=== PATIENT | female | born 1985 | race Caucasian/White ===

== ENCOUNTER → 2017-03-04 | Outpatient (CLI) | payer BC ==
--- NOTE | 2017-03-04 15:08 | MR ---
EXAMINATION TYPE: MR Cspine/Tspine wo con DATE OF EXAM: 03/04/2017 11:29 AM COMPARISON: 02/06/2016 HISTORY: 31 year-old female with thoracic spine pain, cervical spine disc disorder, tingling and numb ness for 2 months. TECHNIQUE: Multiplanar, multisequence images of the cervical followed by the thoracic spine were obta ined without IV contrast. FINDINGS: CERVICAL SPINE: No craniocervical junction abnormality, predental space widening, or prevertebral soft tissue swellin g. There is reversal of the normal cervical lordosis but with preserved alignment. There is interval mild desiccation of intervertebral discs, mild to moderate at C5-C6. Posterior disc bulges at C4-C5 and C5-C6 are redemonstrated narrowing the spinal canal. Scattered facet and uncovertebral joint degenerative change. No suspicious bone marrow placement. At C2-C3, no spinal canal or neural foraminal stenosis. At C3-C4, there is right-sided uncovertebral joint arthropathy with mild right neuroforaminal stenosi s without spinal canal stenosis. At C4-C5, there is broad-based posterior disc bulge slightly eccentric towards the right with uncover tebral joint and facet degenerative change. This causes mild to moderate spinal canal stenosis, sligh tly improved from prior exam but with persistent mass effect and flattening of the ventral cord. No s ignificant neuroforaminal stenosis. At C5-C6, broad-based disc osteophyte complex with persistent moderate spinal canal stenosis though s lightly improved from prior exam. There is persistent slight flattening of the ventral cord. Uncovert ebral joint and facet degenerative change without significant neural foraminal stenosis. At C6-C7, no significant spinal canal or neural foraminal stenosis. At C7-T1, no spinal canal or neuroforaminal stenosis. No prevertebral or paravertebral soft tissue abnormality. No T2 cord signal abnormality. THORACIC SPINE: Vertebral body heights are preserved and alignment is maintained. Mild degenerative disc disease characterized by variable mild disc desiccation in the mid to lower th oracic spine. More moderate disc desiccation at T6-C7 with minimal disc height loss. Scattered endplate Schmorl's nodes in the lower thoracic spine. At T3-T4, tiny right paracentral protrusion without spinal canal stenosis. At T6-C7, tiny right paracentral protrusion without significant spinal canal stenosis. At T8-T9, there is a prominent right paracentral disc protrusion which abuts and minimally indents th e ventral cord but does not cause significant spinal canal stenosis. At T11-T12, mild diffuse disc bulge minimally narrowing the spinal canal. No significant spinal canal cirrhosis. No significant neuroforaminal narrowing seen at any level. Normal course, caliber, and signal intensity of the thoracic spinal cord. No prevertebral or paravertebral soft tissue abnormality. No suspicious bone marrow replacement. COMBINED IMPRESSION: CERVICAL SPINE: 1. Degenerative disc disease particularly at C4-C5 and C5-C6. Additional scattered mild facet and unc overtebral joint arthropathy. 2. Persistent but slightly improved moderate spinal canal stenosis at C5-C6. Disc material continues to abut and flatten the ventral cord. 3. Improved now residual mild to moderate spinal canal stenosis at C4-C5. Disc material continues to abut and flatten the ventral cord at this level. 4. No myelopathic cord signal abnormality. 5. Changes result in mild right-sided neuroforaminal stenosis at C3-C4. THORACIC SPINE: 1. Mild multilevel degenerative disc disease involving the lower thoracic spine. 2. Small disc protrusions are present. The largest at T8-T9 is in a right paracentral position and mi nimally indents the ventral cord but does not cause any significant spinal canal stenosis. 3. Disc bulge at T11-T12 impresses onto the thecal sac, but again, without significant spinal canal stenosis. 4. No foraminal compromise.
== END | disposition home or self-care (01) ==
LOC: RADMRIMAIN 10:37
PROVIDERS: ATTEND Psychiatry & Neurology Neurology
DX: M48.02 Spinal stenosis, cervical region (principal); M99.71 Connective tissue and disc stenosis of intervertebral foramina of cervical region; M50.321 Other cervical disc degeneration at C4-C5 level; M46.92 Unspecified inflammatory spondylopathy, cervical region; M51.24 Other intervertebral disc displacement, thoracic region; M51.34 Other intervertebral disc degeneration, thoracic region
CPT/HCPCS: 72141; 72146

== ENCOUNTER → 2017-03-17 | Outpatient (CLI) | payer BC ==
[2017-03-17 14:45] LABS: CH 26.1; HCT 39.4 % (34.0-46.0); HDW 2.87; HGB 12.9 gm/dL (11.4-16.0); Hypochromasia Slight; MCH 26.8 pg (25.0-35.0); MCHC 32.8 g/dL (31.0-37.0); MCV 81.8 fL (80.0-100.0); Mean Platelet Volume 7.9; RBC 4.82 m/uL (3.80-5.40); RDW 13.9 % (11.5-15.5); WBC 5.4 k/uL (3.8-10.6)
[2017-03-17 14:54] LABS: Anion Gap 9 mmol/L; Blood Urea Nitrogen 10 mg/dL (7-17); Carbon Dioxide 29 mmol/L (22-30); Chloride 103 mmol/L (98-107); Non-African American GFR(MDRD) >60 (>60 ml/min/1.73 sqM); Potassium 4.4 mmol/L (3.5-5.1); Sodium 141 mmol/L (137-145)
== END | disposition home or self-care (01) ==
LOC: LABWHC1 14:13
PROVIDERS: ATTEND Internal Medicine Interventional Cardiology
DX: R07.9 Chest pain, unspecified (principal)
CPT/HCPCS: 36415; 80051; 82565; 84520; 85027

== ENCOUNTER 2017-03-20 23:16 | Emergency (ER) | payer BC ==
[2017-03-20 23:28] VITALS: RESP 18
[2017-03-21] MEDS ORDERED: ACETAMINOPHEN TAB 500 MG TAB PO STA (00:29)
--- NOTE | 2017-03-21 01:17 | XR ---
EXAM: XR Chest, 2 Views CLINICAL HISTORY: Reason: cough TECHNIQUE: Frontal and lateral views of the chest. COMPARISON: FINDINGS: Lungs: Unremarkable. No consolidation. Pleural space: Unremarkable. No pneumothorax. Heart: Unremarkable. No cardiomegaly. Mediastinum: Unremarkable. Bones/joints: Unremarkable. IMPRESSION: No acute findings or substantial change
[2017-03-21 02:23] LABS: Appearance,Urine Clear (Clear); Bilirubin,Urine Negative (Negative); Glucose,Urine (UA) Negative (Negative); Ketones,Urine Negative (Negative); Leukocyte Esterase,Urine Negative (Negative); Nitrite,Urine Negative (Negative); PH, Urine 6.5 (5.0-8.0); Protein,Urine Trace (Negative); Specific Gravity,Urine 1.019 (1.001-1.035); UA Billing (MACRO vs. MICRO) CHEM; Urobilinogen,Urine <2.0 mg/dL (<2.0)
--- NOTE | 2017-03-21 02:23 | ED ---
General Adult HPI - General Chief complaint: Headache Stated complaint: Headache/Stiff neck Time Seen by Provider: 03/21/17 00:26 Source: patient, RN notes reviewed Mode of arrival: ambulatory Limitations: no limitations - History of Present Illness Initial comments: 31-year-old female presents to the emergency department with a chief complaint of muscle soreness feeling of weakness with fevers. Patient states she's been feeling this way for the past few days. Patient states she became very stiff tonight she developed a mild headache with this so she was concerned. Patient states that she has been taking Motrin and naproxen at home which has given her some improvement to the fever but she still has a muscle soreness. Patient states that she was concerned due to continuing to feel like this so she thought that she should be evaluated. Patient states she is not currently having any other symptoms at this time.Patient denies any recentshortness of breath, chest pain, back pain, abdominal pain, nausea vomiting, numbness or tingling, dysuria or hematuria, constipation or diarrhea, headaches or visual changes, or any other current symptoms. - Related Data Home Medications Medication Instructions Recorded Confirmed ALPRAZolam [Xanax] 0.5 mg PO DAILY 03/17/17 03/17/17 Biotin 5 mg PO DAILY 03/17/17 03/17/17 FLUoxetine HCL [PROzac] 40 mg PO DAILY 03/17/17 03/17/17 Ferrous Sulfate [Iron (65 MG 325 mg PO DAILY 03/17/17 03/17/17 Elemental)] Naproxen Sodium [Aleve] 220 mg PO DAILY PRN 03/17/17 03/17/17 Pnv with Ca,No.72/Iron/FA 1 each PO DAILY 03/17/17 03/17/17 [ Plus Tablet] Allergies Allergy/AdvReac Type Severity Reaction Status Date / Time Penicillins Allergy Rash/Hives Verified 03/20/17 23:28 epinephrine AdvReac Rapid Verified 03/20/17 23:28 Heart Rate Review of Systems ROS Statement: Those systems with pertinent positive or pertinent negative responses have been documented in the HPI. ROS Other: All systems not noted in ROS Statement are negative. 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 History of Any Multi-Drug Resistant Organisms: None Reported Past Surgical History: Section, Tubal Ligation Additional Past Surgical History / Comment(s): liver bx Past Anesthesia/Blood Transfusion Reactions: No Reported Reaction Past Psychological History: Anxiety Smoking Status: Former smoker Past Alcohol Use History: None Reported Additional Past Alcohol Use History / Comment(s): QUIT SMOKING 09/2013 Past Drug Use History: None Reported - Past Family History Father Family Medical History: Coronary Artery Disease (CAD), Diabetes Mellitus General Exam - General Exam Comments Initial Comments: General exam: Alert, active, comfortable in no apparent distress Head: Normocephalic Eyes: Normal reaction of pupils, equal size, normal range of extraocular motion Ears: normal external ear canals, pink tympanic membranes with normal cone of light Nose: clear with pink turbinates Throat: no erythema or exudates with normal sized tonsils Neck: no masses, no nuchal rigidity Chest: no chest wall deformity Lungs: equal air entry with no crackles or wheeze CVS: S1 and S2 normal with no audible mumurs, regular rhythm Abdomen: no hepatosplenomegaly, normal bowel sounds, no guarding or rigidity Spine: no scoliosis or deformity Skin: no rashes Neurological: No focal deficits, tone is normal in all 4 extremities Limitations: no limitations Course Vital Signs 03/20/17 23:25 Temperature 98.2 F Pulse Rate 80 Respiratory 18 Rate Blood Pressure 135/83 O2 Sat by Pulse 97 Oximetry - Reevaluation(s) Reevaluation #1: 03/21/17 03:06 Patient is sleeping in the room and states she is feeling much better. Medical Decision Making - Medical Decision Making 31-year-old female presents emergency Department chief complaint of body aches. At this time patient's workup does appear to be negative. Patient's vital signs have remained stable. Patient has diffuse body soreness including the head and neck shoulders and legs back. This time we discussed patient most likely having a viral like syndrome. We discussed to continue Motrin Tylenol. We did discuss return parameters and follow-up and all the patient's questions. She stated that she understood this plan. At this time she will be discharged home. - Lab Data Lab Results 03/21/17 03/21/17 03/21/17 Range/Units 00:40 00:40 00:40 Urine Color Yellow Urine Appearance Clear (Clear) Urine pH 6.5 (5.0-8.0) Ur Specific [place] 1.019 (1.001-1.035) Urine Protein Trace H (Negative) Urine Glucose (UA) Negative (Negative) Urine Ketones Negative (Negative) Urine Blood Negative (Negative) Urine Nitrite Negative (Negative) Urine Bilirubin Negative (Negative) Urine Urobilinogen <2.0 (<2.0) mg/dL Ur Leukocyte Esterase Negative (Negative) Influenza Type A RNA Not Detected (Not Detectd) Influenza Type B (PCR) Not Detected (Not Detectd) Group A Strep Rapid Negative (Negative) - Radiology Data Radiology results: report reviewed, image reviewed Disposition Clinical Impression: Viral syndrome Disposition: HOME SELF-CARE Condition: Stable Instructions: Viral Syndrome (ED) Additional Instructions: Please use medication as discussed. Please follow up with family doctor if symptoms have not improved over the next two days. Please return to the emergency room if your symptoms increase or worsen or for any other concerns. Referrals: Stephen Nieves III, MD [Primary Care Provider] - 1-2 days Time of Disposition: 03:06
[2017-03-21 03:16] VITALS: BP 118/53; PULSE 98; TEMP 97.7
== END 2017-03-21 03:14 | disposition home or self-care (01) ==
LOC: EC 23:16
DX: B34.9 Viral infection, unspecified (principal); F41.9 Anxiety disorder, unspecified; Z87.891 Personal history of nicotine dependence; Z79.899 Other long term (current) drug therapy; Z88.0 Allergy status to penicillin; Z88.8 Allergy status to other drugs, medicaments and biological substances; Z87.19 Personal history of other diseases of the digestive system
CPT/HCPCS: 71020; 81003; 87081; 87430; 87502; 99284

== ENCOUNTER 2017-03-30 10:40 | Day surgery (SDC) | payer BC ==
[2017-03-27 08:30] VITALS: BMI 42.0
[~2017-03-30 10:40] MED LIST: ALPRAZolam 0.25 MG TAB PO PRN; ALPRAZolam 0.5 MG TAB PO PRN; ASPIRIN 325 MG TAB PO STA; ATORVASTATIN 80 MG TAB PO STA; NITROGLYCERIN SL TABS 0.4 MG TAB SUBLINGUAL PRN; SODIUM CHLORIDE 0.9% 1,000 ML in EMPTY BAG 1 BAG IV ONE
[2017-03-30 11:17] VITALS: RESP 16
[2017-03-30 11:22] LABS: Appearance,Urine Cloudy (Clear); Bilirubin,Urine Negative (Negative); Glucose,Urine (UA) Negative (Negative); Ketones,Urine Negative (Negative); Leukocyte Esterase,Urine Moderate (Negative); Mucus,Urine Occasional /hpf; Nitrite,Urine Negative (Negative); PH, Urine 5.5 (5.0-8.0); Particle Count 11260; Protein,Urine Trace (Negative); RBC,Urine 1 /hpf (0-5); Specific Gravity,Urine 1.017 (1.001-1.035); Squamous Epithelial Cell,Urine 19 /hpf (0-4); UA Billing (MACRO vs. MICRO) MICRO; Urobilinogen,Urine <2.0 mg/dL (<2.0); WBC,Urine 16 /hpf (0-5)
[2017-03-30] MEDS ORDERED: LIDOCAINE 2% INJ 20 MG/ML (20 ML MDV) ONE ×2 (11:44→12:26)
[2017-03-30] MEDS ORDERED: HEPARIN SODIUM PORCINE ONE (11:44)
[2017-03-30] MEDS ORDERED: MIDAZOLAM 2 MG/2 ML VIAL ONE ×2 (11:45→12:25)
[2017-03-30] MEDS ORDERED: VERAPAMIL 2.5 MG/ML 2 ML AMP ONE ×2 (11:46→12:17)
[2017-03-30] MEDS ORDERED: HEPARIN SODIUM 1,000 UNIT/ML VIAL ONE (11:46)
[2017-03-30] MEDS ORDERED: MIDAZOLAM 2 MG/2 ML VIAL IV ONE ×2 (12:00→12:30)
[2017-03-30] MEDS ORDERED: LIDOCAINE 2% INJ 20 MG/ML SQ ONE ×2 (12:06→12:29)
[2017-03-30] MEDS ORDERED: VERAPAMIL SYRINGE (5 MG/10 ML) INTRAARTER ONE (12:08)
[2017-03-30] MEDS ORDERED: RX INFO: IV CONTRAST WAS GIVEN 1 EACH MISC MISCELLANE PRN (12:43)
[2017-03-30] MEDS ORDERED: SODIUM CHLORIDE 0.9% 1,000 ML IV SCH (12:45)
[2017-03-30] MEDS ORDERED: IOHEXOL 350 MG/ML 125ML BOTTLE INJ ONE (12:52)
[2017-03-30 19:48] VITALS: BP 113/57; PULSE 77; TEMP 98
--- NOTE | 2017-03-30 23:25 | CC ---
DATE OF SERVICE: March 30, 2017. Performing physician: Bryn Coates M.D. [employer]. PROCEDURE PERFORMED: Selective right and left coronary angiogram. INDICATION: This is a pleasant 31-year-old female patient who continues to have chest discomfort consistent with unstable angina in spite of maximized medical treatment. The heart catheterization is to rule out any severe underlying CAD. Approach: Right radial artery and right common femoral artery. COMPLICATIONS: None. Level of sedation: Moderate with a sedation length of 38 minutes. PROCEDURE DESCRIPTION: After obtaining informed consent, the patient was brought to the cardiac lab nurse. The right radial artery was cannulated using micropuncture technique. The micropuncture wire passed easily, then I placed 6 Uzbek sheath in the right radial artery. Subsequently, I did give the patient 2 mg of verapamil IA and 3000 units of heparin IV. I did selective right coronary angiogram using JR4 catheter. I tried to advance JL 3.5, and multipurpose through the right radial sheath, but the catheter was stuck by the left elbow. At that point, I decided to go abort the radial approach and go from a femoral approach. Right common femoral artery was cannulated using micropuncture technique. Micropuncture wire passed easily. Then I placed 6 Uzbek sheath in the right common femoral artery. Subsequently, I did selective left coronary angiogram using JL 3.5 catheters. The procedure was completed without any complication. SELECTIVE CORONARY ANGIOGRAM: 1. Right coronary artery is a large-caliber vessel and it is a dominant vessel and it is angiographically normal. It bifurcates distally into PDA and PLV branches; both are angiographically normal. In the midportion gives rise into acute marginal branch, which seems to be normal. 2. The left main is angiographically normal. It bifurcates into the left circumflex and left anterior descending artery. 3. The left circumflex is a large-caliber vessel and nondominant vessel. The left circumflex is angiographically normal. It gives rise into a large first OM branch, which seems to be normal and the second OM branch distally, seems to be normal as well. 4. The LAD is angiographically normal. In the proximal portion gives rise into 2 diagonal branches; to be angiographically normal. The mid and distal becomes tortuous but normal. CONCLUSION: Normal coronary angiogram. POSTPROCEDURE MANAGEMENT: 1. Maximize medical treatment. 2. Follow up with the patient.
== END 2017-03-30 20:20 | disposition home or self-care (01) ==
LOC: CATHCVL 10:40 → 3OBS 12:40 → CATHCVL 20:20
PROVIDERS: ATTEND Internal Medicine Interventional Cardiology
DX: I20.0 Unstable angina (principal); I77.1 Stricture of artery; Z87.891 Personal history of nicotine dependence; I47.1 Supraventricular tachycardia; Z82.49 Family history of ischemic heart disease and other diseases of the circulatory system; Z88.0 Allergy status to penicillin; Z88.8 Allergy status to other drugs, medicaments and biological substances
CPT/HCPCS: 93454; 81001; 81025; 99152; 99153 ×2; C1769 ×4; C1894 ×2; C1887; J2001; J2250; J1644; Q9967

== ENCOUNTER 2017-04-06 16:09 | Emergency (ER) | payer BC ==
[2017-04-06] MEDS ORDERED: SODIUM CHLORIDE 0.9% 1,000 ML IV ONE (17:02)
--- NOTE | 2017-04-06 17:10 | ED ---
General Adult HPI - General Chief complaint: Recheck/Abnormal Lab/Rx Stated complaint: Abnormal Labs Time Seen by Provider: 04/06/17 16:50 Source: patient, RN notes reviewed, old records reviewed Mode of arrival: ambulatory - History of Present Illness Initial comments: 31-year-old female presenting for not feeling well. Patient does have a history of previous liver failure several years ago with extensive workup at [facility]. She states they were never able to confirm a diagnosis for cause of this, but believe it may have been due to diet supplements. She states over the past week she's been feeling generally ill. She states occasional nausea but denies any vomiting. She denies any abdominal pain. She has been following with her primary doctors been following her LFTs which has been elevated. She states she is feeling worse and she came to the ER. She's had some pruritus. She denies any rash. She states she has had some jaundice as well although she states today it seems to be resolved. She also states she' s had ordered colored urine for the past week. Currently being treated for possible UTI with Bactrim. She denies any chest pain or shortness of breath. She denies any fevers or chills. She is not followed up with you have them many years as she has not had any return of symptoms. - Related Data Home Medications Medication Instructions Recorded Confirmed ALPRAZolam [Xanax] 0.5 mg PO DAILY PRN 03/17/17 04/06/17 Ferrous Sulfate [Iron (65 MG 325 mg PO DAILY PRN 03/17/17 04/06/17 Elemental)] FLUoxetine HCL [PROzac] 20 mg PO BID 04/06/17 04/06/17 Sulfamethox-Tmp 800-160Mg [Bactrim 1 tab PO Q12HR 04/06/17 04/06/17 DS 800-160 mg] Allergies Allergy/AdvReac Type Severity Reaction Status Date / Time Penicillins Allergy Rash/Hives Verified 04/06/17 17:44 epinephrine AdvReac Rapid Verified 04/06/17 17:44 Heart Rate Review of Systems ROS Statement: Those systems with pertinent positive or pertinent negative responses have been documented in the HPI. ROS Other: All systems not noted in ROS Statement are negative. Past Medical History Past Medical History: Chest Pain / Angina, Liver Disease Additional Past Medical History / Comment(s): tachycardia, HAD LIVER FAILURE History of Any Multi-Drug Resistant Organisms: None Reported Past Surgical History: Section, Tubal Ligation Additional Past Surgical History / Comment(s): liver bx Past Anesthesia/Blood Transfusion Reactions: No Reported Reaction Past Psychological History: Anxiety Additional Psychological History / Comment(s): very anxious about procedure she' s coming in for Smoking Status: Former smoker Past Alcohol Use History: None Reported Additional Past Alcohol Use History / Comment(s): QUIT SMOKING 09/2013 Past Drug Use History: None Reported - Past Family History Father Family Medical History: Coronary Artery Disease (CAD), Diabetes Mellitus General Exam - General Exam Comments Initial Comments: General: Awake and Alert. No acute distress. Does not appear acutely ill. Obese. Eyes: MAKENZIE, EOM intact. No nystagmus. No scleral icterus. HENT: Atraumatic, normocephalic. Mucous membranes moist. Trachea midline. Neck: The neck is supple, there is no tenderness or JVD. Cardiovascular: Regular rate and rhythm. No murmur, rub, or gallop is appreciated. Distal pulses intact. Respiratory: Lungs are clear to auscultation bilaterally. No wheezes, rales, rhonchi. No respiratory distress. Gastrointestinal: Soft, Nontender. No rebound or guarding. Non-distended. No masses or organomegaly noted. No CVA tenderness. Musculoskeletal: No tenderness. Normal ROM. No gross deformity. No strength deficits. Neurological: A&Ox3. CN II-XII grossly intact, There are no obvious motor or sensory deficits. Coordination appears grossly intact. Speech is normal. Skin: Skin is warm and dry and no rashes or lesions are noted. Psychiatric: Cooperative, appropriate mood & affect, normal judgment. Course Vital Signs 04/06/17 04/06/17 16:21 20:38 Temperature 98.9 F 98.3 F Pulse Rate 94 77 Respiratory 18 16 Rate Blood Pressure 160/72 107/55 O2 Sat by Pulse 97 98 Oximetry EKG Findings - EKG Comments: EKG Findings:: EKG 17:19. Normal sinus rhythm with sinus arrhythmia. Rate 78. UT 142. QRS 90. QT/QTC 402/446. Normal axis. No STEMI. Normal EKG. Medical Decision Making - Medical Decision Making 31-year-old female presenting for evaluation of liver injury. Patient appears stable on initial exam. No abdominal tenderness or evidence of peritonitis on exam. Started on IV fluids. Lab workup ordered. Lab work was stable CBC. LFTs are elevated though appears similar today and downtrending from several days ago. Bilirubin within normal limits, lipase negative. Viral hepatitis panel was negative from earlier today. Abdominal ultrasound with evidence of hepatic steatosis but no acute process. UA without evidence of infection. Patient reevaluated, remained stable. States she is feeling somewhat improved after IV fluids. Updated on results and imaging. Discussed stable findings in the ED at this time. She was offered transfer to [facility]. However had discussion about continued outpatient treatment given her apparent stability at this time. She states she would prefer to go home and follow-up with her PCP. Discussed follow-up in 2 days for repeat LFTs to continue to trend. Discussed stopping her Bactrim at this time given no evidence of UTI. Discussed avoiding new medications or supplements. Discussed concerning signs symptoms really return to the ED. Discussed recommendation to follow-up at [facility] hepatology. - Lab Data Result diagrams: 04/06/17 17:07 04/06/17 17:07 Lab Results 04/06/17 04/06/17 04/06/17 Range/Units 17:07 17:07 17:07 WBC 5.9 (3.8-10.6) k/uL RBC 4.89 (3.80-5.40) m/uL Hgb 13.1 (11.4-16.0) gm/dL Hct 41.4 (34.0-46.0) % MCV 84.6 (80.0-100.0) fL MCH 26.7 (25.0-35.0) pg MCHC 31.6 (31.0-37.0) g/dL RDW 16.2 H (11.5-15.5) % Plt Count 189 (150-450) k/uL Neutrophils % 57 % Lymphocytes % 31 % Monocytes % 6 % Eosinophils % 3 % Basophils % 1 % Neutrophils # 3.4 (1.3-7.7) k/uL Lymphocytes # 1.8 (1.0-4.8) k/uL Monocytes # 0.4 (0-1.0) k/uL Eosinophils # 0.2 (0-0.7) k/uL Basophils # 0.0 (0-0.2) k/uL Hypochromasia Slight Anisocytosis Slight Sodium 138 (137-145) mmol/L Potassium 4.2 (3.5-5.1) mmol/L Chloride 104 (98-107) mmol/L Carbon Dioxide 25 (22-30) mmol/L Anion Gap 9 mmol/L BUN 11 (7-17) mg/dL Creatinine 0.75 (0.52-1.04) mg/dL Est GFR (MDRD) Af Amer >60 (>60 ml/min/1.73 sqM) Est GFR (MDRD) Non-Af >60 (>60 ml/min/1.73 sqM) Glucose 152 H (74-99) mg/dL Plasma Lactic Acid Lance (0.7-2.0) mmol/L Calcium 9.3 (8.4-10.2) mg/dL Total Bilirubin 1.2 (0.2-1.3) mg/dL AST 733 H (14-36) U/L ALT 1179 H (9-52) U/L Alkaline Phosphatase 115 (38-126) U/L Total Protein 7.0 (6.3-8.2) g/dL Albumin 3.6 (3.5-5.0) g/dL Lipase 224 (23-300) U/L Urine Color Urine Appearance (Clear) Urine pH (5.0-8.0) Ur Specific [place] (1.001-1.035) Urine Protein (Negative) Urine Glucose (UA) (Negative) Urine Ketones (Negative) Urine Blood (Negative) Urine Nitrite (Negative) Urine Bilirubin (Negative) Urine Urobilinogen (<2.0) mg/dL Ur Leukocyte Esterase (Negative) Urine RBC (0-5) /hpf Urine WBC (0-5) /hpf Ur Squamous Epith Cells (0-4) /hpf Amorphous Sediment (None) /hpf Urine Mucus (None) /hpf Urine Opiates Screen Not Detected (NotDetected) Ur Oxycodone Screen Not Detected (NotDetected) Urine Methadone Screen Not Detected (NotDetected) Ur Propoxyphene Screen Not Detected (NotDetected) Ur Barbiturates Screen Not Detected (NotDetected) U Tricyclic Antidepress Not Detected (NotDetected) Ur Phencyclidine Scrn Not Detected (NotDetected) Ur Amphetamines Screen Not Detected (NotDetected) U Methamphetamines Scrn Not Detected (NotDetected) U Benzodiazepines Scrn Detected H (NotDetected) Urine Cocaine Screen Not Detected (NotDetected) U Marijuana (THC) Screen Not Detected (NotDetected) 04/06/17 04/06/17 Range/Units 17:07 17:07 WBC (3.8-10.6) k/uL RBC (3.80-5.40) m/uL Hgb (11.4-16.0) gm/dL Hct (34.0-46.0) % MCV (80.0-100.0) fL MCH (25.0-35.0) pg MCHC (31.0-37.0) g/dL RDW (11.5-15.5) % Plt Count (150-450) k/uL Neutrophils % % Lymphocytes % % Monocytes % % Eosinophils % % Basophils % % Neutrophils # (1.3-7.7) k/uL Lymphocytes # (1.0-4.8) k/uL Monocytes # (0-1.0) k/uL Eosinophils # (0-0.7) k/uL Basophils # (0-0.2) k/uL Hypochromasia Anisocytosis Sodium (137-145) mmol/L Potassium (3.5-5.1) mmol/L Chloride (98-107) mmol/L Carbon Dioxide (22-30) mmol/L Anion Gap mmol/L BUN (7-17) mg/dL Creatinine (0.52-1.04) mg/dL Est GFR (MDRD) Af Amer (>60 ml/min/1.73 sqM) Est GFR (MDRD) Non-Af (>60 ml/min/1.73 sqM) Glucose (74-99) mg/dL Plasma Lactic Acid Lance 1.2 (0.7-2.0) mmol/L Calcium (8.4-10.2) mg/dL Total Bilirubin (0.2-1.3) mg/dL AST (14-36) U/L ALT (9-52) U/L Alkaline Phosphatase (38-126) U/L Total Protein (6.3-8.2) g/dL Albumin (3.5-5.0) g/dL Lipase (23-300) U/L Urine Color Yellow Urine Appearance Cloudy H (Clear) Urine pH 6.5 (5.0-8.0) Ur Specific [place] 1.019 (1.001-1.035) Urine Protein Trace H (Negative) Urine Glucose (UA) Negative (Negative) Urine Ketones Negative (Negative) Urine Blood Large H (Negative) Urine Nitrite Negative (Negative) Urine Bilirubin Negative (Negative) Urine Urobilinogen 2.0 (<2.0) mg/dL Ur Leukocyte Esterase Negative (Negative) Urine RBC >182 H (0-5) /hpf Urine WBC 2 (0-5) /hpf Ur Squamous Epith Cells 1 (0-4) /hpf Amorphous Sediment Few H (None) /hpf Urine Mucus Rare H (None) /hpf Urine Opiates Screen (NotDetected) Ur Oxycodone Screen (NotDetected) Urine Methadone Screen (NotDetected) Ur Propoxyphene Screen (NotDetected) Ur Barbiturates Screen (NotDetected) U Tricyclic Antidepress (NotDetected) Ur Phencyclidine Scrn (NotDetected) Ur Amphetamines Screen (NotDetected) U Methamphetamines Scrn (NotDetected) U Benzodiazepines Scrn (NotDetected) Urine Cocaine Screen (NotDetected) U Marijuana (THC) Screen (NotDetected) - EKG Data -: EKG Interpreted by [place] EKG shows normal: sinus rhythm Rate: normal - Radiology Data Radiology results: report reviewed, image reviewed Disposition Clinical Impression: Abnormal LFTs, Hepatic steatosis Disposition: HOME SELF-CARE Condition: Stable Instructions: Non-Alcoholic Fatty Liver Disease (ED) Additional Instructions: Please follow up in 2 days for repeat lab work. Please discuss follow up referral to Hepatology at [facility] and the [facility] with your primary doctor. Referrals: Stephen Nieves III, MD [Primary Care Provider] - 1-2 days Time of Disposition: 20:40
[2017-04-06 17:32] LABS: Anisocytosis Slight; Basophils % (A) 1 %; CH 26.3; CHCM 31.2; Eosinophils # (A) 0.2 k/uL (0-0.7); Eosinophils % (A) 3 %; HCT 41.4 % (34.0-46.0); HGB 13.1 gm/dL (11.4-16.0); Hypochromasia Slight; Luc # (Auto) 0.16; Luc % (Auto) 3; Lymphocytes # (A) 1.8 k/uL (1.0-4.8); Lymphocytes % (A) 31 %; MCH 26.7 pg (25.0-35.0); MCHC 31.6 g/dL (31.0-37.0); MCV 84.6 fL (80.0-100.0); Mean Platelet Volume 8.7; Monocytes # (A) 0.4 k/uL (0-1.0); Monocytes % (A) 6 %; Neutrophils # (A) 3.4 k/uL (1.3-7.7); Neutrophils % (A) 57 %; RBC 4.89 m/uL (3.80-5.40); RDW 16.2 % (11.5-15.5); WBC 5.9 k/uL (3.8-10.6); WBC (Perox) 5.66
[2017-04-06 17:41] LABS: AST 733 U/L (14-36); Alkaline Phosphatase 115 U/L (38-126); Anion Gap 9 mmol/L; Blood Urea Nitrogen 11 mg/dL (7-17); Calcium 9.3 mg/dL (8.4-10.2); Carbon Dioxide 25 mmol/L (22-30); Chloride 104 mmol/L (98-107); Glucose 152 mg/dL (74-99); Non-African American GFR(MDRD) >60 (>60 ml/min/1.73 sqM); Potassium 4.2 mmol/L (3.5-5.1); Sodium 138 mmol/L (137-145); Total Bilirubin 1.2 mg/dL (0.2-1.3)
[2017-04-06 17:43] LABS: Amorphous Sediment,Urine Few /hpf; Appearance,Urine Cloudy (Clear); Bilirubin,Urine Negative (Negative); Glucose,Urine (UA) Negative (Negative); Ketones,Urine Negative (Negative); Leukocyte Esterase,Urine Negative (Negative); Mucus,Urine Rare /hpf; Nitrite,Urine Negative (Negative); PH, Urine 6.5 (5.0-8.0); Particle Count 4995; Protein,Urine Trace (Negative); RBC,Urine >182 /hpf (0-5); Specific Gravity,Urine 1.019 (1.001-1.035); Squamous Epithelial Cell,Urine 1 /hpf (0-4); UA Billing (MACRO vs. MICRO) MICRO; WBC,Urine 2 /hpf (0-5)
[2017-04-06 17:58] LABS: ALT 1179 U/L (9-52)
--- NOTE | 2017-04-06 19:50 | US ---
EXAMINATION TYPE: US abdomen complete DATE OF EXAM: 04/06/2017 7:37 PM COMPARISON: US in PACS CLINICAL HISTORY: Pain. Elevated liver enzymes, Nausea EXAM MEASUREMENTS: Liver Length: 13.7 cm Gallbladder Wall: 0.2 cm CBD: 0.3 cm Spleen: 11.4 cm Right Kidney: 10.6 x 4.5 x 5.7 cm Left Kidney: 11.8 x 6.0 x 5.4 cm Pancreas: Obscured by bowel gas, visualized portions show no mass Liver: Heterogeneous echotexture as the portal triads are ill-defined but the hemidiaphragm is well visualized. This limits evaluation for hepatic masses. Gallbladder: wnl Evidence for sonographic King's sign: No CBD: wnl measuring 3 mm as visualized, distal portion obscured by bowel gas Spleen: wnl Right Kidney: No hydronephrosis or masses seen Left Kidney: No hydronephrosis or masses seen Upper IVC: wnl Abd Aorta: wnl IMPRESSION: Mildly coarsened heterogenous hepatic echotexture which most commonly relates to hepatic steatosis although other hepatocellular diseases are possible.
[2017-04-06 20:39] VITALS: BP 107/55; PULSE 77; RESP 16; TEMP 98.3
== END 2017-04-06 20:57 | disposition home or self-care (01) ==
LOC: EC 16:09
DX: K76.0 Fatty (change of) liver, not elsewhere classified (principal); R79.89 Other specified abnormal findings of blood chemistry; R11.0 Nausea; F41.9 Anxiety disorder, unspecified; Z87.891 Personal history of nicotine dependence; Z79.899 Other long term (current) drug therapy; Z88.0 Allergy status to penicillin; Z88.8 Allergy status to other drugs, medicaments and biological substances
CPT/HCPCS: 36415; 76700; 80053; 80074; 80076; 80306; 81001; 82977; 83605; 83690; 85025; 93005; 96360; 99284

== ENCOUNTER → 2017-04-06 | Outpatient (CLI) | payer BC ==
[2017-04-06 13:25] LABS: Alkaline Phosphatase 114 U/L (38-126); Bilirubin, Delta 0.9 mg/dL (0.0-0.2); GGT 233 U/L (12-43); Total Bilirubin 1.4 mg/dL (0.2-1.3); Total Protein 7.1 g/dL (6.3-8.2)
[2017-04-06 13:32] LABS: ALT 1244 U/L (9-52); AST 779 U/L (14-36)
[2017-04-06 13:54] LABS: Hepatitis B Surface Ag Index 0.09
[2017-04-06 14:00] LABS: Hepatitis B Core IgM Index 0.03
[2017-04-06 14:12] LABS: Hepatitis C Virus IgG Index 0.02
[2017-04-06 14:16] LABS: Hepatitis C Virus IgG Ab Negative (Negative)
== END | disposition home or self-care (01) ==
LOC: LABWHC1 12:44
PROVIDERS: ATTEND Family Medicine
DX: R94.5 Abnormal results of liver function studies (principal); L29.9 Pruritus, unspecified
CPT/HCPCS: 36415; 80074; 80076; 82977

== ENCOUNTER → 2017-04-08 | Outpatient (CLI) | payer BC ==
[2017-04-08 12:56] LABS: Bilirubin, Delta 0.6 mg/dL (0.0-0.2); Total Bilirubin 0.9 mg/dL (0.2-1.3)
== END | disposition home or self-care (01) ==
LOC: LABWHC1 12:06
PROVIDERS: ATTEND Physician Assistant
DX: R94.5 Abnormal results of liver function studies (principal)
CPT/HCPCS: 36415; 80076

== ENCOUNTER → 2017-04-13 | Outpatient (CLI) | payer BC ==
[2017-04-13 11:15] LABS: Bilirubin, Delta 0.5 mg/dL (0.0-0.2); Total Bilirubin 0.8 mg/dL (0.2-1.3); Total Protein 7.1 g/dL (6.3-8.2)
== END | disposition home or self-care (01) ==
LOC: LABWHC1 10:34
PROVIDERS: ATTEND Family Medicine
DX: R94.5 Abnormal results of liver function studies (principal)
CPT/HCPCS: 36415; 80076

== ENCOUNTER 2017-05-24 02:09 | Emergency (ER) | payer BC ==
[2017-05-24] MEDS ORDERED: MORPHINE SULFATE 4 MG/ML SYRINGE IV STA (02:58)
[2017-05-24] MEDS ORDERED: RX INFO: IV CONTRAST WAS GIVEN 1 EACH MISC MISCELLANE PRN (02:58)
[2017-05-24] MEDS ORDERED: SODIUM CHLORIDE 0.9% 1,000 ML IV STA ×2 (02:58)
[2017-05-24] MEDS ORDERED: PANTOPRAZOLE 40 MG/10 ML VIAL IVP STA (02:58)
--- NOTE | 2017-05-24 02:59 | ED ---
General Adult HPI - General Chief complaint: Abdominal Pain Stated complaint: ABD PAIN Time Seen by Provider: 05/24/17 02:58 Source: patient, RN notes reviewed, old records reviewed Mode of arrival: ambulatory Limitations: no limitations - History of Present Illness Initial comments: This is a 31-year-old female here for evaluation of right lower quadrant abdominal pain. Patient coming in today for 1 hour sudden onset right lower quadrant bowel pain radiating to right subpubic area in the groin area. Mild nausea, patient did eat tonight without difficulty. Pain was sudden in onset, no fevers. No diarrhea. No sick contacts or travel history. Prior issues of similar pain. Patient does have history of kidney stones. - Related Data Home Medications Medication Instructions Recorded Confirmed ALPRAZolam [Xanax] 0.5 mg PO DAILY PRN 03/17/17 05/24/17 Allergies Allergy/AdvReac Type Severity Reaction Status Date / Time Penicillins Allergy Rash/Hives Verified 04/06/17 17:44 epinephrine AdvReac Rapid Verified 04/06/17 17:44 Heart Rate Review of Systems ROS Statement: Those systems with pertinent positive or pertinent negative responses have been documented in the HPI. ROS Other: All systems not noted in ROS Statement are negative. Past Medical History Past Medical History: Chest Pain / Angina, Liver Disease Additional Past Medical History / Comment(s): tachycardia, HAD LIVER FAILURE History of Any Multi-Drug Resistant Organisms: None Reported Past Surgical History: Section, Tubal Ligation Additional Past Surgical History / Comment(s): liver bx Past Anesthesia/Blood Transfusion Reactions: No Reported Reaction Past Psychological History: Anxiety, Depression Smoking Status: Former smoker Past Alcohol Use History: Rare Past Drug Use History: None Reported - Past Family History Father Family Medical History: Coronary Artery Disease (CAD), Diabetes Mellitus General Exam Limitations: no limitations General appearance: alert, in no apparent distress Head exam: Present: atraumatic, normocephalic, normal inspection Eye exam: Present: normal appearance, PERRL, EOMI. Absent: scleral icterus, conjunctival injection, periorbital swelling ENT exam: Present: normal exam, mucous membranes moist Neck exam: Present: normal inspection. Absent: tenderness, meningismus, lymphadenopathy Respiratory exam: Present: normal lung sounds bilaterally. Absent: respiratory distress, wheezes, rales, rhonchi, stridor Cardiovascular Exam: Present: regular rate, normal rhythm, normal heart sounds. Absent: systolic murmur, diastolic murmur, rubs, gallop, clicks GI/Abdominal exam: Present: soft, normal bowel sounds. Absent: distended, tenderness, guarding, rebound, rigid Extremities exam: Present: normal inspection, full ROM, normal capillary refill. Absent: tenderness, pedal edema, joint swelling, calf tenderness Back exam: Present: normal inspection Neurological exam: Present: alert, oriented X3, CN II-XII intact Psychiatric exam: Present: normal affect, normal mood Skin exam: Present: warm, dry, intact, normal color. Absent: rash Course Vital Signs 05/24/17 05/24/17 05/24/17 02:46 03:17 03:45 Temperature 98.6 F Pulse Rate 58 L 76 76 Respiratory 18 16 16 Rate Blood Pressure 125/58 114/56 125/65 O2 Sat by Pulse 97 98 98 Oximetry 05/24/17 05:07 Temperature 97.6 F Pulse Rate 69 Respiratory 16 Rate Blood Pressure 121/70 O2 Sat by Pulse 98 Oximetry Medical Decision Making - Medical Decision Making 2 to female here with abdominal pain and right groin, positive kidney stone right ureterolithiasis with mild [place], patient to be given pain control given discharge - Lab Data Result diagrams: 05/24/17 03:10 05/24/17 03:10 Lab Results 05/24/17 05/24/17 05/24/17 Range/Units 03:03 03:03 03:10 WBC (3.8-10.6) k/uL RBC (3.80-5.40) m/uL Hgb (11.4-16.0) gm/dL Hct (34.0-46.0) % MCV (80.0-100.0) fL MCH (25.0-35.0) pg MCHC (31.0-37.0) g/dL RDW (11.5-15.5) % Plt Count (150-450) k/uL Neutrophils % % Lymphocytes % % Monocytes % % Eosinophils % % Basophils % % Neutrophils # (1.3-7.7) k/uL Lymphocytes # (1.0-4.8) k/uL Monocytes # (0-1.0) k/uL Eosinophils # (0-0.7) k/uL Basophils # (0-0.2) k/uL Sodium 139 (137-145) mmol/L Potassium 3.9 (3.5-5.1) mmol/L Chloride 107 (98-107) mmol/L Carbon Dioxide 22 (22-30) mmol/L Anion Gap 10 mmol/L BUN 12 (7-17) mg/dL Creatinine 0.70 (0.52-1.04) mg/dL Est GFR (MDRD) Af Amer >60 (>60 ml/min/1.73 sqM) Est GFR (MDRD) Non-Af >60 (>60 ml/min/1.73 sqM) Glucose 119 H (74-99) mg/dL Plasma Lactic Acid Lance (0.7-2.0) mmol/L Calcium 9.4 (8.4-10.2) mg/dL Total Bilirubin 0.3 (0.2-1.3) mg/dL AST 28 (14-36) U/L ALT 41 (9-52) U/L Alkaline Phosphatase 64 (38-126) U/L Total Protein 6.6 (6.3-8.2) g/dL Albumin 3.7 (3.5-5.0) g/dL Amylase 43 (30-110) U/L Lipase 177 (23-300) U/L Urine Color Light Yellow Urine Appearance Cloudy H (Clear) Urine pH 7.0 (5.0-8.0) Ur Specific [place] 1.012 (1.001-1.035) Urine Protein Trace H (Negative) Urine Glucose (UA) Negative (Negative) Urine Ketones Negative (Negative) Urine Blood Large H (Negative) Urine Nitrite Negative (Negative) Urine Bilirubin Negative (Negative) Urine Urobilinogen <2.0 (<2.0) mg/dL Ur Leukocyte Esterase Negative (Negative) Urine RBC 7 H (0-5) /hpf Urine WBC 7 H (0-5) /hpf Ur Squamous Epith Cells 8 H (0-4) /hpf Amorphous Sediment Rare H (None) /hpf Urine Bacteria Rare H (None) /hpf Urine Mucus Rare H (None) /hpf Urine HCG, Qual Not Detected (Not Detectd) 05/24/17 05/24/17 Range/Units 03:10 03:10 WBC 7.5 (3.8-10.6) k/uL RBC 4.61 (3.80-5.40) m/uL Hgb 12.7 (11.4-16.0) gm/dL Hct 37.4 (34.0-46.0) % MCV 81.0 D (80.0-100.0) fL MCH 27.5 (25.0-35.0) pg MCHC 33.9 (31.0-37.0) g/dL RDW 14.9 (11.5-15.5) % Plt Count 179 (150-450) k/uL Neutrophils % 66 % Lymphocytes % 23 % Monocytes % 7 % Eosinophils % 2 % Basophils % 0 % Neutrophils # 4.9 (1.3-7.7) k/uL Lymphocytes # 1.7 (1.0-4.8) k/uL Monocytes # 0.5 (0-1.0) k/uL Eosinophils # 0.2 (0-0.7) k/uL Basophils # 0.0 (0-0.2) k/uL Sodium (137-145) mmol/L Potassium (3.5-5.1) mmol/L Chloride (98-107) mmol/L Carbon Dioxide (22-30) mmol/L Anion Gap mmol/L BUN (7-17) mg/dL Creatinine (0.52-1.04) mg/dL Est GFR (MDRD) Af Amer (>60 ml/min/1.73 sqM) Est GFR (MDRD) Non-Af (>60 ml/min/1.73 sqM) Glucose (74-99) mg/dL Plasma Lactic Acid Lance 0.9 (0.7-2.0) mmol/L Calcium (8.4-10.2) mg/dL Total Bilirubin (0.2-1.3) mg/dL AST (14-36) U/L ALT (9-52) U/L Alkaline Phosphatase (38-126) U/L Total Protein (6.3-8.2) g/dL Albumin (3.5-5.0) g/dL Amylase (30-110) U/L Lipase (23-300) U/L Urine Color Urine Appearance (Clear) Urine pH (5.0-8.0) Ur Specific [place] (1.001-1.035) Urine Protein (Negative) Urine Glucose (UA) (Negative) Urine Ketones (Negative) Urine Blood (Negative) Urine Nitrite (Negative) Urine Bilirubin (Negative) Urine Urobilinogen (<2.0) mg/dL Ur Leukocyte Esterase (Negative) Urine RBC (0-5) /hpf Urine WBC (0-5) /hpf Ur Squamous Epith Cells (0-4) /hpf Amorphous Sediment (None) /hpf Urine Bacteria (None) /hpf Urine Mucus (None) /hpf Urine HCG, Qual (Not Detectd) - Radiology Data Radiology results: report reviewed (CT abd pelvis negative for acute disease), image reviewed Disposition Clinical Impression: Right kidney stone Disposition: HOME SELF-CARE Condition: Good Instructions: Kidney Stones (ED) Referrals: Stephen Nieves III, MD [Primary Care Provider] - 1-2 days
[2017-05-24 03:18] VITALS: RESP 16
[2017-05-24 03:34] LABS: ALT 41 U/L (9-52); AST 28 U/L (14-36); Alkaline Phosphatase 64 U/L (38-126); Amylase 43 U/L (30-110); Anion Gap 10 mmol/L; Blood Urea Nitrogen 12 mg/dL (7-17); Calcium 9.4 mg/dL (8.4-10.2); Carbon Dioxide 22 mmol/L (22-30); Chloride 107 mmol/L (98-107); Glucose 119 mg/dL (74-99); Non-African American GFR(MDRD) >60 (>60 ml/min/1.73 sqM); Potassium 3.9 mmol/L (3.5-5.1); Sodium 139 mmol/L (137-145); Total Bilirubin 0.3 mg/dL (0.2-1.3); Total Protein 6.6 g/dL (6.3-8.2)
[2017-05-24 03:40] LABS: Amorphous Sediment,Urine Rare /hpf; Appearance,Urine Cloudy (Clear); Bacteria,Urine Rare /hpf; Bilirubin,Urine Negative (Negative); Glucose,Urine (UA) Negative (Negative); Ketones,Urine Negative (Negative); Leukocyte Esterase,Urine Negative (Negative); Mucus,Urine Rare /hpf; Nitrite,Urine Negative (Negative); Particle Count 4535; Protein,Urine Trace (Negative); RBC,Urine 7 /hpf (0-5); Specific Gravity,Urine 1.012 (1.001-1.035); Squamous Epithelial Cell,Urine 8 /hpf (0-4); UA Billing (MACRO vs. MICRO) MICRO; Urobilinogen,Urine <2.0 mg/dL (<2.0); WBC,Urine 7 /hpf (0-5)
[2017-05-24 04:08] LABS: Basophils % (A) 0 %; CH 27.2; CHCM 33.7; Eosinophils # (A) 0.2 k/uL (0-0.7); Eosinophils % (A) 2 %; HCT 37.4 % (34.0-46.0); HDW 2.86; HGB 12.7 gm/dL (11.4-16.0); Luc # (Auto) 0.15; Luc % (Auto) 2; Lymphocytes # (A) 1.7 k/uL (1.0-4.8); Lymphocytes % (A) 23 %; MCH 27.5 pg (25.0-35.0); MCHC 33.9 g/dL (31.0-37.0); Mean Platelet Volume 8.8; Monocytes # (A) 0.5 k/uL (0-1.0); Monocytes % (A) 7 %; Neutrophils # (A) 4.9 k/uL (1.3-7.7); Neutrophils % (A) 66 %; RBC 4.61 m/uL (3.80-5.40); RDW 14.9 % (11.5-15.5); WBC 7.5 k/uL (3.8-10.6); WBC (Perox) 7.48
[2017-05-24] MEDS ORDERED: KETOROLAC 30 MG/ML 1 ML VIAL IVP STA (05:01)
[2017-05-24] MEDS ORDERED: HYDROmorphone 1 MG/ML 1 ML SYRINGE IVP STA (05:01)
[2017-05-24 05:09] VITALS: BP 121/70; PULSE 69; TEMP 97.6
--- NOTE | 2017-05-24 05:23 | CT ---
EXAM: CT Abdomen and Pelvis Without Intravenous Contrast CLINICAL HISTORY: Reason: abdominal pain TECHNIQUE: Axial computed tomography images of the abdomen and pelvis without intravenous contrast. CTDI is 19.8 mGy and DLP is 1060.5 mGy-cm. This CT exam was performed using one or more of the following dose reduction techniques: automated exposure control, adjustment of the mA and/or kV according to patient size, and/or use of iterative reconstruction technique. COMPARISON: No relevant prior studies available. FINDINGS: Lower thorax: Imaged lung bases demonstrate 4 mm noncalcified subpleural nodule along the lateral aspect of right middle lobe and another approximately 4 mm subpleural pulmonary nodule along the lateral aspect of right lower lobe. There is 3 mm subpleural pulmonary nodule posterior-lateral aspect left lower lobe. Spleen is unremarkable. Probable small accessory splenic nodule along splenic hilum. ABDOMEN: Liver: Mild hepatic fatty infiltration. Gallbladder and bile ducts: No radiopaque gallstones or pericholecystic inflammatory changes. Pancreas: Pancreas is unremarkable. No ductal dilation. Spleen: Unremarkable. No splenomegaly. Adrenals: No adrenal masses Kidneys and ureters: Kidneys are normal size bilaterally. There are small approximately 2-3 mm nonobstructing calculi mid zone right kidney. Moderate right hydronephrosis with approximately 7 x 9 mm obstructing calculus at level of the right ureteropelvic junction. There is mild dilatation of the right ureter, but no other obstructing ureteral calculi identified. No evidence of bladder calculi. No evidence of left renal calculi or hydronephrosis. Stomach and bowel: No evidence of bowel obstruction. No evidence of appendicitis. Appendix: See above. PELVIS: Bladder: Unremarkable. No stones. Reproductive: Unremarkable as visualized. ABDOMEN and PELVIS: Intraperitoneal space: No free air. No significant fluid collection. Bones/joints: No acute bony abnormalities identified. Soft tissues: Unremarkable. Vasculature: Unremarkable. No abdominal aortic aneurysm. Lymph nodes: No abnormal masses or adenopathy identified. IMPRESSION: Mild hepatic fatty infiltration. Small nonobstructing right renal calculi. Moderate right hydronephrosis with obstructing approximately 7 x 9 mm calculus in region of the right ureteropelvic junction. Multiple small bilateral pulmonary nodules which are nonspecific. Short-term CT chest follow-up should be considered.
== END 2017-05-24 05:39 | disposition home or self-care (01) ==
LOC: EC 02:09
DX: N13.2 Hydronephrosis with renal and ureteral calculous obstruction (principal); Z88.0 Allergy status to penicillin; Z88.8 Allergy status to other drugs, medicaments and biological substances; Z87.891 Personal history of nicotine dependence
CPT/HCPCS: 99284; 96374; 96375 ×3; 96361 ×2; 36415; 80053; 82150; 83605; 83690; 85025; 81001; 81025; 87086; 74176; J2270; J1885; J1170; C9113

== ENCOUNTER 2017-06-17 11:45 | Emergency (ER) | payer BC ==
[2017-06-17 13:23] LABS: Appearance,Urine Cloudy (Clear); Bacteria,Urine Moderate /hpf; Bilirubin,Urine Negative (Negative); Glucose,Urine (UA) Negative (Negative); Ketones,Urine Negative (Negative); Leukocyte Esterase,Urine Large (Negative); Mucus,Urine Rare /hpf; Nitrite,Urine Negative (Negative); Particle Count 17055; Protein,Urine 1+ (Negative); RBC,Urine 14 /hpf (0-5); Specific Gravity,Urine 1.018 (1.001-1.035); Squamous Epithelial Cell,Urine 6 /hpf (0-4); UA Billing (MACRO vs. MICRO) MICRO; Urobilinogen,Urine <2.0 mg/dL (<2.0); WBC,Urine >182 /hpf (0-5)
[2017-06-17] MEDS ORDERED: SODIUM CHLORIDE 0.9% 500 ML IV STA (13:51)
[2017-06-17] MEDS ORDERED: ONDANSETRON 4 MG/2 ML VIAL IVP STA (13:51)
[2017-06-17] MEDS ORDERED: SODIUM CHLORIDE 0.9% 1,000 ML IV STA (13:51)
[2017-06-17] MEDS ORDERED: cefTRIAXone 2,000 MG in SODIUM CHLORIDE 0.9% 100 ML IVPB STA (13:53)
--- NOTE | 2017-06-17 13:57 | ED ---
General Adult HPI - General Chief complaint: Neck Pain/Injury Stated complaint: PAIN ALL OVER, VOMITING Time Seen by Provider: 06/17/17 13:46 Source: patient, RN notes reviewed Mode of arrival: ambulatory Limitations: no limitations - History of Present Illness Initial comments: 31-year-old female presented emergency Department chief complaint of dysuria, body aches fevers chills. Patient states started last few days states she had severe shaking and chills last night. Patient states that she has had some burning with urination last few days and also has had vomiting since last night. Patient states she hurts head to toe. Patient denies any chest pain or shortness breath at this time. She states that she has a history of tachycardia in which she is sick she feels that her heart races. Patient denies any shortness of breath, blurred vision, focal weakness, vaginal bleeding or vaginal discharge. - Related Data Home Medications Medication Instructions Recorded Confirmed ALPRAZolam [Xanax] 0.5 mg PO DAILY PRN 03/17/17 06/17/17 Albuterol Sulfate [Proair Hfa] 1 puff INHALATION RT-Q6H PRN 06/17/17 06/17/17 Ibuprofen [Motrin] 800 mg PO DAILY PRN 06/17/17 06/17/17 Previous Rx's Medication Instructions Recorded HYDROcodone/APAP 5-325MG [[place] 1 tab PO Q6HR PRN #30 tab 05/24/17 5-325] Naproxen [Naprosyn] 500 mg PO Q12HR #30 tab 05/24/17 Levofloxacin [Levaquin] 500 mg PO DAILY #10 tab 06/17/17 Ondansetron Odt [Zofran Odt] 4 mg PO Q8HR PRN #10 tab 06/17/17 Allergies Allergy/AdvReac Type Severity Reaction Status Date / Time morphine Allergy Unknown Verified 06/17/17 14:25 Penicillins Allergy Rash/Hives Verified 06/17/17 14:25 epinephrine AdvReac Rapid Verified 06/17/17 14:25 Heart Rate Review of Systems ROS Statement: Those systems with pertinent positive or pertinent negative responses have been documented in the HPI. ROS Other: All systems not noted in ROS Statement are negative. Past Medical History Past Medical History: Chest Pain / Angina, Liver Disease Additional Past Medical History / Comment(s): tachycardia, HAD LIVER FAILURE, kidney stones. History of Any Multi-Drug Resistant Organisms: None Reported Past Surgical History: Section, Tubal Ligation Additional Past Surgical History / Comment(s): liver bx Past Anesthesia/Blood Transfusion Reactions: No Reported Reaction Past Psychological History: Anxiety, Depression Smoking Status: Former smoker Past Alcohol Use History: Rare Past Drug Use History: None Reported - Past Family History Father Family Medical History: Coronary Artery Disease (CAD), Diabetes Mellitus General Exam Limitations: no limitations General appearance: alert, in no apparent distress Head exam: Present: atraumatic, normocephalic, normal inspection Eye exam: Present: normal appearance, PERRL, EOMI. Absent: scleral icterus, conjunctival injection, periorbital swelling ENT exam: Present: normal exam, mucous membranes moist Neck exam: Present: normal inspection, full ROM. Absent: tenderness, meningismus, lymphadenopathy Respiratory exam: Present: normal lung sounds bilaterally. Absent: respiratory distress, wheezes, rales, rhonchi, stridor Cardiovascular Exam: Present: regular rate, normal rhythm, normal heart sounds. Absent: systolic murmur, diastolic murmur, rubs, gallop, clicks GI/Abdominal exam: Present: soft, tenderness (Mild suprapubic tenderness), normal bowel sounds. Absent: distended, guarding, rebound, rigid Back exam: Present: CVA tenderness (R). Absent: CVA tenderness (L) Skin exam: Present: warm, dry, intact, normal color. Absent: rash Course Vital Signs 06/17/17 06/17/17 06/17/17 12:29 14:00 14:32 Temperature 99.2 F 100.0 F H Pulse Rate 91 70 Respiratory 18 16 Rate Blood Pressure 115/59 149/94 O2 Sat by Pulse 99 100 Oximetry 06/17/17 06/17/17 06/17/17 14:39 15:02 15:33 Temperature 100.0 F H 99.6 F Pulse Rate 99 99 97 Respiratory 20 16 16 Rate Blood Pressure 153/71 162/64 134/62 O2 Sat by Pulse 100 100 100 Oximetry Medical Decision Making - Medical Decision Making 31-year-old female presented for dysuria fever or chills. Patient states she does feel slightly improved at this time. Patient's white count is slightly elevated those as expected with a UTI pyelonephritis. Patient does not have any meningismus. Patient will be discharged on ciprofloxacin return parameters were discussed. - Lab Data Result diagrams: 06/17/17 13:31 06/17/17 13:31 Lab Results 06/17/17 06/17/17 06/17/17 Range/Units 12:52 13:31 13:31 WBC 16.5 H (3.8-10.6) k/uL RBC 4.72 (3.80-5.40) m/uL Hgb 12.9 (11.4-16.0) gm/dL Hct 39.0 (34.0-46.0) % MCV 82.6 (80.0-100.0) fL MCH 27.4 (25.0-35.0) pg MCHC 33.1 (31.0-37.0) g/dL RDW 15.3 (11.5-15.5) % Plt Count 180 (150-450) k/uL Neutrophils % 94 % Lymphocytes % 4 % Monocytes % 2 % Eosinophils % 0 % Basophils % 0 % Neutrophils # 15.5 H (1.3-7.7) k/uL Lymphocytes # 0.6 L (1.0-4.8) k/uL Monocytes # 0.3 (0-1.0) k/uL Eosinophils # 0.0 (0-0.7) k/uL Basophils # 0.0 (0-0.2) k/uL Sodium 139 (137-145) mmol/L Potassium 4.0 (3.5-5.1) mmol/L Chloride 106 (98-107) mmol/L Carbon Dioxide 24 (22-30) mmol/L Anion Gap 9 mmol/L BUN 14 (7-17) mg/dL Creatinine 0.78 (0.52-1.04) mg/dL Est GFR (MDRD) Af Amer >60 (>60 ml/min/1.73 sqM) Est GFR (MDRD) Non-Af >60 (>60 ml/min/1.73 sqM) Glucose 110 H (74-99) mg/dL Plasma Lactic Acid Lance (0.7-2.0) mmol/L Calcium 9.3 (8.4-10.2) mg/dL Total Bilirubin 0.5 (0.2-1.3) mg/dL AST 26 (14-36) U/L ALT 37 (9-52) U/L Alkaline Phosphatase 53 (38-126) U/L Total Protein 6.5 (6.3-8.2) g/dL Albumin 3.5 (3.5-5.0) g/dL Amylase <30 L (30-110) U/L Lipase 46 (23-300) U/L Urine Color Yellow Urine Appearance Cloudy H (Clear) Urine pH 6.0 (5.0-8.0) Ur Specific [place] 1.018 (1.001-1.035) Urine Protein 1+ H (Negative) Urine Glucose (UA) Negative (Negative) Urine Ketones Negative (Negative) Urine Blood Moderate H (Negative) Urine Nitrite Negative (Negative) Urine Bilirubin Negative (Negative) Urine Urobilinogen <2.0 (<2.0) mg/dL Ur Leukocyte Esterase Large H (Negative) Urine RBC 14 H (0-5) /hpf Urine WBC >182 H (0-5) /hpf Urine WBC Clumps Many H (None) /hpf Ur Squamous Epith Cells 6 H (0-4) /hpf Urine Bacteria Moderate H (None) /hpf Urine Mucus Rare H (None) /hpf 06/17/17 Range/Units 14:09 WBC (3.8-10.6) k/uL RBC (3.80-5.40) m/uL Hgb (11.4-16.0) gm/dL Hct (34.0-46.0) % MCV (80.0-100.0) fL MCH (25.0-35.0) pg MCHC (31.0-37.0) g/dL RDW (11.5-15.5) % Plt Count (150-450) k/uL Neutrophils % % Lymphocytes % % Monocytes % % Eosinophils % % Basophils % % Neutrophils # (1.3-7.7) k/uL Lymphocytes # (1.0-4.8) k/uL Monocytes # (0-1.0) k/uL Eosinophils # (0-0.7) k/uL Basophils # (0-0.2) k/uL Sodium (137-145) mmol/L Potassium (3.5-5.1) mmol/L Chloride (98-107) mmol/L Carbon Dioxide (22-30) mmol/L Anion Gap mmol/L BUN (7-17) mg/dL Creatinine (0.52-1.04) mg/dL Est GFR (MDRD) Af Amer (>60 ml/min/1.73 sqM) Est GFR (MDRD) Non-Af (>60 ml/min/1.73 sqM) Glucose (74-99) mg/dL Plasma Lactic Acid Lance 1.5 (0.7-2.0) mmol/L Calcium (8.4-10.2) mg/dL Total Bilirubin (0.2-1.3) mg/dL AST (14-36) U/L ALT (9-52) U/L Alkaline Phosphatase (38-126) U/L Total Protein (6.3-8.2) g/dL Albumin (3.5-5.0) g/dL Amylase (30-110) U/L Lipase (23-300) U/L Urine Color Urine Appearance (Clear) Urine pH (5.0-8.0) Ur Specific [place] (1.001-1.035) Urine Protein (Negative) Urine Glucose (UA) (Negative) Urine Ketones (Negative) Urine Blood (Negative) Urine Nitrite (Negative) Urine Bilirubin (Negative) Urine Urobilinogen (<2.0) mg/dL Ur Leukocyte Esterase (Negative) Urine RBC (0-5) /hpf Urine WBC (0-5) /hpf Urine WBC Clumps (None) /hpf Ur Squamous Epith Cells (0-4) /hpf Urine Bacteria (None) /hpf Urine Mucus (None) /hpf Disposition Clinical Impression: Pyelonephritis, Nausea & vomiting Disposition: HOME SELF-CARE Condition: Stable Instructions: Kidney Infection (ED) Additional Instructions: Please return to the Emergency Department if symptoms worsen or any other concerns. Prescriptions: Levofloxacin [Levaquin] 500 mg PO DAILY #10 tab Ondansetron Odt [Zofran Odt] 4 mg PO Q8HR PRN #10 tab PRN Reason: Nausea Referrals: Stephen Nieves III, MD [Primary Care Provider] - 1-2 days
[2017-06-17 14:02] LABS: Basophils % (A) 0 %; CH 27.5; CHCM 33.4; Eosinophils % (A) 0 %; HDW 2.82; HGB 12.9 gm/dL (11.4-16.0); Luc # (Auto) 0.06; Luc % (Auto) 0; Lymphocytes # (A) 0.6 k/uL (1.0-4.8); Lymphocytes % (A) 4 %; MCH 27.4 pg (25.0-35.0); MCHC 33.1 g/dL (31.0-37.0); MCV 82.6 fL (80.0-100.0); Mean Platelet Volume 8.8; Monocytes # (A) 0.3 k/uL (0-1.0); Monocytes % (A) 2 %; Neutrophils # (A) 15.5 k/uL (1.3-7.7); Neutrophils % (A) 94 %; RBC 4.72 m/uL (3.80-5.40); RDW 15.3 % (11.5-15.5); WBC 16.5 k/uL (3.8-10.6); WBC (Perox) 15.74
[2017-06-17 14:16] LABS: ALT 37 U/L (9-52); AST 26 U/L (14-36); Alkaline Phosphatase 53 U/L (38-126); Amylase <30 U/L (30-110); Anion Gap 9 mmol/L; Blood Urea Nitrogen 14 mg/dL (7-17); Calcium 9.3 mg/dL (8.4-10.2); Carbon Dioxide 24 mmol/L (22-30); Chloride 106 mmol/L (98-107); Glucose 110 mg/dL (74-99); Non-African American GFR(MDRD) >60 (>60 ml/min/1.73 sqM); Sodium 139 mmol/L (137-145); Total Bilirubin 0.5 mg/dL (0.2-1.3); Total Protein 6.5 g/dL (6.3-8.2)
[2017-06-17] MEDS ORDERED: ACETAMINOPHEN TAB 500 MG TAB PO STA (14:51)
[2017-06-17] MEDS ORDERED: KETOROLAC 30 MG/ML 1 ML VIAL IVP STA (14:51)
[2017-06-17 15:03] VITALS: RESP 16
[2017-06-17 15:36] VITALS: BP 134/62; PULSE 97; TEMP 99.6
== END 2017-06-17 15:55 | disposition home or self-care (01) ==
LOC: EC 11:45
DX: N12 Tubulo-interstitial nephritis, not specified as acute or chronic (principal); Z87.891 Personal history of nicotine dependence; Z88.5 Allergy status to narcotic agent; Z88.0 Allergy status to penicillin; Z88.8 Allergy status to other drugs, medicaments and biological substances
CPT/HCPCS: 96375 ×3; 96365 ×2; 99284 ×2; 36415; 93005; 80053; 82150; 83605; 83690; 85025; 81001; 87040; 87077; 87186; J2405; J0696; J1885

== ENCOUNTER 2017-06-19 13:24 | Inpatient (IN) | payer BC ==
[2017-06-19] MEDS ORDERED: KETOROLAC 30 MG/ML 1 ML VIAL IVP STA (14:18)
[2017-06-19] MEDS ORDERED: ACETAMINOPHEN TAB 325 MG TAB PO STA (14:18)
[2017-06-19] MEDS ORDERED: SODIUM CHLORIDE 0.9% 1,000 ML IV ONE (14:18)
[2017-06-19] MEDS: SODIUM CHLORIDE 0.9% 500 ML IV SCH (14:46)
[2017-06-19 14:47] LABS: Amorphous Sediment,Urine Rare /hpf; Appearance,Urine Cloudy (Clear); Bacteria,Urine Rare /hpf; Bilirubin,Urine Negative (Negative); Glucose,Urine (UA) Negative (Negative); Ketones,Urine Negative (Negative); Leukocyte Esterase,Urine Moderate (Negative); Mucus,Urine Rare /hpf; Nitrite,Urine Negative (Negative); PH, Urine 7.5 (5.0-8.0); Particle Count 2128; Protein,Urine Negative (Negative); Specific Gravity,Urine 1.005 (1.001-1.035); Squamous Epithelial Cell,Urine 5 /hpf (0-4); UA Billing (MACRO vs. MICRO) MICRO; Urobilinogen,Urine <2.0 mg/dL (<2.0); WBC,Urine 6 /hpf (0-5)
[2017-06-19 14:52] LABS: Basophils % (A) 0 %; CH 27.3; CHCM 33.2; Eosinophils # (A) 0.2 k/uL (0-0.7); Eosinophils % (A) 5 %; HCT 35.2 % (34.0-46.0); HDW 2.87; HGB 11.7 gm/dL (11.4-16.0); Luc # (Auto) 0.08; Luc % (Auto) 2; Lymphocytes # (A) 0.4 k/uL (1.0-4.8); Lymphocytes % (A) 10 %; MCH 27.6 pg (25.0-35.0); MCHC 33.3 g/dL (31.0-37.0); MCV 82.8 fL (80.0-100.0); Mean Platelet Volume 9.2; Monocytes # (A) 0.2 k/uL (0-1.0); Monocytes % (A) 5 %; Neutrophils % (A) 79 %; RBC 4.25 m/uL (3.80-5.40); RDW 15.5 % (11.5-15.5); WBC 3.8 k/uL (3.8-10.6); WBC (Perox) 3.49
[2017-06-19 14:55] LABS: ALT 32 U/L (9-52); AST 26 U/L (14-36); Alkaline Phosphatase 69 U/L (38-126); Anion Gap 7 mmol/L; Blood Urea Nitrogen 13 mg/dL (7-17); Calcium 8.7 mg/dL (8.4-10.2); Carbon Dioxide 24 mmol/L (22-30); Chloride 106 mmol/L (98-107); Glucose 89 mg/dL (74-99); Non-African American GFR(MDRD) >60 (>60 ml/min/1.73 sqM); Potassium 3.8 mmol/L (3.5-5.1); Sodium 137 mmol/L (137-145); Total Bilirubin 0.3 mg/dL (0.2-1.3); Total Protein 5.9 g/dL (6.3-8.2)
[2017-06-19 15:01] LABS: INR 1.2 (<1.2); Partial Thromboplastin Time 24.8 sec (22.0-30.0); Prothrombin Time 11.5 sec (9.0-12.0)
[2017-06-19] MEDS ORDERED: NALOXONE 0.4 MG/ML 1 ML VIAL IV PRN (15:25)
[2017-06-19] MEDS ORDERED: LEVOFLOXACIN 500MG-D5W PMX 500 MG in DEXTROSE/WATER 1 100ML.BAG IVPB SCH (15:30)
--- NOTE | 2017-06-19 15:35 | ED ---
General Adult HPI - General Chief complaint: Recheck/Abnormal Lab/Rx Stated complaint: Poss Sepsis Time Seen by Provider: 06/19/17 14:05 Source: patient, RN notes reviewed Mode of arrival: ambulatory Limitations: no limitations - History of Present Illness Initial comments: 31-year-old female presents with headache, nausea vomiting, fever chills and bodyaches. Patient was diagnosed with pyelonephritis 2 days ago in the emergency department. At that time blood cultures were obtained. Patient was called with the culture results today which were positive for E. coli. Patient has been taking her Levaquin for the past 48 hours. She still complains of generalized body ache, headache which is improved, and fever at home. She is having significant nausea. No vomiting over the last 24 hours. Still complaining of dysuria. Patient has past medical history of liver failure secondary to weight loss pills. She states she believes this has stabilized and she is not currently undergoing any treatment or evaluation of this. - Related Data Home Medications Medication Instructions Recorded Confirmed ALPRAZolam [Xanax] 0.5 mg PO DAILY PRN 03/17/17 06/19/17 Albuterol Sulfate [Proair Hfa] 1 puff INHALATION RT-Q6H PRN 06/17/17 06/19/17 Ibuprofen [Motrin] 800 mg PO DAILY PRN 06/17/17 06/19/17 Previous Rx's Medication Instructions Recorded HYDROcodone/APAP 5-325MG [[place] 1 tab PO Q6HR PRN #30 tab 05/24/17 5-325] Naproxen [Naprosyn] 500 mg PO Q12HR #30 tab 05/24/17 Levofloxacin [Levaquin] 500 mg PO DAILY #10 tab 06/17/17 Ondansetron Odt [Zofran Odt] 4 mg PO Q8HR PRN #10 tab 06/17/17 Allergies Allergy/AdvReac Type Severity Reaction Status Date / Time morphine Allergy Unknown Verified 06/19/17 14:12 Penicillins Allergy Rash/Hives Verified 06/19/17 14:12 epinephrine AdvReac Rapid Verified 06/19/17 14:12 Heart Rate Review of Systems ROS Statement: Those systems with pertinent positive or pertinent negative responses have been documented in the HPI. ROS Other: All systems not noted in ROS Statement are negative. Past Medical History Past Medical History: Chest Pain / Angina, Liver Disease Additional Past Medical History / Comment(s): tachycardia, HAD LIVER FAILURE, kidney stones. History of Any Multi-Drug Resistant Organisms: None Reported Past Surgical History: Section, Tubal Ligation Additional Past Surgical History / Comment(s): liver bx Past Anesthesia/Blood Transfusion Reactions: No Reported Reaction Past Psychological History: Anxiety, Depression Smoking Status: Former smoker Past Alcohol Use History: Rare Past Drug Use History: None Reported - Past Family History Father Family Medical History: Coronary Artery Disease (CAD), Diabetes Mellitus General Exam Limitations: no limitations General appearance: alert, in no apparent distress Head exam: Present: atraumatic, normocephalic Eye exam: Present: normal appearance, PERRL ENT exam: Present: normal exam, mucous membranes dry Neck exam: Present: normal inspection, full ROM. Absent: meningismus Respiratory exam: Present: normal lung sounds bilaterally. Absent: respiratory distress Cardiovascular Exam: Present: regular rate, normal rhythm GI/Abdominal exam: Present: soft. Absent: distended, tenderness Extremities exam: Present: normal inspection, normal capillary refill. Absent: pedal edema Neurological exam: Present: alert, oriented X3 Psychiatric exam: Present: normal affect, normal mood Skin exam: Present: warm, dry. Absent: rash, cyanosis, diaphoretic Course Vital Signs 06/19/17 13:31 Temperature 99 F Pulse Rate 93 Respiratory 20 Rate Blood Pressure 134/93 O2 Sat by Pulse 100 Oximetry EKG Findings - EKG Comments: EKG Findings:: EKG shows normal sinus rhythm, ventricular is 73, NM interval 142 , QRS duration 86, QTC 436, no ST segment elevation or depression, no T-wave abnormality Medical Decision Making - Medical Decision Making 31-year-old female with recent diagnosis of pyelonephritis, and positive blood culture showing E. coli presents for reevaluation. Patient has been on Levaquin for the past 48 hours. She states she still has fever chills, nausea, headache, blood cultures that were drawn 2 days ago are positive for E. coli which is susceptible to Levaquin. Patient will be admitted for IV antibiotics, fluid hydration, and symptomatic treatment. Laboratory studies from today show normal white blood cell count, urinalysis is negative for signs of infection. There is mild thrombocytopenia. Urinalysis from June 17 is reviewed and is significant for the UTI, and given the patient' s symptoms this is likely pyelonephritis. Diagnosis: Pyelonephritis, bacteremia - Lab Data Result diagrams: 06/19/17 14:13 06/19/17 14:13 Lab Results 06/19/17 06/19/17 06/19/17 Range/Units 14:13 14:13 14:13 WBC 3.8 (3.8-10.6) k/uL RBC 4.25 (3.80-5.40) m/uL Hgb 11.7 (11.4-16.0) gm/dL Hct 35.2 (34.0-46.0) % MCV 82.8 (80.0-100.0) fL MCH 27.6 (25.0-35.0) pg MCHC 33.3 (31.0-37.0) g/dL RDW 15.5 (11.5-15.5) % Plt Count 115 L (150-450) k/uL Neutrophils % 79 % Lymphocytes % 10 % Monocytes % 5 % Eosinophils % 5 % Basophils % 0 % Neutrophils # 3.0 (1.3-7.7) k/uL Lymphocytes # 0.4 L (1.0-4.8) k/uL Monocytes # 0.2 (0-1.0) k/uL Eosinophils # 0.2 (0-0.7) k/uL Basophils # 0.0 (0-0.2) k/uL PT (9.0-12.0) sec INR (<1.2) APTT (22.0-30.0) sec Sodium 137 (137-145) mmol/L Potassium 3.8 (3.5-5.1) mmol/L Chloride 106 (98-107) mmol/L Carbon Dioxide 24 (22-30) mmol/L Anion Gap 7 mmol/L BUN 13 (7-17) mg/dL Creatinine 0.70 (0.52-1.04) mg/dL Est GFR (MDRD) Af Amer >60 (>60 ml/min/1.73 sqM) Est GFR (MDRD) Non-Af >60 (>60 ml/min/1.73 sqM) Glucose 89 (74-99) mg/dL Plasma Lactic Acid Lance 0.8 (0.7-2.0) mmol/L Calcium 8.7 (8.4-10.2) mg/dL Total Bilirubin 0.3 (0.2-1.3) mg/dL AST 26 (14-36) U/L ALT 32 (9-52) U/L Alkaline Phosphatase 69 (38-126) U/L Total Protein 5.9 L (6.3-8.2) g/dL Albumin 3.0 L (3.5-5.0) g/dL Urine Color Urine Appearance (Clear) Urine pH (5.0-8.0) Ur Specific [place] (1.001-1.035) Urine Protein (Negative) Urine Glucose (UA) (Negative) Urine Ketones (Negative) Urine Blood (Negative) Urine Nitrite (Negative) Urine Bilirubin (Negative) Urine Urobilinogen (<2.0) mg/dL Ur Leukocyte Esterase (Negative) Urine WBC (0-5) /hpf Ur Squamous Epith Cells (0-4) /hpf Amorphous Sediment (None) /hpf Urine Bacteria (None) /hpf Urine Mucus (None) /hpf 06/19/17 06/19/17 Range/Units 14:13 14:13 WBC (3.8-10.6) k/uL RBC (3.80-5.40) m/uL Hgb (11.4-16.0) gm/dL Hct (34.0-46.0) % MCV (80.0-100.0) fL MCH (25.0-35.0) pg MCHC (31.0-37.0) g/dL RDW (11.5-15.5) % Plt Count (150-450) k/uL Neutrophils % % Lymphocytes % % Monocytes % % Eosinophils % % Basophils % % Neutrophils # (1.3-7.7) k/uL Lymphocytes # (1.0-4.8) k/uL Monocytes # (0-1.0) k/uL Eosinophils # (0-0.7) k/uL Basophils # (0-0.2) k/uL PT 11.5 (9.0-12.0) sec INR 1.2 H (<1.2) APTT 24.8 (22.0-30.0) sec Sodium (137-145) mmol/L Potassium (3.5-5.1) mmol/L Chloride (98-107) mmol/L Carbon Dioxide (22-30) mmol/L Anion Gap mmol/L BUN (7-17) mg/dL Creatinine (0.52-1.04) mg/dL Est GFR (MDRD) Af Amer (>60 ml/min/1.73 sqM) Est GFR (MDRD) Non-Af (>60 ml/min/1.73 sqM) Glucose (74-99) mg/dL Plasma Lactic Acid Lance (0.7-2.0) mmol/L Calcium (8.4-10.2) mg/dL Total Bilirubin (0.2-1.3) mg/dL AST (14-36) U/L ALT (9-52) U/L Alkaline Phosphatase (38-126) U/L Total Protein (6.3-8.2) g/dL Albumin (3.5-5.0) g/dL Urine Color Light Yellow Urine Appearance Cloudy H (Clear) Urine pH 7.5 (5.0-8.0) Ur Specific [place] 1.005 (1.001-1.035) Urine Protein Negative (Negative) Urine Glucose (UA) Negative (Negative) Urine Ketones Negative (Negative) Urine Blood Negative (Negative) Urine Nitrite Negative (Negative) Urine Bilirubin Negative (Negative) Urine Urobilinogen <2.0 (<2.0) mg/dL Ur Leukocyte Esterase Moderate H (Negative) Urine WBC 6 H (0-5) /hpf Ur Squamous Epith Cells 5 H (0-4) /hpf Amorphous Sediment Rare H (None) /hpf Urine Bacteria Rare H (None) /hpf Urine Mucus Rare H (None) /hpf Disposition Clinical Impression: Pyelonephritis, Bacteremia Disposition: ADMITTED IP TO THIS [facility] Condition: Stable Referrals: Stephen Nieves III, MD [Primary Care Provider] - 1-2 days Decision to Admit Reason: Admit from EC Decision Date: 06/19/17 Decision Time: 15:34
[2017-06-19] MEDS ORDERED: HYDROcodone/APAP 5-325MG 1 EACH TAB PO PRN (17:39)
[2017-06-19] MEDS ORDERED: TEMAZEPAM 15 MG CAP PO PRN ×2 (17:42→18:27)
[2017-06-19] MEDS: DEXTROSE 5%-0.45% NACL 1,000 ML IV SCH (17:50)
[2017-06-19] MEDS: ONDANSETRON 4 MG/2 ML VIAL IVP PRN (17:51)
--- NOTE | 2017-06-19 19:54 | XR ---
EXAMINATION TYPE: XR chest 2V DATE OF EXAM: 06/19/2017 COMPARISON: 03/21/2017 HISTORY: Sepsis. Cough. TECHNIQUE: Frontal and lateral views of the chest are obtained. FINDINGS: Heart and mediastinum are normal. Lungs are clear. Diaphragm is normal. There are chest le ads. Bony thorax appears intact. IMPRESSION: Normal chest. No change.
[2017-06-19] MEDS: HYDROmorphone 1 MG/ML 1 ML SYRINGE IVP PRN (20:12)
[2017-06-19] MEDS: HEPARIN SODIUM,PORCINE 5,000 UNIT/ML 1 ML VIAL SQ SCH (22:04)
[2017-06-20] MEDS: HYDROmorphone 1 MG/ML 1 ML SYRINGE IVP PRN ×3 (00:04→21:28)
[2017-06-20] MEDS: DEXTROSE 5%-0.45% NACL 1,000 ML IV SCH ×3 (02:51→23:00)
[2017-06-20] MEDS: KETOROLAC 30 MG/ML 1 ML VIAL IVP PRN ×2 (06:19→21:33)
[2017-06-20 07:21] LABS: Aty Lym Flag Slight; CH 26.6; CHCM 32.1; HCT 35.2 % (34.0-46.0); HDW 2.86; HGB 11.7 gm/dL (11.4-16.0); MCH 27.6 pg (25.0-35.0); MCHC 33.1 g/dL (31.0-37.0); MCV 83.3 fL (80.0-100.0); Mean Platelet Volume 8.4; RBC 4.23 m/uL (3.80-5.40); RDW 14.6 % (11.5-15.5); WBC 2.5 k/uL (3.8-10.6); WBC (Perox) 2.36
[2017-06-20 07:30] LABS: Add Differential Manual Differential; Anion Gap 9 mmol/L; Blood Urea Nitrogen 10 mg/dL (7-17); Calcium 8.1 mg/dL (8.4-10.2); Carbon Dioxide 21 mmol/L (22-30); Chloride 107 mmol/L (98-107); Glucose 83 mg/dL (74-99); Non-African American GFR(MDRD) >60 (>60 ml/min/1.73 sqM); Potassium 3.8 mmol/L (3.5-5.1); Sodium 137 mmol/L (137-145)
[2017-06-20 07:33] LABS: Nucleated Red Blood Cells 0 /100 WBC (0-0); Polychromasia Present; Total Cells Counted 100; Toxic Granulation Present
--- NOTE | 2017-06-20 07:45 | US ---
EXAMINATION TYPE: US kidneys/renal and bladder DATE OF EXAM: 06/19/2017 COMPARISON: CT dated 05/24/2017, ultrasound 04/06/2017 CLINICAL HISTORY: rt pyelonephritis. Kidney infection EXAM MEASUREMENTS: Right Kidney: 13.2 x 6.5 x 6.6 cm Left Kidney: 13.5 x 5.8 x 6.9 cm Right Kidney: mild hydro, no definite stones seen and there is somewhat heterogeneous echotexture of the renal cortex. Left Kidney: No hydronephrosis or masses seen and the cortical medullary differentiation is maintain ed Bladder: wnl Bilateral Jets seen: only left jet seen in 3 minutes of scan time IMPRESSION: Mild right-sided hydronephrosis, heterogeneous echotexture may be due to pyelonephritis within the ri ght kidney. The proximal right ureteral calculus seen on prior CT is not seen definitively on ultraso und
[2017-06-20] MEDS ORDERED: LEVOFLOXACIN 500MG-D5W PMX 500 MG in DEXTROSE/WATER 1 100ML.BAG IVPB SCH (09:00)
[2017-06-20] MEDS: ALPRAZolam 0.25 MG TAB PO PRN (09:03)
--- NOTE | 2017-06-20 09:30 | HP ---
CHIEF COMPLAINT: Urinary tract infection with possible sepsis. HISTORY OF PRESENT ILLNESS: This 31-year-old woman with a past medical history of multiple medical problems including chest pain, angina, liver disease, tachycardia, SVT, anxiety and depression being followed by Dr. Nieves in the outpatient setting has urinary symptoms, shaking chills and 2 days ago patient went to the ER, given antibiotics and patient went home. The blood culture came back positive for E. Coli and the patient was called back and patient came back to [facility] and admitted for further evaluation and treatment. The patient also complaining of some abdominal pain, otherwise, there is no history of any fever at this time, but however, the patient is feeling tired and sweating, nauseous and also migraine with high sensitivity to light also. PAST MEDICAL HISTORY: History of liver disease, history of tachycardia, supraventricular tachycardia, anxiety and depression. MEDICATIONS PRIOR TO ADMISSION: 1. Motrin 800 mg daily p.r.n. 2. Hydrocodone 5 mg q.6 p.r.n. 3. ProAir HFA 1 puff q.6. p.r.n. 4. Xanax 0.5 daily p.r.n. 5. Zofran 4 mg q.8. 6. Naprosyn 500 mg b.i.d. 7. Levaquin 500 mg daily. Allergies are MORPHINE, PENICILLIN and EPINEPHRINE. FAMILY HISTORY: History of coronary artery disease, diabetes mellitus in the family. SOCIAL HISTORY: Previous history of smoking. No history of current smoking or alcohol intake. REVIEW OF SYSTEMS: ENT: No diminished hearing or diminished vision. CARDIOVASCULAR SYSTEM: No angina. RESPIRATORY: As mentioned earlier. GI: Nausea. : As mentioned earlier. NERVOUS SYSTEM: No numbness or weakness. ALLERGIES/IMMUNOLOGY: No history of asthma. MUSCULOSKELETAL: As mentioned earlier. HEMATOLOGY/ONCOLOGY: No history of anemia. ENDOCRINE: No history of diabetes mellitus or hypothyroidism. CONSTITUTIONAL: As mentioned earlier. DERMATOLOGY: Negative. RHEUMATOLOGY: Negative. PSYCHIATRY: As mentioned earlier. PHYSICAL EXAMINATION: The patient is alert and oriented x3. Pulse is 93. Blood pressure is 123/96. Respirations are 20. Temperature is 99.3. Pulse ox 100% on room air. HEENT: Conjunctivae normal. NECK: No jugular venous distention. CARDIOVASCULAR: S1 and S2, muffled. RESPIRATORY: Breath sounds diminished at the bases. No rhonchi, no crackles. ABDOMEN: Soft. Mild diffuse discomfort on palpation. LEGS: No edema, no swelling. NERVOUS SYSTEM: Higher function as mentioned. Moves all 4 limbs. No focal deficits. LYMPHATICS: No lymphadenopathy of the neck, axillae or groin. SKIN: No ulcers, rashes, bleeding. LABS: CBC with platelets of 115. INR is 1.2. UA noted. ASSESSMENT: 1. Urinary tract infection, status post Escherichia coli present on admission. 2. Right renal angle pain, possibly pyelonephritis. 3. Thrombocytopenia. 4. Obesity with body mass index of 40.8. 5. History of chest pain. 6. History of liver disease. 7. History of nephrolithiasis. 8. History of anxiety and depression, not otherwise specified. 9. History of nicotine dependence. RECOMMENDATIONS AND DISCUSSION: In this 31-year-old woman who presented with multiple complex medical issues, will monitor the patient closely. Continue the current medications. Continue symptomatic treatment. I will initiate IV broad spectrum IV antibiotics. Cultures have been obtained. Otherwise, repeat labs. Xanax, pain medications. Also, recommend ultrasound of the abdomen, kidney, renal and bladder for pyelonephritis. DVT prophylaxis. Further recommendations to follow. See orders for further details. The E. coli is resistant to Bactrim, piperacillin ( ) gentamicin and ampicillin. MTDD
[2017-06-20] MEDS: HEPARIN SODIUM,PORCINE 5,000 UNIT/ML 1 ML VIAL SQ SCH ×3 (11:30→21:58)
[2017-06-20] MEDS: ONDANSETRON 4 MG/2 ML VIAL IVP PRN (18:34)
--- NOTE | 2017-06-20 19:09 | PN ---
DATE OF SERVICE: This 31-year-old woman was admitted with UTI, sepsis, also had leucopenia. No chest pain. No palpitations. No fever. Complaining of right sided abdominal pain. On exam, alert and oriented times three. Pulse 87. Blood pressure 146/90. Respiratory rate 19. Temperature 98.2. T-Max 100.2. Pulse ox 99% on room air. HEENT: Conjunctivae normal. NECK: No JVD. Cardiovascular: S1, S2 muffled. Respiratory: Breath sounds diminished at the bases. No rhonchi and no crackles. Abdomen soft. Mild diffuse tenderness right side of the abdomen. Legs, no edema. No swelling. Nervous system: No focal deficits. Labs: platelets 117. WBC 2.5. ASSESSMENT: 1. Acute urinary tract infection with E. coli possibly, with sepsis, present on admission. 2. Right renal angle pain, possible pyelonephritis. 3. Thrombocytopenia. 4. Leucopenia. 5. Obesity, body mass index 40.8. RECOMMENDATIONS AND DISCUSSION: Recommend to continue the current medications. Continue with symptomatic treatment. Continue antibiotics. Continue to monitor. Infectious disease evaluation. Guarded prognosis because of multiple complex medical issues. Further recommendations to follow. MTDD
[2017-06-21] MEDS: HYDROmorphone 1 MG/ML 1 ML SYRINGE IVP PRN ×2 (02:03→05:50)
[2017-06-21] MEDS: KETOROLAC 30 MG/ML 1 ML VIAL IVP PRN ×2 (05:06→18:41)
[2017-06-21 08:15] LABS: Basophils % (A) 1 %; CH 27.2; Eosinophils # (A) 0.1 k/uL (0-0.7); Eosinophils % (A) 2 %; HCT 37.3 % (34.0-46.0); HDW 2.87; Luc # (Auto) 0.23; Luc % (Auto) 4; Lymphocytes % (A) 18 %; MCH 26.7 pg (25.0-35.0); MCHC 32.1 g/dL (31.0-37.0); Mean Platelet Volume 9.4; Monocytes # (A) 0.4 k/uL (0-1.0); Monocytes % (A) 7 %; Neutrophils # (A) 3.7 k/uL (1.3-7.7); Neutrophils % (A) 68 %; RBC 4.49 m/uL (3.80-5.40); RDW 15.3 % (11.5-15.5); WBC 5.4 k/uL (3.8-10.6)
[2017-06-21 08:28] LABS: ALT 40 U/L (9-52); AST 43 U/L (14-36); Alkaline Phosphatase 84 U/L (38-126); Anion Gap 7 mmol/L; Blood Urea Nitrogen 8 mg/dL (7-17); Carbon Dioxide 24 mmol/L (22-30); Chloride 105 mmol/L (98-107); Glucose 102 mg/dL (74-99); Non-African American GFR(MDRD) >60 (>60 ml/min/1.73 sqM); Potassium 3.7 mmol/L (3.5-5.1); Sodium 136 mmol/L (137-145); Total Bilirubin 0.3 mg/dL (0.2-1.3); Total Protein 5.8 g/dL (6.3-8.2)
[2017-06-21] MEDS: HEPARIN SODIUM,PORCINE 5,000 UNIT/ML 1 ML VIAL SQ SCH ×2 (08:52→20:17)
[2017-06-21] MEDS: cefTRIAXone 2,000 MG in SODIUM CHLORIDE 0.9% 100 ML IVPB SCH (08:53)
--- NOTE | 2017-06-21 10:47 | P.CONS ---
History of Present Illness - Reason for Consult Consult date: 06/21/17 - Chief Complaint Fever - History of Present Illness 31-year-old female with history of obesity as well as multiple medical troubles that includes a history of hepatitis, superventricular tachycardias, anxiety and depression, a history of chest pain and angina. The patient relates that she was on some medications for weight control which resulted in a significant chemical-induced hepatitis. This fortunately has now resolved. She did earlier this summer have difficulty with ongoing chest pain. She was seen by cardiology because of her crushing chest pain and underwent cardiac catheterization which revealed evidence of normal vessels. His calcium been on medical therapy and doing somewhat better. However she developed abdominal pain and early part of this month. She underwent CT scanning showed evidence of the small nephrolithiasis. There was no significant hydronephrosis. At that time no evidence of any infection. Patient however now has the onset of fever chill rigor and increasing abdominal pain which is more to the right flank and right lower pelvis. Because of this she presented to the emergency center. There she was on a temperature greater than 101 she leukocytosis and evidence of the mild right-sided hydronephrosis. Urinalysis was markedly abnormal, urine culture however was not done. Blood cultures however have gram-negative bacilli in the infectious diseases consultation was requested. The patient is complaining of significant migraine headache at this time. These are not new but is more protracted it's been in the past. Review of Systems Pleasant 31-year-old female who is somewhat uncomfortable due to her snippy and headache. No active nausea or emesis this time HEENT: As per the HPI significant migraine but denies acute visual change. Denies sinus or mouth discomforts. Denies neck stiffness or pain. Denies significant oral cavity pain. Denies difficulty on swallowing. Lungs: Denies significant shortness of breath, cough, sputum production, or hemoptysis. Cardiovascular: Denies significant shortness of breath, chest pain, chest wall pain, orthopnea, dyspnea on exertion, syncope Gastrointestinal: Patient is having some ongoing right flank and right lower quadrant pain as per the HPI. But is not having nausea emesis constipation or baldomero diarrhea. Appetite somewhat poor Musculoskeletal: denies significant myalgias or arthralgias. No new joint swelling. Denies new back pain. Skin: Denies new rash or lesions. No new ulcers or wounds are related.. Neuro: Denies any new onset weakness or difficulty with ambulation. Denies falls or seizures. Psychiatric: Chronic anxiety and depression Endocrine: Denies significant new fatigue, denies significant weight loss or weight gain. Past Medical History Past Medical History: Chest Pain / Angina, Liver Disease Additional Past Medical History / Comment(s): tachycardia, HERNIATED LUMBAR DISCS, DEPRESSION, ANXIETY. 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 HAD IT AGAIN AT AGE 31-PT STATED SHE WAS TOLD SHE HAS A FATTY LIVER, kidney stones. History of Any Multi-Drug Resistant Organisms: None Reported Past Surgical History: Section, Heart Catheterization, Tubal Ligation Additional Past Surgical History / Comment(s): liver bx, 3 C-SECTIONS Past Anesthesia/Blood Transfusion Reactions: Motion Sickness Additional Psychological History / Comment(s): . Lives in the family home with her and 4 children ages 13-3. 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 Is not a tobacco smoker. Denies smoking alcohol or recreational drug use. History of injection drug use. No international travel. No experience. Does have exposure to many animals including dogs and cats as well as rambles and include chickens and ducks and sheep. Smoking Status: Former smoker - Past Family History Mother Family Medical History: Fibromyalgia Father Family Medical History: Coronary Artery Disease (CAD), Diabetes Mellitus, Myocardial Infarction ([place]) Medications and Allergies Home Medications and Allergies Comment(s): Current Medications Acetaminophen/Butalbital/Caffeine (Fioricet 50-325-40) 2 each PO Q4HR PRN PRN Reason: Headache Hydrocodone Bitart/Acetaminophen ([place] 5-325) 1 each PO Q6HR PRN PRN Reason: Pain Last Admin: 06/20/17 13:08 Dose: 1 each Alprazolam (Xanax) 0.25 mg PO TID PRN PRN Reason: Anxiety Last Admin: 06/20/17 09:03 Dose: 0.25 mg Heparin Sodium (Porcine) (Heparin) 5,000 unit SQ Q12HR KYRA Last Admin: 06/21/17 08:52 Dose: 5,000 unit Hydromorphone HCl (Dilaudid) 0.5 mg IVP Q4HR PRN PRN Reason: Pain Last Admin: 06/21/17 05:50 Dose: 0.5 mg Dextrose/Sodium Chloride (Dextrose 5%-1/2ns Iv Soln) 1,000 mls @ 100 mls/hr IV .Q10H [facility] Last Admin: 06/20/17 23:00 Dose: 100 mls/hr Ceftriaxone Sodium 2,000 mg/ (Sodium Chloride) 100 mls @ 100 mls/hr IVPB Q24HR [facility] Last Admin: 06/21/17 08:53 Dose: 100 mls/hr Ketorolac Tromethamine (Toradol) 30 mg IVP Q6HR PRN PRN Reason: Moderate Pain Stop: 06/24/17 15:26 Last Admin: 06/21/17 05:06 Dose: 30 mg Naloxone HCl (Narcan) 0.2 mg IV Q2M PRN PRN Reason: Opioid Reversal Ondansetron HCl (Zofran) 4 mg IVP Q8HR PRN PRN Reason: Nausea And Vomiting Last Admin: 06/20/17 18:34 Dose: 4 mg Tamsulosin HCl (Flomax) 0.4 mg PO PC-BRKFST [facility] Temazepam (Restoril) 15 mg PO HS PRN PRN Reason: Insomnia Home Medications Medication Instructions Recorded Confirmed Type ALPRAZolam [Xanax] 0.5 mg PO DAILY PRN 03/17/17 06/19/17 History Albuterol Sulfate [Proair Hfa] 1 puff INHALATION RT-Q6H PRN 06/17/17 06/19/17 History Ibuprofen [Motrin] 800 mg PO DAILY PRN 06/17/17 06/19/17 History Naproxen [Naprosyn] 500 mg PO Q12HR PRN 06/19/17 06/19/17 History Allergies Allergy/AdvReac Type Severity Reaction Status Date / Time morphine Allergy Dyspnea/Chest Verified 06/19/17 17:50 Pain Penicillins Allergy Rash/Hives Verified 06/19/17 14:12 epinephrine AdvReac Rapid Verified 06/19/17 14:12 Heart Rate Physical Exam Vitals: Vital Signs Temp Pulse Resp BP Pulse Ox 06/21/17 08:16 98.5 F 72 19 139/78 98 06/21/17 02:35 100.3 F H 06/21/17 02:00 101.9 F H 118 H 20 129/84 100 06/20/17 22:20 99.1 F 06/20/17 21:30 101.3 F H 06/20/17 20:00 99.6 F 62 18 133/84 100 06/20/17 15:55 97.9 F 71 16 152/95 98 Intake and Output 06/20/17 06/21/17 06/21/17 22:59 06:59 14:59 Intake Total 240 1800 Output Total 1280 2050 Balance -1040 -250 Intake: Oral 240 1800 Output: Urine 1280 0 Other: Voiding Method Toilet # Voids 2 31-year-old female who suffers from obesity and is uncomfortable at this time due to her significant migraine HEENT: Anicteric conjunctiva are pink and moist nasal mucosa grossly intact without significant lesions, there is no thrush. Has an upper plate relates that she had significantly carious teeth from her childhood Neck: The neck is supple without significant lymphadenopathy or thyromegaly. Lungs: Good bilateral air entry without significant crackles or wheezing. There is no significant bronchial sounds. There is no egophony or dullness. Heart: Regular rate and rhythm with an audible S1-S2, no S3 no S4. There is no significant murmur click or rub, PMI was nondisplaced. Abdomen: Positive bowel sounds soft without palpable masses or organomegaly. There is just minimal tenderness to the right flankskin tenderness to the right lower quadrant. There was no guarding or rebound. Extremities: The upper extremities have excellent pulses they are symmetric, no significant petechiae or telangiectasia. No splinter hemorrhages were noted. The lower extremities are free from significant edema. The peripheral pulses were 2+ and symmetric. Neuro: Awake alert oriented to person place and time. There are no acute new gross focal sensory motor deficits. Does complain a significant migraine headache. Prefers room to be dark and complains that when the lights are on it does make her migraine worse. It is noted she has completely clear mentation and has no neck stiffness. Results CBC & Chem 7: 06/21/17 08:05 06/21/17 08:05 Labs: Abnormal Lab Results - Last 24 Hours (Table) 06/21/17 06/21/17 Range/Units 08:05 08:05 Plt Count 107 L (150-450) k/uL Sodium 136 L (137-145) mmol/L Glucose 102 H (74-99) mg/dL Calcium 8.0 L (8.4-10.2) mg/dL AST 43 H (14-36) U/L Total Protein 5.8 L (6.3-8.2) g/dL Albumin 2.9 L (3.5-5.0) g/dL Microbiology - Last 24 Hours (Table) 06/19/17 14:13 Urine Culture - Final Urine,Voided 06/19/17 14:13 Blood Culture - Preliminary Blood No Growth after 24 hours Laboratory Results WBC 5.4 k/uL (3.8-10.6) 06/21/17 08:05 RBC 4.49 m/uL (3.80-5.40) 06/21/17 08:05 Hgb 12.0 gm/dL (11.4-16.0) 06/21/17 08:05 Hct 37.3 % (34.0-46.0) 06/21/17 08:05 MCV 83.0 fL (80.0-100.0) 06/21/17 08:05 MCH 26.7 pg (25.0-35.0) 06/21/17 08:05 MCHC 32.1 g/dL (31.0-37.0) 06/21/17 08:05 RDW 15.3 % (11.5-15.5) 06/21/17 08:05 Plt Count 107 k/uL (150-450) L 06/21/17 08:05 Neutrophils % 68 % 06/21/17 08:05 Neutrophils % (Manual) 56.0 % 06/20/17 06:30 Lymphocytes % 18 % 06/21/17 08:05 Lymphocytes % (Manual) 29.0 % 06/20/17 06:30 Monocytes % 7 % 06/21/17 08:05 Monocytes % (Manual) 10.0 % 06/20/17 06:30 Eosinophils % 2 % 06/21/17 08:05 Eosinophils % (Manual) 5.0 % 06/20/17 06:30 Basophils % 1 % 06/21/17 08:05 Neutrophils # 3.7 k/uL (1.3-7.7) 06/21/17 08:05 Neutrophils # (Manual) 1.4 k/uL (1.3-7.7) 06/20/17 06:30 Lymphocytes # 1.0 k/uL (1.0-4.8) 06/21/17 08:05 Lymphocytes # (Manual) 0.7 k/uL (1.0-4.8) L 06/20/17 06:30 Monocytes # 0.4 k/uL (0-1.0) 06/21/17 08:05 Monocytes # (Manual) 0.3 k/uL (0-1.0) 06/20/17 06:30 Eosinophils # 0.1 k/uL (0-0.7) 06/21/17 08:05 Eosinophils # (Manual) 0.1 k/uL (0-0.7) 06/20/17 06:30 Basophils # 0.0 k/uL (0-0.2) 06/21/17 08:05 Nucleated RBCs 0 /100 WBC (0-0) 06/20/17 06:30 Toxic Granulation Present 06/20/17 06:30 Polychromasia Present 06/20/17 06:30 PT 11.5 sec (9.0-12.0) 06/19/17 14:13 INR 1.2 (<1.2) H 06/19/17 14:13 APTT 24.8 sec (22.0-30.0) 06/19/17 14:13 Sodium 136 mmol/L (137-145) L 06/21/17 08:05 Potassium 3.7 mmol/L (3.5-5.1) 06/21/17 08:05 Chloride 105 mmol/L (98-107) 06/21/17 08:05 Carbon Dioxide 24 mmol/L (22-30) 06/21/17 08:05 Anion Gap 7 mmol/L 06/21/17 08:05 BUN 8 mg/dL (7-17) 06/21/17 08:05 Creatinine 0.78 mg/dL (0.52-1.04) 06/21/17 08:05 Est GFR (MDRD) Af Amer >60 (>60 ml/min/1.73 sqM) 06/21/17 08:05 Est GFR (MDRD) Non-Af >60 (>60 ml/min/1.73 sqM) 06/21/17 08:05 Glucose 102 mg/dL (74-99) H 06/21/17 08:05 Plasma Lactic Acid Lance 0.8 mmol/L (0.7-2.0) 06/21/17 08:05 Calcium 8.0 mg/dL (8.4-10.2) L 06/21/17 08:05 Total Bilirubin 0.3 mg/dL (0.2-1.3) 06/21/17 08:05 AST 43 U/L (14-36) H 06/21/17 08:05 ALT 40 U/L (9-52) 06/21/17 08:05 Alkaline Phosphatase 84 U/L (38-126) 06/21/17 08:05 Total Protein 5.8 g/dL (6.3-8.2) L 06/21/17 08:05 Albumin 2.9 g/dL (3.5-5.0) L 06/21/17 08:05 Urine Color Light Yellow 06/19/17 14:13 Urine Appearance Cloudy (Clear) H 06/19/17 14:13 Urine pH 7.5 (5.0-8.0) 06/19/17 14:13 Ur Specific [place] 1.005 (1.001-1.035) 06/19/17 14:13 Urine Protein Negative (Negative) 06/19/17 14:13 Urine Glucose (UA) Negative (Negative) 06/19/17 14:13 Urine Ketones Negative (Negative) 06/19/17 14:13 Urine Blood Negative (Negative) 06/19/17 14:13 Urine Nitrite Negative (Negative) 06/19/17 14:13 Urine Bilirubin Negative (Negative) 06/19/17 14:13 Urine Urobilinogen <2.0 mg/dL (<2.0) 06/19/17 14:13 Ur Leukocyte Esterase Moderate (Negative) H 06/19/17 14:13 Urine WBC 6 /hpf (0-5) H 06/19/17 14:13 Ur Squamous Epith Cells 5 /hpf (0-4) H 06/19/17 14:13 Amorphous Sediment Rare /hpf (None) H 06/19/17 14:13 Urine Bacteria Rare /hpf (None) H 06/19/17 14:13 Urine Mucus Rare /hpf (None) H 06/19/17 14:13 Microbiology 06/19/17 14:13 Urine,Voided Urine Culture - Final 06/19/17 14:13 Blood Blood Culture - Preliminary No Growth after 24 hours Assessment and Plan (1) Gram negative sepsis Narrative/Plan: 31-year-old female presents to Hospital with a couple day history of worsening fevers chills and malaise. She was having some minimal right flank and right lower quadrant tenderness. She overhead severe headache also with her migraine presented to the emergency center. There she was found evidence of a temperature greater than 101 as well as leukocytosis. Urinalysis was markedly abnormal with evidence of urinary infection. [facility] however urine culture was not obtained. Over the blood cultures that were obtained to show evidence of the gram-negative bacilli in her blood it has been identified as Escherichia coli. The CT scans of the been done show evidence of the mild right hydronephrosis in the right pyelonephritis. She fortunately seems to be responding to the antibiotic therapy that her temperature is improved this morning but did have 101.9 fever overnight. She's having significant migraine headache. Fioricet is added. The patient is concerned about medications because she did have an acute hepatitis from the diabetic medication she was taking. She will monitored throughout her stay. At the time of her chemical hepatitis there was no evidence of any viral hepatitis. Because of the stone at the ureteropelvic junction Flomax is added in attempts to assist if this can assist with passing the stone. Ultrasound failed to see the stone but it was noticed on the CAT scan. Antibiotic therapy was altered to ceftriaxone to maximize penetration into the kidney. However when she is improved over the option of oral ciprofloxacin 500 mg every 12 hours to complete her couple weeks of therapy. Status: Acute (2) E. coli pyelonephritis Status: Acute
[2017-06-21] MEDS: BUTALB/APAP/CAFF 50-325-40MG TAB PO PRN (11:45)
[2017-06-21] MEDS: TAMSULOSIN 0.4 MG CAP.ER.24H PO SCH (14:42)
[2017-06-21] MEDS ORDERED: CALCIUM CARBONATE 500 MG CHEWABLE PO PRN (14:56)
[2017-06-21] MEDS: DEXTROSE 5%-0.45% NACL 1,000 ML IV SCH ×2 (17:36→17:37)
[2017-06-21] MEDS: SODIUM CHLORIDE 0.9% 500 ML IV SCH (17:37)
[2017-06-21] MEDS: ALPRAZolam 0.25 MG TAB PO PRN (20:20)
[2017-06-22] MEDS: DEXTROSE 5%-0.45% NACL 1,000 ML IV SCH ×3 (03:02→20:13)
[2017-06-22 08:54] LABS: Anion Gap 8 mmol/L; Blood Urea Nitrogen 9 mg/dL (7-17); Calcium 8.5 mg/dL (8.4-10.2); Carbon Dioxide 26 mmol/L (22-30); Chloride 106 mmol/L (98-107); Glucose 93 mg/dL (74-99); Non-African American GFR(MDRD) >60 (>60 ml/min/1.73 sqM); Potassium 3.7 mmol/L (3.5-5.1); Sodium 140 mmol/L (137-145)
--- NOTE | 2017-06-22 08:55 | PN ---
DATE OF SERVICE: 06/21/17 This 31 -year-old woman was admitted with acute UTI with sepsis, is being closely monitored. The patient had right ( ) pain also. No chest pain. No palpitations. No fever. The patient on IV antibiotics. Cultures are pending at this time. Dr. Herrera is following the patient closely. On exam, alert and oriented times three. Pulse 83. Blood pressure ntd. Respiratory rate 20. Temperature 99.7. T-Max 101.3, Pulse ox 99% on room air. HEENT: Conjunctivae normal. NECK: No jugular venous distention. CARDIOVASCULAR: S1, S2. RESPIRATORY: Breath sounds diminished at the bases. No rhonchi and no crackles. Abdomen soft, obese. Mild diffuse tenderness right side of the abdomen, right renal angle also present. LEGS: No edema. No swelling. NERVOUS SYSTEM: No focal deficits. LABS: At this time, WBC 5.5, hemoglobin 12. Platelets 107. ASSESSMENT: 1. Acute urinary tract infection with E. coli possibly sepsis, present on admission. 2. Right renal angle pain, possible pyelonephritis. 3. Thrombocytopenia, stable. 4. Leucopenia. 5. Obesity, body mass index 40.8. RECOMMENDATIONS AND DISCUSSION: Recommend to continue current medications. Continue symptomatic treatment. Otherwise at this time, I recommend follow the cultures. Further recommendations to follow. MTDD
[2017-06-22] MEDS: ONDANSETRON 4 MG/2 ML VIAL IVP PRN ×2 (08:56→23:19)
[2017-06-22] MEDS: HEPARIN SODIUM,PORCINE 5,000 UNIT/ML 1 ML VIAL SQ SCH ×2 (08:56→20:07)
[2017-06-22] MEDS: BUTALB/APAP/CAFF 50-325-40MG TAB PO PRN (08:57)
[2017-06-22] MEDS ORDERED: ESOMEPRAZOLE 20 MG in SODIUM CHLORIDE 0.9% 50 ML IVPB SCH (09:00)
[2017-06-22 09:12] LABS: Basophils % (A) 1 %; CH 26.9; CHCM 32.9; Eosinophils # (A) 0.1 k/uL (0-0.7); Eosinophils % (A) 2 %; HCT 37.1 % (34.0-46.0); HDW 2.92; HGB 12.3 gm/dL (11.4-16.0); Luc # (Auto) 0.28; Luc % (Auto) 4; Lymphocytes # (A) 1.7 k/uL (1.0-4.8); Lymphocytes % (A) 27 %; MCH 27.4 pg (25.0-35.0); MCHC 33.3 g/dL (31.0-37.0); MCV 82.2 fL (80.0-100.0); Monocytes # (A) 0.4 k/uL (0-1.0); Monocytes % (A) 7 %; Neutrophils # (A) 3.9 k/uL (1.3-7.7); Neutrophils % (A) 60 %; RBC 4.51 m/uL (3.80-5.40); RDW 15.2 % (11.5-15.5); WBC 6.5 k/uL (3.8-10.6); WBC (Perox) 6.37
[2017-06-22 09:28] VITALS: BMI 40.8
[2017-06-22] MEDS: TAMSULOSIN 0.4 MG CAP.ER.24H PO SCH (10:17)
[2017-06-22] MEDS: cefTRIAXone 2,000 MG in SODIUM CHLORIDE 0.9% 100 ML IVPB SCH (10:17)
--- NOTE | 2017-06-22 13:28 | CT ---
EXAMINATION TYPE: CT abdomen pelvis wo con DATE OF EXAM: 06/22/2017 COMPARISON: Prior CT abdomen pelvis 05/24/2017, ultrasound kidneys 06/19/2017 HISTORY: Follow up to pyelonephritis CT DLP: 1174 mGycm Automated exposure control for dose reduction was used. TECHNIQUE: Helical acquisition of images from the lung bases through the pelvis. FINDINGS: The exam could be limited by lack of intravenous contrast. LUNG BASES: Stable, subcentimeter nodularity again noted. No pleural or pericardial effusion.. AORTA: No significant abnormality is appreciated. LIVER/GB: No significant abnormality is appreciated. PANCREAS: No significant abnormality is seen. SPLEEN: Enlarged and has increased in size in the interval measuring 14.3 cm span ADRENALS: No significant abnormality is seen. KIDNEYS: Right kidney shows hydronephrosis and the right ureteral calculus has advanced to the level of the midureter from the level of the proximal ureter on prior exam.. REPRODUCTIVE ORGANS: No significant abnormality is seen. URINARY BLADDER: No significant abnormality is seen. BOWEL: No significant abnormality is seen. FREE AIR: No Free Air is visible. ASCITES: None visible. PELVIC ADENOPATHY: None visualized. RETROPERITONEAL ADENOPATHY: No Retroperitoneal Adenopathy visible. OSSEOUS STRUCTURES: No significant abnormality is seen. IMPRESSION: INTERVAL MIGRATION OF THE PROXIMAL URETERAL CALCULUS TO THE LEVEL OF THE MID URETER ON THE RIGHT. SPL ENOMEGALY.
[2017-06-22 14:32] LABS: ALT 36 U/L (9-52); AST 30 U/L (14-36); Alkaline Phosphatase 83 U/L (38-126); Anion Gap 9 mmol/L; Blood Urea Nitrogen 9 mg/dL (7-17); Calcium 8.5 mg/dL (8.4-10.2); Carbon Dioxide 26 mmol/L (22-30); Chloride 106 mmol/L (98-107); Glucose 106 mg/dL (74-99); Non-African American GFR(MDRD) >60 (>60 ml/min/1.73 sqM); Potassium 3.7 mmol/L (3.5-5.1); Sodium 141 mmol/L (137-145); Total Bilirubin 0.2 mg/dL (0.2-1.3); Total Protein 6.5 g/dL (6.3-8.2)
[2017-06-22] MEDS ORDERED: FUROSEMIDE 10 MG/ML 2 ML VIAL IV ONE (17:52)
--- NOTE | 2017-06-22 19:55 | P.PN ---
Subjective Principal diagnosis: Fever 31-year-old female with history of obesity as well as multiple medical troubles that includes a history of hepatitis, superventricular tachycardias, anxiety and depression, a history of chest pain and angina. The patient relates that she was on some medications for weight control which resulted in a significant chemical-induced hepatitis. This fortunately has now resolved. She did earlier this summer have difficulty with ongoing chest pain. She was seen by cardiology because of her crushing chest pain and underwent cardiac catheterization which revealed evidence of normal vessels. His calcium been on medical therapy and doing somewhat better. However she developed abdominal pain and early part of this month. She underwent CT scanning showed evidence of the small nephrolithiasis. There was no significant hydronephrosis. At that time no evidence of any infection. Patient however now has the onset of fever chill rigor and increasing abdominal pain which is more to the right flank and right lower pelvis. Because of this she presented to the emergency center. There she was on a temperature greater than 101 she leukocytosis and evidence of the mild right-sided hydronephrosis. Urinalysis was markedly abnormal, urine culture however was not done. Blood cultures however have gram-negative bacilli in the infectious diseases consultation was requested. The patient is complaining of significant migraine headache at this time. These are not new but is more protracted it's been in the past. Patient is not feeling considerably better today. Fioricet allowed resolution of her severe headache. Her fevers have improved. No further chills or rigors. Appetite is improved. Nausea and emesis have resolved. She has no other new complaints today. Objective - Vital Signs Vital signs: Vital Signs Temp 97.9 F 06/22/17 14:47 Pulse 79 06/22/17 14:47 Resp 16 06/22/17 14:47 BP 116/71 06/22/17 14:47 Pulse Ox 97 06/22/17 14:47 Intake & Output 06/22/17 06/22/17 06/23/17 06:59 18:59 06:59 Intake Total 1150 1800 Output Total 800 Balance 350 1800 Weight 101.151 kg Intake: Intake, IV Titration 1150 Amount Dextrose 5%-0.45% NaCl 1, 1000 000 ml @ 100 mls/hr IV . Q[facility]H [facility] Rx#:[id number] Esomeprazole 20 mg In 50 Sodium Chloride 0.9% 50 ml @ 100 mls/hr IVPB DAILY [facility] Rx#:[id number] cefTRIAXone 2,000 mg In 100 Sodium Chloride 0.9% 100 ml @ 100 mls/hr IVPB Q24HR [facility] Rx#:[id number] Oral 1800 Output: Urine 800 Other: Voiding Method Toilet Toilet # Voids 2 2 - Exam 31-year-old female who suffers from obesity and is much more comfortable today. HEENT: Anicteric conjunctiva are pink and moist nasal mucosa grossly intact without significant lesions, there is no thrush. Has an upper plate relates that she had significantly carious teeth from her childhood Neck: The neck is supple without significant lymphadenopathy or thyromegaly. Lungs: Good bilateral air entry without significant crackles or wheezing. There is no significant bronchial sounds. There is no egophony or dullness. Heart: Regular rate and rhythm with an audible S1-S2, no S3 no S4. There is no significant murmur click or rub, PMI was nondisplaced. Abdomen: Positive bowel sounds soft without palpable masses or organomegaly. There is just minimal tenderness to the right flankskin tenderness to the right lower quadrant. There was no guarding or rebound. Extremities: The upper extremities have excellent pulses they are symmetric, no significant petechiae or telangiectasia. No splinter hemorrhages were noted. The lower extremities are free from significant edema. The peripheral pulses were 2+ and symmetric. Neuro: Awake alert oriented to person place and time. There are no acute new gross focal sensory motor deficits. Headache is completely resolved It is noted she has completely clear mentation and has no neck stiffness. - Labs CBC & Chem 7: 06/22/17 07:43 06/22/17 14:08 Labs: Abnormal Lab Results - Last 24 Hours (Table) 06/22/17 06/22/17 Range/Units 07:43 14:08 Plt Count 132 L (150-450) k/uL Glucose 106 H (74-99) mg/dL Albumin 3.2 L (3.5-5.0) g/dL Microbiology - Last 24 Hours (Table) 06/19/17 14:13 Blood Culture - Preliminary Blood No Growth after 72 hours Laboratory Results WBC 6.5 k/uL (3.8-10.6) 06/22/17 07:43 RBC 4.51 m/uL (3.80-5.40) 06/22/17 07:43 Hgb 12.3 gm/dL (11.4-16.0) 06/22/17 07:43 Hct 37.1 % (34.0-46.0) 06/22/17 07:43 MCV 82.2 fL (80.0-100.0) 06/22/17 07:43 MCH 27.4 pg (25.0-35.0) 06/22/17 07:43 MCHC 33.3 g/dL (31.0-37.0) 06/22/17 07:43 RDW 15.2 % (11.5-15.5) 06/22/17 07:43 Plt Count 132 k/uL (150-450) L 06/22/17 07:43 Neutrophils % 60 % 06/22/17 07:43 Neutrophils % (Manual) 56.0 % 06/20/17 06:30 Lymphocytes % 27 % 06/22/17 07:43 Lymphocytes % (Manual) 29.0 % 06/20/17 06:30 Monocytes % 7 % 06/22/17 07:43 Monocytes % (Manual) 10.0 % 06/20/17 06:30 Eosinophils % 2 % 06/22/17 07:43 Eosinophils % (Manual) 5.0 % 06/20/17 06:30 Basophils % 1 % 06/22/17 07:43 Neutrophils # 3.9 k/uL (1.3-7.7) 06/22/17 07:43 Neutrophils # (Manual) 1.4 k/uL (1.3-7.7) 06/20/17 06:30 Lymphocytes # 1.7 k/uL (1.0-4.8) 06/22/17 07:43 Lymphocytes # (Manual) 0.7 k/uL (1.0-4.8) L 06/20/17 06:30 Monocytes # 0.4 k/uL (0-1.0) 06/22/17 07:43 Monocytes # (Manual) 0.3 k/uL (0-1.0) 06/20/17 06:30 Eosinophils # 0.1 k/uL (0-0.7) 06/22/17 07:43 Eosinophils # (Manual) 0.1 k/uL (0-0.7) 06/20/17 06:30 Basophils # 0.0 k/uL (0-0.2) 06/22/17 07:43 Nucleated RBCs 0 /100 WBC (0-0) 06/20/17 06:30 Toxic Granulation Present 06/20/17 06:30 Polychromasia Present 06/20/17 06:30 PT 11.5 sec (9.0-12.0) 06/19/17 14:13 INR 1.2 (<1.2) H 06/19/17 14:13 APTT 24.8 sec (22.0-30.0) 06/19/17 14:13 Sodium 141 mmol/L (137-145) 06/22/17 14:08 Potassium 3.7 mmol/L (3.5-5.1) 06/22/17 14:08 Chloride 106 mmol/L (98-107) 06/22/17 14:08 Carbon Dioxide 26 mmol/L (22-30) 06/22/17 14:08 Anion Gap 9 mmol/L 06/22/17 14:08 BUN 9 mg/dL (7-17) 06/22/17 14:08 Creatinine 0.75 mg/dL (0.52-1.04) 06/22/17 14:08 Est GFR (MDRD) Af Amer >60 (>60 ml/min/1.73 sqM) 06/22/17 14:08 Est GFR (MDRD) Non-Af >60 (>60 ml/min/1.73 sqM) 06/22/17 14:08 Glucose 106 mg/dL (74-99) H 06/22/17 14:08 Plasma Lactic Acid Lance 0.8 mmol/L (0.7-2.0) 06/21/17 08:05 Calcium 8.5 mg/dL (8.4-10.2) 06/22/17 14:08 Total Bilirubin 0.2 mg/dL (0.2-1.3) 06/22/17 14:08 AST 30 U/L (14-36) 06/22/17 14:08 ALT 36 U/L (9-52) 06/22/17 14:08 Alkaline Phosphatase 83 U/L (38-126) 06/22/17 14:08 Total Protein 6.5 g/dL (6.3-8.2) 06/22/17 14:08 Albumin 3.2 g/dL (3.5-5.0) L 06/22/17 14:08 Urine Color Light Yellow 06/19/17 14:13 Urine Appearance Cloudy (Clear) H 06/19/17 14:13 Urine pH 7.5 (5.0-8.0) 06/19/17 14:13 Ur Specific [place] 1.005 (1.001-1.035) 06/19/17 14:13 Urine Protein Negative (Negative) 06/19/17 14:13 Urine Glucose (UA) Negative (Negative) 06/19/17 14:13 Urine Ketones Negative (Negative) 06/19/17 14:13 Urine Blood Negative (Negative) 06/19/17 14:13 Urine Nitrite Negative (Negative) 06/19/17 14:13 Urine Bilirubin Negative (Negative) 06/19/17 14:13 Urine Urobilinogen <2.0 mg/dL (<2.0) 06/19/17 14:13 Ur Leukocyte Esterase Moderate (Negative) H 06/19/17 14:13 Urine WBC 6 /hpf (0-5) H 06/19/17 14:13 Ur Squamous Epith Cells 5 /hpf (0-4) H 06/19/17 14:13 Amorphous Sediment Rare /hpf (None) H 06/19/17 14:13 Urine Bacteria Rare /hpf (None) H 06/19/17 14:13 Urine Mucus Rare /hpf (None) H 06/19/17 14:13 Microbiology 06/19/17 14:13 Blood Blood Culture - Preliminary No Growth after 72 hours 06/19/17 14:13 Urine,Voided Urine Culture - Final Assessment and Plan (1) Gram negative sepsis Narrative/Plan: 31-year-old female presents to Hospital with a couple day history of worsening fevers chills and malaise. She was having some minimal right flank and right lower quadrant tenderness. She overhead severe headache also with her migraine presented to the emergency center. There she was found evidence of a temperature greater than 101 as well as leukocytosis. Urinalysis was markedly abnormal with evidence of urinary infection. [facility] however urine culture was not obtained. Over the blood cultures that were obtained to show evidence of the gram-negative bacilli in her blood it has been identified as Escherichia coli. The CT scans of the been done show evidence of the mild right hydronephrosis in the right pyelonephritis. She fortunately seems to be responding to the antibiotic therapy that her temperature is improved this morning but did have 101.9 fever overnight. She's having significant migraine headache. Fioricet was added and headache has resolved. The patient is concerned about medications because she did have an acute hepatitis from the diabetic medication she was taking. She will monitored throughout her stay. At the time of her chemical hepatitis there was no evidence of any viral hepatitis. Because of the stone at the ureteropelvic junction Flomax is added in attempts to assist if this can assist with passing the stone. Ultrasound failed to see the stone but it was noticed on the CAT scan. Follow-up CAT scan has shown the stone has moved. Will give a dose of lasix to help stone migrate. Antibiotic therapy was altered to ceftriaxone to maximize penetration into the kidney. However when she is improved over the option of oral ciprofloxacin 500 mg every 12 hours to complete her couple weeks of therapy. Status: Acute (2) E. coli pyelonephritis Status: Acute
[2017-06-22] MEDS: KETOROLAC 30 MG/ML 1 ML VIAL IVP PRN (20:07)
[2017-06-22] MEDS: ALPRAZolam 0.25 MG TAB PO PRN (23:35)
[2017-06-23] MEDS: PANTOPRAZOLE 40 MG TABLET PO SCH (07:52)
[2017-06-23] MEDS: TAMSULOSIN 0.4 MG CAP.ER.24H PO SCH (07:53)
[2017-06-23] MEDS: DEXTROSE 5%-0.45% NACL 1,000 ML IV SCH ×2 (07:53→20:02)
[2017-06-23] MEDS: cefTRIAXone 2,000 MG in SODIUM CHLORIDE 0.9% 100 ML IVPB SCH (07:53)
[2017-06-23] MEDS: HEPARIN SODIUM,PORCINE 5,000 UNIT/ML 1 ML VIAL SQ SCH ×2 (07:53→20:59)
[2017-06-23 08:43] LABS: Anion Gap 6 mmol/L; Blood Urea Nitrogen 10 mg/dL (7-17); Calcium 8.1 mg/dL (8.4-10.2); Carbon Dioxide 27 mmol/L (22-30); Chloride 105 mmol/L (98-107); Glucose 108 mg/dL (74-99); Non-African American GFR(MDRD) >60 (>60 ml/min/1.73 sqM); Potassium 3.6 mmol/L (3.5-5.1); Sodium 138 mmol/L (137-145)
[2017-06-23 08:44] LABS: Aty Lym Flag Slight; CH 26.4; CHCM 32.5; HCT 37.2 % (34.0-46.0); HDW 2.93; HGB 12.2 gm/dL (11.4-16.0); MCH 26.8 pg (25.0-35.0); MCHC 32.7 g/dL (31.0-37.0); MCV 81.8 fL (80.0-100.0); Mean Platelet Volume 8.2; RBC 4.55 m/uL (3.80-5.40); RDW 14.6 % (11.5-15.5); WBC 7.8 k/uL (3.8-10.6); WBC (Perox) 7.57
[2017-06-23 10:09] LABS: Add Differential Manual Differential
[2017-06-23 10:12] LABS: Nucleated Red Blood Cells 0 /100 WBC (0-0); Total Cells Counted 100
[2017-06-23 10:13] LABS: Manual Review Performed
[2017-06-23] MEDS: BUTALB/APAP/CAFF 50-325-40MG TAB PO PRN (11:45)
--- NOTE | 2017-06-23 16:26 | P.PN ---
Subjective Date of service 06/22/2017. Progress note being dictated for Dr. Foreman. Interval history: This is a 31-year-old female admitted with acute UTI, prior blood culture of 06/17 positive for E. coli, possible pyelonephritis and multiple other medical issues. Maintained on IV antibiotics as per infectious disease. Afebrile, T-max 101.2. Straining urine and reports no stones. Pain/ discomfort improving. Currently no further Headache. Positive nausea. Objective - Vital Signs Vital signs: Vital Signs Temp 98.2 F 06/23/17 15:00 Pulse 88 06/23/17 15:00 Resp 16 06/23/17 15:00 BP 118/79 06/23/17 15:00 Pulse Ox 97 06/23/17 15:00 Intake & Output 06/22/17 06/23/17 06/23/17 18:59 06:59 18:59 Intake Total 1800 1425 Balance 1800 1425 Weight 101.151 kg Intake: Oral 1800 1425 Other: Voiding Method Toilet # Voids 2 2 2 - Exam PHYSICAL EXAM: VITAL SIGNS: [Temperature 97.9 oral, heart rate 79, respiratory rate 16, blood pressure 116/71, O2 sat 97% on room air.] GENERAL: [Sitting up in bed, no acute distress] HEENT: [Pupils equal conjunctiva normal.] NECK: [Supple, no JVD] RESPIRATORY EFFORT:[ Normal] LUNGS: [Diminished bases, no rhonchi crackles or wheezes] CARDIOVASCULAR[ regular S1 and S2, no murmurs rubs or gallops, no edema] GI: [Abdomen soft, mild right flank tenderness, positive bowel sounds.] PSYCH: [Alert and oriented -3, mood and affect normal.] NEURO: No focal deficits - Labs CBC & Chem 7: 06/23/17 08:02 06/23/17 08:02 Labs: Abnormal Lab Results - Last 24 Hours (Table) 06/23/17 06/23/17 Range/Units 08: 08:02 Plt Count 147 L (150-450) k/uL Glucose 108 H (74-99) mg/dL Calcium 8.1 L (8.4-10.2) mg/dL Microbiology - Last 24 Hours (Table) 06/21/17 19:31 Blood Culture - Preliminary Blood No Growth after 24 hours 06/21/17 18:54 Blood Culture - Preliminary Blood No Growth after 24 hours 06/19/17 14:13 Blood Culture - Preliminary Blood No Growth after 72 hours Assessment and Plan Plan: 1. Acute UTI , prior blood culture of 06/17 positive for E. coli, possibly sepsis, present on admission. Repeat blood cultures and urine culture currently negative 2. [] Angle pain hospital pyelonephritis]. 3. [ Thrombocytopenia, stable]. 4. [ Leukopenia]. 5. [ Obesity, BMI 40.8]. Plan: Continue on current medication regime ,monitoring and symptomatic treatment. Continue follow cultures closely with antibiotics as per infectious disease. CT of abdomen and pelvis ordered with potential urology consult, pending ct results. Further recommendations to follow. The impression and plan of care has been dictated as directed. : I performed a H&P examination of this patient and discussed the same with the dictator. I agree with the dictator's note. Any additional findings/opinions/ etc. will be noted.
--- NOTE | 2017-06-23 16:33 | P.PN ---
Subjective Progress note being dictated for Dr. Foreman. Interval history: This is a 31-year-old female admitted with acute UTI, prior blood culture of 06/17 positive for E. coli, possible pyelonephritis and multiple other medical issues. Maintained on IV antibiotics as per infectious disease. Afebrile, T-max 101.2. Straining urine and reports no stones. Pain/ discomfort improving. Currently no further Headache. Positive nausea. 06/23/2017 doing better, CAT scan reported interval migration of the proximal ureteral calculus to the level of the mild ureter on the right with hydronephrosis. Urology consulted, recommendations pending. Afebrile. Objective - Vital Signs Vital signs: Vital Signs Temp 98.2 F 06/23/17 15:00 Pulse 88 06/23/17 15:00 Resp 16 06/23/17 15:00 BP 118/79 06/23/17 15:00 Pulse Ox 97 06/23/17 15:00 Intake & Output 06/22/17 06/23/17 06/23/17 18:59 06:59 18:59 Intake Total 1800 1425 Balance 1800 1425 Weight 101.151 kg Intake: Oral 1800 1425 Other: Voiding Method Toilet # Voids 2 2 2 - Exam PHYSICAL EXAM: VITAL SIGNS: As above GENERAL: [Sitting up in bed, no acute distress] HEENT: [Pupils equal conjunctiva normal.] NECK: [Supple, no JVD] RESPIRATORY EFFORT:[ Normal] LUNGS: [Diminished bases, no rhonchi crackles or wheezes] CARDIOVASCULAR[ regular S1 and S2, no murmurs rubs or gallops, no edema] GI: [Abdomen soft, mild right flank tenderness, positive bowel sounds.] PSYCH: [Alert and oriented -3, mood and affect normal.] NEURO: No focal deficits Microbiology 06/21/17 19:31 Blood Blood Culture - Preliminary No Growth after 24 hours 06/21/17 18:54 Blood Blood Culture - Preliminary No Growth after 24 hours 06/19/17 14:13 Blood Blood Culture - Preliminary No Growth after 72 hours 06/19/17 14:13 Urine,Voided Urine Culture - Final - Labs CBC & Chem 7: 06/23/17 08:02 06/23/17 08:02 Labs: Abnormal Lab Results - Last 24 Hours (Table) 06/23/17 06/23/17 Range/Units 08:02 08:02 Plt Count 147 L (150-450) k/uL Glucose 108 H (74-99) mg/dL Calcium 8.1 L (8.4-10.2) mg/dL Microbiology - Last 24 Hours (Table) 06/21/17 19:31 Blood Culture - Preliminary Blood No Growth after 24 hours 06/21/17 18:54 Blood Culture - Preliminary Blood No Growth after 24 hours 06/19/17 14:13 Blood Culture - Preliminary Blood No Growth after 72 hours Assessment and Plan Plan: 1. Acute UTI , prior blood culture of 06/17 positive for E. coli, possibly sepsis, present on admission. Repeat blood cultures and urine culture currently negative 2. Angle pain possible pyelonephritis with hydronephrosis]. 3. [ Thrombocytopenia, stable]. 4. [ Leukopenia]. 5. [ Obesity, BMI 40.8]. Plan: Continue on current medication regime ,monitoring and symptomatic treatment. Continue follow cultures closely with antibiotics as per infectious disease. Urology consult placed, recommendations pending Further recommendations to follow. The impression and plan of care has been dictated as directed. : I performed a H&P examination of this patient and discussed the same with the dictator. I agree with the dictator's note. Any additional findings/opinions/ etc. will be noted.
[2017-06-23] MEDS: KETOROLAC 30 MG/ML 1 ML VIAL IVP PRN (21:04)
--- NOTE | 2017-06-23 21:39 | P.GSCN ---
History of Present Illness Consult date: 06/23/17 History of present illness: This 31 yo female has been having problems this paast month with bdominal pain, headaches. She apparently a]had an ct scan earlier this month identifying a non obstrucitng renal stone. she entered the hospital several days ago with fever chills and abdominal pain she was treated with ab and her sepsis seemed to clear but she still ad apin and nausea. She had a ctscan identifying a 6 mm mid to distal ureteral stone on the right with some obstruction We were asked to see the patient. She is having mild pain today. She has no fever Her urine is clear and hher wbc are normal Review of Systems - Constitutional Reports anorexia, Reports fever, Reports lethargy - Gastrointestinal Reports as per HPI - Genitourinary Genitourinary: Reports as per HPI Past Medical History Past Medical History: Chest Pain / Angina, Liver Disease Additional Past Medical History / Comment(s): tachycardia, HERNIATED LUMBAR DISCS, DEPRESSION, ANXIETY. 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 HAD IT AGAIN AT AGE 31-PT STATED SHE WAS TOLD SHE HAS A FATTY LIVER, kidney stones. History of Any Multi-Drug Resistant Organisms: None Reported Past Surgical History: Section, Heart Catheterization, Tubal Ligation Additional Past Surgical History / Comment(s): liver bx, 3 C-SECTIONS Past Anesthesia/Blood Transfusion Reactions: Motion Sickness Additional Psychological History / Comment(s): . Lives in the family home with her and 4 children ages 13-3. 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 Is not a tobacco smoker. Denies smoking alcohol or recreational drug use. History of injection drug use. No international travel. No experience. Does have exposure to many animals including dogs and cats as well as rambles and include chickens and ducks and sheep. Smoking Status: Former smoker - Past Family History Mother Family Medical History: Fibromyalgia Father Family Medical History: Coronary Artery Disease (CAD), Diabetes Mellitus, Myocardial Infarction (ND) Medications and Allergies Home Medications Medication Instructions Recorded Confirmed Type ALPRAZolam [Xanax] 0.5 mg PO DAILY PRN 03/17/17 06/19/17 History Albuterol Sulfate [Proair Hfa] 1 puff INHALATION RT-Q6H PRN 06/17/17 06/19/17 History Allergies Allergy/AdvReac Type Severity Reaction Status Date / Time morphine Allergy Dyspnea/Chest Verified 06/19/17 17:50 Pain Penicillins Allergy Rash/Hives Verified 06/19/17 14:12 epinephrine AdvReac Rapid Verified 06/19/17 14:12 Heart Rate Surgical - Exam Vital Signs Temp Pulse Resp BP Pulse Ox 99 F 93 20 134/93 100 06/19/17 13:31 06/19/17 13:31 06/19/17 13:31 06/19/17 13:31 06/19/17 13:31 - General well developed - Eyes PERRL - ENT no hearing loss - Neck trachea midline - Respiratory normal expansion, normal respiratory effort - Cardiovascular Rhythm: regular - Abdomen Abdomen: soft, non tender, tender - Neurologic normal coordination, normal sensation - Musculoskeletal normal posture - Psychiatric oriented to time, oriented to person, oriented to place, speech is normal, memory intact Results - Labs 06/23/17 08:02 06/23/17 08:02 Abnormal Lab Results - Last 24 Hours (Table) 06/23/17 06/23/17 Range/Units 08:02 08:02 Plt Count 147 L (150-450) k/uL Glucose 108 H (74-99) mg/dL Calcium 8.1 L (8.4-10.2) mg/dL Microbiology - Last 24 Hours (Table) 06/21/17 18:54 Blood Culture - Preliminary Blood No Growth after 48 hours 06/19/17 14:13 Blood Culture - Preliminary Blood No Growth after 96 hours 06/21/17 19:31 Blood Culture - Preliminary Blood No Growth after 24 hours Diabetes panel 06/23/17 Range/Units 08:02 Sodium 138 (137-145) mmol/L Potassium 3.6 (3.5-5.1) mmol/L Chloride 105 (98-107) mmol/L Carbon Dioxide 27 (22-30) mmol/L BUN 10 (7-17) mg/dL Creatinine 0.79 (0.52-1.04) mg/dL Glucose 108 H (74-99) mg/dL Calcium 8.1 L (8.4-10.2) mg/dL Calcium panel 06/23/17 Range/Units 08:02 Calcium 8.1 L (8.4-10.2) mg/dL Pituitary panel 06/23/17 Range/Units 08:02 Sodium 138 (137-145) mmol/L Potassium 3.6 (3.5-5.1) mmol/L Chloride 105 (98-107) mmol/L Carbon Dioxide 27 (22-30) mmol/L BUN 10 (7-17) mg/dL Creatinine 0.79 (0.52-1.04) mg/dL Glucose 108 H (74-99) mg/dL Calcium 8.1 L (8.4-10.2) mg/dL Adrenal panel 06/23/17 Range/Units 08:02 Sodium 138 (137-145) mmol/L Potassium 3.6 (3.5-5.1) mmol/L Chloride 105 (98-107) mmol/L Carbon Dioxide 27 (22-30) mmol/L BUN 10 (7-17) mg/dL Creatinine 0.79 (0.52-1.04) mg/dL Glucose 108 H (74-99) mg/dL Calcium 8.1 L (8.4-10.2) mg/dL Assessment and Plan Plan: impression: uti w sepsis under control with ab. Right ureteral stone iwth mild obstruction symptoms secondary to stone Recommendations: options include spontaneous passage, eswl, ureteral stent with subsequent ureterosocpy and laser litho. At present she seems to have avoided the absolute need for a stent. She could have eswl next thursday. If she wants ureteroscopy she should probably have stent kaleb She will deliberate on this and let me know. I will be unavailable 06/24/2017. If urologic care is need ed please contact the office.
[2017-06-24] MEDS: DEXTROSE 5%-0.45% NACL 1,000 ML IV SCH ×2 (05:43→14:25)
[2017-06-24] MEDS: cefTRIAXone 2,000 MG in SODIUM CHLORIDE 0.9% 100 ML IVPB SCH (07:34)
[2017-06-24] MEDS: PANTOPRAZOLE 40 MG TABLET PO SCH (07:37)
[2017-06-24] MEDS: HEPARIN SODIUM,PORCINE 5,000 UNIT/ML 1 ML VIAL SQ SCH (07:37)
[2017-06-24] MEDS: TAMSULOSIN 0.4 MG CAP.ER.24H PO SCH (07:37)
[2017-06-24 08:00] VITALS: BP 128/78; RESP 17
[2017-06-24 08:37] VITALS: PULSE 72
[2017-06-24 10:24] LABS: ALT 36 U/L (9-52); AST 23 U/L (14-36); Alkaline Phosphatase 79 U/L (38-126); Anion Gap 9 mmol/L; Blood Urea Nitrogen 9 mg/dL (7-17); Calcium 8.4 mg/dL (8.4-10.2); Carbon Dioxide 26 mmol/L (22-30); Chloride 105 mmol/L (98-107); Glucose 108 mg/dL (74-99); Non-African American GFR(MDRD) >60 (>60 ml/min/1.73 sqM); Potassium 4.1 mmol/L (3.5-5.1); Sodium 140 mmol/L (137-145); Total Bilirubin 0.2 mg/dL (0.2-1.3); Total Protein 6.9 g/dL (6.3-8.2)
[2017-06-24] MEDS: BUTALB/APAP/CAFF 50-325-40MG TAB PO PRN (10:43)
[2017-06-24 14:36] VITALS: TEMP 100.1
[2017-06-24] MEDS: ALPRAZolam 0.25 MG TAB PO PRN (14:47)
--- NOTE | 2017-06-30 10:04 | DS ---
FINAL DIAGNOSES: 1. Acute urinary tract infection with possible secondary E. coli. 2. Right pyelonephritis and hydronephrosis. 3. Right ureterolithiasis. 4. Thrombocytopenia, stable. 5. Leukopenia. DISCHARGE DISPOSITION: The patient is being discharged in stable condition with guarded prognosis. HISTORY OF PRESENT ILLNESS: This 31-year-old woman with past medical history of multiple medical problems, was admitted with UTI. The patient was treated with antibiotics. The patient improved significantly and the patient was seen by infectious disease and as well as urology, recommended urology evaluation as an outpatient follow-up with possible stent placement. On exam, vital signs stable. Cardiovascular: S1, S2 muffled. Respiratory: ( ). Abdomen soft. Nervous system: No focal deficits. DISCHARGE ADVICE AND MEDICATIONS: 1. Diet is cardiac. 2. Activity limited until follow-up. 3. Follow-up with Dr. Nieves in two to three days. 4. Follow-up with Dr. Clinton as advised in one week. 5. Follow-up with Dr. Herrera as recommended. Medications are: 1. Pro-Air one puff q.i.d. prn. 2. Xanax 0.5 mg po daily. 3. Cipro 500 mg po b.i.d. for two weeks. 4. Arley 5 mg q6h prn. 5. Zofran 4 mg q.i.d. prn. 6. Flomax 0.4 mg daily. Once again, the patient is being discharged in stable condition with guarded prognosis. MTDD
== END 2017-06-24 15:37 | disposition home or self-care (01) | DRG 872 ==
LOC: EC 13:24 → 6PED 15:25 → 4MS4W 06-21 15:21
PROVIDERS: ADMIT Internal Medicine; ATTEND Internal Medicine
DX: A41.50 Gram-negative sepsis, unspecified (principal); D69.6 Thrombocytopenia, unspecified; K76.0 Fatty (change of) liver, not elsewhere classified; N13.6 Pyonephrosis; G43.909 Migraine, unspecified, not intractable, without status migrainosus; F41.9 Anxiety disorder, unspecified; F32.9 Major depressive disorder, single episode, unspecified; E66.9 Obesity, unspecified; M51.26 Other intervertebral disc displacement, lumbar region; B96.20 Unspecified Escherichia coli [E. coli] as the cause of diseases classified elsewhere; Z79.899 Other long term (current) drug therapy; Z87.891 Personal history of nicotine dependence; Z87.442 Personal history of urinary calculi; Z88.8 Allergy status to other drugs, medicaments and biological substances; Z88.5 Allergy status to narcotic agent; Z88.0 Allergy status to penicillin; D72.819 Decreased white blood cell count, unspecified
CPT/HCPCS: 36415; 71020; 74176; 76770; 80048; 80053; 81001; 83605; 85025; 85610; 85730; 87040; 87086; 93005; 96361; 96374; 99285

== ENCOUNTER 2017-06-26 20:07 | Emergency (ER) | payer BC, OTHER ==
[2017-06-26] MEDS ORDERED: diphenhydrAMINE 50 MG/ML 1 ML VIAL IVP STA (20:35)
[2017-06-26] MEDS ORDERED: METOCLOPRAMIDE 5 MG/ML 2 ML VIAL IVP STA (20:35)
[2017-06-26] MEDS ORDERED: KETOROLAC 30 MG/ML 1 ML VIAL IVP STA (20:35)
[2017-06-26] MEDS ORDERED: CAFFEINE-SODIUM BENZOATE 1,000 MG in SODIUM CHLORIDE 0.9% 1,000 ML IVPB ONE (21:04)
[2017-06-26 21:06] LABS: Basophils % (A) 0 %; CH 26.4; CHCM 33.1; Eosinophils # (A) 0.1 k/uL (0-0.7); Eosinophils % (A) 1 %; HCT 40.4 % (34.0-46.0); HDW 2.93; HGB 13.9 gm/dL (11.4-16.0); Luc # (Auto) 0.27; Luc % (Auto) 2; Lymphocytes # (A) 2.8 k/uL (1.0-4.8); Lymphocytes % (A) 23 %; MCH 27.5 pg (25.0-35.0); MCHC 34.3 g/dL (31.0-37.0); Mean Platelet Volume 7.9; Monocytes # (A) 0.4 k/uL (0-1.0); Monocytes % (A) 4 %; Neutrophils # (A) 8.5 k/uL (1.3-7.7); Neutrophils % (A) 70 %; RBC 5.05 m/uL (3.80-5.40); RDW 14.5 % (11.5-15.5); WBC 12.1 k/uL (3.8-10.6); WBC (Perox) 11.95
[2017-06-26 21:10] LABS: Appearance,Urine Clear (Clear); Bacteria,Urine Rare /hpf; Bilirubin,Urine Negative (Negative); Glucose,Urine (UA) Negative (Negative); Ketones,Urine Negative (Negative); Leukocyte Esterase,Urine Moderate (Negative); Mucus,Urine Rare /hpf; Nitrite,Urine Negative (Negative); Particle Count 3061; Protein,Urine Trace (Negative); RBC,Urine 88 /hpf (0-5); Specific Gravity,Urine 1.011 (1.001-1.035); Squamous Epithelial Cell,Urine <1 /hpf (0-4); UA Billing (MACRO vs. MICRO) MICRO; Urobilinogen,Urine <2.0 mg/dL (<2.0); WBC,Urine 146 /hpf (0-5)
[2017-06-26 21:17] LABS: ALT 38 U/L (9-52); AST 27 U/L (14-36); Alkaline Phosphatase 87 U/L (38-126); Anion Gap 10 mmol/L; Blood Urea Nitrogen 13 mg/dL (7-17); Calcium 9.6 mg/dL (8.4-10.2); Carbon Dioxide 28 mmol/L (22-30); Chloride 100 mmol/L (98-107); Glucose 96 mg/dL (74-99); Non-African American GFR(MDRD) >60 (>60 ml/min/1.73 sqM); Potassium 4.1 mmol/L (3.5-5.1); Sodium 138 mmol/L (137-145); Total Bilirubin 0.4 mg/dL (0.2-1.3); Total Protein 8.3 g/dL (6.3-8.2)
--- NOTE | 2017-06-26 23:20 | ED ---
General Adult HPI - General Chief complaint: Fever Stated complaint: sepsis and kidney infection-revisit Source: patient Mode of arrival: ambulatory Limitations: no limitations - History of Present Illness Initial comments: 31-year-old female recently discharged from a weeklong admission for obstructive uropathy with pyelonephritis presented for evaluation of fevers at home and headache. She was discharged on Thursday and informed by her urologist Dr. Swanson that she would return for lithotrypsy on thursday when the machine was at this hospital. She was further advised to return to this hospital for reevaluation if she should have any new or worsening symptoms. She states that during this time she has had fever as high as 102 and has been developing a headache. She was advised not to take any NSAIDs or aspirin and since Tylenol was not working for her pain she came to the ED for further treatment and evaluation. She states that her flank pain due to the stone is not as bad at this point she is not having any dysuria or increased frequency or hematuria. She denies nausea or vomiting, chest pain or shortness of breath , diarrhea or constipation. - Related Data Home Medications Medication Instructions Recorded Confirmed ALPRAZolam [Xanax] 0.5 mg PO DAILY PRN 03/17/17 06/26/17 Albuterol Sulfate [Proair Hfa] 1 puff INHALATION RT-Q6H PRN 06/17/17 06/26/17 Butalb/APAP/Caff 50-325-40Mg 1 tab PO Q6H PRN 06/26/17 06/26/17 [Fioricet 50-325-40] Previous Rx's Medication Instructions Recorded HYDROcodone/APAP 5-325MG [[place] 1 tab PO Q6HR PRN #30 tab 05/24/17 5-325] Ondansetron Odt [Zofran ODT] 4 mg PO Q8HR PRN #10 tab 06/17/17 Ciprofloxacin HCl [Cipro] 500 mg PO Q12HR #28 tablet 06/23/17 Tamsulosin [Flomax] 0.4 mg PO PC-BRKFST #30 cap 06/23/17 Allergies Allergy/AdvReac Type Severity Reaction Status Date / Time morphine Allergy Dyspnea/Chest Verified 06/26/17 20:40 Pain Penicillins Allergy Rash/Hives Verified 06/26/17 20:40 epinephrine AdvReac Rapid Verified 06/26/17 20:40 Heart Rate Review of Systems ROS Statement: Those systems with pertinent positive or pertinent negative responses have been documented in the HPI. ROS Other: All systems not noted in ROS Statement are negative. Constitutional: Reports: fever. Denies: chills, weakness Eyes: Denies: eye pain, eye discharge ENT: Denies: ear pain, throat pain Respiratory: Denies: cough, dyspnea Cardiovascular: Denies: chest pain, palpitations Endocrine: Denies: fatigue, polydipsia, polyuria Gastrointestinal: Denies: abdominal pain, nausea, vomiting Genitourinary: Reports: frequency. Denies: urgency, dysuria Musculoskeletal: Denies: back pain, arthralgia, myalgia Skin: Denies: rash, lesions Neurological: Reports: headache. Denies: weakness Psychiatric: Denies: anxiety, depression Hematological/Lymphatic: Denies: easy bleeding, easy bruising Past Medical History Past Medical History: Chest Pain / Angina, Liver Disease Additional Past Medical History / Comment(s): tachycardia, HERNIATED LUMBAR DISCS, DEPRESSION, ANXIETY. 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 HAD IT AGAIN AT AGE 31-PT STATED SHE WAS TOLD SHE HAS A FATTY LIVER, kidney stones. History of Any Multi-Drug Resistant Organisms: None Reported Past Surgical History: Section, Heart Catheterization, Tubal Ligation Additional Past Surgical History / Comment(s): liver bx, 3 C-SECTIONS Past Anesthesia/Blood Transfusion Reactions: Motion Sickness Past Psychological History: Anxiety, Depression Smoking Status: Former smoker - Past Family History Mother Family Medical History: Fibromyalgia Father Family Medical History: Coronary Artery Disease (CAD), Diabetes Mellitus, Myocardial Infarction ([place]) General Exam Limitations: no limitations General appearance: alert, in no apparent distress Head exam: Present: atraumatic, normocephalic, normal inspection Eye exam: Present: normal appearance, PERRL, EOMI. Absent: scleral icterus, conjunctival injection, periorbital swelling ENT exam: Present: normal exam, mucous membranes moist Neck exam: Present: normal inspection. Absent: tenderness, meningismus, lymphadenopathy Respiratory exam: Present: normal lung sounds bilaterally. Absent: respiratory distress, wheezes, rales, rhonchi, stridor Cardiovascular Exam: Present: regular rate, normal rhythm, normal heart sounds. Absent: systolic murmur, diastolic murmur, rubs, gallop, clicks GI/Abdominal exam: Present: soft, normal bowel sounds. Absent: distended, tenderness, guarding, rebound, rigid Rectal exam: Present: deferred Extremities exam: Present: normal inspection, full ROM, normal capillary refill. Absent: tenderness, pedal edema, joint swelling, calf tenderness Back exam: Present: normal inspection Neurological exam: Present: alert, oriented X3, CN II-XII intact Psychiatric exam: Present: normal affect, normal mood Skin exam: Present: warm, dry, intact, normal color. Absent: rash Course Vital Signs 06/26/17 06/26/17 06/26/17 20:15 22:26 23:45 Temperature 98.2 F 97.8 F Pulse Rate 105 H 72 78 Respiratory 20 15 16 Rate Blood Pressure 125/90 147/67 109/63 O2 Sat by Pulse 100 98 99 Oximetry EKG Findings - EKG Comments: EKG Findings:: M sinus rhythm with a ventricular rate of 87, KRISSY 122, QRS 92, QT /QTc 400/481. Medical Decision Making - Medical Decision Making 31-year-old female presented for evaluation of fever and headache. She was recently discharged from this facility after week admission for obstructive uropathy and pyelonephritis. She was home on Cipro and scheduled for lithotripsy on Thursday. Over the last couple days she has been developing a fever at home with a T-max of 102F. She also states associated headache. On physical examination she is in no apparent distress with cranial nerves II through XII intact without focal neurologic deficits and normal gait and station. Abdomen is soft and non-peritoneal without guarding, rigidity, or rebound. She has only minimal flank pain to palpation however the remainder of the physical exam is benign. The patient was provided with pain control and IV fluid with caffeine for headache management. Labs revealed a mild leukocytosis as well as urinary tract infection. The patient's status was discussed with her urologist partner Dr. Clinton who agreed with plan to discharge home and continue cipro. The pt was informed of this discussion and advised to follow up on thursday but given return instructions for the . The pt acknowledged an understanding of this information and agreed with this plan of care. - Lab Data Result diagrams: 06/26/17 21:00 06/26/17 21:00 Lab Results 06/26/17 06/26/17 06/26/17 Range/Units 21:00 21:00 21:00 WBC 12.1 H (3.8-10.6) k/uL RBC 5.05 (3.80-5.40) m/uL Hgb 13.9 (11.4-16.0) gm/dL Hct 40.4 (34.0-46.0) % MCV 80.0 (80.0-100.0) fL MCH 27.5 (25.0-35.0) pg MCHC 34.3 (31.0-37.0) g/dL RDW 14.5 (11.5-15.5) % Plt Count 269 (150-450) k/uL Neutrophils % 70 % Lymphocytes % 23 % Monocytes % 4 % Eosinophils % 1 % Basophils % 0 % Neutrophils # 8.5 H (1.3-7.7) k/uL Lymphocytes # 2.8 (1.0-4.8) k/uL Monocytes # 0.4 (0-1.0) k/uL Eosinophils # 0.1 (0-0.7) k/uL Basophils # 0.0 (0-0.2) k/uL Sodium 138 (137-145) mmol/L Potassium 4.1 (3.5-5.1) mmol/L Chloride 100 (98-107) mmol/L Carbon Dioxide 28 (22-30) mmol/L Anion Gap 10 mmol/L BUN 13 (7-17) mg/dL Creatinine 0.75 (0.52-1.04) mg/dL Est GFR (MDRD) Af Amer >60 (>60 ml/min/1.73 sqM) Est GFR (MDRD) Non-Af >60 (>60 ml/min/1.73 sqM) Glucose 96 (74-99) mg/dL Calcium 9.6 (8.4-10.2) mg/dL Total Bilirubin 0.4 (0.2-1.3) mg/dL AST 27 (14-36) U/L ALT 38 (9-52) U/L Alkaline Phosphatase 87 (38-126) U/L Total Protein 8.3 H (6.3-8.2) g/dL Albumin 4.1 (3.5-5.0) g/dL Urine Color Urine Appearance (Clear) Urine pH (5.0-8.0) Ur Specific [place] (1.001-1.035) Urine Protein (Negative) Urine Glucose (UA) (Negative) Urine Ketones (Negative) Urine Blood (Negative) Urine Nitrite (Negative) Urine Bilirubin (Negative) Urine Urobilinogen (<2.0) mg/dL Ur Leukocyte Esterase (Negative) Urine RBC (0-5) /hpf Urine WBC (0-5) /hpf Ur Squamous Epith Cells (0-4) /hpf Urine Bacteria (None) /hpf Urine Mucus (None) /hpf Urine HCG, Qual Not Detected (Not Detectd) 06/26/17 Range/Units 21:00 WBC (3.8-10.6) k/uL RBC (3.80-5.40) m/uL Hgb (11.4-16.0) gm/dL Hct (34.0-46.0) % MCV (80.0-100.0) fL MCH (25.0-35.0) pg MCHC (31.0-37.0) g/dL RDW (11.5-15.5) % Plt Count (150-450) k/uL Neutrophils % % Lymphocytes % % Monocytes % % Eosinophils % % Basophils % % Neutrophils # (1.3-7.7) k/uL Lymphocytes # (1.0-4.8) k/uL Monocytes # (0-1.0) k/uL Eosinophils # (0-0.7) k/uL Basophils # (0-0.2) k/uL Sodium (137-145) mmol/L Potassium (3.5-5.1) mmol/L Chloride (98-107) mmol/L Carbon Dioxide (22-30) mmol/L Anion Gap mmol/L BUN (7-17) mg/dL Creatinine (0.52-1.04) mg/dL Est GFR (MDRD) Af Amer (>60 ml/min/1.73 sqM) Est GFR (MDRD) Non-Af (>60 ml/min/1.73 sqM) Glucose (74-99) mg/dL Calcium (8.4-10.2) mg/dL Total Bilirubin (0.2-1.3) mg/dL AST (14-36) U/L ALT (9-52) U/L Alkaline Phosphatase (38-126) U/L Total Protein (6.3-8.2) g/dL Albumin (3.5-5.0) g/dL Urine Color Yellow Urine Appearance Clear (Clear) Urine pH 6.0 (5.0-8.0) Ur Specific [place] 1.011 (1.001-1.035) Urine Protein Trace H (Negative) Urine Glucose (UA) Negative (Negative) Urine Ketones Negative (Negative) Urine Blood Large H (Negative) Urine Nitrite Negative (Negative) Urine Bilirubin Negative (Negative) Urine Urobilinogen <2.0 (<2.0) mg/dL Ur Leukocyte Esterase Moderate H (Negative) Urine RBC 88 H (0-5) /hpf Urine WBC 146 H (0-5) /hpf Ur Squamous Epith Cells <1 (0-4) /hpf Urine Bacteria Rare H (None) /hpf Urine Mucus Rare H (None) /hpf Urine HCG, Qual (Not Detectd) Disposition Clinical Impression: Headache, UTI (urinary tract infection) Disposition: HOME SELF-CARE Condition: Stable Instructions: Kidney Stones (ED), Urinary Tract Infection in Women (ED), Fever in Adults (ED) Referrals: Stephen Nieves III, MD [Primary Care Provider] - 1-2 days Time of Disposition: 23:20
[2017-06-26 23:46] VITALS: BP 109/63; PULSE 78; RESP 16; TEMP 97.8
== END 2017-06-26 23:45 | disposition home or self-care (01) ==
LOC: EC 20:07
DX: N39.0 Urinary tract infection, site not specified (principal); R51 Headache; Z87.891 Personal history of nicotine dependence; Z88.0 Allergy status to penicillin; Z88.5 Allergy status to narcotic agent; Z88.8 Allergy status to other drugs, medicaments and biological substances; Z53.20 Procedure and treatment not carried out because of patient's decision for unspecified reasons
CPT/HCPCS: 36415; 93005; 80053; 85025; 81001; 81025; 87086; 99283; 96365; 96366; 96375; J2765; 80048; 96374

== ENCOUNTER → 2017-06-26 | Outpatient (CLI) | payer BC ==
[2017-06-26 16:51] LABS: Basophils # (A) 0.1 k/uL (0-0.2); Basophils % (A) 1 %; CH 26.7; CHCM 32.5; Eosinophils # (A) 0.1 k/uL (0-0.7); Eosinophils % (A) 1 %; HCT 40.1 % (34.0-46.0); HDW 2.87; HGB 13.1 gm/dL (11.4-16.0); Luc # (Auto) 0.26; Luc % (Auto) 2; Lymphocytes % (A) 24 %; MCHC 32.7 g/dL (31.0-37.0); MCV 82.4 fL (80.0-100.0); Mean Platelet Volume 8.2; Monocytes # (A) 0.4 k/uL (0-1.0); Monocytes % (A) 3 %; Neutrophils # (A) 8.6 k/uL (1.3-7.7); Neutrophils % (A) 69 %; RBC 4.87 m/uL (3.80-5.40); RDW 14.6 % (11.5-15.5); WBC 12.5 k/uL (3.8-10.6); WBC (Perox) 12.07
[2017-06-26 16:57] LABS: Anion Gap 14 mmol/L; Blood Urea Nitrogen 15 mg/dL (7-17); Calcium 9.7 mg/dL (8.4-10.2); Carbon Dioxide 26 mmol/L (22-30); Chloride 100 mmol/L (98-107); Glucose 91 mg/dL (74-99); Non-African American GFR(MDRD) >60 (>60 ml/min/1.73 sqM); Potassium 4.1 mmol/L (3.5-5.1); Sodium 140 mmol/L (137-145)
== END | disposition home or self-care (01) ==
LOC: LABWHC1 16:15
PROVIDERS: ATTEND Nurse Practitioner
DX: N39.0 Urinary tract infection, site not specified (principal); N12 Tubulo-interstitial nephritis, not specified as acute or chronic
CPT/HCPCS: 36415; 80048; 85025

== ENCOUNTER 2017-07-03 17:54 | Emergency (ER) | payer BC ==
[2017-07-03] MEDS ORDERED: ONDANSETRON 4 MG/2 ML VIAL IVP STA (19:32)
[2017-07-03] MEDS ORDERED: KETOROLAC 30 MG/ML 1 ML VIAL IVP STA (19:32)
[2017-07-03] MEDS ORDERED: ACETAMINOPHEN TAB 500 MG TAB PO STA (19:35)
--- NOTE | 2017-07-03 19:35 | ED ---
General Adult HPI - General Chief complaint: Recheck/Abnormal Lab/Rx Stated complaint: Kidney Infection Hx Sepsis Time Seen by Provider: 07/03/17 19:08 Source: patient, RN notes reviewed, old records reviewed Mode of arrival: ambulatory Limitations: no limitations - History of Present Illness Initial comments: 12-year-old female presenting to emergency Department chief complaint of severe fatigue, leg pain, lightheadedness and occasional shortness of breath. Patient was recently discharged for urosepsis last week. She did receive a lithotripsy on Thursday. She then was relieved visiting the emergency department for a migraine headache. She was discharged his Fioricet given medications at that time was feeling somewhat better. Patient reports that throughout the week she' s feeling increasingly fatigued, and feels very groggy. She states that she has not had a recorded fever that she is aware of. She's been taking Motrin, and [place] occasionally, and her previously prescribed antibiotics of ciprofloxacin. Patient states that she has not associated antibiotics. She states that she's had a few stones that pass the following day after the lithotripsy. She reports that she is concerned there may be still some stones remaining causing the pain. Surgical history includes tubal ligation, 3 C- sections, lithotripsy, liver biopsy and cardiac cath. - Related Data Home Medications Medication Instructions Recorded Confirmed ALPRAZolam [Xanax] 0.5 mg PO DAILY PRN 03/17/17 07/03/17 Albuterol Sulfate [Proair Hfa] 1 puff INHALATION RT-Q6H PRN 06/17/17 07/03/17 Butalb/APAP/Caff 50-325-40Mg 1 tab PO Q6H PRN 06/26/17 07/03/17 [Fioricet 50-325-40] Previous Rx's Medication Instructions Recorded HYDROcodone/APAP 5-325MG [[place] 1 tab PO Q6HR PRN #30 tab 05/24/17 5-325] Ciprofloxacin HCl [Cipro] 500 mg PO Q12HR #28 tablet 06/23/17 Allergies Allergy/AdvReac Type Severity Reaction Status Date / Time morphine Allergy Dyspnea/Chest Verified 07/03/17 19:12 Pain Penicillins Allergy Rash/Hives Verified 07/03/17 19:12 epinephrine AdvReac Rapid Verified 07/03/17 19:12 Heart Rate Review of Systems ROS Statement: Those systems with pertinent positive or pertinent negative responses have been documented in the HPI. ROS Other: All systems not noted in ROS Statement are negative. Past Medical History Past Medical History: Chest Pain / Angina, Liver Disease Additional Past Medical History / Comment(s): tachycardia, HERNIATED LUMBAR DISCS, DEPRESSION, ANXIETY. 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 HAD IT AGAIN AT AGE 31-PT STATED SHE WAS TOLD SHE HAS A FATTY LIVER, kidney stones. History of Any Multi-Drug Resistant Organisms: None Reported Past Surgical History: Section, Heart Catheterization, Tubal Ligation Additional Past Surgical History / Comment(s): liver bx, 3 C-SECTIONS Past Anesthesia/Blood Transfusion Reactions: Motion Sickness Past Psychological History: Anxiety, Depression Smoking Status: Former smoker - Past Family History Mother Family Medical History: Fibromyalgia Father Family Medical History: Coronary Artery Disease (CAD), Diabetes Mellitus, Myocardial Infarction ([place]) General Exam - General Exam Comments Initial Comments: This is a 31-year-old female. Patient does not appear to be in any significant distress. She does appear to be somewhat fatigued. Limitations: no limitations General appearance: alert, in no apparent distress Head exam: Present: atraumatic, normocephalic, normal inspection Eye exam: Present: normal appearance, PERRL, EOMI. Absent: scleral icterus, conjunctival injection, periorbital swelling ENT exam: Present: normal exam, mucous membranes moist Neck exam: Present: normal inspection. Absent: tenderness, meningismus, lymphadenopathy Respiratory exam: Present: normal lung sounds bilaterally. Absent: respiratory distress, wheezes, rales, rhonchi, stridor Cardiovascular Exam: Present: regular rate, normal rhythm, normal heart sounds. Absent: systolic murmur, diastolic murmur, rubs, gallop, clicks GI/Abdominal exam: Present: soft, normal bowel sounds. Absent: distended, tenderness, guarding, rebound, rigid Extremities exam: Present: normal inspection, full ROM, normal capillary refill. Absent: tenderness, pedal edema, joint swelling, calf tenderness Back exam: Present: normal inspection, full ROM, CVA tenderness (R), CVA tenderness (L) Neurological exam: Present: alert, oriented X3, CN II-XII intact Psychiatric exam: Present: normal affect, normal mood Skin exam: Present: warm, dry, intact, normal color. Absent: rash Course Vital Signs 07/03/17 07/03/17 07/03/17 18:19 19:38 20:26 Temperature 99.1 F 99.4 F 98.8 F Pulse Rate 96 82 80 Pulse Rate [ Sitting] Pulse Rate [ Standing] Pulse Rate [ Supine] Respiratory 18 18 16 Rate Blood Pressure 142/85 169/95 128/70 Blood Pressure [Sitting] Blood Pressure [Standing] Blood Pressure [Supine] O2 Sat by Pulse 99 99 99 Oximetry 07/03/17 21:11 Temperature Pulse Rate Pulse Rate [ 67 Sitting] Pulse Rate [ 64 Standing] Pulse Rate [ 83 Supine] Respiratory Rate Blood Pressure Blood Pressure 122/71 [Sitting] Blood Pressure 127/81 [Standing] Blood Pressure 121/57 [Supine] O2 Sat by Pulse Oximetry Medical Decision Making - Medical Decision Making 12-year-old female presenting to emergency Department chief complaint of severe fatigue, leg pain, lightheadedness and occasional shortness of breath. Patient was recently discharged for urosepsis last week. She did receive a lithotripsy on Thursday. She then was relieved visiting the emergency department for a migraine headache. She was discharged his Fioricet given medications at that time was feeling somewhat better. Patient reports that throughout the week she' s feeling increasingly fatigued, and feels very groggy. She states that she has not had a recorded fever that she is aware of. She's been taking Motrin, and [place] occasionally, and her previously prescribed antibiotics of ciprofloxacin. Patient was given IV fluids, Motrin and Tylenol. Patient was reevaluated and reports that she is feeling somewhat better whenever she sits up. She states that she seems to have the symptoms whenever she goes from sitting to standing. Orthostatic blood pressures obtained. Patient's lab work was reviewed and negative for any significant abnormalities. Her EKG was also reviewed and within normal limits. Chest x-ray and KUB x-ray were also both normal. Discussed with patient that she needs to remain hydrated and she is likely having vagal episodes. Discussed that she needs to rest, and remain hydrated and take her medications as prescribed. Discussed close follow-up with her primary care physician. Patient agrees to treatment plan and will comply. Return parameters were discussed. Patient is orthostatics were reviewed and show no evidence of any significant abnormalities. - Lab Data Result diagrams: 07/03/17 19:00 07/03/17 19:00 Lab Results 07/03/17 07/03/17 07/03/17 Range/Units 19:00 19:00 19:00 WBC 7.1 (3.8-10.6) k/uL RBC 4.54 (3.80-5.40) m/uL Hgb 12.4 (11.4-16.0) gm/dL Hct 37.9 (34.0-46.0) % MCV 83.4 (80.0-100.0) fL MCH 27.4 (25.0-35.0) pg MCHC 32.8 (31.0-37.0) g/dL RDW 15.1 (11.5-15.5) % Plt Count 336 (150-450) k/uL Neutrophils % 59 % Lymphocytes % 31 % Monocytes % 4 % Eosinophils % 3 % Basophils % 1 % Neutrophils # 4.2 (1.3-7.7) k/uL Lymphocytes # 2.2 (1.0-4.8) k/uL Monocytes # 0.3 (0-1.0) k/uL Eosinophils # 0.2 (0-0.7) k/uL Basophils # 0.1 (0-0.2) k/uL PT (9.0-12.0) sec INR (<1.2) APTT (22.0-30.0) sec D-Dimer (<0.60) mg/L FEU Sodium 142 (137-145) mmol/L Potassium 4.4 (3.5-5.1) mmol/L Chloride 104 (98-107) mmol/L Carbon Dioxide 26 (22-30) mmol/L Anion Gap 12 mmol/L BUN 14 (7-17) mg/dL Creatinine 0.70 (0.52-1.04) mg/dL Est GFR (MDRD) Af Amer >60 (>60 ml/min/1.73 sqM) Est GFR (MDRD) Non-Af >60 (>60 ml/min/1.73 sqM) Glucose 105 H (74-99) mg/dL Plasma Lactic Acid Lance 1.2 (0.7-2.0) mmol/L Calcium 9.8 (8.4-10.2) mg/dL Total Bilirubin 0.3 (0.2-1.3) mg/dL AST 26 (14-36) U/L ALT 35 (9-52) U/L Alkaline Phosphatase 83 (38-126) U/L Troponin I (0.000-0.034) ng/mL Total Protein 7.5 (6.3-8.2) g/dL Albumin 4.0 (3.5-5.0) g/dL Urine Color Urine Appearance (Clear) Urine pH (5.0-8.0) Ur Specific [place] (1.001-1.035) Urine Protein (Negative) Urine Glucose (UA) (Negative) Urine Ketones (Negative) Urine Blood (Negative) Urine Nitrite (Negative) Urine Bilirubin (Negative) Urine Urobilinogen (<2.0) mg/dL Ur Leukocyte Esterase (Negative) Urine WBC (0-5) /hpf Ur Squamous Epith Cells (0-4) /hpf Urine Mucus (None) /hpf Urine Yeast (Budding) (None) /hpf 07/03/17 07/03/17 07/03/17 Range/Units 19:00 19:00 19:00 WBC (3.8-10.6) k/uL RBC (3.80-5.40) m/uL Hgb (11.4-16.0) gm/dL Hct (34.0-46.0) % MCV (80.0-100.0) fL MCH (25.0-35.0) pg MCHC (31.0-37.0) g/dL RDW (11.5-15.5) % Plt Count (150-450) k/uL Neutrophils % % Lymphocytes % % Monocytes % % Eosinophils % % Basophils % % Neutrophils # (1.3-7.7) k/uL Lymphocytes # (1.0-4.8) k/uL Monocytes # (0-1.0) k/uL Eosinophils # (0-0.7) k/uL Basophils # (0-0.2) k/uL PT 10.4 (9.0-12.0) sec INR 1.0 (<1.2) APTT 23.0 (22.0-30.0) sec D-Dimer 0.53 (<0.60) mg/L FEU Sodium (137-145) mmol/L Potassium (3.5-5.1) mmol/L Chloride (98-107) mmol/L Carbon Dioxide (22-30) mmol/L Anion Gap mmol/L BUN (7-17) mg/dL Creatinine (0.52-1.04) mg/dL Est GFR (MDRD) Af Amer (>60 ml/min/1.73 sqM) Est GFR (MDRD) Non-Af (>60 ml/min/1.73 sqM) Glucose (74-99) mg/dL Plasma Lactic Acid [place] (0.7-2.0) mmol/L Calcium (8.4-10.2) mg/dL Total Bilirubin (0.2-1.3) mg/dL AST (14-36) U/L ALT (9-52) U/L Alkaline Phosphatase (38-126) U/L Troponin I <0.012 (0.000-0.034) ng/mL Total Protein (6.3-8.2) g/dL Albumin (3.5-5.0) g/dL Urine Color Yellow Urine Appearance Cloudy H (Clear) Urine pH 7.5 (5.0-8.0) Ur Specific [place] 1.012 (1.001-1.035) Urine Protein Negative (Negative) Urine Glucose (UA) Negative (Negative) Urine Ketones Negative (Negative) Urine Blood Negative (Negative) Urine Nitrite Negative (Negative) Urine Bilirubin Negative (Negative) Urine Urobilinogen <2.0 (<2.0) mg/dL Ur Leukocyte Esterase Negative (Negative) Urine WBC 3 (0-5) /hpf Ur Squamous Epith Cells 11 H (0-4) /hpf Urine Mucus Rare H (None) /hpf Urine Yeast (Budding) Rare H (None) /hpf 07/03/17 19:43 EKG performed at 1942 shows normal sinus rhythm. Ventricular rate of 66 bpm. OK interval 146 ms. QRS duration 92 ms. QT QTc is 410/433 ms. No evidence of ST elevation or T-wave inversion. No evidence of atrial or ventricular arrhythmias. - Radiology Data Radiology results: report reviewed Normal chest. No acute changes. KUB shows no acute abdomen. No sign. 2. Fecal pattern is normal. No pathologic Patient's of Her Kidneys. Disposition Clinical Impression: Dizziness, History of sepsis Disposition: HOME SELF-CARE Condition: Good Instructions: Lightheadedness (ED) Additional Instructions: Patient needs to remain hydrated. Close follow-up with her primary care physician. Take your medications as prescribed. Return to the emergency department if any alarming signs or symptoms occur. Referrals: Stephen Nieves III, MD [Primary Care Provider] - 1-2 days Time of Disposition: 21:00
[2017-07-03 19:49] LABS: Basophils # (A) 0.1 k/uL (0-0.2); Basophils % (A) 1 %; CH 27.6; CHCM 33.2; Eosinophils # (A) 0.2 k/uL (0-0.7); Eosinophils % (A) 3 %; HCT 37.9 % (34.0-46.0); HDW 2.78; HGB 12.4 gm/dL (11.4-16.0); Luc # (Auto) 0.15; Luc % (Auto) 2; Lymphocytes # (A) 2.2 k/uL (1.0-4.8); Lymphocytes % (A) 31 %; MCH 27.4 pg (25.0-35.0); MCHC 32.8 g/dL (31.0-37.0); MCV 83.4 fL (80.0-100.0); Mean Platelet Volume 8.5; Monocytes # (A) 0.3 k/uL (0-1.0); Monocytes % (A) 4 %; Neutrophils # (A) 4.2 k/uL (1.3-7.7); Neutrophils % (A) 59 %; RBC 4.54 m/uL (3.80-5.40); RDW 15.1 % (11.5-15.5); WBC 7.1 k/uL (3.8-10.6); WBC (Perox) 6.97
[2017-07-03 19:59] LABS: Appearance,Urine Cloudy (Clear); Bilirubin,Urine Negative (Negative); Glucose,Urine (UA) Negative (Negative); Ketones,Urine Negative (Negative); Leukocyte Esterase,Urine Negative (Negative); Mucus,Urine Rare /hpf; Nitrite,Urine Negative (Negative); PH, Urine 7.5 (5.0-8.0); Particle Count 14366; Protein,Urine Negative (Negative); Specific Gravity,Urine 1.012 (1.001-1.035); Squamous Epithelial Cell,Urine 11 /hpf (0-4); UA Billing (MACRO vs. MICRO) MICRO; Urobilinogen,Urine <2.0 mg/dL (<2.0); WBC,Urine 3 /hpf (0-5)
[2017-07-03 20:05] LABS: ALT 35 U/L (9-52); AST 26 U/L (14-36); Alkaline Phosphatase 83 U/L (38-126); Anion Gap 12 mmol/L; Blood Urea Nitrogen 14 mg/dL (7-17); Calcium 9.8 mg/dL (8.4-10.2); Carbon Dioxide 26 mmol/L (22-30); Chloride 104 mmol/L (98-107); Glucose 105 mg/dL (74-99); Non-African American GFR(MDRD) >60 (>60 ml/min/1.73 sqM); Potassium 4.4 mmol/L (3.5-5.1); Sodium 142 mmol/L (137-145); Total Bilirubin 0.3 mg/dL (0.2-1.3); Total Protein 7.5 g/dL (6.3-8.2)
[2017-07-03 20:07] LABS: Prothrombin Time 10.4 sec (9.0-12.0)
--- NOTE | 2017-07-03 20:09 | XR ---
EXAMINATION TYPE: XR KUB DATE OF EXAM: 07/03/2017 COMPARISON: NONE HISTORY: Pain TECHNIQUE: 2 views FINDINGS: Bowel gas pattern is normal. There is no sign of intestinal obstruction or pneumoperitoneum . Fecal pattern is normal. There is no evidence of a mass. There are no pathologic calcifications ove r the kidneys. IMPRESSION: Nonacute abdomen.
--- NOTE | 2017-07-03 20:10 | XR ---
EXAMINATION TYPE: XR chest 2V DATE OF EXAM: 07/03/2017 COMPARISON: 06/19/2017 HISTORY: Chest pain TECHNIQUE: Frontal and lateral views of the chest are obtained. FINDINGS: Heart and mediastinum are normal. Lungs are clear. Diaphragm is normal. There are chest le ads. Bony thorax appears normal. IMPRESSION: Normal chest. No change.
[2017-07-03 20:27] VITALS: RESP 16
[2017-07-03 23:00] VITALS: BP 112/50; PULSE 78; TEMP 98.3
== END 2017-07-03 22:05 | disposition home or self-care (01) ==
LOC: EC 17:54
DX: R42 Dizziness and giddiness (principal); R53.83 Other fatigue; Z86.19 Personal history of other infectious and parasitic diseases; Z87.891 Personal history of nicotine dependence; Z98.890 Other specified postprocedural states; Z88.0 Allergy status to penicillin; Z88.5 Allergy status to narcotic agent; Z88.8 Allergy status to other drugs, medicaments and biological substances
CPT/HCPCS: 99284; 96374; 96375; 36415; 93005; 85379; 80053; 83605; 84484; 85025; 85610; 85730; 81001; 87040; 87086; 71020; 74000; J2405; J1885

== ENCOUNTER → 2017-07-09 | Outpatient (CLI) | payer BC ==
--- NOTE | 2017-07-09 15:40 | XR ---
Abdomen HISTORY: Right-sided kidney stones, status post lithotripsy, N 20.1 Frontal view of the abdomen submitted on 2 images and correlated to prior exam dated 07/03/2017 Small calcifications are present possibly in the distribution of the right ureter measuring approxima tely 6 mm and 1 mm. Additional calcifications in the pelvis likely represent phleboliths. No pneumope ritoneum or bowel obstruction. IMPRESSION: Interval lithotripsy, suspect there are distal right ureteral calcifications present.
== END ==
LOC: RADXRMAIN 15:21
PROVIDERS: ATTEND Urology
DX: N20.1 Calculus of ureter (principal)
CPT/HCPCS: 74000

== ENCOUNTER 2017-07-16 18:10 | Emergency (ER) | payer BC ==
[2017-07-16] MEDS ORDERED: ONDANSETRON 4 MG/2 ML VIAL IVP STA (18:44)
[2017-07-16] MEDS ORDERED: KETOROLAC 30 MG/ML 1 ML VIAL IVP STA (18:44)
[2017-07-16] MEDS ORDERED: SODIUM CHLORIDE 0.9% 500 ML IV SCH (18:45)
[2017-07-16] MEDS ORDERED: SODIUM CHLORIDE 0.9% 2,000 ML IV ONE (18:48)
--- NOTE | 2017-07-16 19:20 | XR ---
EXAMINATION TYPE: XR KUB DATE OF EXAM: 07/16/2017 COMPARISON: NONE HISTORY: Pain TECHNIQUE: Single supine KUB image of the abdomen is obtained FINDINGS: Small bowel demonstrates no evidence for dilatation or air fluid levels. Gas and fecal material is seen in non-distended colon. No convincing evidence for pneumoperitoneum. No unusual calcifications. The lung bases are clear. The osseous structures are intact. IMPRESSION: 1. Overall nonobstructive bowel gas pattern.
[2017-07-16 19:21] LABS: Appearance,Urine Clear (Clear); Bilirubin,Urine Negative (Negative); Glucose,Urine (UA) Negative (Negative); Ketones,Urine Negative (Negative); Leukocyte Esterase,Urine Negative (Negative); Nitrite,Urine Negative (Negative); Protein,Urine Negative (Negative); Specific Gravity,Urine 1.006 (1.001-1.035); UA Billing (MACRO vs. MICRO) CHEM; Urobilinogen,Urine <2.0 mg/dL (<2.0)
[2017-07-16 20:02] LABS: ALT 42 U/L (9-52); AST 27 U/L (14-36); Alkaline Phosphatase 71 U/L (38-126); Anion Gap 11 mmol/L; Basophils % (A) 0 %; Blood Urea Nitrogen 9 mg/dL (7-17); CH 27.2; CHCM 33.2; Calcium 9.5 mg/dL (8.4-10.2); Carbon Dioxide 23 mmol/L (22-30); Chloride 104 mmol/L (98-107); Eosinophils # (A) 0.1 k/uL (0-0.7); Eosinophils % (A) 1 %; Glucose 90 mg/dL (74-99); HCT 38.8 % (34.0-46.0); HDW 2.96; HGB 13.1 gm/dL (11.4-16.0); Luc # (Auto) 0.25; Luc % (Auto) 3; Lymphocytes % (A) 24 %; MCH 27.9 pg (25.0-35.0); MCHC 33.9 g/dL (31.0-37.0); MCV 82.3 fL (80.0-100.0); Mean Platelet Volume 7.8; Monocytes # (A) 0.4 k/uL (0-1.0); Monocytes % (A) 5 %; Neutrophils # (A) 5.7 k/uL (1.3-7.7); Neutrophils % (A) 67 %; Non-African American GFR(MDRD) >60 (>60 ml/min/1.73 sqM); Potassium 4.2 mmol/L (3.5-5.1); RBC 4.72 m/uL (3.80-5.40); RDW 14.7 % (11.5-15.5); Sodium 138 mmol/L (137-145); Total Bilirubin 0.4 mg/dL (0.2-1.3); Total Protein 7.4 g/dL (6.3-8.2); WBC 8.5 k/uL (3.8-10.6); WBC (Perox) 8.57
--- NOTE | 2017-07-16 20:22 | CT ---
EXAMINATION TYPE: CT renal stones wo con DATE OF EXAM: 07/16/2017 COMPARISON: 06/22/2017 HISTORY: Right sided renal stone and flank pain. Recurrent infections, fevers and recent sepsis. CT DLP: 1240.00 mGycm Examination of the solid and hollow viscera is limited given the lack of contrast. FINDINGS: LUNG BASES: No evidence for nodule. No evidence for infiltrate. LIVER/GB: The gallbladder is unremarkable. No space-occupying hepatic lesion. PANCREAS: No pancreatic mass identified. No inflammatory process seen. SPLEEN: Spleen is stable. ADRENALS: No adrenal nodules identified. No evidence for thickening. KIDNEYS: Distal migration of the previously noted right mid ureteral calculus to the level of the dis ambreen right ureter approximately 3 cm from the UVJ. Calculus measures 6.5 mm in greatest dimension. Rig ht-sided hydronephrosis appears to have improved with only mild fullness noted at this time. 3 mm non obstructing calculus lower pole right kidney. Additional 2 mm calculus upper pole right kidney. An ob structing 2 mm calculus mid to upper pole left kidney. BOWEL: Appendix has a normal appearance. No evidence of bowel obstruction. No inflammatory process. Lymph nodes: No evidence for adenopathy greater than 1 cm. Abdominal aorta: Atheromatous changes seen. No evidence for aneurysm. Genital organs: No significant abnormality. Other: Multiple pelvic phleboliths noted. IMPRESSION: 1 DISTAL MIGRATION OF PREVIOUSLY NOTED MID RIGHT URETERAL CALCULUS TO THE LEVEL OF THE DISTAL URETER. MILD RIGHT-SIDED HYDRONEPHROSIS IMPROVED FROM PRIOR STUDY. 2. NONOBSTRUCTING NEPHROLITHIASIS.
[2017-07-16 20:28] VITALS: RESP 16
--- NOTE | 2017-07-16 21:17 | ED ---
Abdominal Pain HPI - General Chief Complaint: Abdominal Pain Stated Complaint: POSS KIDNEY INFECTION, FEVER, NAUSEA Source: patient Mode of arrival: ambulatory Limitations: no limitations - History of Present Illness Initial Comments: Patient is a 31-year-old female who presents for evaluation for right flank pain and back pain. Past medical history as below. Patient is a known history of kidney stones. Easily had a 6 mm stone. She is status post lithotripsy. She's been having intermittent fevers and chills. T-max 100.4. Recently admitted for pyelonephritis and sepsis. Over the last couple of days she's been having some urinary incontinence and worsening right flank pain. She has not been on any antibiotics recently. States that she is nauseous. No vomiting. No diarrhea. Good appetite. States that she will sometimes have shortness of breath secondary to the pain. She did not call her urologist for follow-up. Was concerned that she might have either urinary tract infection versus a kidney stone. She otherwise denies URI symptoms, cough, chest pain, vomiting, diarrhea - Related Data Home Medications Medication Instructions Recorded Confirmed ALPRAZolam [Xanax] 0.5 mg PO DAILY PRN 03/17/17 07/16/17 Butalb/APAP/Caff 50-325-40Mg 1 tab PO Q6H PRN 06/26/17 07/16/17 [Fioricet 50-325-40] Albuterol Inhaler [Ventolin Hfa 1 - 2 puff INHALATION RT-Q6H PRN 07/16/17 Inhaler] FLUoxetine HCL [PROzac] 40 mg PO DAILY 07/16/17 07/16/17 Tamsulosin HCl [Flomax] 0.4 mg PO DAILY@1200 07/16/17 07/16/17 Previous Rx's Medication Instructions Recorded HYDROcodone/APAP 5-325MG [[place] 1 tab PO Q6HR PRN #30 tab 05/24/17 5-325] Allergies Allergy/AdvReac Type Severity Reaction Status Date / Time morphine Allergy Dyspnea/Chest Verified 07/16/17 18:52 Pain Penicillins Allergy Rash/Hives Verified 07/16/17 18:52 epinephrine AdvReac Rapid Verified 07/16/17 18:52 Heart Rate Review of Systems ROS Statement: Those systems with pertinent positive or pertinent negative responses have been documented in the HPI. ROS Other: All systems not noted in ROS Statement are negative. Past Medical History Past Medical History: Chest Pain / Angina, Liver Disease Additional Past Medical History / Comment(s): tachycardia, HERNIATED LUMBAR DISCS, DEPRESSION, ANXIETY. 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 HAD IT AGAIN AT AGE 31-PT STATED SHE WAS TOLD SHE HAS A FATTY LIVER, kidney stones. hypoglycemia History of Any Multi-Drug Resistant Organisms: None Reported Past Surgical History: Section, Heart Catheterization, Tubal Ligation Additional Past Surgical History / Comment(s): liver bx, 3 C-SECTIONS Past Anesthesia/Blood Transfusion Reactions: Motion Sickness Past Psychological History: Anxiety, Depression Smoking Status: Former smoker Past Alcohol Use History: None Reported Past Drug Use History: None Reported - Past Family History Mother Family Medical History: Fibromyalgia Father Family Medical History: Coronary Artery Disease (CAD), Diabetes Mellitus, Myocardial Infarction ([place]) General Exam Limitations: no limitations General appearance: alert, in no apparent distress, other (Sitting upright in the stretcher. No acute distress.) Head exam: Present: atraumatic, normocephalic, normal inspection Eye exam: Present: normal appearance, PERRL, EOMI. Absent: scleral icterus, conjunctival injection, periorbital swelling ENT exam: Present: normal exam, mucous membranes moist Neck exam: Present: normal inspection. Absent: tenderness, meningismus, lymphadenopathy Respiratory exam: Present: normal lung sounds bilaterally. Absent: respiratory distress, wheezes, rales, rhonchi, stridor Cardiovascular Exam: Present: regular rate, normal rhythm, normal heart sounds. Absent: systolic murmur, diastolic murmur, rubs, gallop, clicks GI/Abdominal exam: Present: soft, tenderness, normal bowel sounds, other (Pain with palpation of the right upper flank. Positive Manny sign on the right. Negative Manny sign on the left. Soft abdomen. No peritoneal signs. Negative McBurney sign. No King sign. No rebound tenderness. No suprapubic tenderness.). Absent: distended, guarding, rebound, rigid Extremities exam: Present: normal inspection, full ROM, normal capillary refill. Absent: tenderness, pedal edema, joint swelling, calf tenderness Back exam: Present: normal inspection Neurological exam: Present: alert, oriented X3, CN II-XII intact Psychiatric exam: Present: normal affect, normal mood Skin exam: Present: warm, dry, intact, normal color. Absent: rash Course Vital Signs 07/16/17 07/16/17 07/16/17 18:29 20:28 21:23 Temperature 98.9 F 98.6 F 98 F Pulse Rate 102 H 78 68 Respiratory 20 16 16 Rate Blood Pressure 147/68 141/64 142/60 O2 Sat by Pulse 98 99 98 Oximetry Medical Decision Making - Medical Decision Making Patient is a 31-year-old female with a history of recurrent kidney stones presenting with right flank pain over the last 2 days. Also having some urinary incontinence and concerned that she might have urinary tract infection. We'll order basic labs with urinalysis and urine culture, KUB with CT renal stone protocol. Patient does not have any recent CTs on file. Comp located case. We'll order Toradol and IV fluids. -Labatory studies within normal limits. Kidney function at baseline. Awaiting imaging. Pain controlled at this time. 2114: Reviewed CT imaging and KUB. Improving hydronephrosis on the right. Kidney stone appears more distal compared to previous exam. I reevaluated the patient. Her pain is currently controlled. Believe her symptoms are related to migrating kidney stone of the right ureter. No signs of urinary tract infection or septic stone at this time. Encouraged naproxen at home which she has a good supply of. Strain the urine. Encourage close follow-up with her own urologist. Voiced understanding. Discussed signs and symptoms on when to return to emergency department for further evaluation. She voiced understanding is comfortable with discharge home and follow-up. - Lab Data Result diagrams: 07/16/17 19:30 07/16/17 19:30 Lab Results 07/16/17 07/16/17 07/16/17 Range/Units 19:00 19:30 19:30 WBC 8.5 (3.8-10.6) k/uL RBC 4.72 (3.80-5.40) m/uL Hgb 13.1 (11.4-16.0) gm/dL Hct 38.8 (34.0-46.0) % MCV 82.3 (80.0-100.0) fL MCH 27.9 (25.0-35.0) pg MCHC 33.9 (31.0-37.0) g/dL RDW 14.7 (11.5-15.5) % Plt Count 189 (150-450) k/uL Neutrophils % 67 % Lymphocytes % 24 % Monocytes % 5 % Eosinophils % 1 % Basophils % 0 % Neutrophils # 5.7 (1.3-7.7) k/uL Lymphocytes # 2.0 (1.0-4.8) k/uL Monocytes # 0.4 (0-1.0) k/uL Eosinophils # 0.1 (0-0.7) k/uL Basophils # 0.0 (0-0.2) k/uL Sodium 138 (137-145) mmol/L Potassium 4.2 (3.5-5.1) mmol/L Chloride 104 (98-107) mmol/L Carbon Dioxide 23 (22-30) mmol/L Anion Gap 11 mmol/L BUN 9 (7-17) mg/dL Creatinine 0.70 (0.52-1.04) mg/dL Est GFR (MDRD) Af Amer >60 (>60 ml/min/1.73 sqM) Est GFR (MDRD) Non-Af >60 (>60 ml/min/1.73 sqM) Glucose 90 (74-99) mg/dL Plasma Lactic Acid Lance (0.7-2.0) mmol/L Calcium 9.5 (8.4-10.2) mg/dL Total Bilirubin 0.4 (0.2-1.3) mg/dL AST 27 (14-36) U/L ALT 42 (9-52) U/L Alkaline Phosphatase 71 (38-126) U/L Total Protein 7.4 (6.3-8.2) g/dL Albumin 4.2 (3.5-5.0) g/dL Urine Color Light Yellow Urine Appearance Clear (Clear) Urine pH 7.0 (5.0-8.0) Ur Specific [place] 1.006 (1.001-1.035) Urine Protein Negative (Negative) Urine Glucose (UA) Negative (Negative) Urine Ketones Negative (Negative) Urine Blood Negative (Negative) Urine Nitrite Negative (Negative) Urine Bilirubin Negative (Negative) Urine Urobilinogen <2.0 (<2.0) mg/dL Ur Leukocyte Esterase Negative (Negative) 07/16/17 Range/Units 19:30 WBC (3.8-10.6) k/uL RBC (3.80-5.40) m/uL Hgb (11.4-16.0) gm/dL Hct (34.0-46.0) % MCV (80.0-100.0) fL MCH (25.0-35.0) pg MCHC (31.0-37.0) g/dL RDW (11.5-15.5) % Plt Count (150-450) k/uL Neutrophils % % Lymphocytes % % Monocytes % % Eosinophils % % Basophils % % Neutrophils # (1.3-7.7) k/uL Lymphocytes # (1.0-4.8) k/uL Monocytes # (0-1.0) k/uL Eosinophils # (0-0.7) k/uL Basophils # (0-0.2) k/uL Sodium (137-145) mmol/L Potassium (3.5-5.1) mmol/L Chloride (98-107) mmol/L Carbon Dioxide (22-30) mmol/L Anion Gap mmol/L BUN (7-17) mg/dL Creatinine (0.52-1.04) mg/dL Est GFR (MDRD) Af Amer (>60 ml/min/1.73 sqM) Est GFR (MDRD) Non-Af (>60 ml/min/1.73 sqM) Glucose (74-99) mg/dL Plasma Lactic Acid Lance 0.8 (0.7-2.0) mmol/L Calcium (8.4-10.2) mg/dL Total Bilirubin (0.2-1.3) mg/dL AST (14-36) U/L ALT (9-52) U/L Alkaline Phosphatase (38-126) U/L Total Protein (6.3-8.2) g/dL Albumin (3.5-5.0) g/dL Urine Color Urine Appearance (Clear) Urine pH (5.0-8.0) Ur Specific [place] (1.001-1.035) Urine Protein (Negative) Urine Glucose (UA) (Negative) Urine Ketones (Negative) Urine Blood (Negative) Urine Nitrite (Negative) Urine Bilirubin (Negative) Urine Urobilinogen (<2.0) mg/dL Ur Leukocyte Esterase (Negative) Disposition Clinical Impression: Nephrolithiasis Disposition: HOME SELF-CARE Condition: Good Instructions: Kidney Stones (ED) Referrals: Stephen Nieves III, MD [Primary Care Provider] - 1-2 days
[2017-07-16 21:24] VITALS: BP 142/60; PULSE 68; TEMP 98
== END 2017-07-16 21:23 | disposition home or self-care (01) ==
LOC: EC 18:10
DX: N13.2 Hydronephrosis with renal and ureteral calculous obstruction (principal); F32.9 Major depressive disorder, single episode, unspecified; F41.9 Anxiety disorder, unspecified; M51.26 Other intervertebral disc displacement, lumbar region; Z87.891 Personal history of nicotine dependence; Z53.8 Procedure and treatment not carried out for other reasons; Z98.51 Tubal ligation status; Z79.899 Other long term (current) drug therapy; Z88.0 Allergy status to penicillin; Z88.5 Allergy status to narcotic agent; Z88.8 Allergy status to other drugs, medicaments and biological substances
CPT/HCPCS: 99284; 96374; 96375; 96361 ×2; 36415; 80053; 83605; 85025; 81003; 87040; 87086; 74000; 74150; J2405; J1885

== ENCOUNTER → 2017-07-22 | Outpatient (CLI) | payer BC ==
--- NOTE | 2017-07-22 11:25 | XR ---
EXAMINATION TYPE: XR KUB DATE OF EXAM: 07/22/2017 11:01 AM CLINICAL HISTORY: Right-sided stones TECHNIQUE: 2 supine KUB images of the abdomen are obtained. COMPARISON: Abdominal x-ray and CT abdomen and pelvis July 16, 2017. FINDINGS: There is persistent oval 6 mm density in the right pelvis felt to correspond to obstructing distal ureter calculus right before UVJ on CT not significantly changed in position from CT. Additio nal scattered pelvic phleboliths. A 3 mm calculus lower pole level right kidney on CT is less well-se en on plain films. There is overall nonobstructive bowel gas pattern. Lung bases are clear. Osseous structures are intac t. IMPRESSION: The 6 mm distal right ureter calculus is felt stable from CT.
== END | disposition home or self-care (01) ==
LOC: RADXRMAIN 10:47
PROVIDERS: ATTEND Physician Assistant
DX: N20.1 Calculus of ureter (principal)
CPT/HCPCS: 74000

== ENCOUNTER 2017-08-02 01:49 | Emergency (ER) | payer BC, OTHER ==
[2017-08-02] MEDS ORDERED: ONDANSETRON 4 MG/2 ML VIAL IVP STA (01:58)
[2017-08-02] MEDS ORDERED: SODIUM CHLORIDE 0.9% 1,000 ML IV STA (01:58)
[2017-08-02] MEDS ORDERED: HYDROmorphone 1 MG/ML 1 ML SYRINGE IVP STA (01:58)
[2017-08-02] MEDS ORDERED: KETOROLAC 30 MG/ML 1 ML VIAL IVP STA (01:59)
--- NOTE | 2017-08-02 02:14 | ED ---
Abdominal Pain HPI - General Chief Complaint: Abdominal Pain Stated Complaint: Flank/Back Pain Time Seen by Provider: 08/02/17 01:57 Source: patient, RN notes reviewed Mode of arrival: ambulatory Limitations: no limitations - History of Present Illness Initial Comments: This a 31-year-old female presents emergency Department with chief complaint of right flank pain. Patient states it woke up at 11:30 PM. Patient states that 2 days ago she had cystoscopy and removal of 6 mm stone in the right ureter. Patient states the stone had recently caused her kidney infection with sepsis. Patient states she feels like she has UTI symptoms. She did admit after the procedure she had some dysuria. She has developed nausea and vomiting and pain that feels like a urinary tract infection or possible stone. Patient had a prior tubal ligation and sections. Patient denies any diarrhea constipation. - Related Data Home Medications Medication Instructions Recorded Confirmed ALPRAZolam [Xanax] 0.5 mg PO DAILY PRN 03/17/17 08/02/17 Butalb/APAP/Caff 50-325-40Mg 1 tab PO Q6H PRN 06/26/17 08/02/17 [Fioricet 50-325-40] Albuterol Inhaler [Ventolin Hfa 1 - 2 puff INHALATION RT-Q6H PRN 07/16/17 Inhaler] FLUoxetine HCL [PROzac] 40 mg PO DAILY 07/16/17 08/02/17 Tamsulosin HCl [Flomax] 0.4 mg PO DAILY@1200 07/16/17 08/02/17 Previous Rx's Medication Instructions Recorded HYDROcodone/APAP 5-325MG [[place] 1 tab PO Q6HR PRN #30 tab 05/24/17 5-325] Allergies Allergy/AdvReac Type Severity Reaction Status Date / Time morphine Allergy Dyspnea/Chest Verified 07/16/17 18:52 Pain Penicillins Allergy Rash/Hives Verified 07/16/17 18:52 epinephrine AdvReac Rapid Verified 07/16/17 18:52 Heart Rate Review of Systems ROS Statement: Those systems with pertinent positive or pertinent negative responses have been documented in the HPI. ROS Other: All systems not noted in ROS Statement are negative. Past Medical History Past Medical History: Chest Pain / Angina, Liver Disease Additional Past Medical History / Comment(s): tachycardia, HERNIATED LUMBAR DISCS, DEPRESSION, ANXIETY. 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 HAD IT AGAIN AT AGE 31-PT STATED SHE WAS TOLD SHE HAS A FATTY LIVER, kidney stones. hypoglycemia History of Any Multi-Drug Resistant Organisms: None Reported Past Surgical History: Section, Heart Catheterization, Tubal Ligation Additional Past Surgical History / Comment(s): liver bx, 3 C-SECTIONS Past Anesthesia/Blood Transfusion Reactions: Motion Sickness Past Psychological History: Anxiety, Depression Smoking Status: Former smoker Past Alcohol Use History: None Reported Past Drug Use History: None Reported - Past Family History Mother Family Medical History: Fibromyalgia Father Family Medical History: Coronary Artery Disease (CAD), Diabetes Mellitus, Myocardial Infarction ([place]) General Exam Limitations: no limitations General appearance: alert, in no apparent distress, anxious Respiratory exam: Present: normal lung sounds bilaterally. Absent: respiratory distress, wheezes, rales, rhonchi, stridor Cardiovascular Exam: Present: regular rate, normal rhythm, normal heart sounds. Absent: systolic murmur, diastolic murmur, rubs, gallop, clicks GI/Abdominal exam: Present: soft, tenderness (Mild right-sided), normal bowel sounds. Absent: distended, guarding, rebound, rigid Back exam: Present: CVA tenderness (R). Absent: CVA tenderness (L) Skin exam: Present: warm, dry, intact, normal color. Absent: rash Course Vital Signs 08/02/17 01:53 Temperature 98.0 F Pulse Rate 74 Respiratory 20 Rate Blood Pressure 129/79 O2 Sat by Pulse 98 Oximetry Medical Decision Making - Medical Decision Making 31-year-old female presented for right flank status post procedure by urologist. Patient does feel improved after pain medication lab work essentially unremarkable minus effect that she had some hematuria though this is expected. Patient underwent CT which showed hydroureteronephrosis. This most likely consistent with her recent procedure. Patient will follow-up with urologist Thursday and return if symptoms worsen. - Lab Data Result diagrams: 08/02/17 02:03 08/02/17 02:03 Lab Results 08/02/17 08/02/17 08/02/17 Range/Units 02:03 02:03 02:03 WBC 10.2 (3.8-10.6) k/uL RBC 4.65 (3.80-5.40) m/uL Hgb 12.5 (11.4-16.0) gm/dL Hct 37.6 (34.0-46.0) % MCV 80.8 (80.0-100.0) fL MCH 26.8 (25.0-35.0) pg MCHC 33.2 (31.0-37.0) g/dL RDW 15.4 (11.5-15.5) % Plt Count 214 (150-450) k/uL Neutrophils % 68 % Lymphocytes % 26 % Monocytes % 4 % Eosinophils % 1 % Basophils % 1 % Neutrophils # 7.0 (1.3-7.7) k/uL Lymphocytes # 2.6 (1.0-4.8) k/uL Monocytes # 0.4 (0-1.0) k/uL Eosinophils # 0.1 (0-0.7) k/uL Basophils # 0.1 (0-0.2) k/uL Sodium 138 (137-145) mmol/L Potassium 4.0 (3.5-5.1) mmol/L Chloride 106 (98-107) mmol/L Carbon Dioxide 23 (22-30) mmol/L Anion Gap 9 mmol/L BUN 16 (7-17) mg/dL Creatinine 0.70 (0.52-1.04) mg/dL Est GFR (MDRD) Af Amer >60 (>60 ml/min/1.73 sqM) Est GFR (MDRD) Non-Af >60 (>60 ml/min/1.73 sqM) Glucose 138 H (74-99) mg/dL Plasma Lactic Acid Lance (0.7-2.0) mmol/L Calcium 9.3 (8.4-10.2) mg/dL Total Bilirubin 0.2 (0.2-1.3) mg/dL AST 18 (14-36) U/L ALT 31 (9-52) U/L Alkaline Phosphatase 57 (38-126) U/L Total Protein 6.9 (6.3-8.2) g/dL Albumin 3.9 (3.5-5.0) g/dL Amylase <30 L (30-110) U/L Lipase 131 (23-300) U/L Urine Color Light Yellow Urine Appearance Clear (Clear) Urine pH 6.5 (5.0-8.0) Ur Specific [place] 1.008 (1.001-1.035) Urine Protein Negative (Negative) Urine Glucose (UA) Negative (Negative) Urine Ketones Negative (Negative) Urine Blood Moderate H (Negative) Urine Nitrite Negative (Negative) Urine Bilirubin Negative (Negative) Urine Urobilinogen <2.0 (<2.0) mg/dL Ur Leukocyte Esterase Negative (Negative) Urine RBC 33 H (0-5) /hpf Urine WBC 3 (0-5) /hpf Ur Squamous Epith Cells 4 (0-4) /hpf Amorphous Sediment Rare H (None) /hpf Urine Bacteria Rare H (None) /hpf Urine Mucus Rare H (None) /hpf 08/02/17 Range/Units 02:03 WBC (3.8-10.6) k/uL RBC (3.80-5.40) m/uL Hgb (11.4-16.0) gm/dL Hct (34.0-46.0) % MCV (80.0-100.0) fL MCH (25.0-35.0) pg MCHC (31.0-37.0) g/dL RDW (11.5-15.5) % Plt Count (150-450) k/uL Neutrophils % % Lymphocytes % % Monocytes % % Eosinophils % % Basophils % % Neutrophils # (1.3-7.7) k/uL Lymphocytes # (1.0-4.8) k/uL Monocytes # (0-1.0) k/uL Eosinophils # (0-0.7) k/uL Basophils # (0-0.2) k/uL Sodium (137-145) mmol/L Potassium (3.5-5.1) mmol/L Chloride (98-107) mmol/L Carbon Dioxide (22-30) mmol/L Anion Gap mmol/L BUN (7-17) mg/dL Creatinine (0.52-1.04) mg/dL Est GFR (MDRD) Af Amer (>60 ml/min/1.73 sqM) Est GFR (MDRD) Non-Af (>60 ml/min/1.73 sqM) Glucose (74-99) mg/dL Plasma Lactic Acid Lance 1.2 (0.7-2.0) mmol/L Calcium (8.4-10.2) mg/dL Total Bilirubin (0.2-1.3) mg/dL AST (14-36) U/L ALT (9-52) U/L Alkaline Phosphatase (38-126) U/L Total Protein (6.3-8.2) g/dL Albumin (3.5-5.0) g/dL Amylase (30-110) U/L Lipase (23-300) U/L Urine Color Urine Appearance (Clear) Urine pH (5.0-8.0) Ur Specific [place] (1.001-1.035) Urine Protein (Negative) Urine Glucose (UA) (Negative) Urine Ketones (Negative) Urine Blood (Negative) Urine Nitrite (Negative) Urine Bilirubin (Negative) Urine Urobilinogen (<2.0) mg/dL Ur Leukocyte Esterase (Negative) Urine RBC (0-5) /hpf Urine WBC (0-5) /hpf Ur Squamous Epith Cells (0-4) /hpf Amorphous Sediment (None) /hpf Urine Bacteria (None) /hpf Urine Mucus (None) /hpf Disposition Clinical Impression: Right flank pain, Hydronephrosis Disposition: HOME SELF-CARE Condition: Stable Instructions: Flank Pain (ED) Additional Instructions: Please return to the Emergency Department if symptoms worsen or any other concerns. Referrals: Stephen Nieves III, MD [Primary Care Provider] - 1-2 days Time of Disposition: 03:42
[2017-08-02 02:24] LABS: Basophils # (A) 0.1 k/uL (0-0.2); Basophils % (A) 1 %; CH 27.8; CHCM 34.6; Eosinophils # (A) 0.1 k/uL (0-0.7); Eosinophils % (A) 1 %; HCT 37.6 % (34.0-46.0); HDW 3.04; HGB 12.5 gm/dL (11.4-16.0); Luc # (Auto) 0.08; Luc % (Auto) 1; Lymphocytes # (A) 2.6 k/uL (1.0-4.8); Lymphocytes % (A) 26 %; MCH 26.8 pg (25.0-35.0); MCHC 33.2 g/dL (31.0-37.0); MCV 80.8 fL (80.0-100.0); Mean Platelet Volume 9.1; Monocytes # (A) 0.4 k/uL (0-1.0); Monocytes % (A) 4 %; Neutrophils % (A) 68 %; RBC 4.65 m/uL (3.80-5.40); RDW 15.4 % (11.5-15.5); WBC 10.2 k/uL (3.8-10.6); WBC (Perox) 9.89
[2017-08-02 02:34] LABS: ALT 31 U/L (9-52); AST 18 U/L (14-36); Alkaline Phosphatase 57 U/L (38-126); Amylase <30 U/L (30-110); Anion Gap 9 mmol/L; Blood Urea Nitrogen 16 mg/dL (7-17); Calcium 9.3 mg/dL (8.4-10.2); Carbon Dioxide 23 mmol/L (22-30); Chloride 106 mmol/L (98-107); Glucose 138 mg/dL (74-99); Non-African American GFR(MDRD) >60 (>60 ml/min/1.73 sqM); Sodium 138 mmol/L (137-145); Total Bilirubin 0.2 mg/dL (0.2-1.3); Total Protein 6.9 g/dL (6.3-8.2)
[2017-08-02 02:39] LABS: Amorphous Sediment,Urine Rare /hpf; Appearance,Urine Clear (Clear); Bacteria,Urine Rare /hpf; Bilirubin,Urine Negative (Negative); Glucose,Urine (UA) Negative (Negative); Ketones,Urine Negative (Negative); Leukocyte Esterase,Urine Negative (Negative); Mucus,Urine Rare /hpf; Nitrite,Urine Negative (Negative); PH, Urine 6.5 (5.0-8.0); Particle Count 1962; Protein,Urine Negative (Negative); RBC,Urine 33 /hpf (0-5); Specific Gravity,Urine 1.008 (1.001-1.035); Squamous Epithelial Cell,Urine 4 /hpf (0-4); UA Billing (MACRO vs. MICRO) MICRO; Urobilinogen,Urine <2.0 mg/dL (<2.0); WBC,Urine 3 /hpf (0-5)
--- NOTE | 2017-08-02 03:06 | XR ---
EXAM: XR KUB, 1 View CLINICAL HISTORY: Reason: abdominal pain TECHNIQUE: Frontal supine view of the abdomen/pelvis. COMPARISON: No relevant prior studies available. FINDINGS: Gastrointestinal tract: Stool noted throughout the colon. No bowel dilatation. No abnormal abdominal calcifications. Bones/joints: Unremarkable. IMPRESSION: No acute process or abnormal abdominal calcifications. Stool throughout the colon.
--- NOTE | 2017-08-02 03:38 | CT ---
EXAM: CT Abdomen and Pelvis Without Intravenous Contrast CLINICAL HISTORY: Reason: Pain TECHNIQUE: Axial computed tomography images of the abdomen and pelvis without intravenous contrast. DLP is 1148.90 mGy-cm. This CT exam was performed using one or more of the following dose reduction techniques: automated exposure control, adjustment of the mA and/or kV according to patient size, and/or use of iterative reconstruction technique. COMPARISON: 05/24/17 FINDINGS: Lower thorax: No acute findings. ABDOMEN: Liver: Unremarkable. Gallbladder and bile ducts: Unremarkable. No calcified stones. No ductal dilation. Pancreas: Unremarkable. No ductal dilation. Spleen: Unremarkable. No splenomegaly. Adrenals: Unremarkable. No mass. Kidneys and ureters: Right hydroureteronephrosis. No obstructing calculus is seen in the right collecting system or urinary bladder. Stomach and bowel: Scattered sigmoid colonic diverticula. No active inflammation. No obstruction. No mucosal thickening. Appendix: No findings to suggest acute appendicitis. PELVIS: Bladder: Unremarkable. No stones. Reproductive: Unremarkable as visualized. ABDOMEN and PELVIS: Intraperitoneal space: Unremarkable. No free air. No significant fluid collection. Bones/joints: No acute fracture. No dislocation. Soft tissues: Unremarkable. Vasculature: Unremarkable. No abdominal aortic aneurysm. Lymph nodes: Unremarkable. No enlarged lymph nodes. IMPRESSION: Right hydroureteronephrosis. No obstructing calculus seen along the right collecting system or urinary bladder. This may represent recently passed stone. Correlate with history.
[2017-08-02] MEDS ORDERED: ONDANSETRON 4 MG ODT STARTER PACK 2 TAB BTL PO STA (03:44)
[2017-08-02 03:56] VITALS: BP 147/63; PULSE 66; RESP 16; TEMP 98.4
== END 2017-08-02 03:55 | disposition home or self-care (01) ==
LOC: EC 01:49
DX: N13.30 Unspecified hydronephrosis (principal); R11.2 Nausea with vomiting, unspecified; F32.9 Major depressive disorder, single episode, unspecified; F41.9 Anxiety disorder, unspecified; Z87.891 Personal history of nicotine dependence; Z79.899 Other long term (current) drug therapy; Z88.0 Allergy status to penicillin; Z88.5 Allergy status to narcotic agent; Z88.8 Allergy status to other drugs, medicaments and biological substances; Z98.51 Tubal ligation status; Z98.890 Other specified postprocedural states
CPT/HCPCS: 36415; 80053; 82150; 83605; 83690; 85025; 81001; 74000; 74176; 99284; 96374; 96375 ×2; 96361; J2405; J1885; J1170; S0119

== ENCOUNTER → 2017-08-07 | Outpatient (CLI) | payer BC ==
[2017-08-07 10:40] LABS: CH 27.6; CHCM 33.4; HCT 38.5 % (34.0-46.0); HGB 12.3 gm/dL (11.4-16.0); MCH 26.6 pg (25.0-35.0); MCV 83.2 fL (80.0-100.0); RBC 4.63 m/uL (3.80-5.40); RDW 15.2 % (11.5-15.5); WBC 7.4 k/uL (3.8-10.6)
[2017-08-07 10:48] LABS: Amorphous Sediment,Urine Rare /hpf; Appearance,Urine Cloudy (Clear); Bilirubin,Urine Negative (Negative); Glucose,Urine (UA) Negative (Negative); Ketones,Urine Negative (Negative); Leukocyte Esterase,Urine Negative (Negative); Mucus,Urine Rare /hpf; Nitrite,Urine Negative (Negative); Particle Count 4489; Protein,Urine Negative (Negative); RBC,Urine <1 /hpf (0-5); Specific Gravity,Urine 1.012 (1.001-1.035); Squamous Epithelial Cell,Urine 2 /hpf (0-4); UA Billing (MACRO vs. MICRO) MICRO; Urobilinogen,Urine <2.0 mg/dL (<2.0); WBC,Urine 3 /hpf (0-5)
== END | disposition home or self-care (01) ==
LOC: LABWHC1 10:00
PROVIDERS: ATTEND Urology
DX: N39.0 Urinary tract infection, site not specified (principal)
CPT/HCPCS: 36415; 81001; 85027; 87086

== ENCOUNTER → 2017-09-08 | Outpatient (CLI) | payer BC ==
--- NOTE | 2017-09-09 09:17 | CT ---
EXAMINATION TYPE: CT urogram wo/w con DATE OF EXAM: 09/08/2017 COMPARISON: NONE INDICATION: Right sided flank pain DLP: 4540.3 mGycm, Automated exposure control for dose reduction was used. CONTRAST: 100 mL of Visipaque 320. Study performed without Oral Contrast TECHNIQUE: Axial images were obtained from above the diaphragm to the pubic rami in the axial plane a t 5 mm thick sections. Reconstructed images are reviewed on the computer in the coronal plane. FINDINGS: Limited CT sections are obtained the lung bases. There is a 0.4 cm peripheral based on the left post erior lateral lung nodule. This was present July 2017. Monitoring is recommended. CT ABDOMEN: Liver: Normal Spleen: Normal Pancreas: Normal Adrenal glands: The adrenal glands are normal. Gallbladder: Normal Kidneys: No masses are evident. No hydronephrosis is present. No cysts are present. There is a 0.3 cm nonobstructing calcification within the mid left kidney. Some faint calcifications may be at the superior pole right kidney. Delayed images were obtained through the kidneys, which remain unremarkab le. Aorta: Minimal Vascular calcification is within the aorta. Inferior vena cava: Normal. CT PELVIS: Loops of bowel within the abdomen and pelvis are normal. Studies performed without oral contrast limiting the examination. Appendix: Normal as visualized. Urinary bladder: Normal. Genitourinary structures: Uterus is normal. Follicles are present on left ovary. No free fluid is wit hin the pelvis. Osseous structures: No suspicious lytic or sclerotic lesions. Delayed images were obtained through the renal collecting system. Three-D reconstructed images perfor med separately on the [employer] computer by the technologist are filmed and presented for interpretation . Increasing delayed images there is increasing mild right hydroureter. This extends to the pelvic in let on the right. The ureter appears to cross over the iliac vessel but appears to be stenotic at abner t level. IMPRESSIONS: 1. Focal ureteral stenosis right pelvic inlet as the ureter crosses over the right iliac artery. Thi s is mild right hydroureter increasing on delayed images. Consider right retrograde ureterogram 2. Nonobstructing 0.3 cm mid left renal stone. Some faint calcification without obstruction may be at the superior pole right kidney.
== END | disposition home or self-care (01) ==
LOC: RADCTMAIN 18:12
PROVIDERS: ATTEND Urology
DX: N20.0 Calculus of kidney (principal); Q62.10 Congenital occlusion of ureter, unspecified; N13.4 Hydroureter; Z88.0 Allergy status to penicillin; Z88.5 Allergy status to narcotic agent
CPT/HCPCS: 74178; 74400; Q9967

== ENCOUNTER 2017-10-13 16:00 | Emergency (ER) | payer BC ==
[2017-10-13 16:15] VITALS: BP 140/84; PULSE 83; RESP 18; TEMP 99.1
--- NOTE | 2017-10-13 17:12 | ED ---
General Adult HPI - General Chief complaint: Wound/Laceration Stated complaint: lt leg lac Time Seen by Provider: 10/13/17 16:47 Source: patient, RN notes reviewed Mode of arrival: ambulatory Limitations: no limitations - History of Present Illness Initial comments: 32-year-old female presents to the emergency department with a chief complaint of left leg laceration. 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 Patient states that she is obtaining her tetanus. Patient states she has had some pain to touch of the area. Patient states there is no other injury from the incident. Patient was concerned due to her continued, so she thought that she should be evaluated.Patient denies any recent fever, chills, shortness of breath, chest pain, back pain, abdominal pain, nausea vomiting, numbness or tingling, dysuria or hematuria, constipation or diarrhea, headaches or visual changes, or any other current symptoms. - Related Data Home Medications Medication Instructions Recorded Confirmed ALPRAZolam [Xanax] 0.5 mg PO DAILY PRN 03/17/17 10/13/17 Butalb/APAP/Caff 50-325-40Mg 1 tab PO Q6H PRN 06/26/17 10/13/17 [Fioricet 50-325-40] Albuterol Inhaler [Ventolin Hfa 1 - 2 puff INHALATION RT-Q6H PRN 07/16/17 Inhaler] Allergies Allergy/AdvReac Type Severity Reaction Status Date / Time morphine Allergy Dyspnea/Chest Verified 10/13/17 16:11 Pain Penicillins Allergy Rash/Hives Verified 10/13/17 16:11 epinephrine AdvReac Rapid Verified 10/13/17 16:11 Heart Rate Review of Systems ROS Statement: Those systems with pertinent positive or pertinent negative responses have been documented in the HPI. ROS Other: All systems not noted in ROS Statement are negative. Past Medical History Past Medical History: Chest Pain / Angina, Liver Disease Additional Past Medical History / Comment(s): tachycardia, HERNIATED LUMBAR DISCS, DEPRESSION, ANXIETY. 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 HAD IT AGAIN AT AGE 31-PT STATED SHE WAS TOLD SHE HAS A FATTY LIVER, kidney stones. hypoglycemia History of Any Multi-Drug Resistant Organisms: None Reported Past Surgical History: Section, Heart Catheterization, Tubal Ligation Additional Past Surgical History / Comment(s): liver bx, 3 C-SECTIONS Past Anesthesia/Blood Transfusion Reactions: Motion Sickness Past Psychological History: Anxiety, Depression Smoking Status: Former smoker Past Alcohol Use History: None Reported Past Drug Use History: None Reported - Past Family History Mother Family Medical History: Fibromyalgia Father Family Medical History: Coronary Artery Disease (CAD), Diabetes Mellitus, Myocardial Infarction ([place]) General Exam - General Exam Comments Initial Comments: General: The patient is awake and alert, in no distress, and does not appear acutely ill. Neck: The neck is supple, there is no tenderness. Cardiovascular: There is a regular rate and rhythm. No murmur, rub or gallop is appreciated. Respiratory: Lungs are clear to auscultation, respirations are non-labored, breath sounds are equal. No wheezes, stridor, rales, or rhonchi. Musculoskeletal: Sensation intact with 2+ pulses throughout the left lower externa. Fund motion of left knee and left hip. Patient appears to have a 6 mL laceration along the internal aspect of the left thigh. Range of motion with 5 out of 5 muscle strength testing. Neurological: CN II-XII intact, There are no obvious motor or sensory deficits. Coordination appears grossly intact. Speech is normal. Skin: Skin is warm and dry and no rashes or lesions are noted. Psychiatric: Normal mood and affect. Limitations: no limitations Course Vital Signs 10/13/17 16:11 Temperature 99.1 F Pulse Rate 83 Respiratory 18 Rate Blood Pressure 140/84 O2 Sat by Pulse 97 Oximetry Procedures - Procedures Initial comment: The skin was anesthetized with 1% lidocaine. The laceration was then cleansed with Betadine and irrigated with normal saline. The wound was inspected, and there was no evidence of injury to deep structures. No foreign body was noted in the wound. A total of 8 skin sutures were placed utilizing 3-0 nylon to a 6 cm left internal thigh laceration Medical Decision Making - Medical Decision Making 32-year-old female presents emergency per chief complaint of left thigh laceration. This time patient went suture care. We discussed care follow-up return parameters all questions. Patient stated that she understood and she is given this plan. All questions have been answered. She'll be discharged home. Disposition Clinical Impression: Laceration of left leg Disposition: HOME SELF-CARE Condition: Stable Instructions: Care For Your Stitches (ED), Laceration (ED) Additional Instructions: Please use medication as discussed. Please follow up with family doctor if symptoms have not improved over the next two days. Please return to the emergency room if your symptoms increase or worsen or for any other concerns. Referrals: Stephen Nieves III, MD [Primary Care Provider] - 1-2 days Time of Disposition: 17:33
== END 2017-10-13 17:38 | disposition home or self-care (01) ==
LOC: EC 16:00
DX: S71.112A Laceration without foreign body, left thigh, initial encounter (principal); Z87.891 Personal history of nicotine dependence; Z88.0 Allergy status to penicillin; Z88.5 Allergy status to narcotic agent; Z88.8 Allergy status to other drugs, medicaments and biological substances; W45.8XXA Other foreign body or object entering through skin, initial encounter
CPT/HCPCS: 12002; 99282

== ENCOUNTER → 2017-12-14 | Outpatient (CLI) | payer BC ==
--- NOTE | 2017-12-15 08:46 | XR ---
EXAMINATION TYPE: XR KUB DATE OF EXAM: 12/14/2017 COMPARISON: 08/02/2017 HISTORY: Pain TECHNIQUE: Single supine KUB image of the abdomen is obtained FINDINGS: Small bowel demonstrates no evidence for dilatation or air fluid levels. Gas and fecal material is seen in non-distended colon. No convincing evidence for pneumoperitoneum. No unusual calcifications. Several small suspected phleboliths within the pelvic basin. The lung bases are clear. The osseous structures are intact. IMPRESSION: 1. Overall nonobstructive bowel gas pattern.
== END | disposition home or self-care (01) ==
LOC: RADXRMAIN 17:28
PROVIDERS: ATTEND Nurse Practitioner Family
DX: R30.9 Painful micturition, unspecified (principal)
CPT/HCPCS: 74018

== ENCOUNTER 2017-12-17 10:25 | Emergency (ER) | payer BC ==
[2017-12-17 11:42] VITALS: RESP 18
[2017-12-17] MEDS ORDERED: ACETAMINOPHEN TAB 500 MG TAB PO STA (11:47)
[2017-12-17] MEDS ORDERED: predniSONE 20 MG TAB PO STA (11:48)
[2017-12-17] MEDS ORDERED: IPRATROPIUM-ALBUTEROL 3 ML NEB INHALATION STA (11:48)
--- NOTE | 2017-12-17 12:56 | XR ---
EXAMINATION TYPE: XR chest 2V DATE OF EXAM: 12/17/2017 COMPARISON: 09/19/2017 HISTORY: Chest pain TECHNIQUE: Frontal and lateral views of the chest are obtained. FINDINGS: There is no focal air space opacity. No evidence for pneumothorax. No pleural effusion. The cardiac silhouette size is within normal limits. The osseous structures are grossly intact. IMPRESSION: 1. No acute cardiopulmonary process.
[2017-12-17 13:38] VITALS: BP 141/81; PULSE 122; TEMP 100.1
--- NOTE | 2017-12-17 13:54 | ED ---
Fever HPI - General Chief Complaint: Fever Stated Complaint: EXPOSED/INHALED BLEACH FUMES Time Seen by Provider: 12/17/17 11:42 Source: patient Mode of arrival: ambulatory Limitations: no limitations - History of Present Illness Initial Comments: This 32-year-old white female presents with a complaint of a fever, cough, headache, and myalgias which have been present for approximately 2 days. She states that she's had a yellowish production with her cough at times. She feels very weak. She has had a slight sore throat. She has had some moderate nasal congestion. She denies any possibility of . She denies any other complaints or modifying factors. She denies any nausea, vomiting, or diarrhea. - Related Data Home Medications Medication Instructions Recorded Confirmed ALPRAZolam [Xanax] 0.5 mg PO DAILY PRN 03/17/17 12/17/17 Butalb/APAP/Caff 50-325-40Mg 1 tab PO Q6H PRN 06/26/17 12/17/17 [Fioricet 50-325-40] Albuterol Inhaler [Ventolin Hfa 1 - 2 puff INHALATION RT-Q6H PRN 07/16/17 Inhaler] Previous Rx's Medication Instructions Recorded Oseltamivir [Tamiflu] 75 mg PO Q12HR #10 cap 12/17/17 Allergies Allergy/AdvReac Type Severity Reaction Status Date / Time morphine Allergy Dyspnea/Chest Verified 12/17/17 11:43 Pain Penicillins Allergy Rash/Hives Verified 12/17/17 11:43 epinephrine AdvReac Rapid Verified 12/17/17 11:43 Heart Rate Review of Systems ROS Statement: Those systems with pertinent positive or pertinent negative responses have been documented in the HPI. ROS Other: All systems not noted in ROS Statement are negative. Past Medical History Past Medical History: Chest Pain / Angina, Liver Disease Additional Past Medical History / Comment(s): tachycardia, HERNIATED LUMBAR DISCS, DEPRESSION, ANXIETY. 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 HAD IT AGAIN AT AGE 31-PT STATED SHE WAS TOLD SHE HAS A FATTY LIVER, kidney stones. hypoglycemia, sepsis 06/2017 History of Any Multi-Drug Resistant Organisms: None Reported Past Surgical History: Section, Heart Catheterization, Tubal Ligation Additional Past Surgical History / Comment(s): liver bx, 3 C-SECTIONS, lithotripsy Past Anesthesia/Blood Transfusion Reactions: Motion Sickness Past Psychological History: Anxiety, Depression Smoking Status: Former smoker Past Alcohol Use History: None Reported Past Drug Use History: None Reported - Past Family History Mother Family Medical History: Fibromyalgia Father Family Medical History: Coronary Artery Disease (CAD), Diabetes Mellitus, Myocardial Infarction ([place]) General Exam - General Exam Comments Initial Comments: GENERAL: The patient is well nourished and well hydrated. VITAL SIGNS: Heart rate, blood pressure, respiratory rate reviewed as recorded in nurse's notes. EYES: Pupils are round and reactive. Extraocular movements are intact. No conjunctival / lid redness or swelling. ENT: No external evidence of injury, swelling, or ecchymosis. Airway is patent. Throat is clear. NECK: Nontender. No swelling or evidence of injury. No subcutaneous emphysema. Trachea is midline. No thyroid mass. HEART: Tachycardic heart rate. Good peripheral pulses. LUNGS/CHEST: There is scattered rhonchi noted bilaterally. No ecchymosis, subcutaneous emphysema, or tenderness. ABDOMEN: Abdomen soft without tenderness. No palpable masses or organomegaly. No peritoneal signs. No abdominal wall swelling or ecchymosis. EXTREMITIES: No extremity tenderness. Normal muscle tone and function. No thoracolumbar tenderness. NEUROLOGIC: Sensation is grossly intact. Cranial nerve exam reveals face is symmetrical, tongue is midline, speech is clear. SKIN: No abrasions or ecchymosis is noted. No induration or masses noted. PSYCHIATRIC: Alert and oriented. Appropriate behavior and judgment. Limitations: no limitations Course Vital Signs 12/17/17 12/17/17 12/17/17 10:46 11:41 12:12 Temperature 101.0 F H Pulse Rate 122 H 111 H Respiratory 17 18 Rate Blood Pressure 137/82 O2 Sat by Pulse 98 Oximetry 12/17/17 12/17/17 12:26 13:36 Temperature 100.1 F H Pulse Rate 126 H 122 H Respiratory 18 Rate Blood Pressure 141/81 O2 Sat by Pulse 99 Oximetry Medical Decision Making - Medical Decision Making The patient was seen and examined. All diagnostics were reviewed. The chest x- ray does not show any acute processes. The influenza came back positive. She did receive a DuoNeb breathing treatment but states that it did not help her much and made her jittery. She is extremely anxious upon discussing the positive influenza test. It took a long time explaining to her that this actually is an infection and that it is a viral infection and that she would benefit from an antiviral medication. After the long discussion it appears that she does understand this eventually. She still is very nervous and states that she is anxious because she has had multiple infections this past year. Reassurance was discussed. Return parameters are discussed. Is felt that she is on day 3 of symptomatology and that her symptoms should be improving any time and that the antiviral medication should help even more. She states that she does not need any anticough medication or antinausea medication. She will not be prescribed any inhalers as the reading treatment did not help to any great degree and she states that her cough is minimal. It is felt as though she would benefit from Tylenol and/or Motrin for her fever. It is also felt as though she would benefit from increased fluid hydration as she is somewhat tachycardic. Is felt that her tachycardia is likely related to her illness but also related to her significant anxiety. Return parameters are discussed and she leaves in no identifiable distress. - Lab Data Lab Results 12/17/17 Range/Units 10:45 Influenza Type A RNA Detected H (Not Detectd) Influenza Type B (PCR) Not Detected (Not Detectd) Disposition Clinical Impression: Influenza, Fever, Sinus tachycardia Disposition: HOME SELF-CARE Condition: Good Instructions: Fever in Adults (ED), Influenza (ED) Additional Instructions: Please use Motrin and/or Tylenol as needed for fever and pain. Please also drink extra fluids for the next several days. Prescriptions: Oseltamivir [Tamiflu] 75 mg PO Q12HR #10 cap Referrals: Stephen Nieves III, MD [Primary Care Provider] - 1-2 days Time of Disposition: 13:53
== END 2017-12-17 14:11 | disposition home or self-care (01) ==
LOC: EC 10:25
DX: J11.1 Influenza due to unidentified influenza virus with other respiratory manifestations (principal); R00.0 Tachycardia, unspecified; Z87.891 Personal history of nicotine dependence; Z88.0 Allergy status to penicillin; Z88.5 Allergy status to narcotic agent; Z88.8 Allergy status to other drugs, medicaments and biological substances; Z82.49 Family history of ischemic heart disease and other diseases of the circulatory system
CPT/HCPCS: 71046; 87502; 94640; 99284

== ENCOUNTER 2018-02-01 21:32 | Emergency (ER) | payer BC, OTHER ==
[2018-02-01 21:45] VITALS: RESP 18
[2018-02-01] MEDS ORDERED: SODIUM CHLORIDE 0.9% 1,000 ML IV STA (22:58)
--- NOTE | 2018-02-01 23:13 | XR ---
EXAMINATION TYPE: XR chest 2V DATE OF EXAM: 02/01/2018 COMPARISON: 12/17/2017 HISTORY: Weakness TECHNIQUE: Frontal and lateral views of the chest are obtained. FINDINGS: Heart and mediastinum are normal. Lungs are clear. Diaphragm is normal. Bony thorax is int act. There are chest leads. IMPRESSION: Normal chest. No change.
[2018-02-01 23:15] LABS: Basophils % (A) 1 %; Eosinophils # (A) 0.2 k/uL (0-0.7); Eosinophils % (A) 2 %; HCT 38.4 % (34.0-46.0); HGB 12.3 gm/dL (11.4-16.0); Lymphocytes # (A) 2.5 k/uL (1.0-4.8); Lymphocytes % (A) 32 %; MCHC 32.1 g/dL (31.0-37.0); Mean Platelet Volume 8.1; Monocytes # (A) 0.5 k/uL (0-1.0); Monocytes % (A) 6 %; Neutrophils # (A) 4.7 k/uL (1.3-7.7); Neutrophils % (A) 58 %; Platelet Count 262 k/uL (150-450); RBC 4.92 m/uL (3.80-5.40)
[2018-02-01 23:30] LABS: ALT 22 U/L (9-52); AST 18 U/L (14-36); Albumin 4.1 g/dL (3.5-5.0); Alkaline Phosphatase 77 U/L (38-126); Anion Gap 12 mmol/L; Blood Urea Nitrogen 13 mg/dL (7-17); Calcium 9.5 mg/dL (8.4-10.2); Carbon Dioxide 26 mmol/L (22-30); Chloride 103 mmol/L (98-107); Glucose 108 mg/dL (74-99); Potassium 3.9 mmol/L (3.5-5.1); Sodium 141 mmol/L (137-145); Total Bilirubin 0.3 mg/dL (0.2-1.3); Total Protein 7.3 g/dL (6.3-8.2)
[2018-02-01 23:37] LABS: Creatine Kinase 62 U/L (30-135)
[2018-02-01 23:40] LABS: INR 1.1 (<1.2)
[2018-02-01 23:41] LABS: Partial Thromboplastin Time 23.3 sec (22.0-30.0); Prothrombin Time 10.3 sec (9.0-12.0)
[2018-02-01 23:43] LABS: Appearance,Urine Cloudy (Clear); Bilirubin,Urine Negative (Negative); Blood,Urine Negative (Negative); Calcium Oxalate Crystals,Urine Occasional /hpf; Color,Urine Yellow; Glucose,Urine (UA) Negative (Negative); Hyaline Casts,Urine 2 /lpf (0-2); Ketones,Urine Trace (Negative); Leukocyte Esterase,Urine Negative (Negative); Mucus,Urine Occasional /hpf; Nitrite,Urine Negative (Negative); PH, Urine 5.5 (5.0-8.0); Protein,Urine Trace (Negative); RBC,Urine 2 /hpf (0-5); Specific Gravity,Urine 1.025 (1.001-1.035); Squamous Epithelial Cell,Urine 3 /hpf (0-4); WBC,Urine 1 /hpf (0-5)
[2018-02-01 23:52] LABS: Creatine Kinase MB 0.4 ng/mL (0.0-2.4); Troponin I <0.012 ng/mL (0.000-0.034)
--- NOTE | 2018-02-02 00:05 | ED ---
Weakness HPI - General Chief complaint: Weakness Stated complaint: weakness Time Seen by Provider: 02/01/18 22:34 Source: patient Mode of arrival: ambulatory Limitations: no limitations - History of Present Illness Initial comments: Presented with the increased weakness and the chest tightness she fell and legs were quite weak today chest tightness is ongoing for about a week now denies any abdominal pain no epigastric pain no pain over the right upper quadrant and left upper quadrant area complaining about the back pain which is mid back she denies any fall no trauma no car accident. Denies any headache no neck stiffness no fever no chills no nausea no vomiting no frequency urgency dysuria no symptoms of TIA or CVA - Related Data Home Medications Medication Instructions Recorded Confirmed ALPRAZolam [Xanax] 0.5 mg PO DAILY PRN 03/17/17 02/01/18 Butalb/APAP/Caff 50-325-40Mg 1 tab PO Q6H PRN 06/26/17 02/01/18 [Fioricet 50-325-40] Albuterol Inhaler [Ventolin Hfa 1 - 2 puff INHALATION RT-Q6H PRN 07/16/17 Inhaler] Ibuprofen [Motrin Ib] 200 - 400 mg PO Q6H PRN 02/01/18 02/01/18 Iron 28mg 28 mg PO BID 02/01/18 02/01/18 Allergies Allergy/AdvReac Type Severity Reaction Status Date / Time morphine Allergy Dyspnea/Chest Verified 02/01/18 22:33 Pain Penicillins Allergy Rash/Hives Verified 02/01/18 22:33 epinephrine AdvReac Rapid Verified 02/01/18 22:33 Heart Rate Review of Systems ROS Statement: Those systems with pertinent positive or pertinent negative responses have been documented in the HPI. ROS Other: All systems not noted in ROS Statement are negative. Past Medical History Past Medical History: Chest Pain / Angina, Liver Disease Additional Past Medical History / Comment(s): tachycardia, HERNIATED LUMBAR DISCS, DEPRESSION, ANXIETY. kidney stones. hypoglycemia, sepsis 06/2017 History of Any Multi-Drug Resistant Organisms: None Reported Past Surgical History: Section, Heart Catheterization, Tubal Ligation Additional Past Surgical History / Comment(s): liver bx, 3 C-SECTIONS, lithotripsy Past Anesthesia/Blood Transfusion Reactions: Motion Sickness Past Psychological History: Anxiety, Depression Smoking Status: Former smoker Past Alcohol Use History: Rare Past Drug Use History: None Reported - Past Family History Mother Family Medical History: Fibromyalgia Father Family Medical History: Coronary Artery Disease (CAD), Diabetes Mellitus, Myocardial Infarction ([place]) General Exam - General Exam Comments Initial Comments: General: The patient is awake and alert, in no distress, and does not appear acutely ill. Skin: Skin is warm and dry and no rashes or lesions are noted. Eye: Pupils are equal, round and reactive to light, extra-ocular movements are intact; there is normal conjunctiva bilaterally. Ears, nose, mouth and throat: There are moist mucous membranes and no oral lesions. Neck: The neck is supple, there is no tenderness or JVD. Cardiovascular: There is a regular rate and rhythm. No murmur, rub or gallop is appreciated. Respiratory: To auscultation bilateral, no wheezing no rhonchi no distress respiratory briones noticed Gastrointestinal: Soft, non-distended, non-tender abdomen without masses or organomegaly noted. There is no rebound or guarding present. Bowel sounds are unremarkable. Back: There is no tenderness to palpation in the midline. There is no obvious deformity. Musculoskeletal: Normal ROM, no tenderness, There is no pedal edema. There is no calf tenderness or swelling. No cords were appreciated. Neurological: CN II-XII intact, Cranial nerves III through XII are intact. There are no obvious motor or sensory deficits. Coordination appears grossly intact. Speech is normal. Psychiatric: Cooperative, appropriate mood & affect, normal judgment. Limitations: no limitations Course Vital Signs 02/01/18 02/01/18 21:42 22:56 Temperature 97.3 F L Pulse Rate 101 H Pulse Rate [ 90 Parent Partner ] Respiratory 18 Rate Blood Pressure 131/68 O2 Sat by Pulse 99 Oximetry The patient is reassessed at term 12:30, hemoglobin is 12.3 INR is within normal range compressive metabolic panel is within normal range urinalysis chest x-ray and troponin are absolutely unremarkable, considering her weakness of the lower extremities patient was offered a admission so we could consult neurology and if necessary will continue some further imaging. Patient said she preferred to follow-up with her physician, she was advised to do further studies with the family doctor and take iron pills or IV heparin infusion as needed she agreed with the EKG Findings - EKG Comments: EKG Findings:: EKG is normal sinus rhythm ventricular rate is 87 MO interval is 144 QRS duration is 96 QT/QTc is 394/474 review of this EKG does not reveal any ST elevation or ST depression Medical Decision Making - Lab Data Result diagrams: 02/01/18 22:50 02/01/18 22:50 Lab Results 02/01/18 02/01/18 02/01/18 Range/Units 22:50 22:50 22:50 WBC 8.0 (3.8-10.6) k/uL RBC 4.92 (3.80-5.40) m/uL Hgb 12.3 (11.4-16.0) gm/dL Hct 38.4 (34.0-46.0) % MCV 78.0 L (80.0-100.0) fL MCH 25.0 (25.0-35.0) pg MCHC 32.1 (31.0-37.0) g/dL RDW 15.0 (11.5-15.5) % Plt Count 262 (150-450) k/uL Neutrophils % 58 % Lymphocytes % 32 % Monocytes % 6 % Eosinophils % 2 % Basophils % 1 % Neutrophils # 4.7 (1.3-7.7) k/uL Lymphocytes # 2.5 (1.0-4.8) k/uL Monocytes # 0.5 (0-1.0) k/uL Eosinophils # 0.2 (0-0.7) k/uL Basophils # 0.0 (0-0.2) k/uL PT (9.0-12.0) sec INR (<1.2) APTT (22.0-30.0) sec Sodium 141 (137-145) mmol/L Potassium 3.9 (3.5-5.1) mmol/L Chloride 103 (98-107) mmol/L Carbon Dioxide 26 (22-30) mmol/L Anion Gap 12 mmol/L BUN 13 (7-17) mg/dL Creatinine 0.60 (0.52-1.04) mg/dL Est GFR (CKD-EPI)AfAm >90 (>60 ml/min/1.73 sqM) Est GFR (CKD-EPI)NonAf >90 (>60 ml/min/1.73 sqM) Glucose 108 H (74-99) mg/dL Plasma Lactic Acid Lance (0.7-2.0) mmol/L Calcium 9.5 (8.4-10.2) mg/dL Total Bilirubin 0.3 (0.2-1.3) mg/dL AST 18 (14-36) U/L ALT 22 (9-52) U/L Alkaline Phosphatase 77 (38-126) U/L Total Creatine Kinase 62 (30-135) U/L CK-MB (CK-2) 0.4 (0.0-2.4) ng/mL CK-MB (CK-2) Rel Index 0.6 Troponin I <0.012 (0.000-0.034) ng/mL Total Protein 7.3 (6.3-8.2) g/dL Albumin 4.1 (3.5-5.0) g/dL TSH 2.000 (0.465-4.680) mIU/L Urine Color Urine Appearance (Clear) Urine pH (5.0-8.0) Ur Specific [place] (1.001-1.035) Urine Protein (Negative) Urine Glucose (UA) (Negative) Urine Ketones (Negative) Urine Blood (Negative) Urine Nitrite (Negative) Urine Bilirubin (Negative) Urine Urobilinogen (<2.0) mg/dL Ur Leukocyte Esterase (Negative) Urine RBC (0-5) /hpf Urine WBC (0-5) /hpf Ur Squamous Epith Cells (0-4) /hpf Calcium Oxalate Crystal (None) /hpf Hyaline Casts (0-2) /lpf Urine Mucus (None) /hpf 02/01/18 02/01/18 02/01/18 Range/Units 22:50 22:50 23:30 WBC (3.8-10.6) k/uL RBC (3.80-5.40) m/uL Hgb (11.4-16.0) gm/dL Hct (34.0-46.0) % MCV (80.0-100.0) fL MCH (25.0-35.0) pg MCHC (31.0-37.0) g/dL RDW (11.5-15.5) % Plt Count (150-450) k/uL Neutrophils % % Lymphocytes % % Monocytes % % Eosinophils % % Basophils % % Neutrophils # (1.3-7.7) k/uL Lymphocytes # (1.0-4.8) k/uL Monocytes # (0-1.0) k/uL Eosinophils # (0-0.7) k/uL Basophils # (0-0.2) k/uL PT 10.3 (9.0-12.0) sec INR 1.1 (<1.2) APTT 23.3 (22.0-30.0) sec Sodium (137-145) mmol/L Potassium (3.5-5.1) mmol/L Chloride (98-107) mmol/L Carbon Dioxide (22-30) mmol/L Anion Gap mmol/L BUN (7-17) mg/dL Creatinine (0.52-1.04) mg/dL Est GFR (CKD-EPI)AfAm (>60 ml/min/1.73 sqM) Est GFR (CKD-EPI)NonAf (>60 ml/min/1.73 sqM) Glucose (74-99) mg/dL Plasma Lactic Acid Lance 0.9 (0.7-2.0) mmol/L Calcium (8.4-10.2) mg/dL Total Bilirubin (0.2-1.3) mg/dL AST (14-36) U/L ALT (9-52) U/L Alkaline Phosphatase (38-126) U/L Total Creatine Kinase (30-135) U/L CK-MB (CK-2) (0.0-2.4) ng/mL CK-MB (CK-2) Rel Index Troponin I (0.000-0.034) ng/mL Total Protein (6.3-8.2) g/dL Albumin (3.5-5.0) g/dL TSH (0.465-4.680) mIU/L Urine Color Yellow Urine Appearance Cloudy H (Clear) Urine pH 5.5 (5.0-8.0) Ur Specific [place] 1.025 (1.001-1.035) Urine Protein Trace H (Negative) Urine Glucose (UA) Negative (Negative) Urine Ketones Trace H (Negative) Urine Blood Negative (Negative) Urine Nitrite Negative (Negative) Urine Bilirubin Negative (Negative) Urine Urobilinogen 2.0 (<2.0) mg/dL Ur Leukocyte Esterase Negative (Negative) Urine RBC 2 (0-5) /hpf Urine WBC 1 (0-5) /hpf Ur Squamous Epith Cells 3 (0-4) /hpf Calcium Oxalate Crystal Occasional H (None) /hpf Hyaline Casts 2 (0-2) /lpf Urine Mucus Occasional H (None) /hpf Disposition Clinical Impression: Chest tightness, Weakness Disposition: HOME SELF-CARE Condition: Good Instructions: Chest Wall Pain (ED) Referrals: Stephen iNeves III, MD [Primary Care Provider] - 1-2 days
[2018-02-02 00:44] VITALS: BP 124/75; TEMP 98
[2018-02-02 00:45] VITALS: PULSE 80
== END 2018-02-02 00:45 | disposition home or self-care (01) ==
LOC: EC 21:32
DX: R53.1 Weakness (principal); R07.89 Other chest pain; M54.9 Dorsalgia, unspecified; M51.26 Other intervertebral disc displacement, lumbar region; Z95.5 Presence of coronary angioplasty implant and graft; Z88.0 Allergy status to penicillin; Z88.5 Allergy status to narcotic agent; Z88.8 Allergy status to other drugs, medicaments and biological substances; Z87.891 Personal history of nicotine dependence
CPT/HCPCS: 36415; 71046; 80053; 81001; 82550; 82553; 83605; 84443; 84484; 85025; 85610; 85730; 93005; 99285

== ENCOUNTER 2018-02-08 23:05 | Emergency (ER) | payer BC, OTHER ==
[2018-02-08] MEDS ORDERED: SODIUM CHLORIDE 0.9% 1,000 ML IV STA (23:50)
--- NOTE | 2018-02-08 23:58 | ED ---
General Adult HPI - General Chief complaint: Arrhythmia/Palpitations Stated complaint: tachycardia Time Seen by Provider: 02/08/18 23:28 Source: patient, RN notes reviewed Mode of arrival: EMS Limitations: no limitations - History of Present Illness Initial comments: 32-year-old female who has a history of SVT presents with chief complaint of weakness. She's been off for the last week or so. She was seen here in the emergency department and then she went to her family care doctor. She states she's been having blurred vision she's been having weakness. She states that she feels as if she did go on SVT at one point. She states she's had nausea. She states she just feels so out of it. She denies any falls or injuries. She states that she is not currently having any headache. She states that she just doesn't feel right. Patient denies any recent fever, chills, shortness of breath , chest pain, back pain, abdominal pain, nausea vomiting, numbness or tingling, dysuria or hematuria, constipation or diarrhea, headaches, or any other current symptoms. - Related Data Home Medications Medication Instructions Recorded Confirmed ALPRAZolam [Xanax] 0.5 mg PO DAILY PRN 03/17/17 02/08/18 Butalb/APAP/Caff 50-325-40Mg 1 tab PO Q6H PRN 06/26/17 02/08/18 [Fioricet 50-325-40] Albuterol Inhaler [Ventolin Hfa 1 - 2 puff INHALATION RT-Q6H PRN 07/16/17 Inhaler] Iron 28mg 28 mg PO BID 02/01/18 02/08/18 FLUoxetine HCL [PROzac] 10 mg PO DAILY 02/09/18 02/09/18 Allergies Allergy/AdvReac Type Severity Reaction Status Date / Time morphine Allergy Dyspnea/Chest Verified 02/01/18 22:33 Pain Penicillins Allergy Rash/Hives Verified 02/01/18 22:33 epinephrine AdvReac Rapid Verified 02/01/18 22:33 Heart Rate Review of Systems ROS Statement: Those systems with pertinent positive or pertinent negative responses have been documented in the HPI. ROS Other: All systems not noted in ROS Statement are negative. Past Medical History Past Medical History: Chest Pain / Angina, Liver Disease Additional Past Medical History / Comment(s): tachycardia, HERNIATED LUMBAR DISCS, DEPRESSION, ANXIETY. kidney stones. hypoglycemia, sepsis 06/2017 History of Any Multi-Drug Resistant Organisms: None Reported Past Surgical History: Section, Heart Catheterization, Tubal Ligation Additional Past Surgical History / Comment(s): liver bx, 3 C-SECTIONS, lithotripsy Past Anesthesia/Blood Transfusion Reactions: Motion Sickness Past Psychological History: Anxiety, Depression Smoking Status: Former smoker Past Alcohol Use History: Rare Past Drug Use History: None Reported - Past Family History Mother Family Medical History: Fibromyalgia Father Family Medical History: Coronary Artery Disease (CAD), Diabetes Mellitus, Myocardial Infarction ([place]) General Exam - General Exam Comments Initial Comments: General: The patient is awake and alert, in no distress, and does not appear acutely ill. Eye: Pupils are equal, round and reactive to light, extra-ocular movements are intact; there is normal conjunctiva bilaterally. No signs of icterus. Ears, nose, mouth and throat: There are moist mucous membranes and no oral lesions. Neck: The neck is supple, there is no tenderness. Cardiovascular: There is a regular rate and rhythm. No murmur, rub or gallop is appreciated. Respiratory: Lungs are clear to auscultation, respirations are non-labored, breath sounds are equal. No wheezes, stridor, rales, or rhonchi. Gastrointestinal: Soft, non-distended, non-tender abdomen without masses or organomegaly noted. There is no rebound or guarding present. No CVA tenderness. Bowel sounds are unremarkable. Back: There is no tenderness to palpation in the midline. There is no obvious deformity. No rashes noted. Musculoskeletal: Normal ROM, no tenderness, There is no pedal edema. There is no calf tenderness or swelling. Sensation intact. Pulses equal bilaterally 2+. Neurological: CN II-XII intact, There are no obvious motor or sensory deficits. Coordination appears grossly intact. Speech is normal. Skin: Skin is warm and dry and no rashes or lesions are noted. Psychiatric: Cooperative, appropriate mood & affect, normal judgment. Limitations: no limitations Course Vital Signs 02/08/18 23:27 Temperature 97.8 F Pulse Rate 89 Respiratory 18 Rate Blood Pressure 124/59 O2 Sat by Pulse 98 Oximetry EKG Findings - EKG Comments: EKG Findings:: normal sinus rhythm with sinus arrhythmia 61 bpm, normal axis, no atopy, no S-T depressions or elevations, Medical Decision Making - Medical Decision Making 32-year-old female presents with chief complaint of feeling off. In EMS. The patient was found to be tachycardic in the 120s. Patient here has been stable heart rate. Lab work is reviewed and negative as well as CAT scan. She is currently fine up outpatient with neurology. We did discuss close follow-up with neurology as well did give her on-call neurology information as well. We did discuss return parameters all questions. Patient stated she understood and she is agreement this plan. Patient will be discharged. - Lab Data Result diagrams: 02/08/18 23:45 02/08/18 23:45 Lab Results 02/08/18 02/08/18 02/08/18 Range/Units 23:45 23:45 23:45 WBC 7.0 (3.8-10.6) k/uL RBC 4.43 (3.80-5.40) m/uL Hgb 11.4 (11.4-16.0) gm/dL Hct 34.5 (34.0-46.0) % MCV 77.8 L (80.0-100.0) fL MCH 25.7 (25.0-35.0) pg MCHC 33.0 (31.0-37.0) g/dL RDW 15.2 (11.5-15.5) % Plt Count 191 (150-450) k/uL Neutrophils % 64 % Lymphocytes % 28 % Monocytes % 5 % Eosinophils % 2 % Basophils % 0 % Neutrophils # 4.5 (1.3-7.7) k/uL Lymphocytes # 1.9 (1.0-4.8) k/uL Monocytes # 0.4 (0-1.0) k/uL Eosinophils # 0.1 (0-0.7) k/uL Basophils # 0.0 (0-0.2) k/uL PT (9.0-12.0) sec INR (<1.2) APTT (22.0-30.0) sec Sodium 138 (137-145) mmol/L Potassium 3.8 (3.5-5.1) mmol/L Chloride 106 (98-107) mmol/L Carbon Dioxide 22 (22-30) mmol/L Anion Gap 10 mmol/L BUN 12 (7-17) mg/dL Creatinine 0.60 (0.52-1.04) mg/dL Est GFR (CKD-EPI)AfAm >90 (>60 ml/min/1.73 sqM) Est GFR (CKD-EPI)NonAf >90 (>60 ml/min/1.73 sqM) Glucose 91 (74-99) mg/dL Plasma Lactic Acid Lance 0.7 (0.7-2.0) mmol/L Calcium 8.9 (8.4-10.2) mg/dL Phosphorus 3.6 (2.5-4.5) mg/dL Magnesium 1.7 (1.6-2.3) mg/dL Total Bilirubin 0.3 (0.2-1.3) mg/dL AST 20 (14-36) U/L ALT 22 (9-52) U/L Alkaline Phosphatase 64 (38-126) U/L Ammonia 12 (<30) umol/L Total Protein 6.5 (6.3-8.2) g/dL Albumin 3.5 (3.5-5.0) g/dL Amylase 47 (30-110) U/L Lipase 105 (23-300) U/L Urine Color Urine Appearance (Clear) Urine pH (5.0-8.0) Ur Specific [place] (1.001-1.035) Urine Protein (Negative) Urine Glucose (UA) (Negative) Urine Ketones (Negative) Urine Blood (Negative) Urine Nitrite (Negative) Urine Bilirubin (Negative) Urine Urobilinogen (<2.0) mg/dL Ur Leukocyte Esterase (Negative) Urine HCG, Qual (Not Detectd) Urine Opiates Screen (NotDetected) Ur Oxycodone Screen (NotDetected) Urine Methadone Screen (NotDetected) Ur Propoxyphene Screen (NotDetected) Ur Barbiturates Screen (NotDetected) U Tricyclic Antidepress (NotDetected) Ur Phencyclidine Scrn (NotDetected) Ur Amphetamines Screen (NotDetected) U Methamphetamines Scrn (NotDetected) U Benzodiazepines Scrn (NotDetected) Urine Cocaine Screen (NotDetected) U Marijuana (THC) Screen (NotDetected) 03/19/18 03/20/18 03/20/18 Range/Units 23:45 00:02 00:02 WBC (3.8-10.6) k/uL RBC (3.80-5.40) m/uL Hgb (11.4-16.0) gm/dL Hct (34.0-46.0) % MCV (80.0-100.0) fL MCH (25.0-35.0) pg MCHC (31.0-37.0) g/dL RDW (11.5-15.5) % Plt Count (150-450) k/uL Neutrophils % % Lymphocytes % % Monocytes % % Eosinophils % % Basophils % % Neutrophils # (1.3-7.7) k/uL Lymphocytes # (1.0-4.8) k/uL Monocytes # (0-1.0) k/uL Eosinophils # (0-0.7) k/uL Basophils # (0-0.2) k/uL PT 10.9 (9.0-12.0) sec INR 1.1 (<1.2) APTT 24.1 (22.0-30.0) sec Sodium (137-145) mmol/L Potassium (3.5-5.1) mmol/L Chloride (98-107) mmol/L Carbon Dioxide (22-30) mmol/L Anion Gap mmol/L BUN (7-17) mg/dL Creatinine (0.52-1.04) mg/dL Est GFR (CKD-EPI)AfAm (>60 ml/min/1.73 sqM) Est GFR (CKD-EPI)NonAf (>60 ml/min/1.73 sqM) Glucose (74-99) mg/dL Plasma Lactic Acid Lance (0.7-2.0) mmol/L Calcium (8.4-10.2) mg/dL Phosphorus (2.5-4.5) mg/dL Magnesium (1.6-2.3) mg/dL Total Bilirubin (0.2-1.3) mg/dL AST (14-36) U/L ALT (9-52) U/L Alkaline Phosphatase (38-126) U/L Ammonia (<30) umol/L Total Protein (6.3-8.2) g/dL Albumin (3.5-5.0) g/dL Amylase (30-110) U/L Lipase (23-300) U/L Urine Color Light Yellow Urine Appearance Clear (Clear) Urine pH 6.0 (5.0-8.0) Ur Specific [place] 1.011 (1.001-1.035) Urine Protein Negative (Negative) Urine Glucose (UA) Negative (Negative) Urine Ketones 2+ H (Negative) Urine Blood Negative (Negative) Urine Nitrite Negative (Negative) Urine Bilirubin Negative (Negative) Urine Urobilinogen <2.0 (<2.0) mg/dL Ur Leukocyte Esterase Negative (Negative) Urine HCG, Qual Not Detected (Not Detectd) Urine Opiates Screen Not Detected (NotDetected) Ur Oxycodone Screen Not Detected (NotDetected) Urine Methadone Screen Not Detected (NotDetected) Ur Propoxyphene Screen Not Detected (NotDetected) Ur Barbiturates Screen Detected H (NotDetected) U Tricyclic Antidepress Not Detected (NotDetected) Ur Phencyclidine Scrn Not Detected (NotDetected) Ur Amphetamines Screen Not Detected (NotDetected) U Methamphetamines Scrn Not Detected (NotDetected) U Benzodiazepines Scrn Detected H (NotDetected) Urine Cocaine Screen Not Detected (NotDetected) U Marijuana (THC) Screen Not Detected (NotDetected) - Radiology Data Radiology results: report reviewed, image reviewed Disposition Clinical Impression: Weakness Disposition: HOME SELF-CARE Condition: Stable Instructions: Palpitations (ED) Additional Instructions: Please use medication as discussed. Please follow up with family doctor if symptoms have not improved over the next two days. Please return to the emergency room if your symptoms increase or worsen or for any other concerns. Referrals: Stephen Nieves III, MD [Primary Care Provider] - 1-2 days Nano Bravo MD [STAFF PHYSICIAN] - 1-2 days Time of Disposition: 00:59
[2018-02-09 00:09] LABS: Basophils % (A) 0 %; Eosinophils # (A) 0.1 k/uL (0-0.7); Eosinophils % (A) 2 %; HCT 34.5 % (34.0-46.0); HGB 11.4 gm/dL (11.4-16.0); Lymphocytes # (A) 1.9 k/uL (1.0-4.8); Lymphocytes % (A) 28 %; MCH 25.7 pg (25.0-35.0); MCV 77.8 fL (80.0-100.0); Mean Platelet Volume 8.3; Monocytes # (A) 0.4 k/uL (0-1.0); Monocytes % (A) 5 %; Neutrophils # (A) 4.5 k/uL (1.3-7.7); Neutrophils % (A) 64 %; Platelet Count 191 k/uL (150-450); RBC 4.43 m/uL (3.80-5.40); RDW 15.2 % (11.5-15.5)
[2018-02-09 00:14] LABS: Appearance,Urine Clear (Clear); Bilirubin,Urine Negative (Negative); Blood,Urine Negative (Negative); Color,Urine Light Yellow; Glucose,Urine (UA) Negative (Negative); Ketones,Urine 2+ (Negative); Leukocyte Esterase,Urine Negative (Negative); Nitrite,Urine Negative (Negative); Protein,Urine Negative (Negative); Specific Gravity,Urine 1.011 (1.001-1.035); Urobilinogen,Urine <2.0 mg/dL (<2.0)
[2018-02-09 00:18] LABS: INR 1.1 (<1.2); Lactic Acid, Venous 0.7 mmol/L (0.7-2.0); Partial Thromboplastin Time 24.1 sec (22.0-30.0); Prothrombin Time 10.9 sec (9.0-12.0)
[2018-02-09 00:20] LABS: ALT 22 U/L (9-52); AST 20 U/L (14-36); Albumin 3.5 g/dL (3.5-5.0); Alkaline Phosphatase 64 U/L (38-126); Amylase 47 U/L (30-110); Anion Gap 10 mmol/L; Blood Urea Nitrogen 12 mg/dL (7-17); Calcium 8.9 mg/dL (8.4-10.2); Carbon Dioxide 22 mmol/L (22-30); Chloride 106 mmol/L (98-107); Glucose 91 mg/dL (74-99); Lipase 105 U/L (23-300); Magnesium 1.7 mg/dL (1.6-2.3); Phosphorus 3.6 mg/dL (2.5-4.5); Potassium 3.8 mmol/L (3.5-5.1); Sodium 138 mmol/L (137-145); Total Bilirubin 0.3 mg/dL (0.2-1.3); Total Protein 6.5 g/dL (6.3-8.2)
[2018-02-09 00:23] LABS: Amphetamine Screen,Urine Not Detected (NotDetected); Barbiturate Screen,Urine Detected (NotDetected); Benzodiazepines Screen,Urine Detected (NotDetected); Cocaine Screen,Urine Not Detected (NotDetected); Methadone Screen, Urine Not Detected (NotDetected); Opiate Screen,Urine Not Detected (NotDetected); Oxycodone Screen, Urine Not Detected (NotDetected); Phencyclidine Screen,Urine Not Detected (NotDetected); Tricyclic Antidepressant,Urine Not Detected (NotDetected); Urn Cannabinoid Scrn Not Detected (NotDetected)
--- NOTE | 2018-02-09 00:41 | CT ---
EXAMINATION TYPE: CT brain wo con DATE OF EXAM: 02/09/2018 COMPARISON: 11/21/2014 HISTORY: headache CT DLP: 1054.20 mGycm. Automated Exposure Control for Dose Reduction was Utilized. TECHNIQUE: CT scan of the head is performed without contrast. FINDINGS: Ventricles and sulci appear normal. There is no mass effect nor midline shift. There is n o sign of intracranial hemorrhage. The calvarium appears intact. CONCLUSION: Normal CT scan of the brain. No change.
--- NOTE | 2018-02-09 00:43 | XR ---
EXAMINATION TYPE: XR chest 2V DATE OF EXAM: 02/09/2018 COMPARISON: 02/01/2018 HISTORY: Cough and headache TECHNIQUE: Frontal and lateral views of the chest are obtained. FINDINGS: Heart and mediastinum are normal. Lungs are clear. Diaphragm is normal. Bony thorax appear s normal. There are chest leads. IMPRESSION: Normal chest. No change.
[2018-02-09 01:13] VITALS: BP 116/55; PULSE 78; RESP 20
[2018-02-09 01:24] VITALS: TEMP 98.1
== END 2018-02-09 01:24 | disposition home or self-care (01) ==
LOC: EC 23:05
DX: R53.1 Weakness (principal); H53.8 Other visual disturbances; R11.0 Nausea; R00.0 Tachycardia, unspecified; F32.9 Major depressive disorder, single episode, unspecified; F41.9 Anxiety disorder, unspecified; Z87.891 Personal history of nicotine dependence; Z79.899 Other long term (current) drug therapy; Z88.0 Allergy status to penicillin; Z88.5 Allergy status to narcotic agent; Z88.8 Allergy status to other drugs, medicaments and biological substances; Z95.9 Presence of cardiac and vascular implant and graft, unspecified; Z82.49 Family history of ischemic heart disease and other diseases of the circulatory system
CPT/HCPCS: 36415; 70450; 71046; 80053; 80306; 81003; 81025; 82140; 82150; 83605; 83690; 83735; 84100; 85025; 85610; 85730; 87040; 93005; 96360; 99285

== ENCOUNTER 2018-02-17 18:32 | Emergency (ER) | payer BC, OTHER ==
[2018-02-17] MEDS ORDERED: KETOROLAC 30 MG/ML 1 ML VIAL IVP STA (19:24)
[2018-02-17] MEDS ORDERED: SODIUM CHLORIDE 0.9% 1,000 ML IV STA ×2 (19:24→21:29)
[2018-02-17] MEDS ORDERED: ORPHENADRINE 30 MG/ML 2 ML VIAL IVP STA (19:24)
--- NOTE | 2018-02-17 19:28 | ED ---
General Adult HPI - General Chief complaint: Nausea/Vomiting/Diarrhea Stated complaint: High BP Time Seen by Provider: 02/17/18 19:10 Source: patient, RN notes reviewed Mode of arrival: ambulatory Limitations: no limitations - History of Present Illness Initial comments: 32-year-old female presents to the emergency department with multiple. She states she's lost about 16 pounds over the last month or so. She states she gets episodes where her heart starts to race. She states yesterday she had a chest pain that radiated down her left arm. She states today she developed a blood pressure is high because he also noticed her blood pressure was high so she decided she states she went to see her doctor they have scheduled an oncologist as well as have an MRI to rule out a mass. She states she's having some swollen lymph nodes to the head that are tender to touch. She states she' s had nausea with this. He does not feel right just feels so ill that she was concerned. Patient denies any recent fever, chills, shortness of breath, back pain, abdominal pain, vomiting, numbness or tingling, dysuria or hematuria, constipation or diarrhea, headaches or visual changes, or any other current symptoms. - Related Data Home Medications Medication Instructions Recorded Confirmed ALPRAZolam [Xanax] 0.5 mg PO DAILY PRN 03/17/17 02/17/18 Butalb/APAP/Caff 50-325-40Mg 1 tab PO Q6H PRN 06/26/17 02/17/18 [Fioricet 50-325-40] Albuterol Inhaler [Ventolin Hfa 1 - 2 puff INHALATION RT-Q6H PRN 07/16/17 Inhaler] Iron 28mg 28 mg PO BID 02/01/18 02/17/18 FLUoxetine HCL [PROzac] 10 mg PO DAILY 02/09/18 02/17/18 Allergies Allergy/AdvReac Type Severity Reaction Status Date / Time morphine Allergy Dyspnea/Chest Verified 02/17/18 19:29 Pain Penicillins Allergy Rash/Hives Verified 02/17/18 19:29 epinephrine AdvReac Rapid Verified 02/17/18 19:29 Heart Rate Review of Systems ROS Statement: Those systems with pertinent positive or pertinent negative responses have been documented in the HPI. ROS Other: All systems not noted in ROS Statement are negative. Past Medical History Past Medical History: Chest Pain / Angina, Liver Disease Additional Past Medical History / Comment(s): tachycardia, HERNIATED LUMBAR DISCS, DEPRESSION, ANXIETY. kidney stones. hypoglycemia, sepsis 06/2017 History of Any Multi-Drug Resistant Organisms: None Reported Past Surgical History: Section, Heart Catheterization, Tubal Ligation Additional Past Surgical History / Comment(s): liver bx, 3 C-SECTIONS, lithotripsy Past Anesthesia/Blood Transfusion Reactions: Motion Sickness Past Psychological History: Anxiety, Depression Smoking Status: Former smoker Past Alcohol Use History: Rare Past Drug Use History: None Reported - Past Family History Mother Family Medical History: Fibromyalgia Father Family Medical History: Coronary Artery Disease (CAD), Diabetes Mellitus, Myocardial Infarction ([place]) General Exam - General Exam Comments Initial Comments: General: The patient is awake and alert, in no distress, and does not appear acutely ill. Eye: Pupils are equal, round and reactive to light, extra-ocular movements are intact; there is normal conjunctiva bilaterally. No signs of icterus. Ears, nose, mouth and throat: There are moist mucous membranes. Neck: The neck is supple, there is no tenderness midline. Patient does have tenderness palpation of the occipital lymph node Cardiovascular: There is a regular rate and rhythm. No murmur, rub or gallop is appreciated. Respiratory: Lungs are clear to auscultation, respirations are non-labored, breath sounds are equal. No wheezes, stridor, rales, or rhonchi. Gastrointestinal: Soft, non-distended, non-tender abdomen without masses or organomegaly noted. There is no rebound or guarding present. No CVA tenderness. Bowel sounds are unremarkable. Back: There is no tenderness to palpation in the midline. There is no obvious deformity. No rashes noted. Musculoskeletal: Normal ROM, no tenderness, There is no pedal edema. There is no calf tenderness or swelling. Sensation intact. Pulses equal bilaterally 2+. Neurological: CN II-XII intact, There are no obvious motor or sensory deficits. Coordination appears grossly intact. Speech is normal. Skin: Skin is warm and dry and no rashes or lesions are noted. Psychiatric: Cooperative, appropriate mood & affect, normal judgment. Limitations: no limitations Course Vital Signs 02/17/18 02/17/18 02/17/18 18:42 19:51 20:06 Temperature 99 F Pulse Rate 72 76 76 Respiratory 16 18 18 Rate Blood Pressure 144/94 151/85 145/88 O2 Sat by Pulse 97 99 98 Oximetry EKG Findings - EKG Comments: EKG Findings:: normal sinus rhythm 67 bpm, normal axis, no atopy, no S-T depressions or elevations, incomplete right bundle branch block Medical Decision Making - Medical Decision Making 32-year-old female presents emergency Department chief complaint of left-sided chest pain and swollen lymph nodes and weight loss. This time patient's lab work is been reviewed. At this time we discussed continued outpatient follow- up. Her symptoms have been coming going for the last few weeks. We did discuss that she is dehydrated and she decreased her food and oral intake. Patient stated that she understood and she is agreement this plan. All questions have been answered. She'll be discharged. - Lab Data Result diagrams: 02/17/18 19:35 02/17/18 19:35 Lab Results 02/17/18 02/17/18 02/17/18 Range/Units 19:35 19:35 19:35 WBC 7.0 (3.8-10.6) k/uL RBC 5.00 (3.80-5.40) m/uL Hgb 12.4 (11.4-16.0) gm/dL Hct 38.9 (34.0-46.0) % MCV 77.9 L (80.0-100.0) fL MCH 24.9 L (25.0-35.0) pg MCHC 32.0 (31.0-37.0) g/dL RDW 15.2 (11.5-15.5) % Plt Count 204 (150-450) k/uL Neutrophils % 68 % Lymphocytes % 24 % Monocytes % 6 % Eosinophils % 1 % Basophils % 0 % Neutrophils # 4.8 (1.3-7.7) k/uL Lymphocytes # 1.7 (1.0-4.8) k/uL Monocytes # 0.4 (0-1.0) k/uL Eosinophils # 0.1 (0-0.7) k/uL Basophils # 0.0 (0-0.2) k/uL Sodium 141 (137-145) mmol/L Potassium 3.8 (3.5-5.1) mmol/L Chloride 103 (98-107) mmol/L Carbon Dioxide 20 L (22-30) mmol/L Anion Gap 18 mmol/L BUN 12 (7-17) mg/dL Creatinine 0.60 (0.52-1.04) mg/dL Est GFR (CKD-EPI)AfAm >90 (>60 ml/min/1.73 sqM) Est GFR (CKD-EPI)NonAf >90 (>60 ml/min/1.73 sqM) Glucose 86 (74-99) mg/dL Calcium 9.7 (8.4-10.2) mg/dL Total Bilirubin 0.4 (0.2-1.3) mg/dL AST 24 (14-36) U/L ALT 36 (9-52) U/L Alkaline Phosphatase 73 (38-126) U/L Troponin I <0.012 (0.000-0.034) ng/mL Total Protein 7.6 (6.3-8.2) g/dL Albumin 4.4 (3.5-5.0) g/dL Urine Color Urine Appearance (Clear) Urine pH (5.0-8.0) Ur Specific [place] (1.001-1.035) Urine Protein (Negative) Urine Glucose (UA) (Negative) Urine Ketones (Negative) Urine Blood (Negative) Urine Nitrite (Negative) Urine Bilirubin (Negative) Urine Urobilinogen (<2.0) mg/dL Ur Leukocyte Esterase (Negative) Urine RBC (0-5) /hpf Urine WBC (0-5) /hpf Ur Squamous Epith Cells (0-4) /hpf Urine Bacteria (None) /hpf Urine Mucus (None) /hpf Urine HCG, Qual (Not Detectd) 02/17/18 02/17/18 Range/Units 19:35 19:35 WBC (3.8-10.6) k/uL RBC (3.80-5.40) m/uL Hgb (11.4-16.0) gm/dL Hct (34.0-46.0) % MCV (80.0-100.0) fL MCH (25.0-35.0) pg MCHC (31.0-37.0) g/dL RDW (11.5-15.5) % Plt Count (150-450) k/uL Neutrophils % % Lymphocytes % % Monocytes % % Eosinophils % % Basophils % % Neutrophils # (1.3-7.7) k/uL Lymphocytes # (1.0-4.8) k/uL Monocytes # (0-1.0) k/uL Eosinophils # (0-0.7) k/uL Basophils # (0-0.2) k/uL Sodium (137-145) mmol/L Potassium (3.5-5.1) mmol/L Chloride (98-107) mmol/L Carbon Dioxide (22-30) mmol/L Anion Gap mmol/L BUN (7-17) mg/dL Creatinine (0.52-1.04) mg/dL Est GFR (CKD-EPI)AfAm (>60 ml/min/1.73 sqM) Est GFR (CKD-EPI)NonAf (>60 ml/min/1.73 sqM) Glucose (74-99) mg/dL Calcium (8.4-10.2) mg/dL Total Bilirubin (0.2-1.3) mg/dL AST (14-36) U/L ALT (9-52) U/L Alkaline Phosphatase (38-126) U/L Troponin I (0.000-0.034) ng/mL Total Protein (6.3-8.2) g/dL Albumin (3.5-5.0) g/dL Urine Color Yellow Urine Appearance Cloudy H (Clear) Urine pH 6.0 (5.0-8.0) Ur Specific [place] 1.022 (1.001-1.035) Urine Protein Trace H (Negative) Urine Glucose (UA) Negative (Negative) Urine Ketones 4+ H (Negative) Urine Blood Moderate H (Negative) Urine Nitrite Negative (Negative) Urine Bilirubin Negative (Negative) Urine Urobilinogen 2.0 (<2.0) mg/dL Ur Leukocyte Esterase Small H (Negative) Urine RBC 1 (0-5) /hpf Urine WBC 5 (0-5) /hpf Ur Squamous Epith Cells 13 H (0-4) /hpf Urine Bacteria Rare H (None) /hpf Urine Mucus Moderate H (None) /hpf Urine HCG, Qual Not Detected (Not Detectd) - Radiology Data Radiology results: report reviewed, image reviewed Disposition Clinical Impression: Dehydration, Neck pain, Lymphadenopathy of head and neck Disposition: HOME SELF-CARE Condition: Stable Instructions: Dehydration (ED) Additional Instructions: Please use medication as discussed. Please follow up with family doctor if symptoms have not improved over the next two days. Please return to the emergency room if your symptoms increase or worsen or for any other concerns. Increase fluids in the diet. Please follow up with her doctor. Referrals: Stephen Nieves III, MD [Primary Care Provider] - 1-2 days Time of Disposition: 21:45
[2018-02-17] MEDS ORDERED: ONDANSETRON 4 MG/2 ML VIAL IVP STA (20:00)
[2018-02-17 20:05] LABS: Basophils % (A) 0 %; Eosinophils # (A) 0.1 k/uL (0-0.7); Eosinophils % (A) 1 %; HCT 38.9 % (34.0-46.0); HGB 12.4 gm/dL (11.4-16.0); Lymphocytes # (A) 1.7 k/uL (1.0-4.8); Lymphocytes % (A) 24 %; MCH 24.9 pg (25.0-35.0); MCV 77.9 fL (80.0-100.0); Mean Platelet Volume 8.8; Monocytes # (A) 0.4 k/uL (0-1.0); Monocytes % (A) 6 %; Neutrophils # (A) 4.8 k/uL (1.3-7.7); Neutrophils % (A) 68 %; Platelet Count 204 k/uL (150-450); RDW 15.2 % (11.5-15.5)
[2018-02-17 20:07] LABS: Appearance,Urine Cloudy (Clear); Bacteria,Urine Rare /hpf; Bilirubin,Urine Negative (Negative); Blood,Urine Moderate (Negative); Color,Urine Yellow; Glucose,Urine (UA) Negative (Negative); Ketones,Urine 4+ (Negative); Leukocyte Esterase,Urine Small (Negative); Mucus,Urine Moderate /hpf; Nitrite,Urine Negative (Negative); Protein,Urine Trace (Negative); RBC,Urine 1 /hpf (0-5); Specific Gravity,Urine 1.022 (1.001-1.035); Squamous Epithelial Cell,Urine 13 /hpf (0-4); WBC,Urine 5 /hpf (0-5)
[2018-02-17 20:16] LABS: ALT 36 U/L (9-52); AST 24 U/L (14-36); Albumin 4.4 g/dL (3.5-5.0); Alkaline Phosphatase 73 U/L (38-126); Anion Gap 18 mmol/L; Blood Urea Nitrogen 12 mg/dL (7-17); Calcium 9.7 mg/dL (8.4-10.2); Carbon Dioxide 20 mmol/L (22-30); Chloride 103 mmol/L (98-107); Glucose 86 mg/dL (74-99); Potassium 3.8 mmol/L (3.5-5.1); Sodium 141 mmol/L (137-145); Total Bilirubin 0.4 mg/dL (0.2-1.3); Total Protein 7.6 g/dL (6.3-8.2)
--- NOTE | 2018-02-17 21:24 | XR ---
EXAMINATION TYPE: XR chest 2V DATE OF EXAM: 02/17/2018 COMPARISON: 02/09/2018 HISTORY: Cough TECHNIQUE: Frontal and lateral views of the chest are obtained. FINDINGS: Heart and mediastinum are normal. Lungs are clear. Diaphragm is normal. Bony thorax is int act. There are chest leads. IMPRESSION: Normal chest. No change.
--- NOTE | 2018-02-17 21:26 | XR ---
EXAMINATION TYPE: XR cervical spine comp DATE OF EXAM: 02/17/2018 COMPARISON: NONE HISTORY: Neck pain TECHNIQUE: 5 views FINDINGS: There is mild straightening of the vertebra. There is anterior spurring at C4-5 C5-6. The p osterior elements are intact. Atlantoaxial facet joint is normal. There are no cervical ribs. Neurofo ramina are fairly well-maintained. IMPRESSION: Anterior hypertrophic spurring as above. No fracture.
[2018-02-17 22:07] VITALS: PULSE 62
[2018-02-17] MEDS ORDERED: LORazepam 2 MG/ML INJ IV STA (22:12)
[2018-02-17 22:39] VITALS: BP 133/72; RESP 18; TEMP 98.1
== END 2018-02-17 23:25 | disposition home or self-care (01) ==
LOC: EC 18:32
DX: E86.0 Dehydration (principal); R59.0 Localized enlarged lymph nodes; R07.9 Chest pain, unspecified; F32.9 Major depressive disorder, single episode, unspecified; Z87.891 Personal history of nicotine dependence; Z95.5 Presence of coronary angioplasty implant and graft; Z79.899 Other long term (current) drug therapy; Z88.5 Allergy status to narcotic agent; Z88.0 Allergy status to penicillin; Z88.8 Allergy status to other drugs, medicaments and biological substances; Z53.20 Procedure and treatment not carried out because of patient's decision for unspecified reasons
CPT/HCPCS: 36415; 93005; 80053; 84484; 85025; 81001; 81025; 72050; 71046; 99284; 96374; 96375 ×2; 96361 ×3; J2360; J2405; J1885

== ENCOUNTER → 2018-02-26 | Outpatient (CLI) | payer BC, OTHER ==
--- NOTE | 2018-02-27 17:37 | CT ---
EXAMINATION TYPE: CT abdomen pelvis wo con DATE OF EXAM: 02/26/2018 HISTORY: Right side flank pain CT DLP: 1207 mGycm. Automated Exposure Control for Dose Reduction was Utilized. TECHNIQUE: CT scan of the abdomen and pelvis is performed without oral or IV contrast. COMPARISON: CT abdomen and pelvis September 08, 2017 FINDINGS: Within the limitations of a non-contrast study, the following observations are made. LUNG BASES: No significant abnormality is appreciated. LIVER/GB: No significant abnormality is appreciated. PANCREAS: No significant abnormality is seen. SPLEEN: No significant abnormality is seen. ADRENALS: No significant abnormality is seen. KIDNEYS: Punctate densities suspicious for 2-4 calculi measuring 1 mm in size bilaterally remain pres ent. There is no hydronephrosis or obstructing renal calculi clearly seen bilaterally. Bladder is poo rly distended and thus suboptimally evaluated. Some scattered pelvic phleboliths are redemonstrated. BOWEL: Evaluation of bowel is suboptimal secondary to lack of enteric contrast. There is no suspiciou s small or large bowel dilatation. Normal-appearing appendix is seen from cecum. There are scattered colonic diverticula. There is no CT evidence for acute diverticulitis. Mild wall thickening of sigmoi d colon is present products of poor distention. GENITAL ORGANS: Anteverted uterus is seen. LYMPH NODES: No greater than 1cm abdominal or pelvic lymph nodes are appreciated. OSSEOUS STRUCTURES: No significant abnormality is seen. OTHER: No significant additional abnormality is seen. IMPRESSION: Patient has persistent tiny nonobstructing renal calculi bilaterally without hydronephro sis or definitive obstructing renal calculi. Size of calculi are 1 mm or smaller and would be difficu lt to visualize within ureters without causing hydronephrosis. Correlate for underlying medullary spo nge disease or nephrocalcinosis or hypercalcemic state.
== END | disposition home or self-care (01) ==
LOC: RADCTMAIN 17:38
PROVIDERS: ATTEND Urology
DX: N20.0 Calculus of kidney (principal); N23 Unspecified renal colic; Z88.0 Allergy status to penicillin; Z88.5 Allergy status to narcotic agent; Z88.8 Allergy status to other drugs, medicaments and biological substances
CPT/HCPCS: 74176

== ENCOUNTER → 2018-03-02 | Outpatient (CLI) | payer BC, OTHER ==
--- NOTE | 2018-03-02 09:50 | USB ---
Reason for exam: clinical finding. History: Family history of breast cancer in paternal grandmother at age 40. Took hormonal contraceptives for 5 years. Indicated problem(s): palpable abnormality in both breasts. Physical Findings: Nurse Summary: nodule in the right breast at 9, 10 o'clock and left breast 3 o'clock (nurse dw). US Breast BILAT Right breast ultrasound includes all four quadrants, the retroareolar region and axilla. 6 month follow up right. Finding demonstrates a 0.2 x 0.2 x 0.2cm round lesion too small to characterize at 8 o'clock versus 4 x 2 x 1mm previously, likely cyst, benign. No finding at the 9 or 10 o'clock palpable site. Left breast ultrasound includes all four quadrants, the retroareolar region and axilla. New palpable left. Finding demonstrates a 0.6 x 0.6 x 0.2cm oval, cystic cluster at 1 o'clock, benign and a 0.3 x 0.3 x 0.4cm oval, mixed lesion at 3 o'clock, possible oil cyst at the palpable, unchanged from 11/25/15, benign. These results were verbally communicated with the patient and result sheet given to the patient on 03/02/18. ASSESSMENT: Benign, BI-RAD 2 RECOMMENDATION: Routine screening mammogram of both breasts at age 39. Manage on a clinical basis with regard to any suspicious palpable abnormality. TAN
== END | disposition home or self-care (01) ==
LOC: RADUSWWP 08:10
PROVIDERS: ATTEND Family Medicine
DX: N63.10 Unspecified lump in the right breast, unspecified quadrant (principal); N63.20 Unspecified lump in the left breast, unspecified quadrant

== ENCOUNTER 2018-03-16 13:40 | Emergency (ER) | payer BC, OTHER ==
[2018-03-16] MEDS ORDERED: DICYCLOMINE 10 MG/ML 2 ML AMP IM STA (15:01)
[2018-03-16] MEDS ORDERED: ONDANSETRON 4 MG/2 ML VIAL IVP STA (15:01)
[2018-03-16] MEDS ORDERED: KETOROLAC 30 MG/ML 1 ML VIAL IVP STA (15:01)
[2018-03-16] MEDS ORDERED: SODIUM CHLORIDE 0.9% 1,000 ML IV STA (15:01)
[2018-03-16] MEDS ORDERED: FAMOTIDINE 20 MG/2 ML VIAL IV STA (15:02)
--- NOTE | 2018-03-16 15:15 | ED ---
General Adult HPI - General Chief complaint: Abdominal Pain Stated complaint: rt side pain Time Seen by Provider: 03/16/18 14:57 Source: patient, RN notes reviewed Mode of arrival: ambulatory Limitations: no limitations - History of Present Illness Initial comments: Patient is a pleasant 32-year-old female presenting to the emergency Department with right sided abdominal pain. No history of similar symptoms previously. Patient does have a history of kidney infections and kidney stones however those symptoms are usually more in the back. Onset of symptoms was yesterday. Patient has had nausea and decreased appetite. No vomiting. Patient did have one bowel movement that was light brown in color. No dysuria or hematuria. Patient felt warm today. - Related Data Home Medications Medication Instructions Recorded Confirmed ALPRAZolam [Xanax] 0.5 mg PO DAILY PRN 03/17/17 03/16/18 Butalb/APAP/Caff 50-325-40Mg 1 tab PO Q6H PRN 06/26/17 03/16/18 [Fioricet 50-325-40] Albuterol Inhaler [Ventolin Hfa 1 - 2 puff INHALATION RT-Q6H PRN 07/16/17 Inhaler] Iron 28mg 28 mg PO BID 02/01/18 03/16/18 Previous Rx's Medication Instructions Recorded Ondansetron Odt [Zofran Odt] 4 mg PO Q8HR PRN #10 tab 03/16/18 Allergies Allergy/AdvReac Type Severity Reaction Status Date / Time morphine Allergy Dyspnea/Chest Verified 03/16/18 15:19 Pain Penicillins Allergy Rash/Hives Verified 03/16/18 15:19 epinephrine AdvReac Rapid Verified 03/16/18 15:19 Heart Rate Review of Systems ROS Statement: Those systems with pertinent positive or pertinent negative responses have been documented in the HPI. ROS Other: All systems not noted in ROS Statement are negative. Constitutional: Reports: other (Patient is warm and questions if she could have a fever.) Eyes: Denies: eye pain ENT: Denies: ear pain Respiratory: Denies: cough, dyspnea Cardiovascular: Denies: chest pain Endocrine: Denies: fatigue Gastrointestinal: Reports: abdominal pain, nausea. Denies: vomiting, diarrhea, constipation Genitourinary: Denies: urgency, dysuria, frequency, hematuria Musculoskeletal: Denies: back pain Skin: Denies: rash Neurological: Denies: weakness Past Medical History Past Medical History: Chest Pain / Angina, Liver Disease Additional Past Medical History / Comment(s): tachycardia, HERNIATED LUMBAR DISCS, DEPRESSION, ANXIETY. kidney stones. hypoglycemia, sepsis 06/2017 History of Any Multi-Drug Resistant Organisms: None Reported Past Surgical History: Section, Heart Catheterization, Tubal Ligation Additional Past Surgical History / Comment(s): liver bx, 3 C-SECTIONS, lithotripsy Past Anesthesia/Blood Transfusion Reactions: Motion Sickness Past Psychological History: Anxiety, Depression Smoking Status: Former smoker Past Alcohol Use History: Rare Past Drug Use History: None Reported - Past Family History Mother Family Medical History: Fibromyalgia Father Family Medical History: Coronary Artery Disease (CAD), Diabetes Mellitus, Myocardial Infarction ([place]) General Exam Limitations: no limitations General appearance: alert, in no apparent distress Head exam: Present: atraumatic Eye exam: Present: normal appearance Neck exam: Present: normal inspection Respiratory exam: Present: normal lung sounds bilaterally Cardiovascular Exam: Present: regular rate, normal rhythm Expanded Peripheral pulses: 2+: Dorsalis Pedis (R), Dorsalis Pedis (L) GI/Abdominal exam: Present: soft, tenderness (Mild to moderate tenderness right lateral flank), normal bowel sounds. Absent: distended, guarding, rebound, rigid, pulsatile mass Extremities exam: Present: normal inspection. Absent: pedal edema, calf tenderness Back exam: Present: normal inspection. Absent: CVA tenderness (R) Neurological exam: Present: alert Psychiatric exam: Present: normal affect, normal mood Skin exam: Present: normal color Course Vital Signs 03/16/18 03/16/18 03/16/18 14:06 17:00 17:31 Temperature 99.0 F 98.1 F 98.6 F Pulse Rate 79 72 66 Respiratory 20 18 18 Rate Blood Pressure 133/79 119/66 141/64 O2 Sat by Pulse 98 100 100 Oximetry Medical Decision Making - Medical Decision Making Patient reevaluated and resting comfortably in bed. Patient states she still has some mild nausea and mild discomfort. Abdomen is soft with mild tenderness right lateral flank just under the ribs. Patient is offered computed tomography scan. Patient refuses. Patient would like to go home and see how things go. Patient is made aware that appendicitis and other disease has not been completely ruled out at this time and she would need to return if symptoms worsen. Patient is agreeable. - Lab Data Result diagrams: 03/16/18 15:37 03/16/18 15:37 Lab Results 03/16/18 03/16/18 03/16/18 Range/Units 15:37 15:37 15:37 WBC 4.6 (3.8-10.6) k/uL RBC 4.87 (3.80-5.40) m/uL Hgb 12.8 (11.4-16.0) gm/dL Hct 39.0 (34.0-46.0) % MCV 80.2 (80.0-100.0) fL MCH 26.3 (25.0-35.0) pg MCHC 32.8 (31.0-37.0) g/dL RDW 15.3 (11.5-15.5) % Plt Count 171 (150-450) k/uL Neutrophils % 64 % Lymphocytes % 25 % Monocytes % 6 % Eosinophils % 4 % Basophils % 0 % Neutrophils # 2.9 (1.3-7.7) k/uL Lymphocytes # 1.2 (1.0-4.8) k/uL Monocytes # 0.3 (0-1.0) k/uL Eosinophils # 0.2 (0-0.7) k/uL Basophils # 0.0 (0-0.2) k/uL PT 10.5 (9.0-12.0) sec INR 1.1 (<1.2) APTT 22.9 (22.0-30.0) sec Sodium 142 (137-145) mmol/L Potassium 3.8 (3.5-5.1) mmol/L Chloride 106 (98-107) mmol/L Carbon Dioxide 26 (22-30) mmol/L Anion Gap 10 mmol/L BUN 11 (7-17) mg/dL Creatinine 0.58 (0.52-1.04) mg/dL Est GFR (CKD-EPI)AfAm >90 (>60 ml/min/1.73 sqM) Est GFR (CKD-EPI)NonAf >90 (>60 ml/min/1.73 sqM) Glucose 96 (74-99) mg/dL Calcium 9.1 (8.4-10.2) mg/dL Total Bilirubin 0.2 (0.2-1.3) mg/dL AST 22 (14-36) U/L ALT 29 (9-52) U/L Alkaline Phosphatase 75 (38-126) U/L Total Protein 6.4 (6.3-8.2) g/dL Albumin 3.8 (3.5-5.0) g/dL Amylase 43 (30-110) U/L Lipase 85 (23-300) U/L Urine Color Urine Appearance (Clear) Urine pH (5.0-8.0) Ur Specific [place] (1.001-1.035) Urine Protein (Negative) Urine Glucose (UA) (Negative) Urine Ketones (Negative) Urine Blood (Negative) Urine Nitrite (Negative) Urine Bilirubin (Negative) Urine Urobilinogen (<2.0) mg/dL Ur Leukocyte Esterase (Negative) Urine RBC (0-5) /hpf Urine WBC (0-5) /hpf Ur Squamous Epith Cells (0-4) /hpf Calcium Oxalate Crystal (None) /hpf Hyaline Casts (0-2) /lpf Urine Mucus (None) /hpf 03/16/18 Range/Units 15:37 WBC (3.8-10.6) k/uL RBC (3.80-5.40) m/uL Hgb (11.4-16.0) gm/dL Hct (34.0-46.0) % MCV (80.0-100.0) fL MCH (25.0-35.0) pg MCHC (31.0-37.0) g/dL RDW (11.5-15.5) % Plt Count (150-450) k/uL Neutrophils % % Lymphocytes % % Monocytes % % Eosinophils % % Basophils % % Neutrophils # (1.3-7.7) k/uL Lymphocytes # (1.0-4.8) k/uL Monocytes # (0-1.0) k/uL Eosinophils # (0-0.7) k/uL Basophils # (0-0.2) k/uL PT (9.0-12.0) sec INR (<1.2) APTT (22.0-30.0) sec Sodium (137-145) mmol/L Potassium (3.5-5.1) mmol/L Chloride (98-107) mmol/L Carbon Dioxide (22-30) mmol/L Anion Gap mmol/L BUN (7-17) mg/dL Creatinine (0.52-1.04) mg/dL Est GFR (CKD-EPI)AfAm (>60 ml/min/1.73 sqM) Est GFR (CKD-EPI)NonAf (>60 ml/min/1.73 sqM) Glucose (74-99) mg/dL Calcium (8.4-10.2) mg/dL Total Bilirubin (0.2-1.3) mg/dL AST (14-36) U/L ALT (9-52) U/L Alkaline Phosphatase (38-126) U/L Total Protein (6.3-8.2) g/dL Albumin (3.5-5.0) g/dL Amylase (30-110) U/L Lipase (23-300) U/L Urine Color Yellow Urine Appearance Clear (Clear) Urine pH 6.5 (5.0-8.0) Ur Specific [place] 1.021 (1.001-1.035) Urine Protein Trace H (Negative) Urine Glucose (UA) Negative (Negative) Urine Ketones 1+ H (Negative) Urine Blood Moderate H (Negative) Urine Nitrite Negative (Negative) Urine Bilirubin Negative (Negative) Urine Urobilinogen 2.0 (<2.0) mg/dL Ur Leukocyte Esterase Negative (Negative) Urine RBC 1 (0-5) /hpf Urine WBC 2 (0-5) /hpf Ur Squamous Epith Cells 2 (0-4) /hpf Calcium Oxalate Crystal Occasional H (None) /hpf Hyaline Casts 1 (0-2) /lpf Urine Mucus Rare H (None) /hpf - Radiology Data Radiology results: report reviewed (Ultrasound of the right upper abdomen reveals no acute process. Ultrasound of the appendix did not visualize the appendix.), image reviewed (X-ray shows no acute process) Disposition Clinical Impression: Abdominal pain Disposition: HOME SELF-CARE Condition: Stable Instructions: Abdominal Pain (ED) Additional Instructions: Please follow-up with primary care physician in the next day or 2 for recheck. Return for fever, increased pain, not tolerating fluids, worsening or change in symptoms or other concerns. Prescriptions: Ondansetron Odt [Zofran Odt] 4 mg PO Q8HR PRN #10 tab PRN Reason: Nausea Is patient prescribed a controlled substance at d/c from ED?: No Referrals: Stephen Nieves III, MD [Primary Care Provider] - 1-2 days Time of Disposition: 17:47
[2018-03-16 15:56] LABS: Basophils % (A) 0 %; Eosinophils # (A) 0.2 k/uL (0-0.7); Eosinophils % (A) 4 %; HGB 12.8 gm/dL (11.4-16.0); Lymphocytes # (A) 1.2 k/uL (1.0-4.8); Lymphocytes % (A) 25 %; MCH 26.3 pg (25.0-35.0); MCHC 32.8 g/dL (31.0-37.0); MCV 80.2 fL (80.0-100.0); Mean Platelet Volume 9.3; Monocytes # (A) 0.3 k/uL (0-1.0); Monocytes % (A) 6 %; Neutrophils # (A) 2.9 k/uL (1.3-7.7); Neutrophils % (A) 64 %; Platelet Count 171 k/uL (150-450); RBC 4.87 m/uL (3.80-5.40); RDW 15.3 % (11.5-15.5); WBC 4.6 k/uL (3.8-10.6)
[2018-03-16 16:04] LABS: Appearance,Urine Clear (Clear); Bilirubin,Urine Negative (Negative); Blood,Urine Moderate (Negative); Calcium Oxalate Crystals,Urine Occasional /hpf; Color,Urine Yellow; Glucose,Urine (UA) Negative (Negative); Hyaline Casts,Urine 1 /lpf (0-2); Ketones,Urine 1+ (Negative); Leukocyte Esterase,Urine Negative (Negative); Mucus,Urine Rare /hpf; Nitrite,Urine Negative (Negative); PH, Urine 6.5 (5.0-8.0); Protein,Urine Trace (Negative); RBC,Urine 1 /hpf (0-5); Specific Gravity,Urine 1.021 (1.001-1.035); Squamous Epithelial Cell,Urine 2 /hpf (0-4); WBC,Urine 2 /hpf (0-5)
[2018-03-16 16:05] LABS: INR 1.1 (<1.2); Partial Thromboplastin Time 22.9 sec (22.0-30.0); Prothrombin Time 10.5 sec (9.0-12.0)
[2018-03-16 16:07] LABS: ALT 29 U/L (9-52); AST 22 U/L (14-36); Albumin 3.8 g/dL (3.5-5.0); Alkaline Phosphatase 75 U/L (38-126); Amylase 43 U/L (30-110); Anion Gap 10 mmol/L; Blood Urea Nitrogen 11 mg/dL (7-17); Calcium 9.1 mg/dL (8.4-10.2); Carbon Dioxide 26 mmol/L (22-30); Chloride 106 mmol/L (98-107); Glucose 96 mg/dL (74-99); Lipase 85 U/L (23-300); Potassium 3.8 mmol/L (3.5-5.1); Sodium 142 mmol/L (137-145); Total Bilirubin 0.2 mg/dL (0.2-1.3); Total Protein 6.4 g/dL (6.3-8.2)
--- NOTE | 2018-03-16 16:14 | XR ---
EXAMINATION TYPE: XR KUB DATE OF EXAM: 03/16/2018 4:09 PM CLINICAL HISTORY: Pain and vomiting 1 day TECHNIQUE: Two Upright KUB images of the abdomen are obtained. COMPARISON: CT abdomen and pelvis February 26, 2018. FINDINGS: Scattered gas is seen in non-distended stomach and small bowel loops. Gas and fecal materia l is seen in non-distended colon and rectum. There is no visceromegaly, pneumoperitoneum, or abnormal calcification appreciated. The lung bases are clear and the osseous structures are intact. IMPRESSION: Overall nonobstructive bowel gas pattern.
--- NOTE | 2018-03-16 17:01 | US ---
EXAMINATION TYPE: US abdomen limited DATE OF EXAM: 03/16/2018 COMPARISON: NONE CLINICAL HISTORY: abdominal pain. RUQ pain with nausea. EXAM MEASUREMENTS: Liver Length: 11.6 cm Gallbladder Wall: 0.2 cm CBD: 0.2 cm Right Kidney: 10.8 x 4.9 x 5.2 cm Extensive midline bowel gas. Pancreas: Obscured by bowel gas Liver: Left lobe mostly obscured by bowel gas, portions visualized wnl. Gallbladder: wnl Evidence for sonographic King's sign: no CBD: wnl Right Kidney: pyramids appear echogenic IMPRESSION: Negative exam. No gallstones or dilated ducts.
--- NOTE | 2018-03-16 17:02 | US ---
EXAMINATION TYPE: US abdomen APPY DATE OF EXAM: 03/16/2018 COMPARISON: NONE CLINICAL HISTORY: Pain. APPENDIX Appendix not visualized. Is there inflammatory changes or free fluid present: no IMPRESSION: Appendix is not seen. No solid or cystic mass identified in the right lower quadrant.
[2018-03-16 17:56] VITALS: BP 119/58; PULSE 64; RESP 16; TEMP 97.8
== END 2018-03-16 18:05 | disposition home or self-care (01) ==
LOC: EC 13:40
DX: R10.9 Unspecified abdominal pain (principal); R11.0 Nausea; R63.0 Anorexia; Z87.891 Personal history of nicotine dependence; Z88.0 Allergy status to penicillin; Z88.5 Allergy status to narcotic agent; Z88.8 Allergy status to other drugs, medicaments and biological substances; Z98.890 Other specified postprocedural states; Z53.8 Procedure and treatment not carried out for other reasons
CPT/HCPCS: 36415; 80053; 82150; 83690; 85025; 85610; 85730; 81001; 74018; 76705; 99284; 96374; 96375 ×2; 96361; J2405; J1885

== ENCOUNTER → 2018-03-31 | Outpatient (CLI) | payer BC, OTHER ==
--- NOTE | 2018-03-31 09:09 | CT ---
EXAMINATION TYPE: CT chest w con DATE OF EXAM: 03/31/2018 COMPARISON: CT chest 01/09/2015 HISTORY: Lymphadenopathy, pt c/o swelling to neck and upper chest CT DLP: 450.3 mGycm Automated exposure control for dose reduction was used. CONTRAST: CT scan of the chest is performed with IV Contrast, patient injected with 100 mL of Isovue 300. FINDINGS: LUNGS: The lungs are grossly clear, there is no concerning new greater than 5 mm parenchymal mass or nodules identified bilaterally. There are small subpleural nodules measuring under 5 mm in size in th e right lung, for reference on axial image 37, 38, and 42. Some dependent atelectasis bilateral lower lobes is seen. There is no pleural effusion or pneumothorax seen. The tracheobronchial tree is pat ent. MEDIASTINUM: There are no greater than 1 cm hilar or mediastinal lymph nodes. No cardiomegaly or pe ricardial effusion is seen. OTHER: Benign-appearing bilateral axillary lymph nodes are redemonstrated. Mild multilevel spurring in the thoracic spine is identified. IMPRESSION: No suspicious new mass or adenopathy.
--- NOTE | 2018-03-31 10:11 | US ---
EXAMINATION TYPE: US thyroid st tissue head/neck DATE OF EXAM: 03/31/2018 COMPARISON: NONE CLINICAL HISTORY: R59.0 lymphadenopathy. Pt states multiple, palpable lumps midline neck, right later al neck, and right posterior neck Soft tissue neck scanned where pt has multiple palpables, small lymph nodes visualized ranging from 2 mm to largest= 6mm in size IMPRESSION: Morphologically unremarkable nonenlarged right cervical chain lymph nodes corresponding to the palpab le abnormality.
== END | disposition home or self-care (01) ==
LOC: RADCTMAIN 08:16
PROVIDERS: ATTEND Internal Medicine Hematology & Oncology
DX: R91.1 Solitary pulmonary nodule (principal); Z88.0 Allergy status to penicillin; R59.0 Localized enlarged lymph nodes
CPT/HCPCS: 76536; 71260; Q9967

== ENCOUNTER 2018-05-06 23:43 | Emergency (ER) | payer BC, OTHER ==
[2018-05-06] MEDS ORDERED: SODIUM CHLORIDE 0.9% 1,000 ML IV STA (23:51)
--- NOTE | 2018-05-07 00:13 | ED ---
General Adult HPI - General Chief complaint: Chest Pain Stated complaint: Palpitations Time Seen by Provider: 05/07/18 00:11 Source: patient, RN notes reviewed, old records reviewed Mode of arrival: ambulatory Limitations: no limitations - History of Present Illness Initial comments: This is a 32-year-old female the ER for evaluation of palpitations, feels like her heart skipping beats. Patient has history of SVT, significant cardiac history including prior heart catheterization, or monitor. Takes no medications. Patient states yesterday and today her heart was beating her she felt a beating her chest. Following is mainly skipping a because of difficulty catching her breath. Patient is relatively symptomatically at this time mildly anxious. No complaints of chest pain - Related Data Home Medications Medication Instructions Recorded Confirmed ALPRAZolam [Xanax] 0.5 mg PO DAILY PRN 03/17/17 03/16/18 Butalb/APAP/Caff 50-325-40Mg 1 tab PO Q6H PRN 06/26/17 03/16/18 [Fioricet 50-325-40] Albuterol Inhaler [Ventolin Hfa 1 - 2 puff INHALATION RT-Q6H PRN 07/16/17 Inhaler] Iron 28mg 28 mg PO BID 02/01/18 03/16/18 Previous Rx's Medication Instructions Recorded Ondansetron Odt [Zofran Odt] 4 mg PO Q8HR PRN #10 tab 03/16/18 Allergies Allergy/AdvReac Type Severity Reaction Status Date / Time morphine Allergy Dyspnea/Chest Verified 05/06/18 23:50 Pain Penicillins Allergy Rash/Hives Verified 05/06/18 23:50 epinephrine AdvReac Rapid Verified 05/06/18 23:50 Heart Rate Review of Systems ROS Statement: Those systems with pertinent positive or pertinent negative responses have been documented in the HPI. ROS Other: All systems not noted in ROS Statement are negative. Past Medical History Past Medical History: Chest Pain / Angina, Liver Disease Additional Past Medical History / Comment(s): SVT, tachycardia HERNIATED LUMBAR DISCS, DEPRESSION, ANXIETY. kidney stones. hypoglycemia, sepsis 06/2017 History of Any Multi-Drug Resistant Organisms: None Reported Past Surgical History: Section, Heart Catheterization, Tubal Ligation Additional Past Surgical History / Comment(s): liver bx, 3 C-SECTIONS, lithotripsy Past Anesthesia/Blood Transfusion Reactions: Motion Sickness Past Psychological History: Anxiety, Depression Smoking Status: Former smoker Past Alcohol Use History: Rare Past Drug Use History: None Reported - Past Family History Mother Family Medical History: Fibromyalgia Father Family Medical History: Coronary Artery Disease (CAD), Diabetes Mellitus, Myocardial Infarction ([place]) General Exam Limitations: no limitations General appearance: alert, in no apparent distress, anxious Head exam: Present: atraumatic, normocephalic, normal inspection Eye exam: Present: normal appearance, PERRL, EOMI. Absent: scleral icterus, conjunctival injection, periorbital swelling ENT exam: Present: normal exam, mucous membranes moist Neck exam: Present: normal inspection. Absent: tenderness, meningismus, lymphadenopathy Respiratory exam: Present: normal lung sounds bilaterally. Absent: respiratory distress, wheezes, rales, rhonchi, stridor Cardiovascular Exam: Present: regular rate, normal rhythm, normal heart sounds. Absent: systolic murmur, diastolic murmur, rubs, gallop, clicks GI/Abdominal exam: Present: soft, normal bowel sounds. Absent: distended, tenderness, guarding, rebound, rigid Extremities exam: Present: normal inspection, full ROM, normal capillary refill. Absent: tenderness, pedal edema, joint swelling, calf tenderness Back exam: Present: normal inspection Neurological exam: Present: alert, oriented X3, CN II-XII intact Psychiatric exam: Present: normal affect, normal mood Skin exam: Present: warm, dry, intact, normal color. Absent: rash Course Vital Signs 05/06/18 23:47 Temperature 98.2 F Pulse Rate 77 Respiratory 16 Rate Blood Pressure 147/89 O2 Sat by Pulse 99 Oximetry - Reevaluation(s) Reevaluation #1: 05/07/18 00:12 Medical record is reviewed EKG Findings - EKG Comments: EKG Findings:: EKG shows sinus bradycardia rate of 72, LA 134, QRS 94, QTC 457 Medical Decision Making - Medical Decision Making 32 female the ER with history of SVT, no medications, having PVCs, nothing sustained. X-rays normal EKG negative. Patient can be discharged Disposition Clinical Impression: Palpitations, PVC (premature ventricular contraction) Disposition: HOME SELF-CARE Condition: Good Instructions: Palpitations (ED), Premature Ventricular Contractions (ED) Is patient prescribed a controlled substance at d/c from ED?: No Referrals: Stephen Nieves III, MD [Primary Care Provider] - 1-2 days
[2018-05-07 00:20] LABS: ALT 32 U/L (9-52); AST 21 U/L (14-36); Alkaline Phosphatase 61 U/L (38-126); Anion Gap 8 mmol/L; Blood Urea Nitrogen 13 mg/dL (7-17); Calcium 9.5 mg/dL (8.4-10.2); Carbon Dioxide 28 mmol/L (22-30); Chloride 104 mmol/L (98-107); Glucose 102 mg/dL (74-99); Magnesium 1.9 mg/dL (1.6-2.3); Potassium 3.7 mmol/L (3.5-5.1); Sodium 140 mmol/L (137-145); Total Bilirubin 0.1 mg/dL (0.2-1.3); Total Protein 6.6 g/dL (6.3-8.2)
[2018-05-07 00:21] LABS: Basophils % (A) 0 %; Eosinophils # (A) 0.2 k/uL (0-0.7); Eosinophils % (A) 2 %; HCT 38.4 % (34.0-46.0); HGB 12.7 gm/dL (11.4-16.0); Lymphocytes # (A) 2.2 k/uL (1.0-4.8); Lymphocytes % (A) 30 %; MCH 26.6 pg (25.0-35.0); MCV 80.5 fL (80.0-100.0); Mean Platelet Volume 8.8; Monocytes # (A) 0.5 k/uL (0-1.0); Monocytes % (A) 6 %; Neutrophils # (A) 4.4 k/uL (1.3-7.7); Neutrophils % (A) 60 %; Platelet Count 186 k/uL (150-450); RBC 4.77 m/uL (3.80-5.40); RDW 14.7 % (11.5-15.5); WBC 7.3 k/uL (3.8-10.6)
[2018-05-07 00:26] LABS: INR 1.1 (<1.2); Partial Thromboplastin Time 23.6 sec (22.0-30.0); Prothrombin Time 10.5 sec (9.0-12.0)
[2018-05-07 00:35] LABS: Creatine Kinase 150 U/L (30-135)
[2018-05-07 00:49] LABS: Creatine Kinase MB 1.5 ng/mL (0.0-2.4); Troponin I <0.012 ng/mL (0.000-0.034)
[2018-05-07 01:02] VITALS: BP 128/63; PULSE 79; RESP 18; TEMP 98
== END 2018-05-07 01:02 | disposition home or self-care (01) ==
LOC: EC 23:43
DX: I49.3 Ventricular premature depolarization (principal); F41.9 Anxiety disorder, unspecified; Z87.891 Personal history of nicotine dependence; Z79.899 Other long term (current) drug therapy; Z88.0 Allergy status to penicillin; Z88.5 Allergy status to narcotic agent; Z88.8 Allergy status to other drugs, medicaments and biological substances; Z95.9 Presence of cardiac and vascular implant and graft, unspecified; Z82.49 Family history of ischemic heart disease and other diseases of the circulatory system
CPT/HCPCS: 36415; 80053; 82550; 82553; 83735; 84443; 84484; 85025; 85610; 85730; 93005; 96360; 99285

== ENCOUNTER → 2018-06-01 | Outpatient (CLI) | payer BC, OTHER ==
--- NOTE | 2018-06-02 01:16 | MR ---
EXAMINATION TYPE: MR brain wo/w con DATE OF EXAM: 06/01/2018 COMPARISON: Prior MRI brain October 31, 2013. HISTORY: Dizziness and giddiness, headache, weakness, and other fatigue all pertinent order. TECHNIQUE: Multiplanar, multisequence images of the brain and brainstem is performed without and with IV contras t, utilizing 9 mL intravenous Gadavist . FINDINGS: Diffusion weighted images demonstrate no evidence of a recent infarct or other diffusion ab normality. There is no worrisome extra-axial fluid collection. The ventricular system and cisternal spaces are normal in size and appearance. The brain volume is age appropriate. Occasional tiny focu s of T2 hyperintensity is felt present, for reference 3 mm lesion anterior to right globus pallidus a xial image 15 is unchanged from prior study. Less than 5 lesions are felt present. Midline structures demonstrate normal morphology. The craniocervical junction appears within normal limits. Post contrast images demonstrate no abnormal enhancement. The dural venous sinuses appear pa tent. The visualized sinuses are clear and the globes are intact. IMPRESSION: Stable minimal nonspecific white matter changes. No suspicious enhancement.
--- NOTE | 2018-06-02 01:16 | MR ---
MRI CERVICAL SPINE: CLINICAL HISTORY: Headache, neck pain, cervical radiculopathy, and bilateral upper extremity weakness per order. Patient. TECHNIQUE: Multiplanar, multisequence imaging of the cervical spine is performed without IV contrast. COMPARISON: MRI cervical spine March 04, 2017 FINDINGS: Sagittal images of the cervical spine show the craniocervical junction to remain within nor mal limits. The cervical and upper thoracic spinal cord remains normal in course, caliber, and signa l. Vertebral alignment is stable and straightened with stable grade 1 retrolisthesis of C4 on C5 and C5 on C6. The vertebral body heights remain normal. There is persistent mild disc space narrowing w ith posterior disc herniations at C4-C5 and C5-C6 levels on sagittal images effaces the anterior thec al sac The bone marrow signal intensity shows some heterogeneous endplate changes along superior and inferior C5 endplates. Axial images show the C2-C3 level to remain within normal limits. Axial images at C3-C4 levels redemonstrate right-sided uncovertebral such changes causing mild right- sided neural foraminal narrowing. The left-sided neural foramen is patent. Spinal canal is preserved. No significant change from prior. Axial images at C4-C5 level showed broad based right paracentral disc protrusion effacing anterolater al thecal sac, bilateral neural foramina are patent. No significant change from prior. Axial images at C5-C6 level shows broad-based central disc protrusion effacing anterior thecal sac ne jason up to ventral surface of spinal cord and causing mild bilateral neural foraminal narrowing, perh aps slight progression from prior exam. Axial images at C6-C7 level shows tiny central disc protrusion mildly facing anterior thecal sac, zeeshan ateral neural foramina are patent. No significant change from prior. Axial images at C7-T1 level are felt within normal limits. IMPRESSION: Loss of normal cervical curvature with multilevel degenerative changes most prominent at C4-C5 and C5-C6 levels redemonstrated perhaps slightly progression at the C5-C6 level otherwise no si gnificant interval change.
== END | disposition home or self-care (01) ==
LOC: RADMRIMAIN 20:42
PROVIDERS: ATTEND Family Medicine
DX: R90.82 White matter disease, unspecified (principal); M47.812 Spondylosis without myelopathy or radiculopathy, cervical region; M43.8X2 Other specified deforming dorsopathies, cervical region; R53.83 Other fatigue; R53.1 Weakness; R42 Dizziness and giddiness; R51 Headache
CPT/HCPCS: 70553; 72141; A9581

== ENCOUNTER 2018-07-09 17:21 | Emergency (ER) | payer BC, OTHER ==
--- NOTE | 2018-07-09 17:48 | ED ---
Chest Pain HPI - General Chief Complaint: Chest Pain Stated Complaint: CHEST PAIN Time Seen by Provider: 07/09/18 17:29 Source: patient, EMS, RN notes reviewed Mode of arrival: EMS Limitations: no limitations - History of Present Illness Initial Comments: This is a 32-year-old female with history of paroxysmal SVT who presents to the emergency department with chief complaint of chest pressure. Patient states that she has been unwell for the past week. She states that 7 days ago she developed a rash and was seen by her primary care provider 2 days ago. She states that she has been using a topical steroid and Claritin. Patient states that she then had a migraine headache yesterday and went to [facility] where she received Reglan and Toradol. Patient states that she was discharged home last evening. She states when she woke up this morning she felt unwell. She states that she felt like her lips were tingling and that her throat was swollen. She states that she felt nauseous. She states that at around 9 AM this morning she developed substernal chest pressure. She states that this is accompanied by intermittent sharp pains. She states that she ran errands and while doing so she began to feel unwell again. She states she looked in the mirror and noticed that she looked pale. She states that she pulled over to the side of the road and checked her blood pressure which was 160s over 120s. Patient then called EMS. She reports on her way to the hospital she developed a substernal and left-sided burning sensation; she states that this is no longer present. She did receive aspirin and Zofran in the ambulance but refused nitro. Patient denies any shortness of breath, fevers or chills, abdominal pain, vomiting, diarrhea or constipation, dysuria or hematuria, dizziness or headache. - Related Data Home Medications Medication Instructions Recorded Confirmed ALPRAZolam [Xanax] 0.5 mg PO DAILY PRN 03/17/17 07/09/18 Butalb/APAP/Caff 50-325-40Mg 1 tab PO Q6H PRN 06/26/17 07/09/18 [Fioricet 50-325-40] Albuterol Inhaler [Ventolin Hfa 1 - 2 puff INHALATION RT-Q6H PRN 07/16/17 Inhaler] Iron 28mg 28 mg PO BID 02/01/18 07/09/18 Ibuprofen [Motrin Ib] 800 mg PO Q6H PRN 07/09/18 07/09/18 Loratadine [Claritin] 10 mg PO DAILY 07/09/18 07/09/18 Mupirocin 2% Oint [Bactroban 2% 1 applic TOPICAL TID 07/09/18 07/09/18 Oint] Previous Rx's Medication Instructions Recorded Ferrous Sulfate [Iron] 325 mg PO DAILY #30 tablet 07/09/18 Allergies Allergy/AdvReac Type Severity Reaction Status Date / Time morphine Allergy Dyspnea/Chest Verified 07/09/18 18:18 Pain Penicillins Allergy Rash/Hives Verified 07/09/18 18:18 epinephrine AdvReac Rapid Verified 07/09/18 18:18 Heart Rate Review of Systems ROS Statement: Those systems with pertinent positive or pertinent negative responses have been documented in the HPI. ROS Other: All systems not noted in ROS Statement are negative. EKG Findings - EKG Comments: EKG Findings:: 17:43:22. Normal sinus rhythm with sinus arrhythmia. Ventricular rate 68 bpm, DC interval 142, QRS duration 98, QT/QTc 430/457 Past Medical History Past Medical History: Chest Pain / Angina, Liver Disease Additional Past Medical History / Comment(s): SVT, tachycardia HERNIATED LUMBAR DISCS, DEPRESSION, ANXIETY. kidney stones. hypoglycemia, sepsis 06/2017 History of Any Multi-Drug Resistant Organisms: None Reported Past Surgical History: Section, Heart Catheterization, Tubal Ligation Additional Past Surgical History / Comment(s): liver bx, 3 C-SECTIONS, lithotripsy Past Anesthesia/Blood Transfusion Reactions: Motion Sickness Past Psychological History: Anxiety, Depression Smoking Status: Former smoker Past Alcohol Use History: Rare Past Drug Use History: None Reported - Past Family History Mother Family Medical History: Fibromyalgia Father Family Medical History: Coronary Artery Disease (CAD), Diabetes Mellitus, Myocardial Infarction ([place]) General Exam - General Exam Comments Initial Comments: General: Awake and alert, well-developed; in no apparent distress. HEENT: Head atraumatic, normocephalic. Pupils are equal, round and reactive to light. Extraocular movements intact. Oropharynx moist without erythema or exudate. Neck: Supple. Normal ROM. Cardiovascular: Regular rate and rhythm. No murmurs, rubs or gallops. Chest symmetrical. Respiratory: Lungs clear to auscultation bilaterally. No wheezes, rales or rhonchi. Normal respiratory effort with no use of accessory muscles. Abdomen: Soft, non-tender, non-distended. No rigidity, rebound or guarding. Normal bowel sounds in all 4 quadrants. Musculoskeletal: Normal ROM, no tenderness bilateral upper and lower extremities. Ambulating normally. Skin: [place], warm and dry without rashes or lesions. Neurological: Alert and oriented x3. CN II-XII grossly intact. Speech is fluent and answers are appropriate. No focal neuro deficits. Psychiatric: Normal mood and affect. No overt signs of depression or anxiety noted. Limitations: no limitations Course Vital Signs 07/09/18 07/09/18 07/09/18 17:32 18:12 18:57 Temperature 98.6 F Pulse Rate 83 73 84 Respiratory 18 18 18 Rate Blood Pressure 163/83 149/72 137/68 O2 Sat by Pulse 99 99 100 Oximetry 07/09/18 19:25 Temperature Pulse Rate 83 Respiratory 16 Rate Blood Pressure 139/65 O2 Sat by Pulse 98 Oximetry Chest Pain MDM - MDM This is a 32-year-old female who presents to the emergency department with chief complaint chest of pressure. Patient reports history of paroxysmal SVT. Patient complains of a multitude of symptoms including feeling weak, nauseous and dizzy. EKG revealed normal sinus rhythm with sinus arrhythmia. Chest x- ray revealed no acute abnormalities. Troponin and cardiac profile negative. D- dimer is negative. Coags are within normal limits. UA reveals no acute abnormality. CBC did reveal a low hemoglobin at 9.5. Stool occult is negative. There are no other signs of an acute bleed. Case was discussed with attending physician, Dr. Geronimo who also evaluated the patient. Recommended discharge home with iron supplementation. Patient's vital signs have been stable throughout entire emergency department stay and she is in no acute distress. She will be discharged home at this time. She is to follow-up with her primary care provider within 1-2 days. She is in agreement with plan and voices understanding. All questions were answered. Chest x-ray impression: Normal chest. No change. Disposition Clinical Impression: Anemia, Chest pressure Disposition: HOME SELF-CARE Condition: Good Instructions: Chest Pain (ED), Anemia (ED) Additional Instructions: Please take medications as prescribed. Please follow up with primary care provider within 1-2 days. Return to emergency department if symptoms should worsen or any concerns arise. Prescriptions: Ferrous Sulfate [Iron] 325 mg PO DAILY #30 tablet Is patient prescribed a controlled substance at d/c from ED?: No Referrals: Stephen Nieves III, MD [Primary Care Provider] - 1-2 days Time of Disposition: 20:29
[2018-07-09 18:30] LABS: Basophils % (A) 0 %; Eosinophils # (A) 0.2 k/uL (0-0.7); Eosinophils % (A) 2 %; HCT 28.5 % (34.0-46.0); Lymphocytes # (A) 1.7 k/uL (1.0-4.8); Lymphocytes % (A) 21 %; MCH 27.6 pg (25.0-35.0); MCHC 33.3 g/dL (31.0-37.0); Mean Platelet Volume 8.6; Monocytes # (A) 0.4 k/uL (0-1.0); Monocytes % (A) 4 %; Neutrophils # (A) 5.9 k/uL (1.3-7.7); Neutrophils % (A) 72 %; Platelet Count 209 k/uL (150-450); RBC 3.43 m/uL (3.80-5.40); RDW 14.4 % (11.5-15.5); WBC 8.3 k/uL (3.8-10.6)
[2018-07-09 18:46] LABS: HGB 9.5 gm/dL (11.4-16.0)
[2018-07-09 18:50] LABS: Creatine Kinase 91 U/L (30-135)
[2018-07-09 18:52] LABS: ALT 19 U/L (9-52); AST 27 U/L (14-36); Albumin 3.8 g/dL (3.5-5.0); Alkaline Phosphatase 74 U/L (38-126); Anion Gap 7 mmol/L; Blood Urea Nitrogen 11 mg/dL (7-17); Calcium 8.6 mg/dL (8.4-10.2); Carbon Dioxide 21 mmol/L (22-30); Chloride 110 mmol/L (98-107); Glucose 89 mg/dL (74-99); Magnesium 1.8 mg/dL (1.6-2.3); Sodium 138 mmol/L (137-145); Total Bilirubin 0.5 mg/dL (0.2-1.3); Total Protein 6.8 g/dL (6.3-8.2)
[2018-07-09 19:02] LABS: Creatine Kinase MB 0.8 ng/mL (0.0-2.4); Troponin I <0.012 ng/mL (0.000-0.034)
[2018-07-09] MEDS ORDERED: SODIUM CHLORIDE 0.9% 1,000 ML IV STA (19:06)
[2018-07-09] MEDS ORDERED: ONDANSETRON 4 MG/2 ML VIAL IVP STA (19:06)
--- NOTE | 2018-07-09 19:16 | XR ---
EXAMINATION TYPE: XR chest 2V DATE OF EXAM: 07/09/2018 COMPARISON: 02/17/2018 HISTORY: Chest pain TECHNIQUE: Frontal and lateral views of the chest are obtained. FINDINGS: Heart and mediastinum are normal. Lungs are clear. Diaphragm is normal. Bony thorax appear s normal. IMPRESSION: Normal chest. No change.
[2018-07-09 19:21] LABS: Appearance,Urine Cloudy (Clear); Bacteria,Urine Rare /hpf; Bilirubin,Urine Negative (Negative); Blood,Urine Negative (Negative); Color,Urine Yellow; Glucose,Urine (UA) Negative (Negative); Ketones,Urine Negative (Negative); Leukocyte Esterase,Urine Trace (Negative); Mucus,Urine Rare /hpf; Nitrite,Urine Negative (Negative); PH, Urine 6.5 (5.0-8.0); Protein,Urine Negative (Negative); RBC,Urine 1 /hpf (0-5); Specific Gravity,Urine 1.014 (1.001-1.035); Squamous Epithelial Cell,Urine 6 /hpf (0-4); Urobilinogen,Urine <2.0 mg/dL (<2.0); WBC,Urine 2 /hpf (0-5)
[2018-07-09 19:21] LABS: INR 1.1 (<1.2); Partial Thromboplastin Time 22.4 sec (22.0-30.0); Prothrombin Time 10.6 sec (9.0-12.0)
[2018-07-09 19:28] VITALS: RESP 16
[2018-07-09 20:59] VITALS: BP 118/63; PULSE 56; TEMP 98.3
== END 2018-07-09 20:57 | disposition home or self-care (01) ==
LOC: EC 17:21
DX: D64.9 Anemia, unspecified (principal); R07.89 Other chest pain; R11.0 Nausea; I47.1 Supraventricular tachycardia; Z82.49 Family history of ischemic heart disease and other diseases of the circulatory system; Z95.818 Presence of other cardiac implants and grafts; Z87.891 Personal history of nicotine dependence; Z79.899 Other long term (current) drug therapy; Z88.5 Allergy status to narcotic agent; Z88.0 Allergy status to penicillin; Z88.8 Allergy status to other drugs, medicaments and biological substances
CPT/HCPCS: 99285; 96374; 96361; 36415; 93005; 85379; 80053; 82550; 82553; 83735; 84484; 85025; 85610; 85730; 82272; 81001; 81025; 87040; 87077; 87186; 71046; J2405

== ENCOUNTER 2018-07-13 00:28 | Emergency (ER) | payer BC, OTHER ==
[2018-07-13 00:38] VITALS: TEMP 98.3
[2018-07-13 00:59] LABS: Basophils % (A) 1 %; Eosinophils # (A) 0.2 k/uL (0-0.7); Eosinophils % (A) 2 %; HCT 40.6 % (34.0-46.0); Lymphocytes # (A) 1.9 k/uL (1.0-4.8); Lymphocytes % (A) 24 %; MCH 27.3 pg (25.0-35.0); MCHC 33.3 g/dL (31.0-37.0); MCV 81.9 fL (80.0-100.0); Mean Platelet Volume 8.3; Monocytes # (A) 0.4 k/uL (0-1.0); Monocytes % (A) 5 %; Neutrophils # (A) 5.3 k/uL (1.3-7.7); Neutrophils % (A) 67 %; Platelet Count 197 k/uL (150-450); RBC 4.95 m/uL (3.80-5.40); RDW 14.4 % (11.5-15.5)
[2018-07-13 01:03] LABS: HGB 13.5 gm/dL (11.4-16.0)
[2018-07-13 01:08] LABS: ALT 30 U/L (9-52); AST 18 U/L (14-36); Albumin 4.2 g/dL (3.5-5.0); Alkaline Phosphatase 70 U/L (38-126); Anion Gap 11 mmol/L; Blood Urea Nitrogen 14 mg/dL (7-17); Calcium 9.7 mg/dL (8.4-10.2); Carbon Dioxide 24 mmol/L (22-30); Chloride 102 mmol/L (98-107); Glucose 112 mg/dL (74-99); Magnesium 1.8 mg/dL (1.6-2.3); Sodium 137 mmol/L (137-145); Total Bilirubin 0.3 mg/dL (0.2-1.3); Total Protein 7.2 g/dL (6.3-8.2)
[2018-07-13 01:10] LABS: INR 1.1 (<1.2); Partial Thromboplastin Time 23.8 sec (22.0-30.0); Prothrombin Time 10.5 sec (9.0-12.0)
--- NOTE | 2018-07-13 01:10 | XR ---
EXAMINATION TYPE: XR chest 2V DATE OF EXAM: 07/13/2018 COMPARISON: 07/09/2018 HISTORY: Chest pain TECHNIQUE: Frontal and lateral views of the chest are obtained. FINDINGS: Heart and mediastinum are normal. Lungs are clear. Diaphragm is normal. Bony thorax appear s normal. There are chest leads. IMPRESSION: Normal chest. No change.
[2018-07-13 01:25] LABS: Creatine Kinase 61 U/L (30-135)
[2018-07-13 01:38] LABS: Creatine Kinase MB 0.8 ng/mL (0.0-2.4); Troponin I <0.012 ng/mL (0.000-0.034)
[2018-07-13] MEDS ORDERED: SODIUM CHLORIDE 0.9% 1,000 ML IV ONE (01:45)
[2018-07-13] MEDS ORDERED: METOCLOPRAMIDE 5 MG/ML 2 ML VIAL IVP STA (01:45)
[2018-07-13] MEDS ORDERED: diphenhydrAMINE 50 MG/ML 1 ML VIAL IVP STA (01:45)
--- NOTE | 2018-07-13 01:46 | CT ---
EXAMINATION TYPE: CT brain wo con DATE OF EXAM: 07/13/2018 COMPARISON: 02/09/2018 HISTORY: hypertension, lip numbness, weakness, prior on pacs CT DLP: 1013.40 mGycm. Automated Exposure Control for Dose Reduction was Utilized. TECHNIQUE: CT scan of the head is performed without contrast. FINDINGS: Ventricles and sulci appear normal. There is no mass effect nor midline shift. There is no sign of intracranial hemorrhage. There is no evidence of cerebral edema. The calvarium is intact. IMPRESSION: Negative CT scan of the brain. No change.
[2018-07-13] MEDS ORDERED: KETOROLAC 30 MG/ML 1 ML VIAL IVP STA (01:54)
[2018-07-13 02:22] VITALS: RESP 18
--- NOTE | 2018-07-13 03:18 | ED ---
Chest Pain HPI - General Chief Complaint: Chest Pain Stated Complaint: Chest Pain Time Seen by Provider: 07/13/18 00:47 Source: patient Mode of arrival: EMS Limitations: no limitations - History of Present Illness Initial Comments: This patient is a 32-year-old woman who presents to be evaluated for some chest tightness that had developed tonight. Patient also had been having some palpitations. The symptoms are resolving. She also relates that she had been diagnosed with SVT about 2 days ago. She believes she may have had another episode tonight. Patient denies any angina type symptoms in association. She has not had dyspnea, diaphoresis, nausea or vomiting, or syncope. MD Complaint: chest pain -: hour(s) Onset: during rest Pain Location: substernal Pain Radiation: none Severity: mild Quality: tightness Consistency: intermittent, now resolved Improves With: nothing Worsens With: nothing Other Symptoms: palpitations Treatments Prior to Arrival: none - Related Data Home Medications Medication Instructions Recorded Confirmed ALPRAZolam [Xanax] 0.5 mg PO DAILY PRN 03/17/17 07/13/18 Butalb/APAP/Caff 50-325-40Mg 1 tab PO Q6H PRN 06/26/17 07/13/18 [Fioricet 50-325-40] Albuterol Inhaler [Ventolin Hfa 1 - 2 puff INHALATION RT-Q6H PRN 07/16/17 Inhaler] Iron 28mg 28 mg PO BID 02/01/18 07/13/18 Ibuprofen [Motrin Ib] 800 mg PO Q6H PRN 07/09/18 07/13/18 Loratadine [Claritin] 10 mg PO DAILY 07/09/18 07/13/18 Mupirocin 2% Oint [Bactroban 2% 1 applic TOPICAL TID 07/09/18 07/13/18 Oint] Previous Rx's Medication Instructions Recorded Ferrous Sulfate [Iron] 325 mg PO DAILY #30 tablet 07/09/18 Allergies Allergy/AdvReac Type Severity Reaction Status Date / Time morphine Allergy Dyspnea/Chest Verified 07/09/18 18:18 Pain Penicillins Allergy Rash/Hives Verified 07/09/18 18:18 epinephrine AdvReac Rapid Verified 07/09/18 18:18 Heart Rate Review of Systems ROS Statement: Those systems with pertinent positive or pertinent negative responses have been documented in the HPI. ROS Other: All systems not noted in ROS Statement are negative. Constitutional: Denies: fever, chills, weakness Respiratory: Denies: cough, dyspnea Cardiovascular: Reports: as per HPI, chest pain, palpitations. Denies: orthopnea, edema, syncope Gastrointestinal: Denies: abdominal pain, nausea, vomiting, melena Genitourinary: Denies: dysuria, hematuria Musculoskeletal: Denies: back pain Skin: Denies: rash Neurological: Denies: headache, weakness, numbness EKG Findings - EKG Results: EKG: interpreted by ASHLEY PROCTOR, sinus rhythm (With sinus arrhythmia, rate 84 bpm) , normal axis, normal QRS, normal ST/T, no acute changes - [place], Pacemaker, Normal: Normal tracing: normal tracing Past Medical History Past Medical History: Chest Pain / Angina, Liver Disease Additional Past Medical History / Comment(s): SVT, tachycardia HERNIATED LUMBAR DISCS, DEPRESSION, ANXIETY. kidney stones. hypoglycemia, sepsis 06/2017 History of Any Multi-Drug Resistant Organisms: None Reported Past Surgical History: Section, Heart Catheterization, Tubal Ligation Additional Past Surgical History / Comment(s): liver bx, 3 C-SECTIONS, lithotripsy Past Anesthesia/Blood Transfusion Reactions: Motion Sickness Past Psychological History: Anxiety, Depression Smoking Status: Former smoker Past Alcohol Use History: Rare Past Drug Use History: None Reported - Past Family History Mother Family Medical History: Fibromyalgia Father Family Medical History: Coronary Artery Disease (CAD), Diabetes Mellitus, Myocardial Infarction ([place]) General Exam Limitations: no limitations General appearance: alert, in no apparent distress Head exam: Present: atraumatic, normocephalic Eye exam: Present: normal appearance. Absent: scleral icterus, conjunctival injection ENT exam: Present: normal oropharynx Respiratory exam: Present: normal lung sounds bilaterally. Absent: respiratory distress, wheezes, rales, rhonchi, stridor Cardiovascular Exam: Present: regular rate, normal rhythm, normal heart sounds. Absent: systolic murmur, diastolic murmur, rubs, gallop GI/Abdominal exam: Absent: soft, distended, tenderness, guarding, mass Extremities exam: Present: normal inspection, normal capillary refill. Absent: pedal edema, calf tenderness Neurological exam: Present: alert Skin exam: Present: warm, dry, intact, normal color. Absent: rash Course Vital Signs 07/13/18 07/13/18 07/13/18 00:34 00:47 02:16 Temperature 98.3 F Pulse Rate 81 59 L Pulse Rate [ 74 Rotary Engraver ] Respiratory 20 18 Rate Blood Pressure 145/67 113/62 O2 Sat by Pulse 99 97 Oximetry 07/13/18 03:25 Temperature Pulse Rate 63 Pulse Rate [ Rotary Engraver ] Respiratory 18 Rate Blood Pressure 122/63 O2 Sat by Pulse 96 Oximetry Disposition Clinical Impression: Palpitations, Headache Disposition: HOME SELF-CARE Condition: Good Instructions: Heart Palpitations (ED), General Headache (ED) Is patient prescribed a controlled substance at d/c from ED?: No Referrals: Stephen Nieves III, MD [Primary Care Provider] - 1-2 days Bryn Coates MD [STAFF PHYSICIAN] - 1-2 days
[2018-07-13 03:58] VITALS: BP 122/63; PULSE 63
[2018-07-13 04:12] LABS: Appearance,Urine Cloudy (Clear); Bilirubin,Urine Negative (Negative); Blood,Urine Negative (Negative); Color,Urine Light Yellow; Glucose,Urine (UA) Negative (Negative); Ketones,Urine Negative (Negative); Leukocyte Esterase,Urine Negative (Negative); Mucus,Urine Rare /hpf; Nitrite,Urine Negative (Negative); Protein,Urine Negative (Negative); Specific Gravity,Urine 1.009 (1.001-1.035); Squamous Epithelial Cell,Urine 5 /hpf (0-4); Urobilinogen,Urine <2.0 mg/dL (<2.0); WBC,Urine 1 /hpf (0-5)
== END 2018-07-13 04:16 | disposition home or self-care (01) ==
LOC: EC 00:28
DX: R00.2 Palpitations (principal); R51 Headache; R07.2 Precordial pain; I47.1 Supraventricular tachycardia; Z95.818 Presence of other cardiac implants and grafts; Z87.891 Personal history of nicotine dependence; Z82.49 Family history of ischemic heart disease and other diseases of the circulatory system; Z79.899 Other long term (current) drug therapy; Z88.5 Allergy status to narcotic agent; Z88.0 Allergy status to penicillin; Z88.8 Allergy status to other drugs, medicaments and biological substances; Z53.20 Procedure and treatment not carried out because of patient's decision for unspecified reasons
CPT/HCPCS: 36415; 93005; 80053; 82550; 82553; 83735; 84484; 85025; 85610; 85730; 81001; 71046; 70450; 99285; 96374; 96361 ×2; J1885

== ENCOUNTER → 2018-07-13 | Outpatient (CLI) | payer BC, OTHER ==
[2018-07-13 16:52] LABS: Basophils % (A) 0 %; Eosinophils # (A) 0.2 k/uL (0-0.7); Eosinophils % (A) 3 %; HCT 41.5 % (34.0-46.0); HGB 12.9 gm/dL (11.4-16.0); Lymphocytes # (A) 1.9 k/uL (1.0-4.8); Lymphocytes % (A) 23 %; MCH 26.3 pg (25.0-35.0); MCHC 31.1 g/dL (31.0-37.0); MCV 84.8 fL (80.0-100.0); Mean Platelet Volume 8.1; Monocytes # (A) 0.3 k/uL (0-1.0); Monocytes % (A) 4 %; Neutrophils # (A) 5.6 k/uL (1.3-7.7); Neutrophils % (A) 69 %; Platelet Count 212 k/uL (150-450); RBC 4.89 m/uL (3.80-5.40); RDW 14.7 % (11.5-15.5); WBC 8.1 k/uL (3.8-10.6)
[2018-07-13 17:25] LABS: ALT 31 U/L (9-52); AST 18 U/L (14-36); Albumin 3.9 g/dL (3.5-5.0); Alkaline Phosphatase 61 U/L (38-126); Anion Gap 8 mmol/L; Blood Urea Nitrogen 14 mg/dL (7-17); Calcium 9.8 mg/dL (8.4-10.2); Carbon Dioxide 26 mmol/L (22-30); Chloride 106 mmol/L (98-107); Glucose 115 mg/dL (74-99); Potassium 4.1 mmol/L (3.5-5.1); Sodium 140 mmol/L (137-145); Total Bilirubin 0.2 mg/dL (0.2-1.3); Total Protein 6.9 g/dL (6.3-8.2)
[2018-07-13 17:40] LABS: T4, Free (Free Thyroxine) 1.21 ng/dL (0.78-2.19)
[2018-07-14 01:24] LABS: Immunoglobulin E 25.2 IU/mL (0.00-114.00)
[2018-07-14 01:39] LABS: Iron Saturation 7.85 (12.00-45.00)
== END | disposition home or self-care (01) ==
LOC: LABWHC1 16:32
PROVIDERS: ATTEND Physician Assistant Medical
DX: D64.9 Anemia, unspecified (principal); R00.2 Palpitations; F41.9 Anxiety disorder, unspecified; T78.40XA Allergy, unspecified, initial encounter
CPT/HCPCS: 36415; 80053; 82533; 82607; 82728; 82785; 83540; 83550; 84439; 84443; 85025

== ENCOUNTER → 2018-09-10 | Outpatient (CLI) | payer BC, OTHER ==
--- NOTE | 2018-09-10 16:09 | XR ---
EXAMINATION TYPE: XR KUB DATE OF EXAM: 09/10/2018 COMPARISON: NONE HISTORY: Pain TECHNIQUE: Single supine KUB image of the abdomen is obtained FINDINGS: Small bowel demonstrates no evidence for dilatation or air fluid levels. Gas and fecal material is seen in non-distended colon. No convincing evidence for pneumoperitoneum. No unusual calcifications. The lung bases are clear. The osseous structures are intact. IMPRESSION: 1. Overall nonobstructive bowel gas pattern.
== END | disposition home or self-care (01) ==
LOC: RADXRMAIN 15:36
PROVIDERS: ATTEND Physician Assistant Medical
DX: R82.90 Unspecified abnormal findings in urine (principal); M54.5 Low back pain
CPT/HCPCS: 74018

== ENCOUNTER → 2018-09-13 | Day surgery (SDC) | payer BC, OTHER ==
[2018-09-09 13:40] VITALS: BMI 36.6
[~2018-09-13] MED LIST changes: -ALPRAZolam 0.25 MG TAB PO PRN; -ALPRAZolam 0.5 MG TAB PO PRN; -ASPIRIN 325 MG TAB PO STA; -ATORVASTATIN 80 MG TAB PO STA; -NITROGLYCERIN SL TABS 0.4 MG TAB SUBLINGUAL PRN; +SODIUM CHLORIDE 0.9% 1,000 ML IV SCH; -SODIUM CHLORIDE 0.9% 1,000 ML in EMPTY BAG 1 BAG IV ONE; +SODIUM CHLORIDE 0.9% 500 ML 500 ML IV ONE
[2018-09-13 11:12] VITALS: PULSE 80; RESP 16; TEMP 97
[2018-09-13 14:48] VITALS: BP 127/69
--- NOTE | 2018-09-13 17:30 | P.PCN ---
Preoperative Diagnosis: Diagnosis Recurrent dizzy spells Twelve-lead ECG Sinus mechanism normal TN incomplete right bundle branch block normal ST segments, normal QT interval no delta waves no epsilon waves normal ST segments in the precordial leads Tilt table test for protocol Baseline blood pressure 118/70 mmHg Baseline heart is 60 beats a minute Patient was tilted upright at an angle of 70 per protocol. There is no change in heart rate and blood pressure and at the end of the procedure the patient is laid supine Impression Normal heart and blood pressure response to upright tilting. No evidence for neurocardiogenic syncope Anesthesia: none Disposition: same day
== END | disposition home or self-care (01) ==
LOC: CATHEP 09:44
PROVIDERS: ATTEND Internal Medicine Clinical Cardiac Electrophysiology
DX: R42 Dizziness and giddiness (principal); I45.10 Unspecified right bundle-branch block; R00.1 Bradycardia, unspecified
CPT/HCPCS: 93660

== ENCOUNTER 2018-10-18 07:48 | Day surgery (SDC) | payer BC, OTHER ==
[2018-10-11 09:38] VITALS: BMI 37.3
[~2018-10-18 07:48] MED LIST changes: -SODIUM CHLORIDE 0.9% 500 ML 500 ML IV ONE
[2018-10-18 08:30] VITALS: PULSE 78; TEMP 98.2
[2018-10-18 08:39] LABS: Basophils % (A) 1 %; Eosinophils # (A) 0.1 k/uL (0-0.7); Eosinophils % (A) 3 %; HCT 39.2 % (34.0-46.0); HGB 13.2 gm/dL (11.4-16.0); Lymphocytes # (A) 1.3 k/uL (1.0-4.8); Lymphocytes % (A) 36 %; MCH 27.5 pg (25.0-35.0); MCHC 33.7 g/dL (31.0-37.0); MCV 81.7 fL (80.0-100.0); Mean Platelet Volume 8.2; Monocytes # (A) 0.3 k/uL (0-1.0); Monocytes % (A) 7 %; Neutrophils # (A) 1.8 k/uL (1.3-7.7); Neutrophils % (A) 51 %; Platelet Count 161 k/uL (150-450); RDW 13.9 % (11.5-15.5); WBC 3.6 k/uL (3.8-10.6)
[2018-10-18 08:47] LABS: Anion Gap 6 mmol/L; Blood Urea Nitrogen 12 mg/dL (7-17); Carbon Dioxide 26 mmol/L (22-30); Chloride 110 mmol/L (98-107); Glucose 98 mg/dL (74-99); Sodium 142 mmol/L (137-145)
[2018-10-18 08:54] LABS: Glucose,Whole Blood 97 mg/dL (75-99)
[2018-10-18] MEDS ORDERED: IV FLUID CONTINUATION 450 ML IV ONE (09:04)
[2018-10-18] MEDS ORDERED: LIDOCAINE 1% INJ 10MG/ML (20 ML MDV) ONE (09:16)
[2018-10-18] MEDS: CLINDAMYCIN 900 MG in DEXTROSE 5% IN WATER 50 ML IVPB ONE ×4 (09:20→09:22)
[2018-10-18] MEDS ORDERED: LIDOCAINE 1% INJ 10MG/ML (20 ML MDV) SQ ONE (09:26)
[2018-10-18] MEDS ORDERED: ACETAMINOPHEN TAB 325 MG TAB PO PRN (09:41)
--- NOTE | 2018-10-18 09:47 | P.PCN ---
Date of Procedure: 10/18/18 Preoperative Diagnosis: Recurrent palpitations and near-syncope Postoperative Diagnosis: The same Procedure(s) Performed: Insertion of the loop recorder Description of Procedure: Patient was brought to the lab in a fasting state. Prepped and draped in the usual fashion. Patient refused any sedation. The skin in the third intercostal space was infiltrated with lidocaine. Incision was made and the device was implanted in the usual fashion. Patient tolerated the procedure well. Programming: Tachycardia is programmed to a rate of 171 with a duration of 16 beats and Kyle arrhythmias programmed to a rate of 30 with a duration of 4 beats and pauses are programmed to 3 seconds. Atrial fibrillation detection is on. Sensitivity is programmed to 0.035 mV. The device serial number is [id number]. COMPLICATIONS: NIL NIL PLAN: Patient will be discharged home in 2 to 3 hours. Patient will keep the area dry seen in the office in one week. Patient will continue prophylactic antibiotics. She will report if there is any swelling, pain or fever.
[2018-10-18 10:45] VITALS: BP 120/82; RESP 18
== END 2018-10-18 10:40 | disposition home or self-care (01) ==
LOC: CATHEP 07:48
PROVIDERS: ATTEND Internal Medicine Cardiovascular Disease
DX: I49.3 Ventricular premature depolarization (principal); I47.1 Supraventricular tachycardia; Z88.0 Allergy status to penicillin; Z88.8 Allergy status to other drugs, medicaments and biological substances
CPT/HCPCS: 33282; 80048; 85025; C1764; J2001

== ENCOUNTER 2018-10-20 15:01 | Emergency (ER) | payer BC, OTHER ==
[2018-10-20 15:12] VITALS: BP 142/84; PULSE 85; RESP 20; TEMP 98.4
[2018-10-20] MEDS ORDERED: SODIUM CHLORIDE 0.9% 1,000 ML IV ONE (15:53)
--- NOTE | 2018-10-20 16:55 | ED ---
General Adult HPI - General Chief complaint: Dental/Oral Stated complaint: Mouth swollen Time Seen by Provider: 10/20/18 15:24 Source: patient, RN notes reviewed Mode of arrival: ambulatory Limitations: no limitations - History of Present Illness Initial comments: 33-year-old female presents emergency Department chief complaint of bowel sores , pain and sore on her breast. Patient states that she's had all sorts last one week. Patient was seen by my expressed toward follow-up with her PCP she had a negative strep. Patient was seen by her food and nutrition services assistant prior to have a loop recorder placed and given clindamycin to go home with. She states is not helping. She states that she does have upper denture. Patient states that she noticed some red spots no sores that are painful. Patient denies any difficulty swallowing no fever no chills. Patient states that she'sunsure of her breast which is not getting bigger she states it just has not healed. Patient states is a prior to her loop recorder placed. Patient denies any other complaints. - Related Data Home Medications Medication Instructions Recorded Confirmed ALPRAZolam [Xanax] 0.25 - 0.5 mg PO DAILY PRN 03/17/17 10/20/18 Butalb/APAP/Caff 50-325-40Mg 1 tab PO Q6H PRN 06/26/17 10/20/18 [Fioricet 50-325-40] Albuterol Inhaler [Ventolin Hfa 1 - 2 puff INHALATION RT-Q6H PRN 07/16/17 Inhaler] Ibuprofen [Motrin Ib] 800 mg PO Q6H PRN 07/09/18 10/20/18 Acetaminophen Tab [Tylenol] 650 mg PO Q4H PRN 09/09/18 10/20/18 Ferrous Sulfate [Iron (65 MG 325 mg PO DAILY 09/09/18 10/20/18 Elemental)] Loratadine [Children's Claritin 10 mg PO DAILY 09/09/18 10/20/18 Chew Tab] diphenhydrAMINE HCL [Children's 25 mg PO BID PRN 09/09/18 10/20/18 Benadryl Allergy Chews] Ranitidine HCl [Zantac] 150 mg PO BID PRN 10/11/18 10/20/18 Previous Rx's Medication Instructions Recorded Clindamycin HCl [Cleocin] 300 mg PO Q8H #10 cap 10/18/18 Chlorhexidine Gluconate [Peridex] 15 ml PO BID #473 ml 10/20/18 Mupirocin 2% Oint [Bactroban 2% 1 applic TOPICAL TID #22 gm 10/20/18 Oint] valACYclovir HCL [Valtrex] 1,000 mg PO BID #14 tab 10/20/18 Allergies Allergy/AdvReac Type Severity Reaction Status Date / Time morphine Allergy Dyspnea/Chest Verified 10/20/18 15:58 Pain epinephrine AdvReac Rapid Verified 10/20/18 15:58 Heart Rate Penicillins AdvReac Rash/Hives Verified 10/20/18 15:58 Review of Systems ROS Statement: Those systems with pertinent positive or pertinent negative responses have been documented in the HPI. ROS Other: All systems not noted in ROS Statement are negative. Past Medical History Past Medical History: Chest Pain / Angina, GERD/Reflux, Liver Disease, Sleep Apnea/CPAP/BIPAP Additional Past Medical History / Comment(s): SVT, tachycardia, PVC's. HERNIATED LUMBAR DISCS. Hx of kidney stones. Sleep apnea in the past. Medication induced liver toxemia. HX of hypoglycemia, sepsis 06/2017.See Dr Sanchez's H&P History of Any Multi-Drug Resistant Organisms: None Reported Past Surgical History: Section, Heart Catheterization, Tubal Ligation Additional Past Surgical History / Comment(s): Liver biopsy, Section X3 , lithotripsy. Past Anesthesia/Blood Transfusion Reactions: Motion Sickness Past Psychological History: Anxiety, Depression Smoking Status: Former smoker Past Alcohol Use History: None Reported Past Drug Use History: None Reported - Past Family History Mother Family Medical History: Fibromyalgia Father Family Medical History: Coronary Artery Disease (CAD), Diabetes Mellitus, Myocardial Infarction ([place]) Additional Family Medical History / Comment(s): General Exam Limitations: no limitations General appearance: alert, in no apparent distress Head exam: Present: atraumatic, normocephalic, normal inspection Eye exam: Present: normal appearance, PERRL, EOMI. Absent: scleral icterus, conjunctival injection, periorbital swelling ENT exam: Present: mucous membranes moist. Absent: normal exam, normal oropharynx (Erythematous decubitus sores noted on the palate, erythematous sores noted along the upper gums and lips) Neck exam: Present: normal inspection, full ROM. Absent: tenderness, meningismus, lymphadenopathy Respiratory exam: Present: normal lung sounds bilaterally. Absent: respiratory distress, wheezes, rales, rhonchi, stridor Cardiovascular Exam: Present: regular rate, normal rhythm, normal heart sounds. Absent: systolic murmur, diastolic murmur, rubs, gallop, clicks GI/Abdominal exam: Present: soft, normal bowel sounds. Absent: distended, tenderness, guarding, rebound, rigid Skin exam: Present: warm, dry, intact, normal color. Absent: rash Course Vital Signs 10/20/18 15:08 Temperature 98.4 F Pulse Rate 85 Respiratory 20 Rate Blood Pressure 142/84 O2 Sat by Pulse 99 Oximetry Medical Decision Making - Medical Decision Making 33-year-old female presents emergency Department for sores in her mouth. Patient had lab work which is unremarkable. She has been on antibiotics which no improvement. This most likely is viral source. She will also be given Peridex for possible gingivitis. Patient had a sore on her left breast which is nonhealing but does not appear to be infectious. - Lab Data Result diagrams: 10/20/18 16:30 10/20/18 16:30 Lab Results 10/20/18 10/20/18 10/20/18 Range/Units 16:30 16:30 16:30 WBC 6.7 (3.8-10.6) k/uL RBC 5.01 (3.80-5.40) m/uL Hgb 13.9 (11.4-16.0) gm/dL Hct 41.1 (34.0-46.0) % MCV 82.1 (80.0-100.0) fL MCH 27.8 (25.0-35.0) pg MCHC 33.9 (31.0-37.0) g/dL RDW 13.8 (11.5-15.5) % Plt Count 202 (150-450) k/uL Neutrophils % 67 % Lymphocytes % 25 % Monocytes % 4 % Eosinophils % 2 % Basophils % 1 % Neutrophils # 4.5 (1.3-7.7) k/uL Lymphocytes # 1.6 (1.0-4.8) k/uL Monocytes # 0.2 (0-1.0) k/uL Eosinophils # 0.1 (0-0.7) k/uL Basophils # 0.0 (0-0.2) k/uL Sodium 140 (137-145) mmol/L Potassium 4.4 (3.5-5.1) mmol/L Chloride 107 (98-107) mmol/L Carbon Dioxide 25 (22-30) mmol/L Anion Gap 8 mmol/L BUN 12 (7-17) mg/dL Creatinine 0.62 (0.52-1.04) mg/dL Est GFR (CKD-EPI)AfAm >90 (>60 ml/min/1.73 sqM) Est GFR (CKD-EPI)NonAf >90 (>60 ml/min/1.73 sqM) Glucose 107 H (74-99) mg/dL Calcium 9.6 (8.4-10.2) mg/dL Heterophile Antibody Negative (Negative) Disposition Clinical Impression: Mouth sores, Nonhealing nonsurgical wound Disposition: HOME SELF-CARE Condition: Stable Instructions: Canker Sores (ED), Pharyngitis (ED) Additional Instructions: Please return to the Emergency Department if symptoms worsen or any other concerns. Prescriptions: Chlorhexidine Gluconate [Peridex] 15 ml PO BID #473 ml Mupirocin 2% Oint [Bactroban 2% Oint] 1 applic TOPICAL TID #22 gm valACYclovir HCL [Valtrex] 1,000 mg PO BID #14 tab Is patient prescribed a controlled substance at d/c from ED?: No Referrals: Stephen Nieves III, MD [Primary Care Provider] - 1-2 days Time of Disposition: 17:31
[2018-10-20 17:10] LABS: Basophils % (A) 1 %; Eosinophils # (A) 0.1 k/uL (0-0.7); Eosinophils % (A) 2 %; HCT 41.1 % (34.0-46.0); HGB 13.9 gm/dL (11.4-16.0); Lymphocytes # (A) 1.6 k/uL (1.0-4.8); Lymphocytes % (A) 25 %; MCH 27.8 pg (25.0-35.0); MCHC 33.9 g/dL (31.0-37.0); MCV 82.1 fL (80.0-100.0); Mean Platelet Volume 7.8; Monocytes # (A) 0.2 k/uL (0-1.0); Monocytes % (A) 4 %; Neutrophils # (A) 4.5 k/uL (1.3-7.7); Neutrophils % (A) 67 %; Platelet Count 202 k/uL (150-450); RBC 5.01 m/uL (3.80-5.40); RDW 13.8 % (11.5-15.5); WBC 6.7 k/uL (3.8-10.6)
[2018-10-20 17:22] LABS: Anion Gap 8 mmol/L; Blood Urea Nitrogen 12 mg/dL (7-17); Calcium 9.6 mg/dL (8.4-10.2); Carbon Dioxide 25 mmol/L (22-30); Chloride 107 mmol/L (98-107); Glucose 107 mg/dL (74-99); Potassium 4.4 mmol/L (3.5-5.1); Sodium 140 mmol/L (137-145)
[2018-10-20] MEDS ORDERED: LIDOCAINE VISCOUS 2% 15 ML CUP MUCOUS MEM ONE (17:25)
[2018-10-20] MEDS ORDERED: KETOROLAC 30 MG/ML 1 ML VIAL IVP STA (17:35)
== END 2018-10-20 18:04 | disposition home or self-care (01) ==
LOC: EC 15:01
DX: T81.89XA Other complications of procedures, not elsewhere classified, initial encounter (principal); K13.79 Other lesions of oral mucosa; G47.30 Sleep apnea, unspecified; Z99.89 Dependence on other enabling machines and devices; Z95.818 Presence of other cardiac implants and grafts; Z87.891 Personal history of nicotine dependence; Z79.899 Other long term (current) drug therapy; Z88.5 Allergy status to narcotic agent; Z88.8 Allergy status to other drugs, medicaments and biological substances; Z88.0 Allergy status to penicillin
CPT/HCPCS: 36415; 80048; 85025; 86308; 87040; 99283; 96374; J1885

== ENCOUNTER → 2019-01-31 | Outpatient (CLI) | payer OTHER ==
[2019-02-01 01:25] LABS: Hemoglobin A1C 5.5 % (4.0-6.0)
[2019-02-01 02:09] LABS: Iron Saturation 8.8 (12.00-45.00)
[2019-02-01 02:18] LABS: Vitamin D 25 Hydroxy 23.9 ng/mL (30.0-100.0)
== END | disposition home or self-care (01) ==
LOC: LABWHC1 13:57
PROVIDERS: ATTEND Psychiatry & Neurology Pain Medicine
DX: E55.9 Vitamin D deficiency, unspecified (principal); R53.83 Other fatigue; R51 Headache
CPT/HCPCS: 36415; 82306; 82607; 82728; 83036; 83540; 83550; 84207

== ENCOUNTER → 2019-02-07 | Outpatient (CLI) | payer OTHER | LOC: LABWHC1 08:32 | PROVIDERS: ATTEND Psychiatry & Neurology Pain Medicine | DX: H53.9 Unspecified visual disturbance (principal); R20.2 Paresthesia of skin; R51 Headache; R53.83 Other fatigue | CPT/HCPCS: 36415; 82040; 82042; 82784; 83916 ==

== ENCOUNTER 2019-04-24 21:46 | Emergency (ER) | payer OTHER ==
[2019-04-24] MEDS ORDERED: ASPIRIN 81 MG PO STA (22:05)
--- NOTE | 2019-04-24 22:48 | ED ---
Chest Pain HPI - General Chief Complaint: Chest Pain Stated Complaint: CHEST PAINS Time Seen by Provider: 04/24/19 22:04 Source: patient Mode of arrival: ambulatory Limitations: no limitations - History of Present Illness Initial Comments: Patient is a 33-year-old female with a history of SVT, anxiety, who presents with a chief complaint of chest pain. She states that she had a substernal burning sensation that radiated to her jaw earlier today. She took some Zantac but states that the pain got worse. She came to the emergency department at that time, stating that during her ride to the emergency department her symptoms improved. She states that while she was at home. Her pulse oximetry and states that it was 47. When she returned she states it was 82. In the emergency department, her vital signs are stable. She cannot identify an inciting incident. There are no aggravating or alleviating factors. Timing has been constant. - Related Data Home Medications Medication Instructions Recorded Confirmed ALPRAZolam [Xanax] 0.25 - 0.5 mg PO DAILY PRN 03/17/17 04/24/19 Butalb/APAP/Caff 50-325-40Mg 1 tab PO Q6H PRN 06/26/17 04/24/19 [Fioricet 50-325-40] Ibuprofen [Motrin Ib] 800 mg PO Q6H PRN 07/09/18 04/24/19 Ferrous Sulfate [Iron (65 MG 325 mg PO DAILY 09/09/18 04/24/19 Elemental)] Cholecalciferol [Vitamin D3 (25 1,000 unit PO DAILY 04/24/19 04/24/19 Mcg = 1000 Iu)] Allergies Allergy/AdvReac Type Severity Reaction Status Date / Time morphine Allergy Dyspnea/Chest Verified 04/24/19 22:25 Pain epinephrine AdvReac Rapid Verified 04/24/19 22:25 Heart Rate Penicillins AdvReac Rash/Hives Verified 04/24/19 22:25 Review of Systems ROS Statement: Those systems with pertinent positive or pertinent negative responses have been documented in the HPI. ROS Other: All systems not noted in ROS Statement are negative. Cardiovascular: Reports: chest pain, palpitations Past Medical History Past Medical History: Chest Pain / Angina, GERD/Reflux, Liver Disease, Sleep Apnea/CPAP/BIPAP Additional Past Medical History / Comment(s): SVT, tachycardia, PVC's. HERNIATED LUMBAR DISCS. Hx of kidney stones. Sleep apnea in the past. Medication induced liver toxemia. HX of hypoglycemia, sepsis 06/2017.See Dr Sanchez's H&P History of Any Multi-Drug Resistant Organisms: None Reported Past Surgical History: Section, Heart Catheterization, Tubal Ligation Additional Past Surgical History / Comment(s): Liver biopsy, Section X3, lithotripsy. Loop recorder Past Anesthesia/Blood Transfusion Reactions: Motion Sickness Past Psychological History: Anxiety, Depression Smoking Status: Former smoker Past Alcohol Use History: Rare Past Drug Use History: None Reported - Past Family History Mother Family Medical History: Fibromyalgia Father Family Medical History: Coronary Artery Disease (CAD), Diabetes Mellitus, Myocardial Infarction ([place]) Additional Family Medical History / Comment(s): General Exam Limitations: no limitations General appearance: alert, in no apparent distress Head exam: Present: atraumatic, normocephalic Eye exam: Present: normal appearance ENT exam: Present: normal exam Neck exam: Present: normal inspection Respiratory exam: Present: normal lung sounds bilaterally. Absent: respiratory distress, wheezes Cardiovascular Exam: Present: regular rate, normal rhythm GI/Abdominal exam: Present: soft. Absent: distended, tenderness Rectal exam: Present: deferred Extremities exam: Present: normal inspection Back exam: Present: normal inspection Neurological exam: Present: alert, oriented X3 Psychiatric exam: Present: normal affect, normal mood Skin exam: Present: warm, dry, intact Course Vital Signs 04/24/19 21:54 Temperature 98.4 F Pulse Rate 70 Respiratory 17 Rate Blood Pressure 132/83 O2 Sat by Pulse 100 Oximetry Chest Pain [facility] Patient presents with a chief complaint of chest pain. On initial evaluation, vitals are stable, patient is in no acute distress. She is perk negative making PE very unlikely diagnosis. EKG performed at 2219 shows normal sinus rhythm with a rate of 60 bpm, segmenter within normal limits, no acute signs of ischemia. Patient given aspirin, she will be evaluated with basic level including cardiac enzymes and chest x-ray. 12:03 PM Lab evaluation of this patient is unremarkable including an initial negative set of cardiac enzymes. Xray shows likely atelectasis, patient not having any symptoms of lower respiratory infection. labs discussed with the patient, she does not want to stay for repeat enzymes. I discussed the reason for the second troponin and though I think cardiac pathology is less likely, I stated that I cannot say certainly that it is not. Patient is aware of my concerns and would like to follow up with her PCP and Dr. Coates. at this time, I believe the patient is safe for discharge. she was instructed to follow up with cardiology and PCP in 1-2 days, and to return to the ED immediately if symptoms worsen or change. Disposition Clinical Impression: Chest pain Disposition: HOME SELF-CARE Condition: Good Instructions (If sedation given, give patient instructions): Chest Pain (ED) Is patient prescribed a controlled substance at d/c from ED?: No Referrals: Stephen Nieves III, MD [Primary Care Provider] - 1-2 days Bryn Coates MD [STAFF PHYSICIAN] - 1-2 days
[2019-04-24 22:54] LABS: Basophils # (A) 0.1 k/uL (0-0.2); Basophils % (A) 1 %; Eosinophils # (A) 0.3 k/uL (0-0.7); Eosinophils % (A) 4 %; HGB 12.7 gm/dL (11.4-16.0); Lymphocytes # (A) 2.7 k/uL (1.0-4.8); Lymphocytes % (A) 32 %; MCH 26.3 pg (25.0-35.0); MCHC 32.5 g/dL (31.0-37.0); MCV 81.1 fL (80.0-100.0); Mean Platelet Volume 8.1; Monocytes # (A) 0.4 k/uL (0-1.0); Monocytes % (A) 5 %; Neutrophils # (A) 4.8 k/uL (1.3-7.7); Neutrophils % (A) 57 %; Platelet Count 212 k/uL (150-450); RBC 4.81 m/uL (3.80-5.40); RDW 14.8 % (11.5-15.5); WBC 8.3 k/uL (3.8-10.6)
[2019-04-24 23:13] LABS: ALT 26 U/L (9-52); AST 24 U/L (14-36); Alkaline Phosphatase 68 U/L (38-126); Anion Gap 5 mmol/L; Blood Urea Nitrogen 12 mg/dL (7-17); Calcium 9.3 mg/dL (8.4-10.2); Carbon Dioxide 27 mmol/L (22-30); Chloride 106 mmol/L (98-107); Glucose 101 mg/dL (74-99); Potassium 4.2 mmol/L (3.5-5.1); Sodium 138 mmol/L (137-145); Total Bilirubin 0.2 mg/dL (0.2-1.3); Total Protein 6.8 g/dL (6.3-8.2)
--- NOTE | 2019-04-24 23:27 | XR ---
EXAM: XR Chest, 1 View CLINICAL HISTORY: ITS.REASON XR Reason: Pain TECHNIQUE: Frontal view of the chest. COMPARISON: 07/13/18. FINDINGS: Lungs: Mild basilar opacities, possible atelectasis. No consolidation. Pleural space: Unremarkable. No pneumothorax. Heart: Stable cardiomediastinal silhouette. Mediastinum: See above. Bones/joints: No acute fracture. IMPRESSION: Mild basilar opacities, possible atelectasis.
[2019-04-25 00:17] VITALS: BP 112/49; PULSE 60; RESP 18; TEMP 97.8
== END 2019-04-25 00:30 | disposition home or self-care (01) ==
LOC: EC 21:46
DX: R07.9 Chest pain, unspecified (principal); G47.30 Sleep apnea, unspecified; Z99.89 Dependence on other enabling machines and devices; Z87.19 Personal history of other diseases of the digestive system; Z86.79 Personal history of other diseases of the circulatory system; Z95.818 Presence of other cardiac implants and grafts; Z87.891 Personal history of nicotine dependence; Z82.49 Family history of ischemic heart disease and other diseases of the circulatory system; Z88.5 Allergy status to narcotic agent; Z88.8 Allergy status to other drugs, medicaments and biological substances; Z88.0 Allergy status to penicillin
CPT/HCPCS: 36415; 71046; 80053; 83880; 84484; 85025; 93005; 99285

== ENCOUNTER → 2019-05-30 | Outpatient (CLI) | payer OTHER ==
[2019-05-30 20:42] LABS: Cyclic Citrull Pep IgG Unit <0.5 U/mL; Cyclic Citrullinated Pep IgG NEGATIVE (NEGATIVE); DNA Double-Stranded NEGATIVE (NEGATIVE); RNP 0.5 AI; Scleroderma SC-70 Ab 0.5 AI
== END | disposition home or self-care (01) ==
LOC: LABWHC1 12:19
PROVIDERS: ATTEND Psychiatry & Neurology Pain Medicine
DX: Z51.81 Encounter for therapeutic drug level monitoring (principal); M25.50 Pain in unspecified joint
CPT/HCPCS: 36415; 83516; 84207; 85652; 86038; 86140; 86200; 86225; 86235

== ENCOUNTER 2019-08-27 00:38 | Emergency (ER) | payer OTHER ==
[2019-08-27 00:52] VITALS: BP 126/73; PULSE 74; RESP 18; TEMP 98.3
[2019-08-27 01:19] LABS: Basophils % (A) 0 %; Eosinophils # (A) 0.2 k/uL (0-0.7); Eosinophils % (A) 2 %; HCT 41.4 % (34.0-46.0); HGB 13.5 gm/dL (11.4-16.0); Lymphocytes # (A) 1.8 k/uL (1.0-4.8); Lymphocytes % (A) 24 %; MCH 28.4 pg (25.0-35.0); MCHC 32.5 g/dL (31.0-37.0); MCV 87.2 fL (80.0-100.0); Mean Platelet Volume 7.8; Monocytes # (A) 0.4 k/uL (0-1.0); Monocytes % (A) 5 %; Neutrophils # (A) 5.1 k/uL (1.3-7.7); Neutrophils % (A) 67 %; Platelet Count 192 k/uL (150-450); RBC 4.75 m/uL (3.80-5.40); RDW 13.8 % (11.5-15.5); WBC 7.7 k/uL (3.8-10.6)
--- NOTE | 2019-08-27 01:22 | XR ---
EXAMINATION TYPE: XR chest 2V DATE OF EXAM: 08/27/2019 COMPARISON: April 24, 2019 HISTORY: Chest pain TECHNIQUE: Frontal and lateral views of the chest are obtained. FINDINGS: Heart and mediastinum are normal. Lungs are clear. Diaphragm is normal. Bony thorax is int act. Pulmonary vascularity is normal. There are chest leads. IMPRESSION: Normal chest. No change.
[2019-08-27 01:36] LABS: Partial Thromboplastin Time 25.3 sec (22.0-30.0); Prothrombin Time 10.6 sec (9.0-12.0)
[2019-08-27 01:49] LABS: ALT 278 U/L (9-52); AST 125 U/L (14-36); African American GFR (CKD) >90 (>60 ml/min/1.73 sqM); Albumin 4.1 g/dL (3.5-5.0); Alkaline Phosphatase 63 U/L (38-126); Anion Gap 9 mmol/L; Blood Urea Nitrogen 12 mg/dL (7-17); Calcium 9.5 mg/dL (8.4-10.2); Carbon Dioxide 25 mmol/L (22-30); Chloride 104 mmol/L (98-107); Glucose 104 mg/dL (74-99); Magnesium 1.9 mg/dL (1.6-2.3); Non-African American GFR(CKD) >90 (>60 ml/min/1.73 sqM); Potassium 3.6 mmol/L (3.5-5.1); Sodium 138 mmol/L (137-145); Total Bilirubin 0.3 mg/dL (0.2-1.3); Total Protein 7.3 g/dL (6.3-8.2)
--- NOTE | 2019-08-27 02:52 | ED ---
Chest Pain HPI - General Chief Complaint: Chest Pain Stated Complaint: Chest pain Time Seen by Provider: 08/27/19 00:45 Source: EMS Mode of arrival: EMS Limitations: no limitations - History of Present Illness Initial Comments: Lizzy is a pleasant 33 yo female who was the emergency department today for evaluation of chest pain or palpitations. Patient reports that this evening she developed some retrosternal chest pain. The pain is nonexertional, not associated with any diaphoresis or shortness of breath however the patient did become lightheaded. Patient does have a history of SVT and significant sinus tachycardias. Patient states that the pain was persisting so she contacted her mother to come over. Patient states that she has developed return to the hospital and while they were in route to the hospital she began feeling lightheaded at which time her mother contacted EMS and had the immediate her for transport to the hospital. Patient was noted to be hemodynamically stable sinus rhythm by EMS. Patient reports that she's already feeling better upon arrival to the hospital. She denies any recent illness, fevers chills nausea or vomiting. Patient reports she's followed closely with cardiology in the past due to her tachycardia dysrhythmias. She's undergone a cardiac catheterization and had no known coronary artery disease a little over a year ago. - Related Data Home Medications Medication Instructions Recorded Confirmed ALPRAZolam [Xanax] 0.25 - 0.5 mg PO DAILY PRN 03/17/17 06/06/19 Butalb/APAP/Caff 50-325-40Mg 1 tab PO Q6H PRN 06/26/17 06/06/19 [Fioricet 50-325-40] Ibuprofen [Motrin Ib] 800 mg PO Q6H PRN 07/09/18 06/06/19 Ferrous Sulfate [Iron (65 MG 325 mg PO DAILY 09/09/18 06/06/19 Elemental)] Cholecalciferol [Vitamin D3 (25 1,000 unit PO DAILY 04/24/19 06/06/19 Mcg = 1000 Iu)] Allergies Allergy/AdvReac Type Severity Reaction Status Date / Time morphine Allergy Dyspnea/Chest Verified 06/06/19 08:56 Pain epinephrine AdvReac Rapid Verified 06/06/19 08:56 Heart Rate Penicillins AdvReac Rash/Hives Verified 06/06/19 08:56 Review of Systems ROS Statement: Those systems with pertinent positive or pertinent negative responses have been documented in the HPI. ROS Other: All systems not noted in ROS Statement are negative. EKG Findings - EKG Comments: EKG Findings:: EKG was obtained due to complaint of chest pain. EKG obtained at 12:50 AM, rate is 60 rhythm is sinus there is a normal axis, there are normal intervals, [place] 140, QRS 98, QTC 457 there are no acute ST elevations or depressions there is no evidence of acute ischemia or infarction. Past Medical History Past Medical History: Chest Pain / Angina, GERD/Reflux, Liver Disease, Sleep Apnea/CPAP/BIPAP Additional Past Medical History / Comment(s): SVT, tachycardia, PVC's. HERNIATED LUMBAR DISCS. Hx of kidney stones. Sleep apnea in the past. Medication induced liver toxemia. HX of hypoglycemia, sepsis 06/2017.See Dr Sanchez's H&P History of Any Multi-Drug Resistant Organisms: None Reported Past Surgical History: Section, Heart Catheterization, Tubal Ligation Additional Past Surgical History / Comment(s): Liver biopsy, Section X3, lithotripsy. Loop recorder Past Anesthesia/Blood Transfusion Reactions: Motion Sickness Smoking Status: Former smoker - Past Family History Mother Family Medical History: Fibromyalgia Father Family Medical History: Coronary Artery Disease (CAD), Diabetes Mellitus, Myoca rdial Infarction ([place]) Additional Family Medical History / Comment(s): General Exam - General Exam Comments Initial Comments: Physical Exam GENERAL: Patient is well-developed and well-nourished. Patient is nontoxic and well- hydrated and is in no distress. HENT: Normocephalic, Atraumatic. EYES: PERRL, EOMI PULMONARY: Unlabored respirations. No audible rales rhonchi or wheezing was noted. CARDIOVASCULAR: There is a regular rate and rhythm without any murmurs gallops or rubs. ABDOMEN: Soft and nontender with normal bowel sounds. SKIN: Skin is clear with no lesions or rashes and otherwise unremarkable. : Deferred NEUROLOGIC: Patient is alert and oriented x3. Moving all extremities spontaneously MUSCULOSKELETAL: Normal extremities with adequate strength and full range of motion. No lower extremity swelling or edema. No calf tenderness. PSYCHIATRIC: Normal psychiatric evaluation. Limitations: no limitations Course Vital Signs 08/27/19 00:40 Temperature 98.3 F Pulse Rate 74 Respiratory 18 Rate Blood Pressure 126/73 O2 Sat by Pulse 98 Oximetry Chest Pain MDM - MDM The patient was seen and evaluated, history was obtained from patient Patient with no coronary artery disease risk factors, a clean cath little over year ago, patient presenting with chest pain and palpitations as well as lightheadedness EKG with no signs of arrhythmia bedside patient's monitoring specialist Chest x-ray had no acute findings Labs with no acute findings These results were discussed with the patient. Disposition options were d iscussed including placing an observation for evaluation by cardiology versus discharge home. Patient states that she is feeling much better now has no symptoms like to be discharged home. Patient states that she had a mom wait in the car also to the hospital anticipating discharge. Patient states she's been evaluated for similar symptoms multiple times with negative workups she'll prefer to follow-up in outpatient setting with her staff physician. All questions pertaining care were answered return parameters were discussed patient was discharged home in stable condition. - Wells Criteria Clinical Symptoms of DVT: (0) No No Alternative Diagnosis: (0) No Immobilization of Surgery in Previous 4 Weeks: (0) No Previous DVT/PE: (0) No Hemoptysis: (0) No Malignancy: (0) No - PERC Rule Heart Rate < 100: (0) No No Prior History pf DVT/PE: (0) No No Recent Trauma or Surgery: (0) No Hemoptysis: (0) No No Exogenous Estrogen: (0) No No Clinical Signs Suggesting DVT: (0) No - CHERYL Score Age > 65: (0) No 3 or more CAD Risk Factors: (0) No Known CAD with more than 50% Stenosis: (0) No Aspirin use within the Past 7 Days: (0) No Elevated Cardiac Markers: (0) No ST Deviation Greater than 0.5mm: (0) No Disposition Clinical Impression: Atypical chest pain Disposition: HOME SELF-CARE Condition: Stable Instructions (If sedation given, give patient instructions): Chest Pain (ED) Is patient prescribed a controlled substance at d/c from ED?: No Referrals: Stephen Nieves III, MD [Primary Care Provider] - 1-2 days
== END 2019-08-27 03:24 | disposition home or self-care (01) ==
LOC: EC 00:38
DX: R07.89 Other chest pain (principal); R42 Dizziness and giddiness; R00.2 Palpitations; I47.1 Supraventricular tachycardia; K21.9 Gastro-esophageal reflux disease without esophagitis; G47.30 Sleep apnea, unspecified; Z79.899 Other long term (current) drug therapy; Z88.0 Allergy status to penicillin; Z88.8 Allergy status to other drugs, medicaments and biological substances; Z88.5 Allergy status to narcotic agent; Z95.5 Presence of coronary angioplasty implant and graft; Z82.49 Family history of ischemic heart disease and other diseases of the circulatory system; Z87.891 Personal history of nicotine dependence; Z99.89 Dependence on other enabling machines and devices
CPT/HCPCS: 36415; 71046; 80053; 83735; 84484; 85025; 85610; 85730; 93005; 99285

== ENCOUNTER → 2019-09-01 | Outpatient (CLI) | payer OTHER ==
[2019-09-01 11:21] LABS: Basophils % (A) 1 %; Eosinophils # (A) 0.1 k/uL (0-0.7); Eosinophils % (A) 1 %; HCT 43.8 % (34.0-46.0); HGB 14.7 gm/dL (11.4-16.0); Lymphocytes # (A) 1.7 k/uL (1.0-4.8); Lymphocytes % (A) 27 %; MCH 29.2 pg (25.0-35.0); MCHC 33.5 g/dL (31.0-37.0); MCV 87.1 fL (80.0-100.0); Mean Platelet Volume 7.1; Monocytes # (A) 0.4 k/uL (0-1.0); Monocytes % (A) 7 %; Neutrophils # (A) 3.9 k/uL (1.3-7.7); Neutrophils % (A) 63 %; Platelet Count 211 k/uL (150-450); RBC 5.03 m/uL (3.80-5.40); RDW 13.5 % (11.5-15.5); WBC 6.2 k/uL (3.8-10.6)
[2019-09-01 11:37] LABS: Albumin 4.4 g/dL (3.5-5.0); Albumin/Globulin Ratio 1.3; Bilirubin,Unconjugated 0.2 mg/dL (0.0-1.1); Globulin 3.4 g/dL; Total Bilirubin 0.4 mg/dL (0.2-1.3); Total Protein 7.8 g/dL (6.3-8.2)
[2019-09-01 17:39] LABS: Iron Saturation 16.41 (12.00-45.00)
[2019-09-01 18:07] LABS: Ferritin 518.8 ng/mL (10.0-291.0)
== END | disposition home or self-care (01) ==
LOC: LABWHC1 10:44
PROVIDERS: ATTEND Physician Assistant Medical
DX: R94.5 Abnormal results of liver function studies (principal)
CPT/HCPCS: 36415; 80076; 82728; 83540; 83550; 85025

== ENCOUNTER → 2019-09-03 | Outpatient (CLI) | payer OTHER ==
[2019-09-03 11:11] LABS: ALT 548 U/L (9-52); AST 264 U/L (14-36); African American GFR (CKD) >90 (>60 ml/min/1.73 sqM); Albumin 4.5 g/dL (3.5-5.0); Albumin/Globulin Ratio 1.4; Alkaline Phosphatase 66 U/L (38-126); Anion Gap 9 mmol/L; Bilirubin,Unconjugated 0.4 mg/dL (0.0-1.1); Blood Urea Nitrogen 7 mg/dL (7-17); Calcium 9.8 mg/dL (8.4-10.2); Carbon Dioxide 27 mmol/L (22-30); Chloride 104 mmol/L (98-107); Globulin 3.3 g/dL; Glucose 131 mg/dL (74-99); Potassium 4.2 mmol/L (3.5-5.1); Sodium 140 mmol/L (137-145); Total Bilirubin 0.6 mg/dL (0.2-1.3); Total Protein 7.8 g/dL (6.3-8.2)
[2019-09-03 11:12] LABS: Basophils # (A) 0.1 k/uL (0-0.2); Basophils % (A) 1 %; Eosinophils # (A) 0.1 k/uL (0-0.7); Eosinophils % (A) 2 %; HCT 46.5 % (34.0-46.0); HGB 14.8 gm/dL (11.4-16.0); Lymphocytes # (A) 1.4 k/uL (1.0-4.8); Lymphocytes % (A) 25 %; MCH 27.9 pg (25.0-35.0); MCHC 31.7 g/dL (31.0-37.0); Mean Platelet Volume 7.4; Monocytes # (A) 0.3 k/uL (0-1.0); Monocytes % (A) 5 %; Neutrophils # (A) 3.6 k/uL (1.3-7.7); Neutrophils % (A) 65 %; Platelet Count 200 k/uL (150-450); RBC 5.29 m/uL (3.80-5.40); RDW 13.8 % (11.5-15.5); WBC 5.5 k/uL (3.8-10.6)
== END | disposition home or self-care (01) ==
LOC: LABWHC1 10:41
PROVIDERS: ATTEND Physician Assistant Medical
DX: R94.5 Abnormal results of liver function studies (principal)
CPT/HCPCS: 36415; 80048; 80076; 85025

== ENCOUNTER → 2019-09-06 | Outpatient (CLI) | payer OTHER ==
[2019-09-06 18:55] LABS: Albumin 4.3 g/dL (3.80-4.90); Albumin/Globulin Ratio 1.95 (1.60-3.17); Bilirubin, Conjugated 0.2 mg/dL (0.20-0.40); Bilirubin,Unconjugated 0.2 mg/dL; Globulin 2.2 g/dL (1.6-3.3); Total Bilirubin 0.4 mg/dL (0.2-1.2); Total Protein 6.5 g/dL (6.2-8.2)
[2019-09-06 19:13] LABS: Hepatitis A Antibody IgM Non-Reactive (Non-Reactive); Hepatitis B Core IgM Non-Reactive (Non-Reactive); Hepatitis B Surface Antigen Non-Reactive (Non-Reactive); Hepatitis C IgG Antibody Non-Reactive (Non-Reactive)
== END | disposition home or self-care (01) ==
LOC: LABWHC1 12:45
PROVIDERS: ATTEND Physician Assistant Medical
DX: R94.5 Abnormal results of liver function studies (principal)
CPT/HCPCS: 36415; 80074; 80076

== ENCOUNTER → 2019-09-27 | Outpatient (CLI) | payer OTHER ==
[2019-09-27 17:29] LABS: Basophils # (A) 0.1 k/uL (0-0.2); Basophils % (A) 1 %; Eosinophils # (A) 0.2 k/uL (0-0.7); Eosinophils % (A) 3 %; HCT 41.3 % (34.0-46.0); HGB 13.9 gm/dL (11.4-16.0); Lymphocytes # (A) 2.3 k/uL (1.0-4.8); Lymphocytes % (A) 28 %; MCH 29.6 pg (25.0-35.0); MCHC 33.6 g/dL (31.0-37.0); MCV 88.2 fL (80.0-100.0); Mean Platelet Volume 7.8; Monocytes # (A) 0.4 k/uL (0-1.0); Monocytes % (A) 5 %; Neutrophils % (A) 63 %; Platelet Count 206 k/uL (150-450); RBC 4.68 m/uL (3.80-5.40); RDW 13.2 % (11.5-15.5)
[2019-09-28 00:05] LABS: African American GFR (CKD) 110.7 (60.0-200.0); Albumin 4.2 g/dL (3.80-4.90); Albumin/Globulin Ratio 1.83 (1.60-3.17); Anion Gap 5.2 mmol/L (4.00-12.00); BUN/Creat Ratio 13.75 Ratio (12.00-20.00); Calcium 9.1 mg/dL (8.7-10.3); Carbon Dioxide 28.8 mmol/L (21.6-31.8); Globulin 2.3 g/dL (1.6-3.3); Potassium 4.2 mmol/L (3.5-5.5); Total Bilirubin 0.3 mg/dL (0.3-1.2); Total Protein 6.5 g/dL (6.2-8.2)
[2019-09-28 00:26] LABS: Anti-Smith Ab Interp NEGATIVE (NEGATIVE); Cardiolipin IgA Antibody 0.6 U/mL; DNA Double-Stranded NEGATIVE (NEGATIVE)
[2019-09-28 00:27] LABS: Cardiolipin Ab IgG Interp NEGATIVE (NEGATIVE)
[2019-09-28 00:30] LABS: Cardiolipin Ab IgM Interp NEGATIVE (NEGATIVE); Cardiolipin IgM Antibody 0.8 U/mL
== END | disposition home or self-care (01) ==
LOC: LABWHC1 16:34
PROVIDERS: ATTEND Family Medicine
DX: L30.9 Dermatitis, unspecified (principal); R94.5 Abnormal results of liver function studies
CPT/HCPCS: 36415; 80053; 82977; 85025; 86147; 86160; 86162; 86225; 86235

== ENCOUNTER → 2019-12-15 | Outpatient (CLI) | payer OTHER ==
[2019-12-16 00:29] LABS: Luteinizing Hormone 10.1 mIU/mL
[2019-12-16 00:30] LABS: Follicle Stimulating Hormone 4.9 mIU/mL
[2019-12-16 01:23] LABS: Progesterone <0.2 ng/mL
[2019-12-16 07:10] LABS: Anti-Smith Ab Interp NEGATIVE (NEGATIVE); Centromere Antibody <0.2 AI; Centromere Antibody Interp NEGATIVE (NEGATIVE); Cyclic Citrull Pep IgG Unit 0.6 U/mL; Cyclic Citrullinated Pep IgG NEGATIVE (NEGATIVE); DNA Double-Stranded NEGATIVE (NEGATIVE); JO-1 IgG Antibody <0.2 AI; Scleroderma SC-70 Ab <0.2 AI
[2019-12-16 11:43] LABS: Histone Antibody 0.5 UNITS (<1.0)
== END | disposition home or self-care (01) ==
LOC: LABWHC1 15:20
PROVIDERS: ATTEND Psychiatry & Neurology Pain Medicine
DX: R53.83 Other fatigue (principal); M25.50 Pain in unspecified joint
CPT/HCPCS: 36415; 82533; 82672; 83001; 83002; 83516; 84144; 84270; 84403; 85652; 86038; 86200; 86225; 86235

== ENCOUNTER → 2020-01-31 | Outpatient (CLI) | payer OTHER ==
--- NOTE | 2020-01-31 15:30 | US ---
EXAMINATION TYPE: US abdomen limited DATE OF EXAM: 01/31/2020 COMPARISON: EXAMINATION TYPE: US abdomen limited COMPARISON: CT abdomen and pelvis February 26, 2018 CLINICAL HISTORY: M79.9 Soft tissue disorder. Patient states she feels multiple palpables along LUQ at ribcage. No skin changes, nothing felt by pathology technician. Soft tissue scan appears wnl, with no obvious abnormality. 8 images saved show no worrisome solid or cystic mass or abnormal fluid collection. Normal subcutaneo us fatty and deeper intercostal muscles are present. IMPRESSION: As above, unremarkable study.
--- NOTE | 2020-02-01 09:57 | USB ---
Reason for exam: clinical finding. History: Family history of breast cancer in paternal grandmother at age 40. Took hormonal contraceptives for 5 years. Indicated problem(s): palpable abnormality in both breasts. Physical Findings: Nurse Summary: right 9 o'clock, 10 o'clock, left 2 o'clock (nurse dw). US Breast BILAT Right complete breast ultrasound includes all four quadrants, the retroareolar region and axilla. Finding demonstrates no cystic or solid lesion seen. Left complete breast ultrasound includes all four quadrants, the retroareolar region and axilla. Finding demonstrates no cystic or solid lesion seen. These results were verbally communicated with the patient and result sheet given to the patient on 01/31/20. ASSESSMENT: Negative, BI-RAD 1 RECOMMENDATION: Clinical management of both breasts. Manage patient on a clinical basis.
== END | disposition home or self-care (01) ==
LOC: RADUSWWP 14:19
PROVIDERS: ATTEND Family Medicine
DX: M79.9 Soft tissue disorder, unspecified (principal); N63.0 Unspecified lump in unspecified breast
CPT/HCPCS: 76705

== ENCOUNTER 2020-04-24 09:10 | Inpatient (IN) | payer OTHER ==
[2020-04-24 09:44] LABS: Basophils % (A) 0 %; Eosinophils # (A) 0.2 k/uL (0-0.7); Eosinophils % (A) 2 %; HCT 45.4 % (34.0-46.0); HGB 14.5 gm/dL (11.4-16.0); Lymphocytes # (A) 1.8 k/uL (1.0-4.8); Lymphocytes % (A) 25 %; MCH 27.9 pg (25.0-35.0); MCV 87.3 fL (80.0-100.0); Mean Platelet Volume 9.2; Monocytes # (A) 0.4 k/uL (0-1.0); Monocytes % (A) 5 %; Neutrophils # (A) 4.9 k/uL (1.3-7.7); Neutrophils % (A) 67 %; Platelet Count 196 k/uL (150-450); RDW 13.1 % (11.5-15.5); WBC 7.3 k/uL (3.8-10.6)
[2020-04-24] MEDS ORDERED: KETOROLAC 30 MG/ML 1 ML VIAL IVP STA ×2 (09:53→12:20)
[2020-04-24] MEDS ORDERED: ONDANSETRON 4 MG/2 ML VIAL IVP STA (09:53)
[2020-04-24 09:55] LABS: ALT 37 U/L (4-34); AST 36 U/L (14-36); African American GFR (CKD) >90 (>60 ml/min/1.73 sqM); Albumin 4.2 g/dL (3.5-5.0); Alkaline Phosphatase 67 U/L (38-126); Anion Gap 11 mmol/L; Blood Urea Nitrogen 11 mg/dL (7-17); Calcium 9.4 mg/dL (8.4-10.2); Carbon Dioxide 22 mmol/L (22-30); Chloride 104 mmol/L (98-107); Glucose 99 mg/dL (74-99); Non-African American GFR(CKD) >90 (>60 ml/min/1.73 sqM); Potassium 4.1 mmol/L (3.5-5.1); Sodium 137 mmol/L (137-145); Total Bilirubin 0.4 mg/dL (0.2-1.3); Total Protein 7.6 g/dL (6.3-8.2)
--- NOTE | 2020-04-24 10:35 | CT ---
EXAMINATION TYPE: CT abdomen pelvis wo con DATE OF EXAM: 04/24/2020 COMPARISON: None INDICATION: Right flank pain DLP: 900.4 mGycm, Automated exposure control for dose reduction was used. CONTRAST: 0 mL of Isovue 300. Study performed without Oral Contrast TECHNIQUE: Axial images were obtained from above the diaphragm to the pubic rami in the axial plane a t 5 mm thick sections. Reconstructed images are reviewed on the computer in the coronal plane. FINDINGS: Limited CT sections are obtained the lung bases. The lung bases are clear. CT ABDOMEN: Liver: Normal Spleen: Normal Pancreas: Normal Adrenal glands: The adrenal glands are normal. Gallbladder: Normal Kidneys: No masses are evident. There is an moderate to large right hydronephrosis with proximal righ t hydroureter. This extends to a nonobstructing calcification measuring 0.7 x 0.8 cm within the proxi mal right ureter. Distal ureter is decompressed. No left hydronephrosis is evident. No cysts are pres ent. Aorta: Normal Inferior vena cava: Normal. CT PELVIS: Loops of bowel within the abdomen and pelvis are normal. The study is without oral contrast limit ing bowel evaluation. A few diverticuli are within the sigmoid colon. Appendix: Normal as visualized. Urinary bladder: Decompressed with limited evaluation Genitourinary structures: Uterus appears normal. Adnexal regions are clear. Osseous structures: No suspicious lytic or sclerotic lesions. IMPRESSIONS: 1. 0.7 x 0.8 cm obstructing proximal right ureteral stone with moderate to marked right hydronephros is.
--- NOTE | 2020-04-24 10:37 | ED ---
Abdominal Pain HPI - General Chief Complaint: Abdominal Pain Stated Complaint: flank pain Time Seen by Provider: 04/24/20 09:25 Source: patient Mode of arrival: ambulatory Limitations: no limitations - History of Present Illness Initial Comments: 34 year female presents today for chief complaint of right sided flank pain. Patient states that she has had right-sided flank pain for the past day. She states it feels similar to when she's had a kidney stone the past states is very sharp in nature. Patient denies of right lower pelvic pain or lower abdominal pain. Denies fevers she was to nausea no vomiting. History of septic stone in the past. Patient has no additional complaints. Upon arrival she appears well there is no signs of acute distress. - Related Data Home Medications Medication Instructions Recorded Confirmed ALPRAZolam [Xanax] 0.25 - 0.5 mg PO BID PRN 03/17/17 04/24/20 Butalb/APAP/Caff 50-325-40Mg 1 tab PO Q6H PRN 06/26/17 04/24/20 [Fioricet 50-325-40] Ibuprofen [Motrin Ib] 400 mg PO Q6H PRN 07/09/18 04/24/20 Ascorbic Acid [Vitamin C] 500 mg PO DAILY 04/24/20 04/24/20 Allergies Allergy/AdvReac Type Severity Reaction Status Date / Time morphine Allergy Dyspnea/Chest Verified 04/24/20 09:14 Pain epinephrine AdvReac Rapid Verified 04/24/20 09:14 Heart Rate Penicillins AdvReac Rash/Hives Verified 04/24/20 09:14 Review of Systems ROS Statement: Those systems with pertinent positive or pertinent negative responses have been documented in the HPI. ROS Other: All systems not noted in ROS Statement are negative. Past Medical History Past Medical History: Chest Pain / Angina, GERD/Reflux, Liver Disease, Sleep Apnea/CPAP/BIPAP Additional Past Medical History / Comment(s): SVT, tachycardia, PVC's. HERNIATED LUMBAR DISCS. Hx of kidney stones. Sleep apnea in the past. Medication induced liver toxemia. HX of hypoglycemia, sepsis 06/2017.See Dr Sanchez's H&P History of Any Multi-Drug Resistant Organisms: None Reported Past Surgical History: Section, Heart Catheterization, Tubal Ligation Additional Past Surgical History / Comment(s): Liver biopsy, Section X3, lithotripsy. Loop recorder Past Anesthesia/Blood Transfusion Reactions: Motion Sickness Past Psychological History: Anxiety, Depression Smoking Status: Former smoker Past Alcohol Use History: Rare Past Drug Use History: None Reported - Past Family History Mother Family Medical History: Fibromyalgia Father Family Medical History: Coronary Artery Disease (CAD), Diabetes Mellitus, Myocardial Infarction ([place]) Additional Family Medical History / Comment(s): General Exam - General Exam Comments Initial Comments: General: The patient is awake and alert, in no distress Eye: +3 mm pupils are equal, round and reactive to light, extra-ocular movements are intact. No nystagmus. There is normal conjunctiva bilaterally. No signs of icterus. Ears, nose, mouth and throat: There are moist mucous membranes and no oral lesions. Neck: The neck is supple, there is no tenderness or JVD. Cardiovascular: There is a regular rate and rhythm. No murmur, rub or gallop is appreciated. Respiratory: Lungs are clear to auscultation, respirations are non-labored, breath sounds are equal. No wheezes, stridor, rales, or rhonchi. Gastrointestinal: Soft, non-distended, abdomen non tender and is without masses or organomegaly noted. There is no rebound or guarding present. Musculoskeletal: Normal ROM, no tenderness. Strength 5/5. Sensation intact. Radial pulses equal bilaterally 2+. Neurological: A&O x 3. CN II-XII intact grossly, There are no obvious motor or sensory deficits. Coordination appears grossly intact. Speech is normal. Skin: Skin is warm and dry and no rashes or lesions are noted. Psychiatric: Cooperative, appropriate mood & affect, normal judgment. Limitations: no limitations Course Vital Signs 04/24/20 04/24/20 04/24/20 09:12 11:26 14:07 Temperature 98.1 F Pulse Rate 78 69 61 Respiratory 18 18 18 Rate Blood Pressure 123/85 117/73 134/81 O2 Sat by Pulse 98 96 97 Oximetry Medical Decision Making - Medical Decision Making 7-8mm stone. obstructing. no signs of infection at this time. Hydronephrosis noted. Patient pain intractable after multiple doses of IV medications in the emergency department. Patient will be admitted to medicine with urology consultation. Manasa saw patient in the ER. Patient agreeable to admission. Dr. Weaver agreeable to care plan. - Lab Data Result diagrams: 04/24/20 09:30 04/24/20 09:30 Lab Results 04/24/20 04/24/20 04/24/20 Range/Units 09:30 09:30 11:09 WBC 7.3 (3.8-10.6) k/uL RBC 5.20 (3.80-5.40) m/uL Hgb 14.5 (11.4-16.0) gm/dL Hct 45.4 (34.0-46.0) % MCV 87.3 (80.0-100.0) fL MCH 27.9 (25.0-35.0) pg MCHC 32.0 (31.0-37.0) g/dL RDW 13.1 (11.5-15.5) % Plt Count 196 (150-450) k/uL Neutrophils % 67 % Lymphocytes % 25 % Monocytes % 5 % Eosinophils % 2 % Basophils % 0 % Neutrophils # 4.9 (1.3-7.7) k/uL Lymphocytes # 1.8 (1.0-4.8) k/uL Monocytes # 0.4 (0-1.0) k/uL Eosinophils # 0.2 (0-0.7) k/uL Basophils # 0.0 (0-0.2) k/uL Sodium 137 (137-145) mmol/L Potassium 4.1 (3.5-5.1) mmol/L Chloride 104 (98-107) mmol/L Carbon Dioxide 22 (22-30) mmol/L Anion Gap 11 mmol/L BUN 11 (7-17) mg/dL Creatinine 0.64 (0.52-1.04) mg/dL Est GFR (CKD-EPI)AfAm >90 (>60 ml/min/1.73 sqM) Est GFR (CKD-EPI)NonAf >90 (>60 ml/min/1.73 sqM) Glucose 99 (74-99) mg/dL Calcium 9.4 (8.4-10.2) mg/dL Total Bilirubin 0.4 (0.2-1.3) mg/dL AST 36 (14-36) U/L ALT 37 H (4-34) U/L Alkaline Phosphatase 67 (38-126) U/L Total Protein 7.6 (6.3-8.2) g/dL Albumin 4.2 (3.5-5.0) g/dL Urine Color Yellow Urine Appearance Cloudy H (Clear) Urine pH 6.0 (5.0-8.0) Ur Specific Crane 1.022 (1.001-1.035) Urine Protein 1+ H (Negative) Urine Glucose (UA) Negative (Negative) Urine Ketones Negative (Negative) Urine Blood Moderate H (Negative) Urine Nitrite Negative (Negative) Urine Bilirubin Negative (Negative) Urine Urobilinogen <2.0 (<2.0) mg/dL Ur Leukocyte Esterase Negative (Negative) Urine RBC >182 H (0-5) /hpf Urine WBC 8 H (0-5) /hpf Ur Squamous Epith Cells 9 H (0-4) /hpf Urine Mucus Few H (None) /hpf Urine HCG, Qual (Not Detectd) 04/24/20 Range/Units 11:09 WBC (3.8-10.6) k/uL RBC (3.80-5.40) m/uL Hgb (11.4-16.0) gm/dL Hct (34.0-46.0) % MCV (80.0-100.0) fL MCH (25.0-35.0) pg MCHC (31.0-37.0) g/dL RDW (11.5-15.5) % Plt Count (150-450) k/uL Neutrophils % % Lymphocytes % % Monocytes % % Eosinophils % % Basophils % % Neutrophils # (1.3-7.7) k/uL Lymphocytes # (1.0-4.8) k/uL Monocytes # (0-1.0) k/uL Eosinophils # (0-0.7) k/uL Basophils # (0-0.2) k/uL Sodium (137-145) mmol/L Potassium (3.5-5.1) mmol/L Chloride (98-107) mmol/L Carbon Dioxide (22-30) mmol/L Anion Gap mmol/L BUN (7-17) mg/dL Creatinine (0.52-1.04) mg/dL Est GFR (CKD-EPI)AfAm (>60 ml/min/1.73 sqM) Est GFR (CKD-EPI)NonAf (>60 ml/min/1.73 sqM) Glucose (74-99) mg/dL Calcium (8.4-10.2) mg/dL Total Bilirubin (0.2-1.3) mg/dL AST (14-36) U/L ALT (4-34) U/L Alkaline Phosphatase (38-126) U/L Total Protein (6.3-8.2) g/dL Albumin (3.5-5.0) g/dL Urine Color Urine Appearance (Clear) Urine pH (5.0-8.0) Ur Specific Crane (1.001-1.035) Urine Protein (Negative) Urine Glucose (UA) (Negative) Urine Ketones (Negative) Urine Blood (Negative) Urine Nitrite (Negative) Urine Bilirubin (Negative) Urine Urobilinogen (<2.0) mg/dL Ur Leukocyte Esterase (Negative) Urine RBC (0-5) /hpf Urine WBC (0-5) /hpf Ur Squamous Epith Cells (0-4) /hpf Urine Mucus (None) /hpf Urine HCG, Qual Not Detected (Not Detectd) Disposition Clinical Impression: Intractable pain, Right flank pain, Hydronephrosis with obstructing calculus Disposition: ADMITTED IP TO THIS [facility] Condition: Stable Is patient prescribed a controlled substance at d/c from ED?: No Time of Disposition: 13:41 Decision to Admit Reason: Admit from EC Decision Date: 04/24/20 Decision Time: 13:41
[2020-04-24 11:33] LABS: Appearance,Urine Cloudy (Clear); Bilirubin,Urine Negative (Negative); Blood,Urine Moderate (Negative); Color,Urine Yellow; Glucose,Urine (UA) Negative (Negative); Ketones,Urine Negative (Negative); Leukocyte Esterase,Urine Negative (Negative); Mucus,Urine Few /hpf; Nitrite,Urine Negative (Negative); Protein,Urine 1+ (Negative); RBC,Urine >182 /hpf (0-5); Specific Gravity,Urine 1.022 (1.001-1.035); Squamous Epithelial Cell,Urine 9 /hpf (0-4); Urobilinogen,Urine <2.0 mg/dL (<2.0); WBC,Urine 8 /hpf (0-5)
[2020-04-24] MEDS ORDERED: HYDROmorphone 0.5 MG/0.5 ML SYRINGE IVP STA (12:20)
[2020-04-24] MEDS ORDERED: KETOROLAC 30 MG/ML 1 ML VIAL IVP PRN (13:32)
[2020-04-24] MEDS ORDERED: NALOXONE 0.4 MG/ML 1 ML VIAL IV PRN (13:37)
[2020-04-24] MEDS ORDERED: HYDROmorphone 0.5 MG/0.5 ML SYRINGE IVP PRN (14:35)
--- NOTE | 2020-04-24 14:48 | P.HPIM ---
History of Present Illness 34-year-old pleasant female came in complaints of right-sided flank pain sharp in nature started today morning severe. Patient had history of kidney stones in the pastand patient had septic shock secondary to that in the past although patient doesn't have signs or symptoms of sepsis at this time patient leukocyte esterase in the urine is negative bacteria is negative patient has elevated white blood cell count in the urine secondary to kidney stones along with the squamous epithelial cells and significant RBC in the urinea computed tomography scan of the abdomen did show 7x8 mmand the significant hydronephrosis on the right side. Because of this urology was consulted patient was started on IV fluids in the Toradol for pain along with GI prophylaxis. No evidence of urinary tract infection and will not require antibiotics Review of Systems REVIEW OF SYSTEMS: CONSTITUTIONAL: No fever, no malaise, no fatigue. HEENT: No recent visual problems or hearing problems. Denied any sore throat. CARDIOVASCULAR: No chest pain, orthopnea, PND, no palpitations, no syncope. PULMONARY: No shortness of breath, no cough, no hemoptysis. GASTROINTESTINAL: No diarrhea, no nausea, no vomiting. NEUROLOGICAL: No headaches, no weakness, no numbness. HEMATOLOGICAL: Denies any bleeding or petechiae. GENITOURINARY: Denies any burning micturition, frequency, or urgency. MUSCULOSKELETAL/RHEUMATOLOGICAL: Denies any joint pain, swelling, or any muscle pain. ENDOCRINE: Denies any polyuria or polydipsia. The rest of the 14-point review of systems is negative. Past Medical History Past Medical History: Chest Pain / Angina, GERD/Reflux, Liver Disease, Sleep Apnea/CPAP/BIPAP Additional Past Medical History / Comment(s): SVT, tachycardia, PVC's. HERNIATED LUMBAR DISCS. Hx of kidney stones. Sleep apnea in the past. Medication induced liver toxemia. HX of hypoglycemia, sepsis 06/2017.See Dr Sanchez's H&P History of Any Multi-Drug Resistant Organisms: None Reported Past Surgical History: Section, Heart Catheterization, Tubal Ligation Additional Past Surgical History / Comment(s): Liver biopsy, Section X3, lithotripsy. Loop recorder Past Anesthesia/Blood Transfusion Reactions: Motion Sickness Past Psychological History: Anxiety, Depression Smoking Status: Former smoker Past Alcohol Use History: Rare Past Drug Use History: None Reported - Past Family History Mother Family Medical History: Fibromyalgia Father Family Medical History: Coronary Artery Disease (CAD), Diabetes Mellitus, Myocardial Infarction ([place]) Additional Family Medical History / Comment(s): Medications and Allergies Home Medications Medication Instructions Recorded Confirmed Type ALPRAZolam [Xanax] 0.25 - 0.5 mg PO BID PRN 03/17/17 04/24/20 History Butalb/APAP/Caff 50-325-40Mg 1 tab PO Q6H PRN 06/26/17 04/24/20 History [Fioricet 50-325-40] Ibuprofen [Motrin Ib] 400 mg PO Q6H PRN 07/09/18 04/24/20 History Ascorbic Acid [Vitamin C] 500 mg PO DAILY 04/24/20 04/24/20 History Allergies Allergy/AdvReac Type Severity Reaction Status Date / Time morphine Allergy Dyspnea/Chest Verified 04/24/20 09:14 Pain epinephrine AdvReac Rapid Verified 04/24/20 09:14 Heart Rate Penicillins AdvReac Rash/Hives Verified 04/24/20 09:14 Physical Exam Vitals: Vital Signs Temp Pulse Resp BP Pulse Ox 04/24/20 14:07 61 18 134/81 97 04/24/20 11:26 69 18 117/73 96 04/24/20 09:12 98.1 F 78 18 123/85 98 Intake and Output 04/23/20 04/24/20 04/24/20 22:59 06:59 14:59 Other: Weight 95.254 kg PHYSICAL EXAMINATION: GENERAL: The patient is alert and oriented x3, not in any acute distress. Well developed, well nourished. HEENT: Pupils are round and equally reacting to light. EOMI. No scleral icterus. No conjunctival pallor. Normocephalic, atraumatic. No pharyngeal erythema. No thyromegaly. CARDIOVASCULAR: S1 and S2 present. No murmurs, rubs, or gallops. PULMONARY: Chest is clear to auscultation, no wheezing or crackles. ABDOMEN: Soft, no CVA tenderness, nondistended, normoactive bowel sounds. No palpable organomegaly. MUSCULOSKELETAL: No joint swelling or deformity. EXTREMITIES: No cyanosis, clubbing, or pedal edema. NEUROLOGICAL: Gross neurological examination did not reveal any focal deficits. SKIN: No rashes. Results CBC & Chem 7: 06/02/20 09:30 04/24/20 09:30 Labs: Abnormal Lab Results - Last 24 Hours (Table) 04/24/20 04/24/20 Range/Units 09:30 11:09 ALT 37 H (4-34) U/L Urine Appearance Cloudy H (Clear) Urine Protein 1+ H (Negative) Urine Blood Moderate H (Negative) Urine RBC >182 H (0-5) /hpf Urine WBC 8 H (0-5) /hpf Ur Squamous Epith Cells 9 H (0-4) /hpf Urine Mucus Few H (None) /hpf Assessment and Plan Plan: -abdominal pain: Secondary to right-sided nephrolithiasis with hydronephrosis, pain management IV fluids as mentioned above probably was consulted no evidence of urinary tract infection -gases feel reflux disease -Obesity and sleep apnea DVT prophylaxis: Early ambulation
[2020-04-24] MEDS: SODIUM CHLORIDE 0.9% 1,000 ML IV SCH ×2 (16:44→22:56)
[2020-04-24] MEDS ORDERED: ONDANSETRON 4 MG/2 ML VIAL IVP PRN (19:17)
--- NOTE | 2020-04-24 20:39 | P.GSCN ---
History of Present Illness Consult date: 04/24/20 Reason for Consult: Right flank pain secondary to ureteral calculus History of present illness: The patient is a 34-year-old female admitted through the emergency room for control of right flank pain. Her pain began yesterday and was described as a 7 out of 10. It was associated with nausea but no vomiting. Patient had no fever or chills. Her pain worsened and was described as an 8 out of 10 this morning when she came to the emergency room. In the emergency room a urinalysis showed microscopic hematuria. CT scan of the abdomen and pelvis without IV contrast showed moderate right hydronephrosis secondary to a 7 x 8 mm proximal right ureteral calculus. The patient has been treated with IV Dilaudid and ketorolac and says that her pain is currently a 5 out of 10. She has remained afebrile. Patient has a history of urolithiasis and says that she spontaneously passed a stone in 2012. In 2016 she required right ureteroscopy with lithotripsy for removal of a mid ureteral calculus. ESWL was unsuccessful at that time. The patient has had occasional urinary tract infections in the past but has not been treated in over 6 months. She has had no recent dysuria or gross hematuria although she says that her urine has been darker colored since yesterday. Review of Systems - Constitutional Denies chills, Denies fever - EENT Ears, nose, mouth and throat: Denies vertigo - Cardiovascular Denies high blood pressure, Denies shortness of breath - Respiratory Denies cough, Denies wheezing - Gastrointestinal Reports as per HPI, Denies change in bowel habits - Genitourinary Genitourinary: Reports as per HPI Past Medical History Past Medical History: Asthma (Exercise-induced), Chest Pain / Angina (Palpitations), GERD/Reflux (Rare episodes of heartburn), Liver Disease (Fatty liver), Sleep Apnea/CPAP/BIPAP Additional Past Medical History / Comment(s): SVT, tachycardia, PVC's. HERNIATED LUMBAR DISCS. Hx of kidney stones. Sleep apnea in the past. Medication induced liver toxemia. HX of hypoglycemia, sepsis 06/2017.See Dr Sanchez's H&P History of Any Multi-Drug Resistant Organisms: None Reported Past Surgical History: Section, Heart Catheterization, Tubal Ligation Additional Past Surgical History / Comment(s): Liver biopsy, Section X3, Failed ESWL, right ureteroscopy with lithotripsy. Loop recorder Past Anesthesia/Blood Transfusion Reactions: Motion Sickness Past Psychological History: Anxiety, Depression Smoking Status: Former smoker Past Alcohol Use History: Rare Past Drug Use History: None Reported - Past Family History Mother Family Medical History: Fibromyalgia Father Family Medical History: Coronary Artery Disease (CAD), Diabetes Mellitus, Myocardial Infarction ([place]) Additional Family Medical History / Comment(s): Medications and Allergies Home Medications Medication Instructions Recorded Confirmed Type RX: ALPRAZolam [Xanax] 0.25 - 0.5 mg PO BID PRN 03/17/17 04/24/20 History RX: Butalb/APAP/Caff 50-325-40Mg 1 tab PO Q6H PRN 06/26/17 04/24/20 History [Fioricet 50-325-40] RX: Ibuprofen [Motrin Ib] 400 mg PO Q6H PRN 07/09/18 04/24/20 History Ascorbic Acid [Vitamin C] 500 mg PO DAILY 04/24/20 04/24/20 History Allergies Allergy/AdvReac Type Severity Reaction Status Date / Time morphine Allergy Dyspnea/Chest Verified 04/24/20 09:14 Pain epinephrine AdvReac Rapid Verified 04/24/20 09:14 Heart Rate Penicillins AdvReac Rash/Hives Verified 04/24/20 09:14 Surgical - Exam Vital Signs Temp Pulse Resp BP Pulse Ox 98.1 F 78 18 123/85 98 04/24/20 09:12 04/24/20 09:12 04/24/20 09:12 04/24/20 09:12 04/24/20 09:12 - General well developed, well nourished, moderate pain - ENT no hearing loss - Neck no masses, no lymphadectomy - Respiratory normal respiratory effort - Abdomen Abdomen: soft, tender (Mild right upper quadrant tenderness), no organomegaly Hernia: none Results - Labs 04/24/20 09:30 04/24/20 09:30 Abnormal Lab Results - Last 24 Hours (Table) 04/24/20 04/24/20 Range/Units 09:30 11:09 ALT 37 H (4-34) U/L Urine Appearance Cloudy H (Clear) Urine Protein 1+ H (Negative) Urine Blood Moderate H (Negative) Urine RBC >182 H (0-5) /hpf Urine WBC 8 H (0-5) /hpf Ur Squamous Epith Cells 9 H (0-4) /hpf Urine Mucus Few H (None) /hpf Diabetes panel 04/24/20 Range/Units 09:30 Sodium 137 (137-145) mmol/L Potassium 4.1 (3.5-5.1) mmol/L Chloride 104 (98-107) mmol/L Carbon Dioxide 22 (22-30) mmol/L BUN 11 (7-17) mg/dL Creatinine 0.64 (0.52-1.04) mg/dL Glucose 99 (74-99) mg/dL Calcium 9.4 (8.4-10.2) mg/dL AST 36 (14-36) U/L ALT 37 H (4-34) U/L Alkaline Phosphatase 67 (38-126) U/L Total Protein 7.6 (6.3-8.2) g/dL Albumin 4.2 (3.5-5.0) g/dL Calcium panel 04/24/20 Range/Units 09:30 Calcium 9.4 (8.4-10.2) mg/dL Albumin 4.2 (3.5-5.0) g/dL Pituitary panel 04/24/20 Range/Units 09:30 Sodium 137 (137-145) mmol/L Potassium 4.1 (3.5-5.1) mmol/L Chloride 104 (98-107) mmol/L Carbon Dioxide 22 (22-30) mmol/L BUN 11 (7-17) mg/dL Creatinine 0.64 (0.52-1.04) mg/dL Glucose 99 (74-99) mg/dL Calcium 9.4 (8.4-10.2) mg/dL Adrenal panel 04/24/20 Range/Units 09:30 Sodium 137 (137-145) mmol/L Potassium 4.1 (3.5-5.1) mmol/L Chloride 104 (98-107) mmol/L Carbon Dioxide 22 (22-30) mmol/L BUN 11 (7-17) mg/dL Creatinine 0.64 (0.52-1.04) mg/dL Glucose 99 (74-99) mg/dL Calcium 9.4 (8.4-10.2) mg/dL Total Bilirubin 0.4 (0.2-1.3) mg/dL AST 36 (14-36) U/L ALT 37 H (4-34) U/L Alkaline Phosphatase 67 (38-126) U/L Total Protein 7.6 (6.3-8.2) g/dL Albumin 4.2 (3.5-5.0) g/dL - Imaging CT scan - abdomen: image reviewed (7 x 8 mm proximal right ureteral calculus with moderate hydronephrosis. No renal calculi) Assessment and Plan (1) Hydronephrosis with obstructing calculus Narrative/Plan: The patient's right flank pain and hydronephrosis appear to be directly related to a 7 x 8 mm proximal right ureteral calculus. The likelihood of spontaneous passage is low in view of its location and size. I discussed treatment options including ESWL or ureteroscopy with lithotripsy. Unfortunately the patient failed ESWL treatment of a ureteral calculus in 2017 which reduces the likelihood of ESWL being effective with this calculus. It is possible that the patient's calculus in the past was composed of calcium oxalate monohydrate which is frequently resistant to ESWL treatment. In view of this right, ureteroscopy with lithotripsy may be a more effective option. If the patient becomes comfortable overnight I may be able to set this up as an outpatient later in the week. If her pain remains intractable then ureteroscopy with lithotripsy may be set up for tomorrow afternoon. The patient is aware that a double-J catheter may be left following the procedure if there is any significant ureteral edema. The patient had no other questions in regard to the surgery. Current Visit: Yes Status: Acute Code(s): N13.2 - HYDRONEPHROSIS WITH RENAL AND URETERAL CALCULOUS OBSTRUCTION SNOMED Code(s): 72618210
[2020-04-24] MEDS: FAMOTIDINE 20 MG TAB PO SCH (21:48)
[2020-04-24] MEDS: KETOROLAC 30 MG/ML 1 ML VIAL IVP PRN (22:52)
[2020-04-24] MEDS: BUTALB/APAP/CAFF 50-325-40MG TAB PO PRN (22:55)
[2020-04-25] MEDS: FAMOTIDINE 20 MG TAB PO SCH ×2 (09:27→22:35)
[2020-04-25] MEDS: KETOROLAC 30 MG/ML 1 ML VIAL IVP PRN ×2 (09:32→16:55)
--- NOTE | 2020-04-25 10:48 | P.PN ---
Progress Note - Text Progress Note Date: 04/25/20 The patient is afebrile. She says that her pain is less than it was yesterday but it remains a 4-5 out of 10. She has passed a small amount of blood in her urine which probably means the calculus is not totally obstructive at this time. I discussed further conservative management with possible ureteroscopy with lithotripsy later in the week versus proceeding with the surgery later today. The patient would prefer to proceed with the surgery today. Unfortunately due to the surgery schedule this will not be able to be done until late in the afternoon or early evening. The patient is comfortable she still should be able to be discharged following the procedure. Patient had no further questions in regard to the planned procedure.
[2020-04-25] MEDS: ALPRAZolam 0.25 MG TAB PO PRN (13:50)
[2020-04-25] MEDS: SODIUM CHLORIDE 0.9% 1,000 ML IV SCH ×2 (13:51→20:58)
--- NOTE | 2020-04-25 15:36 | P.PN ---
Subjective Progress Note Date: 04/25/20 Principal diagnosis: 34-year-old pleasant female came in complaints of right-sided flank pain sharp in nature started today morning severe. Patient had history of kidney stones in the pastand patient had septic shock secondary to that in the past although patient doesn't have signs or symptoms of sepsis at this time patient leukocyte esterase in the urine is negative bacteria is negative patient has elevated white blood cell count in the urine secondary to kidney stones along with the squamous epithelial cells and significant RBC in the urinea computed tomography scan of the abdomen did show 7x8 mmand the significant hydronephrosis on the right side. Because of this urology was consulted patient was started on IV fluids in the Toradol for pain along with GI prophylaxis. No evidence of urinary tract infection and will not require antibiotics 04/25/2020 Patient was seen and evaluated in follow-up today continues to have some right- sided flank pain without much improvement and patient states that she noticed some blood in her urine today. Patient was seen and evaluated by urology and will be undergoing ureteroscopy with lithotripsy with Dr. Plummer this evening. Currently no reports of chest pain, shortness of breath, or palpitations. Patient is afebrile. No reports of nausea or vomiting and patient has remained nothing by mouth for possible procedure. Objective - Vital Signs Vital signs: Vital Signs Temp 98.2 F 04/25/20 13:02 Pulse 65 04/25/20 13:02 Resp 16 04/25/20 13:02 BP 109/71 04/25/20 13:02 Pulse Ox 97 04/25/20 13:02 Intake & Output 04/24/20 04/25/20 04/25/20 18:59 06:59 18:59 Intake Total 500 1500 Output Total 850 800 Balance 500 650 -800 Weight 95.254 kg Intake: Amount of Fluid Infused ( 500 ml) Intake, IV Titration 1000 Amount Sodium Chloride 0.9% 1, 1000 000 ml @ 100 mls/hr IV . Q10H [facility] Rx#:[id number] Oral 500 Output: Urine 850 800 Other: Voiding Method Toilet Toilet Toilet # Voids 1 - Exam GENERAL: The patient is alert and oriented x3, not in any acute distress. Well developed, well nourished. HEENT: Pupils are round and equally reacting to light. EOMI. No scleral icterus. No conjunctival pallor. Normocephalic, atraumatic. No pharyngeal erythema. No thyromegaly. CARDIOVASCULAR: S1 and S2 present. No murmurs, rubs, or gallops. PULMONARY: Chest is clear to auscultation, no wheezing or crackles. ABDOMEN: Soft, no CVA tenderness, nondistended, normoactive bowel sounds. No palpable organomegaly. MUSCULOSKELETAL: No joint swelling or deformity. EXTREMITIES: No cyanosis, clubbing, or pedal edema. NEUROLOGICAL: Gross neurological examination did not reveal any focal deficits. SKIN: No rashes. - Labs CBC & Chem 7: 04/24/20 09:30 04/24/20 09:30 Assessment and Plan Assessment: -abdominal pain: Secondary to right-sided nephrolithiasis with hydronephrosis, pain management, IV fluids to continue. Urology following and patient will undergo ureteroscopy with lithotripsy this evening. -Gastroesophageal reflux disease -Covid 19 ruled out, testing was negative -Obesity and sleep apnea -DVT prophylaxis: Early ambulation
[2020-04-25] MEDS ORDERED: PROPOFOL 10 MG/ML 20 ML VIAL IV ONE (18:03)
[2020-04-25] MEDS ORDERED: DEXAMETHASONE SOD PHOS (MDV) 100 MG/10 ML VIAL ONE (18:03)
[2020-04-25] MEDS ORDERED: ONDANSETRON 4 MG/2 ML VIAL ONE (18:03)
[2020-04-25] MEDS ORDERED: LIDOCAINE 1% INJ 10MG/ML (20 ML MDV) ONE (18:03)
[2020-04-25] MEDS ORDERED: fentaNYL (PF) 50 MCG/ML 2 ML AMP ONE (18:03)
[2020-04-25] MEDS ORDERED: IV FLUID CONTINUATION 1,000 ML IV ONE (18:08)
[2020-04-25] MEDS ORDERED: SODIUM CHLORIDE 0.9% 100 ML with ceFAZolin 1,000 MG IV ONE ×2 (18:24)
[2020-04-25] MEDS ORDERED: IOPAMIDOL-370 50ML BTL MISCELLANE ONE (19:11)
--- NOTE | 2020-04-25 19:27 | P.OP ---
Date of Procedure: 04/25/20 Preoperative Diagnosis: Proximal right ureteral calculus Postoperative Diagnosis: No calculus identified within ureter or intrarenal collecting system Procedure(s) Performed: Cystoscopy with right ureteroscopy Anesthesia: BRANDEN Surgeon: Zack Plummer Pathology: other (Calculus fragments) Condition: stable Disposition: PACU Indications for Procedure: The patient is a 34-year-old female with a history of urolithiasis who was admitted yesterday with severe right flank pain secondary to an 8 x 9 mm prox imal right ureteral calculus. The patient continues to have intermittent severe pain. In view of the size of the calculus and its location the patient has chosen right ureteroscopy with lithotripsy for treatment. Description of Procedure: The patient was taken to the operating suite where adequate general anesthesia via LMA was instituted. She was placed in the dorsal lithotomy position with her legs suspended from padded Len stirrups. Pneumatic compression stockings were applied to the lower legs. The genitalia was prepped with Betadine solution and draped in sterile fashion. The external genitalia and urethral meatus were unremarkable. The 17-Polish cystoscope sheath with 30 lens was passed through the urethra and into the bladder. The bladder was examined. Both ureteral orifices were of normal location and configuration. The bladder was free of tumor, foreign body and calculus. Under fluoroscopic guidance a 0.035 straight Glidewire was advanced through the right ureteral orifice and up to the region of the renal pelvis. The calculus had been in the proximal right ureter on the computed tomography scan but could not be identified using flu oroscopy at that time. The cystoscope was withdrawn leaving the Glidewire in place. A 13-Polish ureteral reentry sheath with 11-Polish obturator was then advanced over the Glidewire and under fluoroscopic guidance positioned so that the proximal end of the reentry sheath was in the mid ureter. The Glidewire and obturator were removed. Ureteroscopy was performed using the flexible ureteroscope. There was no evidence of calculus identified in the mid or proximal ureter. The renal pelvis was examined. I initially attempted to visualize all calyces but no calculus was identified. Contrast was instilled through the ureteroscope to ensure that all calyces had been examined. Even after doing this I was unable to identify a calculus within the intrarenal collecting system either visually through the ureteroscope or with fluoroscopy. It was my presumption at that time that the patient may have passed the calculus sometime after the computed tomography scan. The ureteroscope and reentry sheath were withdrawn slowly and the ureter was reexamined. There was no evidence of calculus present in the ureter from the region of the kidney down to the bladder. The bladder was drained with the 17-Polish sheath and the procedure was terminated. The patient tolerated the procedure well and left the operative room awake and in satisfactory addition. She will be discharged later today if she is comfortable.
--- NOTE | 2020-04-25 19:44 | FL ---
EXAMINATION TYPE: FL urography retrograde DATE OF EXAM: 04/25/2020 CLINICAL HISTORY: Right-sided hydronephrosis and obstructing stones. TECHNIQUE: Fluoroscopy. COMPARISON: CT abdomen and pelvis from yesterday.. FINDINGS: Fluoroscopic guidance was provided during cystoscopy with right ureteroscopy procedure per formed by Dr. Plummer3. A total of 37 seconds of fluoroscopic time was utilized during the procedure a nd single spot intraoperative fluoroscopic image is acquired. Single image acquired shows access with contrast injection in the right collecting system with persistent moderate hydronephrosis. IMPRESSION: As Above.
[2020-04-25] MEDS: BUTALB/APAP/CAFF 50-325-40MG TAB PO PRN (23:51)
[2020-04-26 00:36] VITALS: RESP 18
[2020-04-26] MEDS: SODIUM CHLORIDE 0.9% 1,000 ML IV SCH (06:11)
[2020-04-26] MEDS: KETOROLAC 30 MG/ML 1 ML VIAL IVP PRN (06:59)
[2020-04-26] MEDS: ALPRAZolam 0.25 MG TAB PO PRN (07:00)
[2020-04-26 08:51] VITALS: BP 137/83; PULSE 68; TEMP 97.7
[2020-04-26] MEDS: FAMOTIDINE 20 MG TAB PO SCH (08:52)
--- NOTE | 2020-04-26 10:14 | P.PN ---
Progress Note - Text Progress Note Date: 04/26/20 The patient is afebrile. She had some nausea last night and this morning but her flank pain is gone. She has passed some blood in her urine which is not unexpected following ureteroscopy. I reviewed the findings at surgery yesterday and it remains unclear whether she passed the ureteral calculus sometime after the computed tomography scan. She will return in approximately 2 weeks and at that time a renal ultrasound will be obtained.
--- NOTE | 2020-04-27 13:27 | P.DS ---
Providers Date of admission: 04/24/20 14:02 Expected date of discharge: 04/26/20 Attending physician: Carolina Goel Consults: 04/24/20 13:38 Consult Physician Routine Consulting Provider: Zack Plummer Consult Reason/Comments: 8mm stone, obstructing, hx of septic stone, intractable pain Do you want consulting provider notified?: Yes [facility]: Final diagnosis -abdominal pain: Secondary to right-sided nephrolithiasis with hydronephrosis -Gastroesophageal reflux disease -Covid 19 ruled out, testing was negative -Obesity and sleep apnea -DVT prophylaxis Discharge disposition Patient is being discharged in a stable condition with guarded prognosis to home. Patient will follow-up with urology Dr. Plummer in the outpatient setting. Total time taken is 35 minutes. History of present illness This is a 34-year-old female who was recently admitted with right-sided flank pain and was being closely monitored. Patient has a history of kidney stones in the past and was experiencing some right CVA tenderness and was seen and evaluated by urology recommending outpatient follow-up. Patient's pain persisted throughout the night and noticed some blood in the urine and will be undergoing ureteroscopy with lithotripsy. Ureteroscopy was performed and there was no stone identified per urology notes. Patient continues to note blood in the urine and urology unsure if patient may have passed the stone after the CT was performed. Patient will follow-up with urology in the outpatient setting in 2 weeks for an ultrasound. Patient's abdominal pain and flank pain has improved. Currently no reports of chest pain, palpitations, or shortness of breath. Patient is afebrile. No reports of nausea or vomiting and patient is tolerating diet. On exam vital signs are stable. Temp is 97.7 F, pulse is 68, respirations are 18, blood pressure 137/83, oxygen saturation is 97% on room air. Cardio S1, S2 are present. Respiratory shows clear to auscultation. Abdomen is soft and nontender. Nervous system shows no focal deficits. Please refer to medication reconciliation sheet for a list of medications. Patient Condition at Discharge: Stable Plan - Discharge Summary Discharge Rx Participant: No New Discharge Prescriptions: New Ibuprofen [Motrin] 400 mg PO Q6HR PRN #30 tab PRN Reason: Pain Continue ALPRAZolam [Xanax] 0.25 - 0.5 mg PO BID PRN PRN Reason: Anxiety Butalb/APAP/Caff 50-325-40Mg [Fioricet 50-325-40] 1 tab PO Q6H PRN PRN Reason: Migraine Headache Ascorbic Acid [Vitamin C] 500 mg PO DAILY Discontinued Ibuprofen [Motrin Ib] 400 mg PO Q6H PRN PRN Reason: Pain Discharge Medication List ALPRAZolam [Xanax] 0.25 - 0.5 mg PO BID PRN 03/17/17 [History] Butalb/APAP/Caff 50-325-40Mg [Fioricet 50-325-40] 1 tab PO Q6H PRN 06/26/17 [History] Ascorbic Acid [Vitamin C] 500 mg PO DAILY 04/24/20 [History] Ibuprofen [Motrin] 400 mg PO Q6HR PRN #30 tab 04/25/20 [Rx] Follow up Appointment(s)/Referral(s): Stephen Nieves III, MD [Primary Care Provider] - 05/01/20 11:00 am ([facility]A ) Zack Plummer MD [STAFF PHYSICIAN] - 05/08/20 3:00 pm Activity/Diet/Wound Care/Special Instructions: Activity Limited until follow-up Continue current diet Continue to rest and encourage fluids Motrin prescription sent to [facility] Follow-up with primary care provider upon discharge Follow-up with urology as instructed Discharge Disposition: HOME SELF-CARE
== END 2020-04-26 09:00 | disposition home or self-care (01) | DRG 694 ==
LOC: EC 09:10 → 6PED 14:02
PROVIDERS: ADMIT Internal Medicine; ATTEND Internal Medicine
PROC: 0TJ98ZZ Inspection of Ureter, Via Natural or Artificial Opening Endoscopic (ICD-10-PCS; 2020-04-25)
PROC: 0TJB8ZZ Inspection of Bladder, Via Natural or Artificial Opening Endoscopic (ICD-10-PCS; principal; 2020-04-25 18:30)
DX: N13.2 Hydronephrosis with renal and ureteral calculous obstruction (principal); Z11.59 Encounter for screening for other viral diseases; K76.0 Fatty (change of) liver, not elsewhere classified; K21.9 Gastro-esophageal reflux disease without esophagitis; E66.9 Obesity, unspecified; G47.30 Sleep apnea, unspecified; F41.9 Anxiety disorder, unspecified; F32.9 Major depressive disorder, single episode, unspecified; M51.26 Other intervertebral disc displacement, lumbar region; R11.0 Nausea; J45.909 Unspecified asthma, uncomplicated; Z68.38 Body mass index [BMI] 38.0-38.9, adult; Z79.899 Other long term (current) drug therapy; Z86.19 Personal history of other infectious and parasitic diseases; Z98.890 Other specified postprocedural states; Z87.440 Personal history of urinary (tract) infections; Z87.442 Personal history of urinary calculi; Z87.891 Personal history of nicotine dependence; Z98.51 Tubal ligation status; Z88.5 Allergy status to narcotic agent; Z88.0 Allergy status to penicillin; Z88.8 Allergy status to other drugs, medicaments and biological substances; Z83.3 Family history of diabetes mellitus; Z82.49 Family history of ischemic heart disease and other diseases of the circulatory system; Z82.69 Family history of other diseases of the musculoskeletal system and connective tissue
CPT/HCPCS: 36415; 74176; 74420; 80053; 81001; 81025; 85025; 96374; 96375; 96376; 99285

== ENCOUNTER 2020-05-01 11:56 | Emergency (ER) | payer OTHER ==
[2020-05-01 12:06] VITALS: RESP 18
[2020-05-01] MEDS ORDERED: SODIUM CHLORIDE 0.9% 1,000 ML IV STA (12:23)
[2020-05-01] MEDS ORDERED: KETOROLAC 30 MG/ML 1 ML VIAL IVP STA (12:23)
[2020-05-01] MEDS ORDERED: ONDANSETRON 4 MG/2 ML VIAL IVP STA (12:23)
--- NOTE | 2020-05-01 12:25 | ED ---
Abdominal Pain HPI - General Chief Complaint: Abdominal Pain Stated Complaint: blood in urine Time Seen by Provider: 05/01/20 12:10 Source: patient Mode of arrival: ambulatory Limitations: no limitations - History of Present Illness Initial Comments: Patient is a 34-year-old female presenting to emergency Department with chief complaint of abdominal pain. Patient states 5 days ago she had a ureteroscopy by for an 8 mm stone but they were unable to detect it. Patient states after she was discharged from the hospital she's developed dysuria that has been gradually increasing severity. States the pain is starting the suprapubic region and radiating to the right flank region. States he feels like "a UTI on steroids". States started her on Macrobid 3 days ago. Patient states her symptoms not improving. States she is able to control the pain with Tylenol and Motrin for the most part. States the gross hematuria has not resolved. He reports night sweats but no chills or fevers at home. Reports nausea but no vomiting or diarrhea. - Related Data Home Medications Medication Instructions Recorded Confirmed ALPRAZolam [Xanax] 0.25 - 0.5 mg PO BID PRN 03/17/17 04/24/20 Butalb/APAP/Caff 50-325-40Mg 1 tab PO Q6H PRN 06/26/17 04/24/20 [Fioricet 50-325-40] Ascorbic Acid [Vitamin C] 500 mg PO DAILY 04/24/20 04/24/20 Previous Rx's Medication Instructions Recorded Ibuprofen [Motrin] 400 mg PO Q6HR PRN #30 tab 04/25/20 Cephalexin [Keflex] 500 mg PO Q6HR #40 cap 05/01/20 Allergies Allergy/AdvReac Type Severity Reaction Status Date / Time morphine Allergy Dyspnea/Chest Verified 05/01/20 12:06 Pain epinephrine AdvReac Rapid Verified 05/01/20 12:06 Heart Rate Penicillins AdvReac Rash/Hives Verified 05/01/20 12:06 Review of Systems ROS Statement: Those systems with pertinent positive or pertinent negative responses have been documented in the HPI. ROS Other: All systems not noted in ROS Statement are negative. Past Medical History Past Medical History: Asthma, Chest Pain / Angina, GERD/Reflux, Liver Disease, Sleep Apnea/CPAP/BIPAP Additional Past Medical History / Comment(s): SVT, tachycardia, PVC's. HERNIATED LUMBAR DISCS. Hx of kidney stones. Sleep apnea in the past. Medication induced liver toxemia. HX of hypoglycemia, sepsis 06/2017.See Dr Sanchez's H&P History of Any Multi-Drug Resistant Organisms: None Reported Past Surgical History: Section, Heart Catheterization, Tubal Ligation Additional Past Surgical History / Comment(s): Liver biopsy, Section X3, Failed ESWL, right ureteroscopy with lithotripsy. Loop recorder Past Anesthesia/Blood Transfusion Reactions: Motion Sickness Past Psychological History: Anxiety, Depression Smoking Status: Former smoker Past Alcohol Use History: Rare Past Drug Use History: None Reported - Past Family History Mother Family Medical History: Fibromyalgia Father Family Medical History: Coronary Artery Disease (CAD), Diabetes Mellitus, Myocardial Infarction (SC) Additional Family Medical History / Comment(s): General Exam Limitations: no limitations General appearance: alert, in no apparent distress, obese Head exam: Present: atraumatic, normocephalic, normal inspection Eye exam: Present: normal appearance, PERRL, EOMI, scleral icterus Pupils: Present: normal accommodation ENT exam: Present: normal exam, normal oropharynx, mucous membranes moist Neck exam: Present: normal inspection, full ROM. Absent: tenderness Respiratory exam: Present: normal lung sounds bilaterally. Absent: respiratory distress, rales, rhonchi, stridor Cardiovascular Exam: Present: regular rate, normal rhythm, normal heart sounds GI/Abdominal exam: Present: soft, tenderness (Suprapubic, right-sided abdominal, right flank pain). Absent: distended, guarding, rebound Extremities exam: Present: normal inspection, full ROM Back exam: Present: normal inspection, full ROM Neurological exam: Present: alert, oriented X3 Psychiatric exam: Present: normal affect, normal mood Skin exam: Present: warm, dry, intact, normal color Course Vital Signs 05/01/20 12:02 Temperature 97.9 F Pulse Rate 94 Respiratory 18 Rate Blood Pressure 128/83 O2 Sat by Pulse 97 Oximetry Medical Decision Making - Medical Decision Making Patient is a 34-year-old female with history of kidney stones presents emergency Department with chief complaint of abdominal pain. On exam patient appears to have abdominal tenderness in the suprapubic region, right side of the abdomen and right flank region with positive right CVA tenderness. CBC CMP unremarkable. Patient is afebrile and vitals are stable. No criteria for sepsis. Urine culture pending. UA showing large amounts of blood, red blood cells and white blood cells. Suspecting concurrent UTI with postoperative gross hematuria. Patient given 1 g Rocephin and started on Keflex. KUB reveals 6 mm a few centimeters distally to her most recent CT. She'll be discharged on Macrobid. Patient given Toradol, fluids and antiemetics. On reevaluation patient reports improvement of symptoms. Patient advised to follow-up with . Return parameters were thoroughly discussed with patient is understanding and agreeable. Case discussed physician. - Lab Data Result diagrams: 05/01/20 12:35 05/01/20 12:35 Lab Results 05/01/20 05/01/20 05/01/20 Range/Units 12:13 12:35 12:35 WBC 9.5 (3.8-10.6) k/uL RBC 5.29 (3.80-5.40) m/uL Hgb 14.7 (11.4-16.0) gm/dL Hct 46.3 H (34.0-46.0) % MCV 87.5 (80.0-100.0) fL MCH 27.8 (25.0-35.0) pg MCHC 31.8 (31.0-37.0) g/dL RDW 13.1 (11.5-15.5) % Plt Count 195 (150-450) k/uL Neutrophils % 69 % Lymphocytes % 22 % Monocytes % 4 % Eosinophils % 3 % Basophils % 0 % Neutrophils # 6.6 (1.3-7.7) k/uL Lymphocytes # 2.1 (1.0-4.8) k/uL Monocytes # 0.4 (0-1.0) k/uL Eosinophils # 0.3 (0-0.7) k/uL Basophils # 0.0 (0-0.2) k/uL Sodium 137 (137-145) mmol/L Potassium 4.1 (3.5-5.1) mmol/L Chloride 105 (98-107) mmol/L Carbon Dioxide 23 (22-30) mmol/L Anion Gap 9 mmol/L BUN 13 (7-17) mg/dL Creatinine 0.64 (0.52-1.04) mg/dL Est GFR (CKD-EPI)AfAm >90 (>60 ml/min/1.73 sqM) Est GFR (CKD-EPI)NonAf >90 (>60 ml/min/1.73 sqM) Glucose 95 (74-99) mg/dL Calcium 9.4 (8.4-10.2) mg/dL Total Bilirubin 0.3 (0.2-1.3) mg/dL AST 26 (14-36) U/L ALT 26 (4-34) U/L Alkaline Phosphatase 72 (38-126) U/L Total Protein 7.2 (6.3-8.2) g/dL Albumin 4.1 (3.5-5.0) g/dL Lipase 104 (23-300) U/L Urine Color Light Red Urine Appearance Cloudy H (Clear) Urine pH 6.0 (5.0-8.0) Ur Specific Orange 1.021 (1.001-1.035) Urine Protein 2+ H (Negative) Urine Glucose (UA) Negative (Negative) Urine Ketones Negative (Negative) Urine Blood Large H (Negative) Urine Nitrite Negative (Negative) Urine Bilirubin Negative (Negative) Urine Urobilinogen <2.0 (<2.0) mg/dL Ur Leukocyte Esterase Moderate H (Negative) Urine RBC >182 H (0-5) /hpf Urine WBC 100 H (0-5) /hpf Ur Squamous Epith Cells 5 H (0-4) /hpf Urine Bacteria Rare H (None) /hpf Urine Mucus Moderate H (None) /hpf Disposition Clinical Impression: Abdominal pain, UTI (urinary tract infection), Hematuria Disposition: HOME SELF-CARE Condition: Good Instructions (If sedation given, give patient instructions): Urinary Tract Infection in Women (DC) Additional Instructions: Take prescribed medication as directed. Follow-up with . Return to emergency department if symptoms worsen. Prescriptions: Cephalexin [Keflex] 500 mg PO Q6HR #40 cap Is patient prescribed a controlled substance at d/c from ED?: No Referrals: Stephen Nieves III, MD [Primary Care Provider] - 1-2 days Zack Plummer MD [STAFF PHYSICIAN] - 1-2 days Time of Disposition: 13:45
[2020-05-01 12:34] LABS: Appearance,Urine Cloudy (Clear); Bacteria,Urine Rare /hpf; Bilirubin,Urine Negative (Negative); Blood,Urine Large (Negative); Color,Urine Light Red; Glucose,Urine (UA) Negative (Negative); Ketones,Urine Negative (Negative); Leukocyte Esterase,Urine Moderate (Negative); Mucus,Urine Moderate /hpf; Nitrite,Urine Negative (Negative); Protein,Urine 2+ (Negative); RBC,Urine >182 /hpf (0-5); Specific Gravity,Urine 1.021 (1.001-1.035); Squamous Epithelial Cell,Urine 5 /hpf (0-4); Urobilinogen,Urine <2.0 mg/dL (<2.0); WBC,Urine 100 /hpf (0-5)
[2020-05-01 12:53] LABS: Basophils % (A) 0 %; Eosinophils # (A) 0.3 k/uL (0-0.7); Eosinophils % (A) 3 %; HCT 46.3 % (34.0-46.0); HGB 14.7 gm/dL (11.4-16.0); Lymphocytes # (A) 2.1 k/uL (1.0-4.8); Lymphocytes % (A) 22 %; MCH 27.8 pg (25.0-35.0); MCHC 31.8 g/dL (31.0-37.0); MCV 87.5 fL (80.0-100.0); Mean Platelet Volume 9.1; Monocytes # (A) 0.4 k/uL (0-1.0); Monocytes % (A) 4 %; Neutrophils # (A) 6.6 k/uL (1.3-7.7); Neutrophils % (A) 69 %; Platelet Count 195 k/uL (150-450); RBC 5.29 m/uL (3.80-5.40); RDW 13.1 % (11.5-15.5); WBC 9.5 k/uL (3.8-10.6)
[2020-05-01 13:15] LABS: ALT 26 U/L (4-34); AST 26 U/L (14-36); African American GFR (CKD) >90 (>60 ml/min/1.73 sqM); Albumin 4.1 g/dL (3.5-5.0); Alkaline Phosphatase 72 U/L (38-126); Anion Gap 9 mmol/L; Blood Urea Nitrogen 13 mg/dL (7-17); Calcium 9.4 mg/dL (8.4-10.2); Carbon Dioxide 23 mmol/L (22-30); Chloride 105 mmol/L (98-107); Glucose 95 mg/dL (74-99); Non-African American GFR(CKD) >90 (>60 ml/min/1.73 sqM); Potassium 4.1 mmol/L (3.5-5.1); Sodium 137 mmol/L (137-145); Total Bilirubin 0.3 mg/dL (0.2-1.3); Total Protein 7.2 g/dL (6.3-8.2)
[2020-05-01] MEDS ORDERED: cefTRIAXone IN SWFI 1,000 MG/10 ML SYRINGE IVP STA (13:41)
--- NOTE | 2020-05-01 13:58 | XR ---
EXAMINATION TYPE: XR KUB DATE OF EXAM: 05/01/2020 COMPARISON: 09/10/2018 HISTORY: Right-sided pain TECHNIQUE: One view abdominal series FINDINGS: The osseous structures are intact. The bowel gas pattern is nonspecific. There is a 6 mm calcificati on adjacent to the L4-L5 disc interspace on the right. Hypertrophic change of the acetabulum. Curvatu re the spine with hypertrophic changes noted. IMPRESSION: 1. Nonspecific abdomen. 2. 6 mm calcification along the right paraspinal line at the proximal level of L4-5 corresponds the r zarina described calculus seen on CT scan dated 04/24/2020 and appears to have migrated distally by a fe w centimeters.
[2020-05-01] MEDS ORDERED: ACET/COD 300 MG/30 MG STARTER PACK 6 TAB BTL PO STA (14:11)
[2020-05-01 14:41] VITALS: BP 134/75; PULSE 71; TEMP 97.8
== END 2020-05-01 14:41 | disposition home or self-care (01) ==
LOC: EC 11:56
DX: N39.0 Urinary tract infection, site not specified (principal); G47.30 Sleep apnea, unspecified; F41.9 Anxiety disorder, unspecified; F32.9 Major depressive disorder, single episode, unspecified; Z88.5 Allergy status to narcotic agent; Z88.0 Allergy status to penicillin; Z88.6 Allergy status to analgesic agent; Z87.891 Personal history of nicotine dependence; Z99.89 Dependence on other enabling machines and devices; Z98.51 Tubal ligation status
CPT/HCPCS: 36415; 80053; 83690; 85025; 81001; 87086; 74018; 99284; 96374; 96375 ×2; 96361; J2405; J0696; J1885

== ENCOUNTER 2020-05-07 06:04 | Day surgery (SDC) | payer OTHER ==
--- NOTE | 2020-05-04 10:31 | P.PN ---
Progress Note - Text Progress Note Date: 05/04/20 INTERVAL HISTORY AND PHYSICAL The patient has a history of right flank pain secondary to a 6 x 8 mm calculus which was noted the proximal right ureter on a computed tomography scan on 04/24. Her pain was intractable and she underwent ureteroscopy on 04/25 but at that time the calculus could not be located in the ureter or within the right kidney. The patient was discharged but has had intermittent right flank pain. A KUB in 05/01 shows the calculus to be located in the right ureter at the L4-L5 level. Due to the persistence of the pain patient has requested treatment. I reviewed ESWL versus repeat ureteroscopy with lithotripsy and the patient prefers ESWL. She is were the operative risks which include anesthesia, bleeding, infection and the inability to fragment the calculus. Procedure will be performed by . The remainder of the patient's history and physical unchanged from that noted on my consultation note dated 04/24/2020.
[2020-05-04 10:56] VITALS: BMI 38.4
[~2020-05-07 06:04] MED LIST changes: +LACTATED RINGERS 1,000 ML IV SCH; +LIDOCAINE 1% (10MG/ML) FOR IV START INTRADERMA PRN; +Pre Op ABX Message 1 EACH MISC MISCELLANE ONE; -SODIUM CHLORIDE 0.9% 1,000 ML IV SCH
[2020-05-07 06:45] VITALS: TEMP 97.7
[2020-05-07] MEDS ORDERED: fentaNYL (PF) 50 MCG/ML 2 ML AMP ONE (07:25)
[2020-05-07] MEDS ORDERED: MIDAZOLAM 2 MG/2 ML VIAL ONE (07:25)
[2020-05-07] MEDS ORDERED: LIDOCAINE 1% INJ 10MG/ML (20 ML MDV) ONE (07:25)
[2020-05-07] MEDS ORDERED: PROPOFOL 10 MG/ML 20 ML VIAL IV ONE (07:25)
[2020-05-07] MEDS ORDERED: KETAMINE 10 MG/ML 20 ML VIAL ONE (07:25)
--- NOTE | 2020-05-07 07:45 | XR ---
EXAMINATION TYPE: XR abdomen 1V DATE OF EXAM: 05/07/2020 6:30 AM CLINICAL HISTORY: Right-sided kidney stones. TECHNIQUE: Two supine KUB images of the abdomen are obtained. COMPARISON: None CT April 24, 2020. Abdominal x-ray May 01, 2020.. FINDINGS: The 8 mm proximal right ureter calculus has progressed to distal ureteral level now project ing over the mid sacrum. No additional calculi identified. Overall nonobstructive bowel gas pattern. Lung bases are clear. Osseous structures are intact. IMPRESSION: Interval continued progression of 8 mm calculus into distal right ureter from both recent CT and x-ray.
--- NOTE | 2020-05-07 07:54 | P.OP ---
Date of Procedure: 05/07/20 Preoperative Diagnosis: Right ureteral stone Postoperative Diagnosis: Same Procedure(s) Performed: Extracorporeal shockwave lithotripsy, 3000 shocks at energy level Anesthesia: MAC Surgeon: Kosta Swanson Estimated Blood Loss (ml): 0 Pathology: none sent Condition: stable Disposition: PACU Indications for Procedure: The patient is 34. She has a right ureteral stone. was unable to remove it ureteroscopically. The stone this is the right SI joint. She comes for shockwave lithotripsy right Description of Procedure: The patient is brought to the operating suite. On the lithotripsy table she's given IV sedation. The stone is seen under 2 views of fluoroscopy. 3000 shocks at energy level and a rate of 80 are administered. The stone appears to fracture. Of procedure the patient's awake and returned recovery in good condition. The patient tolerated the procedure well. She is awakened and returned recovery in good condition. She'll be discharged home upon recovery
[2020-05-07 08:37] VITALS: RESP 20
[2020-05-07] MEDS ORDERED: ONDANSETRON 4 MG/2 ML VIAL IVP ONE (08:40)
[2020-05-07] MEDS ORDERED: HYDROcodone/APAP 5-325MG 1 EACH TAB PO ONE (08:53)
[2020-05-07 09:08] VITALS: BP 112/58; PULSE 54
== END 2020-05-07 09:27 | disposition home or self-care (01) ==
LOC: ORWHC2ENDO 06:04
PROVIDERS: ATTEND Urology
DX: N20.1 Calculus of ureter (principal); I47.1 Supraventricular tachycardia; I49.3 Ventricular premature depolarization; K76.0 Fatty (change of) liver, not elsewhere classified; J45.909 Unspecified asthma, uncomplicated; K21.9 Gastro-esophageal reflux disease without esophagitis; G47.30 Sleep apnea, unspecified; M51.26 Other intervertebral disc displacement, lumbar region; F41.9 Anxiety disorder, unspecified; F32.9 Major depressive disorder, single episode, unspecified; Z88.5 Allergy status to narcotic agent; Z88.8 Allergy status to other drugs, medicaments and biological substances; Z88.0 Allergy status to penicillin; Z87.891 Personal history of nicotine dependence; Z79.899 Other long term (current) drug therapy; Z87.442 Personal history of urinary calculi; Z98.890 Other specified postprocedural states; Z87.440 Personal history of urinary (tract) infections; Z99.89 Dependence on other enabling machines and devices; Z87.898 Personal history of other specified conditions; Z86.19 Personal history of other infectious and parasitic diseases; Z98.51 Tubal ligation status; Z79.1 Long term (current) use of non-steroidal anti-inflammatories (NSAID); Z82.69 Family history of other diseases of the musculoskeletal system and connective tissue; Z82.49 Family history of ischemic heart disease and other diseases of the circulatory system; Z83.3 Family history of diabetes mellitus
CPT/HCPCS: 81025; 74018; 50590; J2250; J2405; J2001; J3010; J2704

== ENCOUNTER → 2020-05-14 | Outpatient (CLI) | payer OTHER ==
--- NOTE | 2020-05-14 14:07 | XR ---
EXAMINATION TYPE: XR abdomen 1V DATE OF EXAM: 05/14/2020 COMPARISON: 05/07/2020 INDICATION: Renal calculus TECHNIQUE: Single view abdomen FINDINGS: There is a normal bowel gas pattern. Psoas margins are normal. No organomegaly is present. Previous right upper pelvis calcification is not identified currently. Phleboliths remain stable. IMPRESSION: 1. Nonvisualized prior right ureteral stone.
== END | disposition home or self-care (01) ==
LOC: RADXRMAIN 13:35
PROVIDERS: ATTEND Urology
DX: N20.0 Calculus of kidney (principal)
CPT/HCPCS: 74018

== ENCOUNTER → 2021-03-01 | Outpatient (CLI) | payer OTHER ==
--- NOTE | 2021-03-01 13:21 | XR ---
EXAMINATION TYPE: XR KUB DATE OF EXAM: 03/01/2021 COMPARISON: 05/01/2020 INDICATION: Stones, pain TECHNIQUE: Single view abdomen upright FINDINGS: There is a normal colonic bowel gas pattern. Psoas margins are normal. Organomegaly is not evident 0.6 cm right ureteral stone has moved into the distal right hemipelvis. IMPRESSION: 1. 0.6 cm calcification right hemipelvis has moved distally from the comparison study of 05/01/2020.
== END | disposition home or self-care (01) ==
LOC: RADXRMAIN 12:44
PROVIDERS: ATTEND Physician Assistant Medical
DX: N28.89 Other specified disorders of kidney and ureter (principal)
CPT/HCPCS: 74018

== ENCOUNTER → 2022-01-02 | Outpatient (CLI) | payer OTHER ==
--- NOTE | 2022-01-02 11:22 | XR ---
EXAMINATION TYPE: XR chest 2V DATE OF EXAM: 01/02/2022 COMPARISON: Chest x-ray August 27, 2019 HISTORY: Shortness of breath x1 week. TECHNIQUE: Frontal and lateral views of the chest are obtained. FINDINGS: There is no suspicious focal air space opacity, pleural effusion, or pneumothorax seen. T he cardiac silhouette size is within normal limits. Overlying loop recorder redemonstrated. The osse ous structures are intact. IMPRESSION: No acute process. No significant change from prior.
== END | disposition home or self-care (01) ==
LOC: RADXRMAIN 10:49
PROVIDERS: ATTEND Physician Assistant Medical
DX: R06.00 Dyspnea, unspecified (principal)
CPT/HCPCS: 71046

== ENCOUNTER → 2022-09-04 | Outpatient (CLI) | payer OTHER ==
--- NOTE | 2022-09-04 11:58 | MM ---
Reason for Exam: Clinical finding. Last mammogram was performed 6 year(s) and 8 month(s) ago. Patient History: Menarche at age 8. First Full-Term at age 17. Patient used Hormonal Contraceptives for 5 years. Paternal grandmother had breast cancer, age 40. Last menstrual period: 08/17/2022 Risk Values: Sophy 5 year model risk: 0.3%. NCI Lifetime model risk: 8.1%. Prior Study Comparison: 06/05/2015 Bilateral Diagnostic Mammogram, [facility]. 12/26/2015 Bilateral Diagnostic Mammogram, [facility]. Tissue Density: There are scattered fibroglandular densities. Findings: Analyzed By CAD. Benign oil cyst calcification lateral anterior left breast. Palpable marker has been placed on either side. Small asymmetric density lateral left CC view anterior to middle depth does not persist on spot compression. No significant mass, suspicious microcalcification, or other discrete abnormality is seen. Overall Assessment: Incomplete: need additional imaging evaluation, BI-RAD 0 Management: Diagnostic Breast Ultrasound of both breasts. For the patient's bilateral palpable areas. Electronically signed and approved by: hSanon Schaefer M.D. Radiologist
--- NOTE | 2022-09-04 12:04 | USB ---
Patient History: Menarche at age 8. First Full-Term at age 17. Patient used Hormonal Contraceptives for 5 years. Paternal grandmother had breast cancer, age 40. Risk Values: Sophy 5 year model risk: 0.3%. NCI Lifetime model risk: 8.1%. Prior Study Comparison: 06/05/2015 Bilateral Diagnostic Mammogram, [facility]. 12/26/2015 Bilateral Diagnostic Mammogram, [facility]. Findings: The upper outer quadrant of the right breast, the upper section of the breast of the left breast, the axilla of both breasts and the retroareolar of both breasts were scanned. Right breast ultrasound included the upper outer quadrant 9 to 12:00 position including the axilla and subareolar region. Particular attention to the 10:00 palpable site 10 cm from the nipple. No solid or cystic lesion. Left breast ultrasound including the superior aspect from 9:00 to 3:00 including the axial and subareolar region. No discrete abnormality at the 9:00 palpable site 11 cm from the nipple. At the 3:00 optimal site 1 cm from the nipple, there is a benign 4 mm oil cyst corresponding to the mammographic finding. No other solid or cystic lesion. Overall Assessment: Benign, BI-RAD 2 Management: Screening Mammogram of both breasts at age 39. 1. Patient should continue monthly self breast exams. 2. A clinical breast exam by your physician is recommended on an annual basis. 3. This exam should not preclude additional follow-up of suspicious palpable abnormalities. Results were given to the patient verbally at the time of exam. Electronically signed and approved by: Shanon Schaefer M.D. Radiologist
== END | disposition home or self-care (01) ==
LOC: RADMAMWWP 10:03
PROVIDERS: ATTEND Family Medicine
DX: N64.9 Disorder of breast, unspecified (principal); Z80.3 Family history of malignant neoplasm of breast
CPT/HCPCS: 77066

== ENCOUNTER 2023-05-13 11:44 | Emergency (ER) | payer OTHER ==
[2023-05-13 12:02] VITALS: TEMP 98
--- NOTE | 2023-05-13 12:53 | ED ---
Abdominal Pain HPI - General Source: patient Mode of arrival: ambulatory Limitations: no limitations - History of Present Illness MD Complaint: flank pain Onset/Timin -: days(s) <Gilma Rutledge - Last Filed: 05/13/23 12:51> - General Source: patient, RN notes reviewed Mode of arrival: ambulatory Limitations: no limitations <Ruth Ann Dale - Last Filed: 05/13/23 21:42> - General Chief Complaint: Abdominal Pain Stated Complaint: abd pain Time Seen by Provider: 05/13/23 12:50 - History of Present Illness Initial Comments: This is a 37-year-old female who presents to the emergency department for right flank pain and dysuria. Symptoms started 2 days ago. She does report a history of kidney stones. (Gilma Rutledge) 29-year-old female presents emergency department chief complaint of right flank pain and dysuria. Patient states that her symptoms started 2 days ago. She has a history of kidney stones and states this feels like her prior kidney stone pain but less severe. She states that she went to urgent care earlier today and was sent to the emergency department for evaluation. She denies fever, chills. She reports some nausea without vomiting, no diarrhea. (Ruth Ann Dale) - Related Data Home Medications Medication Instructions Recorded Confirmed ALPRAZolam [Xanax] 0.5 mg PO BID PRN 03/17/17 01/17/23 Butalb/APAP/Caff 50-325-40Mg 1 tab PO Q6H PRN 06/26/17 01/17/23 [Fioricet 50-325-40] Ibuprofen [Motrin] 400 - 800 mg PO Q6HR PRN 01/17/23 01/17/23 Previous Rx's Medication Instructions Recorded Cephalexin [Keflex] 500 mg PO Q6HR #28 cap 01/17/23 Nitrofurantoin Monohyd/M-Cryst 100 mg PO Q12HR #10 cap 05/13/23 [Macrobid] Allergies Allergy/AdvReac Type Severity Reaction Status Date / Time morphine Allergy Dyspnea/Chest Verified 01/17/23 15:15 Pain epinephrine AdvReac Rapid Verified 01/17/23 15:15 Heart Rate Penicillins AdvReac Rash/Hives Verified 01/17/23 15:15 Review of Systems ROS Other: All systems not noted in ROS Statement are negative. <Gilma Rutledge - Last Filed: 05/13/23 12:51> ROS Other: All systems not noted in ROS Statement are negative. <Ruth Ann Dale - Last Filed: 05/13/23 21:42> ROS Statement: Those systems with pertinent positive or pertinent negative responses have been documented in the HPI. Past Medical History Past Medical History: Asthma, Chest Pain / Angina, GERD/Reflux, Liver Disease, Sleep Apnea/CPAP/BIPAP Additional Past Medical History / Comment(s): SVT, tachycardia, PVC's. 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 Hx of kidney stones. Sleep apnea in the past. Medication induced liver toxemia. HX of hypoglycemia, sepsis 06/2017. BRAIN ANEURYSM- DR WATCHING History of Any Multi-Drug Resistant Organisms: None Reported Past Surgical History: Section, Heart Catheterization, Tubal Ligation Additional Past Surgical History / Comment(s): Liver biopsy, Section X3, right ureteroscopy with lithotripsy. Loop recorder Past Anesthesia/Blood Transfusion Reactions: Motion Sickness Past Psychological History: Anxiety, Depression Smoking Status: Former smoker Past Alcohol Use History: Occasional Past Drug Use History: None Reported - Past Family History Mother Family Medical History: Fibromyalgia Father Family Medical History: Coronary Artery Disease (CAD), Diabetes Mellitus, Myocardial Infarction (CT) Additional Family Medical History / Comment(s): <iGlma Rutledge - Last Filed: 05/13/23 12:51> General Exam Limitations: no limitations <Gilma Rutledge - Last Filed: 05/13/23 12:51> General appearance: alert, in no apparent distress Head exam: Present: atraumatic, normocephalic, normal inspection Eye exam: Present: normal appearance, PERRL, EOMI. Absent: scleral icterus, conjunctival injection, periorbital swelling ENT exam: Present: normal exam, mucous membranes moist Neck exam: Present: normal inspection. Absent: tenderness, meningismus, lymphadenopathy Respiratory exam: Present: normal lung sounds bilaterally. Absent: respiratory distress, wheezes, rales, rhonchi, stridor Cardiovascular Exam: Present: regular rate, normal rhythm, normal heart sounds. Absent: systolic murmur, diastolic murmur, rubs, gallop, clicks GI/Abdominal exam: Present: soft, tenderness (Mild suprapubic tenderness ), normal bowel sounds. Absent: distended, guarding, rebound, rigid Extremities exam: Present: normal inspection, full ROM, normal capillary refill. Absent: tenderness, pedal edema, joint swelling, calf tenderness Back exam: Present: normal inspection Neurological exam: Present: alert, oriented X3, CN II-XII intact Psychiatric exam: Present: normal affect, normal mood Skin exam: Present: warm, dry, intact, normal color. Absent: rash <Ruth Ann Dale - Last Filed: 05/13/23 21:42> - General Exam Comments Initial Comments: Visual Physical Exam Vital signs reviewed General: Well-appearing, nontoxic, no acute distress. Head: Normocephalic, atraumatic Eyes: PERRLA, EOMI ENT: Airway patent Chest: Nonlabored breathing Skin: No visual rash, normal skin tone Neuro: Alert and oriented 3 Musculoskeletal: No gross abnormalities (VogleyGilma) Course Vital Signs 05/13/23 05/13/23 11:59 15:47 Temperature 98 F Pulse Rate 66 85 Respiratory 16 20 Rate Blood Pressure 161/105 154/104 O2 Sat by Pulse 98 97 Oximetry Medical Decision Making - Lab Data Result diagrams: 05/13/23 14:09 05/13/23 14:09 <Ruth Ann Dale - Last Filed: 05/13/23 21:42> - Medical Decision Making Was pt. sent in by a medical professional or institution ([facility] Weber, EDI ANALYST, urgent care, hospital, or group home...) When possible be specific @ -Patient was sent in by urgent care Did you speak to anyone other than the patient for history (EMS, parent, family, police, friend...)? What history was obtained from this source @ -No Did you review nursing and triage notes (agree or disagree)? Why? @ -I reviewed and agree with nursing and triage notes Were old charts reviewed (outside hosp., previous admission, EMS record, old EKG, old radiological studies, urgent care reports/EKG's, group home records)? Report findings @ -No old charts were reviewed Differential Diagnosis (chest pain, altered mental status, abdominal pain women, abdominal pain men, vaginal bleeding, weakness, fever, dyspnea, syncope, headache, dizziness, GI bleed, back pain, seizure, CVA, palpatations, mental health, musculoskeletal)? @ -Differential Abdominal Pain Women: Appendicitis, Cholecystitis, diverticulosis, ischemic bowel, pancreatitis, hepatitis, UTI, gastroenteritis, AAA, incarcerated hernia, bowel obstruction, constipation, inflammatory bowel, hepatitis, peptic ulcer disease, splenic infarction, perforated viscus, vulvitis, ovarian torsion, PID, kidney stone, placenta abruption, this is not meant to be an all-inclusive list EKG interpreted by me (3pts min.). @ -None X-rays interpreted by me (1pt min.). @ -None done CT interpreted by me (1pt min.). @ -CT abdomen and pelvis without contrast was performed which showed bilateral nonobstructive renal calculi without hydronephrosis, left-sided colonic diverticulosis U/S interpreted by me (1pt. min.). @ -None done What testing was considered but not performed or refused? (CT, X-rays, U/S, labs)? Why? @ -None What meds were considered but not given or refused? Why? @ -None Did you discuss the management of the patient with other professionals (professionals i.e. , PA, EDI ANALYST, lab, RT, psych nurse, oncology social worker, port crane operator, teacher, public health service officer, registered nurse hh case manager)? Give summary @ -No Was smoking cessation discussed for >3mins.? @ -No Was critical care preformed (if so, how long)? @ -No Were there social determinants of health that impacted care today? How? (Homelessness, low income, unemployed, alcoholism, drug addiction, transportation, low edu. Level, literacy, decrease access to med. care, assisted, rehab)? @ -No Was there de-escalation of care discussed even if they declined (Discuss DNR or withdrawal of care, Hospice)? DNR status @ -No What co-morbidities impacted this encounter? (DM, HTN, Smoking, COPD, CAD, Cancer, CVA, ARF, Chemo, Hep., AIDS, mental health diagnosis, sleep apnea, morbid obesity)? @ -None Was patient admitted / discharged? Hospital course, mention meds given and route, prescriptions, significant lab abnormalities, going to OR and other pertinent info. @ -Discharge. Patient presented to emergency department with chief complaint of right flank pain and dysuria [address] abdomen and pelvis showed nonobstructive renal calculi in bilateral kidneys without hydronephrosis.CBC within normal limits, CMP showed sodium 136, potassium 3.9, creatinine 0.59, glucose 127. Lipase negative; urine showed large blood patient reports that she is on her menstrual cycle, large leukocyte esterase, 120 white blood cells, occasional bacteria urine sent for culture. Patient treated for urinary tract infection based on leukocyte esterase and bacteria in the urine along with patient's symptoms of dysuria and urinary frequency. Patient advised on findings and instructed on return precautions. Patient discharged in stable condition. Case discussed my attending, Dr. Jackson Undiagnosed new problem with uncertain prognosis? @ -No Drug Therapy requiring intensive monitoring for toxicity (Heparin, Nitro, Insulin, Cardizem)? @ -No Were any procedures done? @ -No Diagnosis/symptom? @ -UTI Acute, or Chronic, or Acute on Chronic? @ -acute Uncomplicated (without systemic symptoms) or Complicated (systemic symptoms)? @ -uncomplicated Side effects of treatment? @ -No Exacerbation, Progression, or Severe Exacerbation? @ -No Poses a threat to life or bodily function? How? (Chest pain, USA, CT, pneumonia, PE, COPD, DKA, ARF, appy, cholecystitis, CVA, Diverticulitis, Homicidal, Suicidal, threat to staff... and all critical care pts) @ -No (Ruth Ann Dale) - Lab Data Lab Results 05/13/23 05/13/23 05/13/23 Range/Units 12:57 12:57 14:09 WBC 8.1 (3.8-10.6) k/uL RBC 5.27 (3.80-5.40) m/uL Hgb 14.1 (11.4-16.0) gm/dL Hct 43.0 (34.0-46.0) % MCV 81.5 (80.0-100.0) fL MCH 26.7 (25.0-35.0) pg MCHC 32.7 (31.0-37.0) g/dL RDW 14.4 (11.5-15.5) % Plt Count 206 (150-450) k/uL MPV 9.1 Neutrophils % 69 % Lymphocytes % 21 % Monocytes % 5 % Eosinophils % 4 % Basophils % 0 % Neutrophils # 5.6 (1.3-7.7) k/uL Lymphocytes # 1.7 (1.0-4.8) k/uL Monocytes # 0.4 (0-1.0) k/uL Eosinophils # 0.3 (0-0.7) k/uL Basophils # 0.0 (0-0.2) k/uL Sodium (137-145) mmol/L Potassium (3.5-5.1) mmol/L Chloride (98-107) mmol/L Carbon Dioxide (22-30) mmol/L Anion Gap mmol/L BUN (7-17) mg/dL Creatinine (0.52-1.04) mg/dL Est GFR (CKD-EPI)AfAm (>60 ml/min/1.73 sqM) Est GFR (CKD-EPI)NonAf (>60 ml/min/1.73 sqM) Glucose (74-99) mg/dL Calcium (8.4-10.2) mg/dL Total Bilirubin (0.2-1.3) mg/dL AST (14-36) U/L ALT (4-34) U/L Alkaline Phosphatase (38-126) U/L Total Protein (6.3-8.2) g/dL Albumin (3.5-5.0) g/dL Amylase (30-110) U/L Lipase (23-300) U/L Urine Color Red Urine Appearance Turbid H (Clear) Urine pH 8.0 (5.0-8.0) Ur Specific Tiff 1.019 (1.001-1.035) Urine Protein 1+ H (Negative) Urine Glucose (UA) Negative (Negative) Urine Ketones Negative (Negative) Urine Blood Large H (Negative) Urine Nitrite Negative (Negative) Urine Bilirubin Negative (Negative) Urine Urobilinogen <2.0 (<2.0) mg/dL Ur Leukocyte Esterase Large H (Negative) Urine RBC >182 H (0-5) /hpf Urine WBC 120 H (0-5) /hpf Ur Squamous Epith Cells 4 (0-4) /hpf Urine Bacteria Occasional H (None) /hpf Urine HCG, Qual Not Detected (Not Detectd) 05/13/23 Range/Units 14:09 WBC (3.8-10.6) k/uL RBC (3.80-5.40) m/uL Hgb (11.4-16.0) gm/dL Hct (34.0-46.0) % MCV (80.0-100.0) fL MCH (25.0-35.0) pg MCHC (31.0-37.0) g/dL RDW (11.5-15.5) % Plt Count (150-450) k/uL MPV Neutrophils % % Lymphocytes % % Monocytes % % Eosinophils % % Basophils % % Neutrophils # (1.3-7.7) k/uL Lymphocytes # (1.0-4.8) k/uL Monocytes # (0-1.0) k/uL Eosinophils # (0-0.7) k/uL Basophils # (0-0.2) k/uL Sodium 136 L (137-145) mmol/L Potassium 3.9 (3.5-5.1) mmol/L Chloride 103 (98-107) mmol/L Carbon Dioxide 26 (22-30) mmol/L Anion Gap 7 mmol/L BUN 11 (7-17) mg/dL Creatinine 0.59 (0.52-1.04) mg/dL Est GFR (CKD-EPI)AfAm >90 (>60 ml/min/1.73 sqM) Est GFR (CKD-EPI)NonAf >90 (>60 ml/min/1.73 sqM) Glucose 127 H (74-99) mg/dL Calcium 8.8 (8.4-10.2) mg/dL Total Bilirubin 0.3 (0.2-1.3) mg/dL AST 23 (14-36) U/L ALT 23 (4-34) U/L Alkaline Phosphatase 85 (38-126) U/L Total Protein 7.2 (6.3-8.2) g/dL Albumin 3.9 (3.5-5.0) g/dL Amylase 56 (30-110) U/L Lipase 129 (23-300) U/L Urine Color Urine Appearance (Clear) Urine pH (5.0-8.0) Ur Specific Tiff (1.001-1.035) Urine Protein (Negative) Urine Glucose (UA) (Negative) Urine Ketones (Negative) Urine Blood (Negative) Urine Nitrite (Negative) Urine Bilirubin (Negative) Urine Urobilinogen (<2.0) mg/dL Ur Leukocyte Esterase (Negative) Urine RBC (0-5) /hpf Urine WBC (0-5) /hpf Ur Squamous Epith Cells (0-4) /hpf Urine Bacteria (None) /hpf Urine HCG, Qual (Not Detectd) Disposition <Gilma Rutledge - Last Filed: 05/13/23 12:51> Is patient prescribed a controlled substance at d/c from ED?: No Time of Disposition: 15:33 <Ruth Ann Dale - Last Filed: 05/13/23 21:42> Clinical Impression: Urinary tract infection Disposition: HOME SELF-CARE Condition: Stable Instructions (If sedation given, give patient instructions): Urinary Tract Inf ection in Women (ED) Additional Instructions: Please return to the emergency department for new or worsening symptoms. Prescriptions: Nitrofurantoin Monohyd/M-Cryst [Macrobid] 100 mg PO Q12HR #10 cap Referrals: Kami Cortes MD [Primary Care Provider] - 1-2 days
[2023-05-13 13:27] LABS: Appearance,Urine Turbid (Clear); Bacteria,Urine Occasional /hpf; Bilirubin,Urine Negative (Negative); Blood,Urine Large (Negative); Color,Urine Red; Glucose,Urine (UA) Negative (Negative); Ketones,Urine Negative (Negative); Leukocyte Esterase,Urine Large (Negative); Nitrite,Urine Negative (Negative); Protein,Urine 1+ (Negative); RBC,Urine >182 /hpf (0-5); Specific Gravity,Urine 1.019 (1.001-1.035); Squamous Epithelial Cell,Urine 4 /hpf (0-4); Urobilinogen,Urine <2.0 mg/dL (<2.0); WBC,Urine 120 /hpf (0-5)
[2023-05-13 14:30] LABS: Basophils % (A) 0 %; Eosinophils # (A) 0.3 k/uL (0-0.7); Eosinophils % (A) 4 %; HGB 14.1 gm/dL (11.4-16.0); Lymphocytes # (A) 1.7 k/uL (1.0-4.8); Lymphocytes % (A) 21 %; MCH 26.7 pg (25.0-35.0); MCHC 32.7 g/dL (31.0-37.0); MCV 81.5 fL (80.0-100.0); Mean Platelet Volume 9.1; Monocytes # (A) 0.4 k/uL (0-1.0); Monocytes % (A) 5 %; Neutrophils # (A) 5.6 k/uL (1.3-7.7); Neutrophils % (A) 69 %; Platelet Count 206 k/uL (150-450); RBC 5.27 m/uL (3.80-5.40); RDW 14.4 % (11.5-15.5); WBC 8.1 k/uL (3.8-10.6)
[2023-05-13 14:32] LABS: ALT 23 U/L (4-34); AST 23 U/L (14-36); African American GFR (CKD) >90 (>60 ml/min/1.73 sqM); Albumin 3.9 g/dL (3.5-5.0); Alkaline Phosphatase 85 U/L (38-126); Amylase 56 U/L (30-110); Anion Gap 7 mmol/L; Blood Urea Nitrogen 11 mg/dL (7-17); Calcium 8.8 mg/dL (8.4-10.2); Carbon Dioxide 26 mmol/L (22-30); Chloride 103 mmol/L (98-107); Glucose 127 mg/dL (74-99); Lipase 129 U/L (23-300); Non-African American GFR(CKD) >90 (>60 ml/min/1.73 sqM); Potassium 3.9 mmol/L (3.5-5.1); Sodium 136 mmol/L (137-145); Total Bilirubin 0.3 mg/dL (0.2-1.3); Total Protein 7.2 g/dL (6.3-8.2)
--- NOTE | 2023-05-13 14:56 | CT ---
EXAMINATION TYPE: CT abdomen pelvis wo con DATE OF EXAM: 05/13/2023 COMPARISON: 04/24/2020 HISTORY: 37-year-old female Right sided flank and pelvic pain. CT DLP: 1478.4 mGycm. Automated exposure control for dose reduction was used. TECHNIQUE: Contiguous axial scanning of the abdomen and pelvis without IV contrast. Coronal and sagit ambreen reconstructions performed. FINDINGS: LUNG BASES: No significant abnormality is appreciated. LIVER/GB: No significant abnormality is appreciated. PANCREAS: No significant abnormality is seen. SPLEEN: Tiny hilar splenule. No significant abnormality is seen. ADRENALS: No significant abnormality is seen. KIDNEYS: Punctate 1 to 2 mm nonobstructive calculi right kidney. 4 mm nonobstructive left renal calcu rosalia. No hydronephrosis on either side. No suspicious calcification along the course of either ureter. BOWEL: No dilated small bowel, free fluid, or free air. Normal appendix. Mild to moderate stool burde n. Left-sided colonic diverticulosis, greatest in the sigmoid colon. Mild wall thickening may be deve loping along the mid sigmoid colon, axial image 131 and coronal image 50. No pericolonic inflammatory change. LYMPH NODES: No significant abnormality is seen. OTHER: No significant abnormality is seen. PELVIS: Bladder partially distended. Uterus anteverted. Both ovaries are visualized. Punctate pelvic fluid was. No abnormal fluid collection the pelvis or pelvic lymphadenopathy. BONES: Mild/moderate degenerative disc disease visualized lower thoracic spine. IMPRESSION: 1. Bilateral nonobstructive renal calculi measuring up to 4 mm. No hydronephrosis seen on either savage e. 2. Left-sided colonic diverticulosis. There may be early developing inflammatory wall thickening ronni ng the mid sigmoid colon that could represent mild acute diverticulitis. Correlate with patient's sym ptoms. No significant surrounding inflammation. No abscess or free air.
[2023-05-13] MEDS ORDERED: NITROFURANTOIN MONOHYD/M-CRYST 100 MG CAP PO STA (15:37)
[2023-05-13 15:53] VITALS: BP 154/104; PULSE 85; RESP 20
== END 2023-05-13 15:53 | disposition home or self-care (01) ==
LOC: EC 11:44
DX: N39.0 Urinary tract infection, site not specified (principal); J45.909 Unspecified asthma, uncomplicated; F32.A Depression, unspecified; F41.9 Anxiety disorder, unspecified; Z87.891 Personal history of nicotine dependence; Z88.0 Allergy status to penicillin; Z88.5 Allergy status to narcotic agent; Z88.8 Allergy status to other drugs, medicaments and biological substances; Z79.899 Other long term (current) drug therapy
CPT/HCPCS: 36415; 74176; 80053; 81001; 81025; 82150; 83690; 85025; 99284

== ENCOUNTER 2024-02-27 21:46 | Emergency (ER) | payer OTHER ==
[2024-02-27 21:54] VITALS: RESP 18
--- NOTE | 2024-02-27 22:31 | ED ---
Abdominal Pain HPI - General Chief Complaint: Abdominal Pain Stated Complaint: Lower left side and back pain Time Seen by Provider: 02/27/24 22:02 Source: patient Mode of arrival: ambulatory Limitations: no limitations - History of Present Illness Initial Comments: This patient is a 38-year-old woman with history of previous kidney stones who presents with complaint of now 4 days of left flank pain. She states that it had initially started in the back and now she feels that in the left lower quadrant as well. She states that it is really not seeming to move unlike previous stone pain she has had in the past. She states she has had stones that have become infected so she wanted to have this pain checked. She has not had fevers chills, change in urination, bowel movements. He has had some intermittent nausea. MD Complaint: flank pain Onset/Timin -: days(s) Location: L flank Radiation: LLQ Migration to: no migration Severity: moderate Quality: sharp Consistency: intermittent Improves With: nothing Worsens With: nothing Associated Symptoms: nausea - Related Data LMP (females 10-50): last week Patient : No Home Medications Medication Instructions Recorded Confirmed ALPRAZolam [Xanax] 0.5 mg PO BID PRN 03/17/17 01/17/23 Butalb/APAP/Caff 50-325-40Mg 1 tab PO Q6H PRN 06/26/17 01/17/23 [Fioricet 50-325-40] Ibuprofen [Motrin] 400 - 800 mg PO Q6HR PRN 01/17/23 01/17/23 Previous Rx's Medication Instructions Recorded Cephalexin [Keflex] 500 mg PO Q6HR #28 cap 01/17/23 Nitrofurantoin Monohyd/M-Cryst 100 mg PO Q12HR #10 cap 05/13/23 [Macrobid] Cephalexin [Keflex] 500 mg PO Q6HR #28 cap 02/28/24 Allergies Allergy/AdvReac Type Severity Reaction Status Date / Time morphine Allergy Dyspnea/Chest Verified 02/27/24 21:50 Pain epinephrine AdvReac Rapid Verified 02/27/24 21:50 Heart Rate Penicillins AdvReac Rash/Hives Verified 02/27/24 21:50 Review of Systems ROS Statement: Those systems with pertinent positive or pertinent negative responses have been documented in the HPI. ROS Other: All systems not noted in ROS Statement are negative. Constitutional: Denies: fever, chills Respiratory: Denies: cough, dyspnea Cardiovascular: Denies: chest pain, palpitations, edema Gastrointestinal: Reports: abdominal pain, nausea. Denies: vomiting, diarrhea, constipation, melena, hematochezia Genitourinary: Denies: dysuria, frequency, hematuria, abnormal menses Musculoskeletal: Denies: back pain Skin: Denies: rash Neurological: Denies: headache, weakness, numbness Past Medical History Past Medical History: Asthma, Chest Pain / Angina, GERD/Reflux, Liver Disease, Sleep Apnea/CPAP/BIPAP Additional Past Medical History / Comment(s): SVT, tachycardia, PVC's. 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 Hx of kidney stones. Sleep apnea in the past. Medication induced liver toxemia. HX of hypoglycemia, sepsis 06/2017. 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 Loop recorder Past Anesthesia/Blood Transfusion Reactions: Motion Sickness Past Psychological History: Anxiety, Depression Smoking Status: Former smoker Past Alcohol Use History: Occasional Past Drug Use History: None Reported - Past Family History Mother Family Medical History: Fibromyalgia Father Family Medical History: Coronary Artery Disease (CAD), Diabetes Mellitus, Myocardial Infarction (HI) Additional Family Medical History / Comment(s): General Exam Limitations: no limitations General appearance: alert, in no apparent distress Head exam: Present: atraumatic, normocephalic Eye exam: Present: normal appearance. Absent: scleral icterus, conjunctival inj ection ENT exam: Present: normal oropharynx Neck exam: Present: normal inspection, full ROM Respiratory exam: Present: normal lung sounds bilaterally. Absent: respiratory distress, wheezes, rales, rhonchi, stridor, accessory muscle use Cardiovascular Exam: Present: regular rate, normal rhythm, normal heart sounds. Absent: systolic murmur, diastolic murmur, rubs, gallop GI/Abdominal exam: Present: soft. Absent: distended, tenderness, guarding, rebound, rigid, mass Extremities exam: Present: normal inspection, normal capillary refill. Absent: pedal edema, calf tenderness Back exam: Present: normal inspection. Absent: CVA tenderness (R), CVA tenderness (L) Neurological exam: Present: alert Skin exam: Present: warm, dry, intact, normal color. Absent: rash Course Vital Signs 02/27/24 02/27/24 02/28/24 21:47 23:23 01:26 Temperature 98.6 F 98.4 F Pulse Rate 68 64 71 Respiratory 18 18 18 Rate Blood Pressure 153/94 148/90 140/81 O2 Sat by Pulse 100 99 98 Oximetry Medical Decision Making - Medical Decision Making Was pt. sent in by a medical professional or institution (, PA, BINITROTOLUENE OPERATOR, urgent care, hospital, or assisted...) When possible be specific @ -[No] Did you speak to anyone other than the patient for history (EMS, parent, family, police, friend...)? What history was obtained from this source @ -[No] Did you review nursing and triage notes (agree or disagree)? Why? @ -[I reviewed and agree with nursing and triage notes] Were old charts reviewed (outside hosp., previous admission, EMS record, old EKG, old radiological studies, urgent care reports/EKG's, assisted records)? Report findings @ -[No old charts were reviewed] Differential Diagnosis (chest pain, altered mental status, abdominal pain women, abdominal pain men, vaginal bleeding, weakness, fever, dyspnea, syncope, headache, dizziness, GI bleed, back pain, seizure, CVA, palpatations, mental health, musculoskeletal)? @ -[Differential Abdominal Pain Women: Appendicitis, Cholecystitis, diverticulosis, ischemic bowel, pancreatitis, hepatitis, UTI, gastroenteritis, AAA, incarcerated hernia, bowel obstruction, constipation, inflammatory bowel, hepatitis, peptic ulcer disease, splenic infarction, perforated viscus, vulvitis, ovarian torsion, PID, kidney stone, placenta abruption, this is not meant to be an all-inclusive list EKG interpreted by me (3pts min.). @ -[ X-rays interpreted by me (1pt min.). @ -[None done] CT interpreted by me (1pt min.). @ -[ U/S interpreted by me (1pt. min.). @ -[None done] What testing was considered but not performed or refused? (CT, X-rays, U/S, labs)? Why? @ -[CT scan considered, but at this point the patient is feeling better and will attempt to limit lifetime radiation exposure What meds were considered but not given or refused? Why? @ -[None] Did you discuss the management of the patient with other professionals (professionals i.e. , PA, BINITROTOLUENE OPERATOR, lab, RT, psych nurse, hospice social worker, delivery truck driver heavy, teacher, weapons officer, case consultant)? Give summary @ -[No] Was smoking cessation discussed for >3mins.? @ -[No] Was critical care preformed (if so, how long)? @ -[No] Were there social determinants of health that impacted care today? How? (Homelessness, low income, unemployed, alcoholism, drug addiction, transportation, low edu. Level, literacy, decrease access to med. care, intermediate, rehab)? @ -[No] Was there de-escalation of care discussed even if they declined (Discuss DNR or withdrawal of care, Hospice)? DNR status @ -[No] What co-morbidities impacted this encounter? (DM, HTN, Smoking, COPD, CAD, Cancer, CVA, ARF, Chemo, Hep., AIDS, mental health diagnosis, sleep apnea, morbid obesity)? @ -[None] Was patient admitted / discharged? Hospital course, mention meds given and route, prescriptions, significant lab abnormalities, going to OR and other pertinent info. @ -[Patient is a 38-year-old woman here with flank pain. She did have relief of symptoms with medication and will have treatment for urinary tract infection. We discussed appropriate further care and follow-up as well as return parameters Undiagnosed new problem with uncertain prognosis? @ -[No] Drug Therapy requiring intensive monitoring for toxicity (Heparin, Nitro, Insulin, Cardizem)? @ -[No] Were any procedures done? @ -[No] Diagnosis/symptom? @ -[Acute flank pain Acute urinary tract infection Acute, or Chronic, or Acute on Chronic? @ -[Acute Uncomplicated (without systemic symptoms) or Complicated (systemic symptoms)? @ -[Uncomplicated Side effects of treatment? @ -[No] Exacerbation, Progression, or Severe Exacerbation? @ -[No] Poses a threat to life or bodily function? How? (Chest pain, USA, HI, pneumonia, PE, COPD, DKA, ARF, appy, cholecystitis, CVA, Diverticulitis, Homicidal, Suicidal, threat to staff... and all critical care pts) @ -[No] - Lab Data Result diagrams: 02/27/24 22:27 02/27/24 22:27 Lab Results 02/27/24 02/27/24 02/27/24 Range/Units 22:27 22:27 22:59 WBC 8.2 (3.8-10.6) k/uL RBC 5.20 (3.80-5.40) m/uL Hgb 13.3 (11.4-16.0) gm/dL Hct 42.8 (34.0-46.0) % MCV 82.2 (80.0-100.0) fL MCH 25.7 (25.0-35.0) pg MCHC 31.2 (31.0-37.0) g/dL RDW 14.4 (11.5-15.5) % Plt Count 256 (150-450) k/uL MPV 8.7 Neutrophils % 57 % Lymphocytes % 33 % Monocytes % 5 % Eosinophils % 3 % Basophils % 1 % Neutrophils # 4.7 (1.3-7.7) k/uL Lymphocytes # 2.7 (1.0-4.8) k/uL Monocytes # 0.4 (0-1.0) k/uL Eosinophils # 0.2 (0-0.7) k/uL Basophils # 0.1 (0-0.2) k/uL Sodium 138 (137-145) mmol/L Potassium 4.0 (3.5-5.1) mmol/L Chloride 107 (98-107) mmol/L Carbon Dioxide 25 (22-30) mmol/L Anion Gap 6 mmol/L BUN 15 (7-17) mg/dL Creatinine 0.64 (0.52-1.04) mg/dL Est GFR (CKD-EPI)AfAm >90 (>60 ml/min/1.73 sqM) Est GFR (CKD-EPI)NonAf >90 (>60 ml/min/1.73 sqM) Glucose 109 H (74-99) mg/dL Calcium 9.3 (8.4-10.2) mg/dL Total Bilirubin 0.4 (0.2-1.3) mg/dL AST 24 (14-36) U/L ALT 20 (4-34) U/L Alkaline Phosphatase 92 (38-126) U/L Total Protein 7.3 (6.3-8.2) g/dL Albumin 4.1 (3.5-5.0) g/dL Amylase 55 (30-110) U/L Lipase 131 (23-300) U/L Urine Color Light Yellow Urine Appearance Cloudy H (Clear) Urine pH 6.0 (5.0-8.0) Ur Specific [place] 1.028 (1.001-1.035) Urine Protein Trace H (Negative) Urine Glucose (UA) Negative (Negative) Urine Ketones Negative (Negative) Urine Blood Negative (Negative) Urine Nitrite Negative (Negative) Urine Bilirubin Negative (Negative) Urine Urobilinogen <2.0 (<2.0) mg/dL Ur Leukocyte Esterase Negative (Negative) Urine WBC 24 H (0-5) /hpf Ur Squamous Epith Cells 21 H (0-4) /hpf Calcium Oxalate Crystal Many H (None) /hpf Amorphous Sediment Occasional H (None) /hpf Urine Mucus Few H (None) /hpf Urine HCG, Qual (Not Detectd) 02/27/24 Range/Units 22:59 WBC (3.8-10.6) k/uL RBC (3.80-5.40) m/uL Hgb (11.4-16.0) gm/dL Hct (34.0-46.0) % MCV (80.0-100.0) fL MCH (25.0-35.0) pg MCHC (31.0-37.0) g/dL RDW (11.5-15.5) % Plt Count (150-450) k/uL MPV Neutrophils % % Lymphocytes % % Monocytes % % Eosinophils % % Basophils % % Neutrophils # (1.3-7.7) k/uL Lymphocytes # (1.0-4.8) k/uL Monocytes # (0-1.0) k/uL Eosinophils # (0-0.7) k/uL Basophils # (0-0.2) k/uL Sodium (137-145) mmol/L Potassium (3.5-5.1) mmol/L Chloride (98-107) mmol/L Carbon Dioxide (22-30) mmol/L Anion Gap mmol/L BUN (7-17) mg/dL Creatinine (0.52-1.04) mg/dL Est GFR (CKD-EPI)AfAm (>60 ml/min/1.73 sqM) Est GFR (CKD-EPI)NonAf (>60 ml/min/1.73 sqM) Glucose (74-99) mg/dL Calcium (8.4-10.2) mg/dL Total Bilirubin (0.2-1.3) mg/dL AST (14-36) U/L ALT (4-34) U/L Alkaline Phosphatase (38-126) U/L Total Protein (6.3-8.2) g/dL Albumin (3.5-5.0) g/dL Amylase (30-110) U/L Lipase (23-300) U/L Urine Color Urine Appearance (Clear) Urine pH (5.0-8.0) Ur Specific [place] (1.001-1.035) Urine Protein (Negative) Urine Glucose (UA) (Negative) Urine Ketones (Negative) Urine Blood (Negative) Urine Nitrite (Negative) Urine Bilirubin (Negative) Urine Urobilinogen (<2.0) mg/dL Ur Leukocyte Esterase (Negative) Urine WBC (0-5) /hpf Ur Squamous Epith Cells (0-4) /hpf Calcium Oxalate Crystal (None) /hpf Amorphous Sediment (None) /hpf Urine Mucus (None) /hpf Urine HCG, Qual Not Detected (Not Detectd) - EKG Data -: EKG Interpreted by Me EKG shows normal: sinus rhythm, axis (Normal), intervals (Normal), QRS complexes (Incomplete right bundle branch block), ST-T waves (Normal) Rate: normal (Rate 65 bpm) Disposition Clinical Impression: UTI (urinary tract infection) Disposition: HOME SELF-CARE Condition: Good Instructions (If sedation given, give patient instructions): Urinary Tract Infection in Women (ED) Prescriptions: Cephalexin [Keflex] 500 mg PO Q6HR #28 cap Is patient prescribed a controlled substance at d/c from ED?: No Referrals: Kami Cortes MD [Primary Care Provider] - 1-2 days
[2024-02-27 22:36] LABS: Basophils # (A) 0.1 k/uL (0-0.2); Basophils % (A) 1 %; Eosinophils # (A) 0.2 k/uL (0-0.7); Eosinophils % (A) 3 %; HCT 42.8 % (34.0-46.0); HGB 13.3 gm/dL (11.4-16.0); Lymphocytes # (A) 2.7 k/uL (1.0-4.8); Lymphocytes % (A) 33 %; MCH 25.7 pg (25.0-35.0); MCHC 31.2 g/dL (31.0-37.0); MCV 82.2 fL (80.0-100.0); Mean Platelet Volume 8.7; Monocytes # (A) 0.4 k/uL (0-1.0); Monocytes % (A) 5 %; Neutrophils # (A) 4.7 k/uL (1.3-7.7); Neutrophils % (A) 57 %; Platelet Count 256 k/uL (150-450); RDW 14.4 % (11.5-15.5); WBC 8.2 k/uL (3.8-10.6)
[2024-02-27 22:43] LABS: ALT 20 U/L (4-34); AST 24 U/L (14-36); African American GFR (CKD) >90 (>60 ml/min/1.73 sqM); Albumin 4.1 g/dL (3.5-5.0); Alkaline Phosphatase 92 U/L (38-126); Amylase 55 U/L (30-110); Anion Gap 6 mmol/L; Blood Urea Nitrogen 15 mg/dL (7-17); Calcium 9.3 mg/dL (8.4-10.2); Carbon Dioxide 25 mmol/L (22-30); Chloride 107 mmol/L (98-107); Glucose 109 mg/dL (74-99); Lipase 131 U/L (23-300); Non-African American GFR(CKD) >90 (>60 ml/min/1.73 sqM); Sodium 138 mmol/L (137-145); Total Bilirubin 0.4 mg/dL (0.2-1.3); Total Protein 7.3 g/dL (6.3-8.2)
[2024-02-27 23:32] LABS: Amorphous Sediment,Urine Occasional /hpf; Appearance,Urine Cloudy (Clear); Bilirubin,Urine Negative (Negative); Blood,Urine Negative (Negative); Calcium Oxalate Crystals,Urine Many /hpf; Color,Urine Light Yellow; Glucose,Urine (UA) Negative (Negative); Ketones,Urine Negative (Negative); Leukocyte Esterase,Urine Negative (Negative); Mucus,Urine Few /hpf; Nitrite,Urine Negative (Negative); Protein,Urine Trace (Negative); Specific Gravity,Urine 1.028 (1.001-1.035); Squamous Epithelial Cell,Urine 21 /hpf (0-4); Urobilinogen,Urine <2.0 mg/dL (<2.0); WBC,Urine 24 /hpf (0-5)
[2024-02-28] MEDS: HYDROmorphone 0.5 MG/0.5 ML SYRINGE IVP STA (00:30)
[2024-02-28 01:38] VITALS: BP 140/81; PULSE 71; TEMP 98.4
== END 2024-02-28 01:31 | disposition home or self-care (01) ==
LOC: EC 21:46
DX: N39.0 Urinary tract infection, site not specified (principal); I45.10 Unspecified right bundle-branch block; Z88.0 Allergy status to penicillin; Z88.5 Allergy status to narcotic agent; Z88.6 Allergy status to analgesic agent; Z87.891 Personal history of nicotine dependence
CPT/HCPCS: 99284; 96365; 96375; 36415; 93005; 80053; 82150; 83690; 85025; 81001; 81025; J0696; J1170

== ENCOUNTER → 2025-05-31 | Outpatient (CLI) | payer OTHER ==
--- NOTE | 2025-05-31 07:40 | MM ---
Reason for Exam: Clinical finding. Last mammogram was performed 2 year(s) and 9 month(s) ago. Patient History: Menarche at age 8. First Full-Term at age 17. Patient used Hormonal Contraceptives for 5 years. Paternal grandmother had breast cancer, age 40. Risk Values: Sophy 5 year model risk: 0.4%. NCI Lifetime model risk: 8.0%. Tissue Density: There are scattered areas of fibroglandular density. Findings: Analyzed By CAD. No suspicious new mass or distortion in either breast. Overall Assessment: Incomplete: need additional imaging evaluation, BI-RAD 0 Management: Diagnostic Breast Ultrasound of the left breast. Targeted ultrasound left breast palpable abnormality. Results were given to the patient verbally at the time of exam. Patient should continue monthly self-breast exams. A clinical breast exam by your physician is recommended on an annual basis. This exam should not preclude additional follow-up of suspicious palpable abnormalities. Note on Sophy scores and lifetime risk: 1. A Sophy score greater than 3% is considered moderate risk. If this is the case, consider specialist referral to assess eligibility for a risk reducing agent. 2. If overall lifetime risk for the development of breast cancer is 20% or higher, the patient may qualify for future screening with alternating mammogram and breast MRI. [facility], , 05/31/2025 7:37 AM. Electronically signed and approved by: Anibal Garland M.D.
--- NOTE | 2025-05-31 08:06 | USB ---
Reason for Exam: Clinical finding. Patient History: Menarche at age 8. First Full-Term at age 17. Patient used Hormonal Contraceptives for 5 years. Paternal grandmother had breast cancer, age 40. Risk Values: Sophy 5 year model risk: 0.4%. NCI Lifetime model risk: 8.0%. Technique: Method: Targeted. Prior Study Comparison: 06/05/2015 Bilateral Diagnostic Mammogram, [facility]. 12/26/2015 Bilateral Diagnostic Mammogram, [facility]. 09/04/2022 Bilateral MG diagnostic mammo w CAD [facility], [facility]. Findings: The area of palpable concern of the left breast, the axilla of the left breast and the retroareolar of the left breast were scanned. Targeted ultrasound. No solid or cystic masses are identified. Scanning of left axilla shows small benign-appearing lymph node. Overall Assessment: Negative, BI-RAD 1 Management: Screening Mammogram of both breasts in 1 year. Manage palpable clinically. A clinical breast exam by your physician is recommended on an annual basis and results should be correlated with mammographic findings. This exam should not preclude additional follow-up of suspicious palpable abnormalities. Results were given to the patient verbally at the time of exam. [facility], , 05/31/2025 8:03 AM. Electronically signed and approved by: Anibal Garland M.D.
== END | disposition home or self-care (01) ==
LOC: RADMAMWWP 07:01
PROVIDERS: ATTEND Family Medicine
DX: R92.323 Mammographic fibroglandular density, bilateral breasts (principal); N63.22 Unspecified lump in the left breast, upper inner quadrant; Z92.0 Personal history of contraception; Z80.3 Family history of malignant neoplasm of breast
CPT/HCPCS: 77066; 76642; G0279; 77062